=== PATIENT | female | born 1945 | race Caucasian/White ===

== ENCOUNTER 2020-11-10 16:23 | Outpatient (CLI) | payer MEDICARE, SELFPAY ==
--- NOTE | ~2020-11-10 | CT_ITS ---
EXAMINATION:CT lung screening DATE: 11/10/2020 17:06 INDICATION: Personal history of tobacco dependence. Current smoker with 36 pack year history. TECHNIQUE: Computed tomography (CT) of the chest was performed without intravenous contrast. Automate d exposure control and iterative reconstruction technique were employed. The dose-length product (DLP ) was 112.11 mGy-cm. COMPARISON: Chest CT 02/23/2019 FINDINGS: There is mild emphysema. There is stable mild scarring at the lung apices. There is mild de pendent atelectasis bilaterally. There is a stable 5 mm nodule in right upper lobe. No pleural effusi on. The heart size is normal. There are coronary artery calcifications. No pericardial effusion. Ther e is mild thoracic spondylosis. IMPRESSION: 1. Lung-RADS category 2: Benign appearance or behavior. Continue annual screening with noncontrast lo w-dose chest CT in 12 months. Reviewed, dictated and finalized at location A. 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 Lung-RADS category 2: Benign appearance or behavior. Continue annual screeni ng with noncontrast low-dose chest CT in 12 months.
--- NOTE | ~2020-11-10 | MM_ITS ---
EXAMINATION: MM screening cinda BI w viky HISTORY: Screening mammogram TECHNIQUE: Craniocaudal and mediolateral oblique 3-D tomosynthesis images were obtained and synthetic 2-D images were generated. CAD analysis was submitted and interpreted. COMPARISON: 05/01/2018 diagnostic left digital mammogram 04/15/2018, 12/05/2016 bilateral digital screening mammogram examinations BREAST PARENCHYMAL COMPOSITION: The breasts are almost entirely fatty. FINDINGS: There is no evidence of suspicious mass, calcification, or architectural distortion to sugg est malignancy in either breast. There has been no suspicious interval change. IMPRESSION: 1. No mammographic evidence of malignancy. 2. Recommend routine screening mammography in one year. BI-RADS Category 1: Negative Reviewed, dictated and finalized at location A. 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
== END 2020-11-10 16:24 | disposition home or self-care (01) ==
PROVIDERS: PCP Internal Medicine; Visit Provider Internal Medicine
DX: Z12.31 Encounter for screening mammogram for malignant neoplasm of breast (principal); Z12.2 Encounter for screening for malignant neoplasm of respiratory organs; Z87.891 Personal history of nicotine dependence
CPT/HCPCS: 71271; 77063; 77067

== ENCOUNTER 2022-05-01 18:16 | Emergency (ER) | payer MEDICARE, SELFPAY ==
--- NOTE | ~2022-05-01 | XR_ITS ---
EXAMINATION: XR finger 2nd LT min 2V DATE: 05/01/2022 21:19 INDICATION: Left hand second digit laceration. TECHNIQUE: 4 views of left hand second digit were obtained. COMPARISON: Left hand radiographs 05/14/2006 FINDINGS: There is mild hyperextension of second proximal interphalangeal joint. No fracture. There i s mild osteoarthritis of second proximal and distal interphalangeal joints. There is a laceration of the distal digit. No radiopaque foreign body. IMPRESSION: 1. Mild polyarticular osteoarthritis. Reviewed, dictated and finalized at location A.
[2022-05-01 18:24] VITALS: BP 148/78; PULSE 98; RESP 18; TEMP 36.7; O2SAT 100
--- NOTE | 2022-05-01 21:06 | ED.WOUNDLAC ---
HPI - Wound/Laceration General Chief Complaint: Wound/Laceration Stated Complaint: left index finger laceration Time Seen by Provider: 05/01/22 20:04 Source: patient Mode of arrival: ambulatory Limitations: no limitations History of Present Illness HPI narrative: Patient is a 76-year-old female who presents in the ED with report of a laceration to her left second digit. Patient reports she was chopping cabbage around 1 PM today when she sustained a laceration. She wrapped her finger with a pressure dressing, but reports that it still bled, which prompted her presentation to the ED. No blood thinners. No numbness, tingling. Tetanus status unknown. Related Data Home Medications Medication Instructions Recorded Confirmed cholecalciferol (vitamin D3) 125 125 mcg PO DAILY 09/05/20 05/03/21 mcg (5,000 unit) capsule multivit with 1 tablet PO DAILY 09/05/20 05/03/21 yczoqirp-lshp-BV-lutein 8 mg iron-400 mcg-300 mcg tablet (Centrum Silver Women) Allergies Allergy/AdvReac Type Severity Reaction Status Date / Time VONNIE Inhibitors Allergy Unknown Unknown Verified 05/01/22 20:19 erythromycin base Allergy Unknown Unknown Verified 05/01/22 20:19 Macrolide Antibiotics Allergy Unknown Unknown Verified 05/01/22 20:19 olmesartan Allergy Unknown Confusion Verified 05/01/22 20:19 prednisone Allergy Unknown Unknown Verified 05/01/22 20:19 secobarbital Allergy Unknown HIVES Verified 05/01/22 20:19 cefuroxime [From Ceftin] AdvReac Mild Diarrhea Verified 05/01/22 20:19 Review of Systems Review of Systems: CONSTITUTIONAL: Denies fever. SKIN: Reports laceration to left second digit. MUSCULOSKELETAL: Denies joint pain. NEUROLOGIC: Denies tingling, numbness, or weakness. All systems reviewed & are unremarkable except as noted in HPI and below PMFSH Past Medical History Medical History (Updated 05/01/22 @ 22:16 by Rosemarie Brannon PA-C) Anxiety with depression Benign essential hypertension BMI 33.0-33.9,adult BMI 34.0-34.9,adult Colon cancer screening COPD (chronic obstructive pulmonary disease) DJD (degenerative joint disease), multiple sites DM type 2 (diabetes mellitus, type 2) Encounter for routine adult health examination without abnormal findings Encounter for screening mammogram for malignant neoplasm of breast Hiatal hernia History of falling Hyperlipidemia Injury, head Nicotine abuse On fdc drug therapy Parkinsonism Personal history of nicotine dependence Vision changes Vitamin D deficiency Surgical History Surgical History (Updated 05/01/22 @ 21:08 by Rosemarie Brannon PA-C) History of colonoscopy Family History Family History Mother Family history of diabetes mellitus in first degree relative Diabetes mellitus Father Family history of emphysema Family history of cardiovascular disease Family history of lung disease Family history of heart disease in male family member before age 55 Other Family history of malignant neoplasm Hypertension Social History Social History Smoking status: Current every day smoker Alcohol intake: never Exam Narrative: GENERAL: Well appearing, well-nourished, non-toxic, in no acute distress. HEAD: Normocephalic, atraumatic. NECK: Supple. No adenopathy, no masses. RESPIRATORY: Airway patent, respirations nonlabored. CARDIOVASCULAR: Regular rate and rhythm without murmurs, rubs, or gallops. Radial pulses 2+ and equal bilaterally. MUSCULOSKELETAL: Moves all extremities. Strength/ROM intact. Sensation intact. Curvilinear superficial flap laceration to distal second digit of left hand on flexor surface of digit extending laterally. SKIN: Warm, dry, normal color. No rashes. NEURO: A&O X3. Speech clear. Cranial nerves II-XII grossly intact. Steady gait. No ataxic movements. PSYCHIATRIC: Appropriate mood and affect. Normal interaction. Course Vital S
[2022-05-01] MEDS: TETANUS,DIPHTHERIA,AC PERTUSSIS ADULT (0.5 ML) BOOSTRIX IM (21:38)
[2022-05-01 22:35] VITALS: BP 152/96; PULSE 93; RESP 18; TEMP 36.3; O2SAT 96
== END 2022-05-01 22:35 | disposition home or self-care (01) ==
PROVIDERS: Emergency Provider Emergency Medicine; PCP Internal Medicine
DX: S61.211A Laceration without foreign body of left index finger without damage to nail, initial encounter (principal); Z23 Encounter for immunization; J44.9 Chronic obstructive pulmonary disease, unspecified; E11.9 Type 2 diabetes mellitus without complications; E78.5 Hyperlipidemia, unspecified; G20 Parkinson's disease; M19.042 Primary osteoarthritis, left hand; F17.200 Nicotine dependence, unspecified, uncomplicated; E55.9 Vitamin D deficiency, unspecified; F41.9 Anxiety disorder, unspecified; Z79.84 Long term (current) use of oral hypoglycemic drugs; W26.0XXA Contact with knife, initial encounter; Y93.G1 Activity, food preparation and clean up
CPT/HCPCS: 12001; 73140; 90471; 90715; 99283

== ENCOUNTER 2022-05-24 16:19 | Outpatient (CLI) | payer MEDICARE, SELFPAY ==
--- NOTE | ~2022-05-24 | CT_ITS ---
EXAMINATION: CT lung screening DATE: 05/24/2022 16:34 INDICATION: Personal history of nicotine dependence, current smoker with 37 pack year history TECHNIQUE: Computed tomography (CT) of the chest was performed without intravenous contrast. The dose -length product (DLP) was 102.57 mGy-cm. 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 COMPARISON: 11/10/2020 FINDINGS: There is mild emphysema. There is a stable 5 mm nodule of the right upper lobe. No new pulm onary nodules are identified. There is scarring of the lung apices. No pleural effusion or pneumothor ax. No pathologically enlarged thoracic lymph nodes are identified. The heart size is normal. Calcifi ed coronary artery atherosclerosis is noted. Areas of subendocardial fat deposition in the heart may reflect prior myocardial infarction. There is mild thoracic spondylosis. IMPRESSION: 1. Lung-RADS category 2: Benign appearance or behavior. Continue annual screening with noncontrast lo w-dose chest CT in 12 months. Reviewed, dictated and finalized at location B. IMPRESSION: 1. Lung-RADS category 2: Benign appearance or behavior. Continue annual screeni ng with noncontrast low-dose chest CT in 12 months.
== END 2022-05-24 16:20 | disposition home or self-care (01) ==
PROVIDERS: PCP Internal Medicine; Visit Provider Internal Medicine
DX: Z12.2 Encounter for screening for malignant neoplasm of respiratory organs (principal); F17.210 Nicotine dependence, cigarettes, uncomplicated
CPT/HCPCS: 71271

== ENCOUNTER 2022-07-20 10:33 | Emergency (ER) | payer MEDICARE, SELFPAY ==
--- NOTE | ~2022-07-20 | CT_ITS ---
EXAMINATION: CT facial & cervical spine wo DATE: 07/20/2022 13:14 INDICATION: Nose injury. TECHNIQUE: Computed tomography (CT) of the maxillofacial region and cervical spine was performed with out intravenous contrast. Automated exposure control and iterative reconstruction technique were empl oyed. The dose-length product was 418.44 mGy-cm. COMPARISON: CT cervical spine 04/13/2019, maxillofacial CT 03/04/2017 FINDINGS: MAXILLOFACIAL CT: There is a frontal scalp hematoma. There are likely changes of ocular lens replacement surgeries. The re is rightward deviation of the nasal septum. There are fractures of the nasal bones. There is mild mucosal thickening in the paranasal sinuses. The mastoid air cells are normal. CERVICAL SPINE CT: There is mild emphysema. There is mild scarring at the lung apices. There is kyphosis of cervical spi ne. There is 6 degrees levocurvature of cervical spine. There is 2 mm retrolisthesis of C5 on C6. Constantin tebral body heights are normal. There is moderately decreased disc height at C4-C5 and C5-C6. The fol lowing disc levels are specifically discussed: C2-C3: There is no uncovertebral joint osteoarthritis. There is mild bilateral facet joint osteoarthr itis. There is no neural foraminal stenosis. There is no central canal stenosis. C3-C4: There is mild bilateral uncovertebral joint osteoarthritis. There is no facet joint osteoarthr itis. There is no neural foraminal stenosis. There is no central canal stenosis. C4-C5: There is severe right and mild left uncovertebral joint osteoarthritis. There is mild bilatera l facet joint osteoarthritis. There is mild right neural foraminal stenosis. There is mild central ca nal stenosis. C5-C6: There is severe bilateral uncovertebral joint osteoarthritis. There is mild bilateral facet andres int osteoarthritis. There is moderate bilateral neural foraminal stenosis. There is mild central tona l stenosis. C6-C7: There is mild right uncovertebral joint osteoarthritis. There is mild bilateral facet joint os teoarthritis. There is no neural foraminal stenosis. There is no central canal stenosis. C7-T1: There is no uncovertebral joint osteoarthritis. There is moderate bilateral facet joint osteoa rthritis. There is no neural foraminal stenosis. There is no central canal stenosis. IMPRESSION: 1. Age-indeterminate fracture deformities of the nasal bones. 2. Moderate cervical spondylosis. Reviewed, dictated and finalized at location A.
--- NOTE | ~2022-07-20 | XR_ITS ---
XR elbow LT 2V DATE: 07/20/2022 13:23 INDICATION: Fall last night. Left elbow pain, posterior abrasion TECHNIQUE: AP and lateral views COMPARISON: None FINDINGS: No fracture or dislocation or joint effusion. No periosteal reaction or bone destruction. IMPRESSION: Negative Reviewed, dictated and finalized at location A. IMPRESSION: Negative
--- NOTE | ~2022-07-20 | CT_ITS ---
EXAMINATION: CT brain wo con DATE: 07/20/2022 13:14 INDICATION: Head injury. Vertigo. TECHNIQUE: Computed tomography (CT) of the head was performed without intravenous contrast. The mA wa s adjusted according to patient size. Iterative reconstruction technique was employed. The dose-lengt h product was 605.33 mGy-cm. COMPARISON: Head CT 04/13/2019 FINDINGS: There are scattered areas of low attenuation in the cerebral white matter. There is no intr acranial hemorrhage, acute infarction, or abnormal intracranial mass lesion. The ventricles are jessica l in size. There are likely changes of ocular lens replacement surgeries. There is an anterior scalp hematoma. The paranasal sinuses are clear. The mastoid air cells are normal. IMPRESSION: 1. Mild nonspecific cerebral white matter disease, which likely represents chronic small vessel ische ingrid disease. Reviewed, dictated and finalized at location A. IMPRESSION: 1. 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
[2022-07-20 10:52] VITALS: BP 131/88; PULSE 91; RESP 16; TEMP 36.4; O2SAT 98
--- NOTE | 2022-07-20 12:46 | ECG_ITS ---
Measurements Intervals [place] Rate: 78 P: 65 [place]: 161 QRS: 36 QRSD: 96 T: 81 QT: 399 QTc: 456 Interpretive Statements SINUS RHYTHM DELAYED PRECORDIAL R/S TRANSITION LOW QRS VOLTAGE IN PRECORDIAL LEADS BORDERLINE ST-T WAVE ABNORMALITY- ANT/HIGH LAT LEADS BASELINE ARTIFACT- I, III, AVL BORDERLINE ECG NO PREVIOUS ECG AVAILABLE FOR COMPARISON Electronically Signed On 07-20-2022 14:16:25 CDT by Terry Maxwell D.O.
--- NOTE | 2022-07-20 13:04 | ED.FALL ---
HPI - Fall General Chief Complaint: Fall Stated Complaint: Fall, head injury Time Seen by Provider: 07/20/22 12:05 History of Present Illness HPI Narrative: This is a 76-year-old female past medical history of BPPV, Parkinson's, diabetes, who presents to the emergency department after multiple falls last night. Patient states yesterday evening she was walking on her porch, when she had a sudden onset of vertigo leading to fall, striking her head. She states this episode of vertigo was similar to previous episodes of BPPV. She states she fell asleep. The patient states she was weak and unable to lift her self from the ground, she attempted to stand and walk 2 additional times and fell 2 additional times both times striking her head. She believes she was on the ground for approximately 5 hours. She complains of some tenderness of the bilateral elbows and knees, the left elbow greatest of all. She also complains of 8 out of 10 dull headache greatest at the frontal region without radiation. Related Data Home Medications Medication Instructions Recorded Confirmed cholecalciferol (vitamin D3) 125 125 mcg PO DAILY 09/05/20 05/15/22 mcg (5,000 unit) capsule multivit with 1 tablet PO DAILY 09/05/20 05/15/22 vptqgdfw-hajo-XA-lutein 8 mg iron-400 mcg-300 mcg tablet (Centrum Silver Women) Allergies Allergy/AdvReac Type Severity Reaction Status Date / Time VONNIE Inhibitors Allergy Unknown Unknown Verified 05/14/22 13:38 erythromycin base Allergy Unknown Unknown Verified 05/14/22 13:38 Macrolide Antibiotics Allergy Unknown Unknown Verified 05/14/22 13:38 olmesartan Allergy Unknown Confusion Verified 05/14/22 13:38 prednisone Allergy Unknown Unknown Verified 05/14/22 13:38 secobarbital Allergy Unknown HIVES Verified 05/14/22 13:38 cefuroxime [From Ceftin] AdvReac Mild Diarrhea Verified 05/14/22 13:38 Review of Systems Review of Systems: CONSTITUTIONAL: Denies fever, chills, or sweats. EYES: Denies visual changes, redness, or discharge. ENT: Denies rhinorrhea, congestion, sore throat, or otalgia. CARDIOVASCULAR: Denies chest pain, palpitations, or edema. RESPIRATORY: Denies cough or dyspnea. GASTROINTESTINAL: Denies abdominal pain, nausea, vomiting, or diarrhea. GENITOURINARY: Denies dysuria or hematuria. SKIN: Denies rash or itching. MUSCULOSKELETAL: Bilateral elbow and knee pain, left elbow greatest of all; denies back pain, joint pain, or myalgia. NEUROLOGIC: Headache, intermittent vertigo denies numbness, dizziness, or weakness. PSYCHIATRIC: Denies anxiety or depression. [facility] Past Medical History Medical History Anxiety with depression Benign essential hypertension BMI 30.0-30.9,adult BMI 33.0-33.9,adult BMI 34.0-34.9,adult Colon cancer screening COPD (chronic obstructive pulmonary disease) DJD (degenerative joint disease), multiple sites DM type 2 (diabetes mellitus, type 2) Encounter for routine adult health examination without abnormal findings Encounter for screening mammogram for malignant neoplasm of breast Hiatal hernia History of falling Hyperlipidemia Injury, head Laceration of finger of left hand Nicotine abuse Non-intractable vomiting On correction drug therapy Pain of left calf Parkinsonism Personal history of nicotine dependence Sebaceous cyst Shortness of breath Slurred speech Swollen lip Vision changes Vitamin D deficiency Surgical History Surgical History History of colonoscopy Family History Family History Mother Family history of diabetes mellitus in first degree relative Diabetes mellitus Father Family history of emphysema Family history of cardiovascular disease Family history of lung disease Family history of heart disease in male family member before age 55 Other Family history of malignant neoplasm Hyperten
[2022-07-20 13:16] LABS: Basophils Percent Auto 0.3 % (0.2-1.2); Eosinophils Percent Auto 0.4 % (0-4.4); Hematocrit 39.9 % (37.0-47.0); Hemoglobin 13.1 g/dL (12.0-15.0); Immature Granulocyte Absolute 0.05 K/mm3 (0.00-0.031); Immature Granulocyte Percent A 0.5 % (0-0.5); Lymphocytes Absolute Auto 1.34 K/mm3 (0.9-3.2); Lymphocytes Percent Auto 12.5 % (18.3-44.2); Mean Corpuscular HGB Conc 32.8 g/dl (32-36); Mean Corpuscular Volume 97.6 fl (80-100); Mean Platelet Volume 9.4 fl (7.4-10.4); Monocytes Percent Auto 9.1 % (2.6-8.5); Neutrophils Absolute Auto 8.3 K/mm3 (1.3-6.7); Neutrophils Percent Auto 77.2 % (45.5-73.1); Platelet Count Result 299 k/mm3 (150-375); Red Blood Count 4.09 M/mm3 (4.2-5.4); White Blood Count 10.7 K/mm3 (4.5-10.0)
[2022-07-20 13:18] LABS: Alanine Aminotransferase 15 U/L (6-35); Alkaline Phosphatase 130 U/L (38-126); Anion Gap 15 mmol/L (8-16); Aspartate Amino Transferase 59 U/L (14-36); Bilirubin,Total 0.7 mg/dL (0.2-1.3); Blood Urea Nitrogen 27 mg/dL (7-17); Calcium 8.7 mg/dL (8.4-10.2); Carbon Dioxide 25 mmol/L (22-30); Chloride 96 mmol/L (98-107); Creatine Kinase 1202 U/L (30-135); Estimated CRCL calculation 54 ml/min; Estimated Glomerular Filt Rate > 60; Glucose 119 mg/dL (65-110); Potassium 3.7 mmol/L (3.4-5.0); Sodium 136 mmol/L (137-145)
[2022-07-20] MEDS: SODIUM CHLORIDE 0.9% IV 1,000 ML 999 ML IV CONT ×2 (14:23→16:00)
[2022-07-20 15:52] LABS: Creatine Kinase 1256 U/L (30-135)
[2022-07-20 17:41] VITALS: BP 135/79; PULSE 85; RESP 18; O2SAT 100
== END 2022-07-20 17:42 | disposition home or self-care (01) ==
PROVIDERS: Emergency Provider Preventive Medicine Aerospace Medicine; PCP Internal Medicine
DX: S00.83XA Contusion of other part of head, initial encounter (principal); S50.02XA Contusion of left elbow, initial encounter; S50.01XA Contusion of right elbow, initial encounter; R79.89 Other specified abnormal findings of blood chemistry; H81.10 Benign paroxysmal vertigo, unspecified ear; G20 Parkinson's disease; E11.9 Type 2 diabetes mellitus without complications; I10 Essential (primary) hypertension; J44.9 Chronic obstructive pulmonary disease, unspecified; E78.5 Hyperlipidemia, unspecified; E55.9 Vitamin D deficiency, unspecified; F41.8 Other specified anxiety disorders; F17.200 Nicotine dependence, unspecified, uncomplicated; Z79.84 Long term (current) use of oral hypoglycemic drugs; R94.31 Abnormal electrocardiogram [ECG] [EKG]; W19.XXXA Unspecified fall, initial encounter
CPT/HCPCS: 36415; 70450; 70486; 72125; 73070; 80053; 82550; 85025; 93005; 96361; 96365; 99284; J0131; J7030

== ENCOUNTER 2022-07-27 10:34 | Inpatient (IN) | payer MEDICARE, SELFPAY ==
[2022-07-27] VITALS (29 sets, daily range): BP systolic 106–152; BP diastolic 59–105; PULSE 91–113; RESP 19–42; TEMP 36.6–37.6; O2SAT 93–100; BMI 30.1
--- NOTE | ~2022-07-27 | XR_ITS ---
EXAMINATION: XR chest 2V DATE: 07/27/2022 11:57 INDICATION: Weakness, multiple falls TECHNIQUE: AP and lateral views of the chest are obtained. COMPARISON: 08/16/2015 FINDINGS: There are minimal airspace opacities of the lung bases. Small pleural effusions are present . There is no pneumothorax. The cardiomediastinal silhouette is normal. There is moderate thoracic sp ondylosis. IMPRESSION: 1. Minimal bibasilar airspace opacity, consistent with atelectasis versus pneumonia. 2. Small pleural effusions. Reviewed, dictated and finalized at location B. OLOGY TEACHER IMPRESSION: 1. Minimal bibasilar airspace opacity, consistent with atelectasis versus pneum onia. 2. Small pleural effusions.
--- NOTE | ~2022-07-27 | XR_ITS ---
EXAMINATION: XR knee RT min 4V DATE: 07/27/2022 11:58 INDICATION: Right knee pain TECHNIQUE: Four views of the right knee were obtained. COMPARISON: None. FINDINGS: Alignment is normal. No fracture or osteochondral lesion. There is mild tricompartmental os teoarthritis characterized by tiny marginal osteophytes. No joint effusion/synovitis. Soft tissues a re unremarkable. IMPRESSION: 1. No acute osseous abnormality. Reviewed, dictated and finalized at location B. K PULLER
--- NOTE | ~2022-07-27 | CT_ITS ---
EXAMINATION: CT brain wo con INDICATION: Multiple falls, altered mental status COMPARISON: 07/20/2022 TECHNIQUE: Standard unenhanced head CT. The dose-length product (DLP) was 605.33 mGy-cm. The mA was a djusted according to patient size. Iterative reconstruction technique was employed. FINDINGS: There is no acute intraparenchymal hemorrhage. No evidence of mass lesion. No evidence of a cute infarction. There is an old lacunar infarct of the left basal ganglia. There is mild periventric ular and subcortical hypodensity probably related to small vessel ischemic disease. There is mild pro minence of the sulci and ventricles related to cerebral atrophy. Intracranial calcified cerebral athe rosclerosis is noted. There are no extra-axial collections. There is no mass effect or midline shift. Changes in the globes are likely from ocular lens surgery. There is mild mucosal thickening of the p aranasal sinuses. IMPRESSION: 1. No acute intracranial abnormality. 2. Age related findings. Reviewed, dictated and finalized at location B. ACOUSTIC OPERATOR
--- NOTE | ~2022-07-27 | US_ITS ---
US venous doppler UE DATE: 07/29/2022 13:07 INDICATION: Tachypnea TECHNIQUE: Real-time and color flow imaging and Doppler analysis of the veins of the upper extremitie s COMPARISON: None FINDINGS: The jugular, subclavian, axillary, brachial, basilic, cephalic and radial and ulnar veins a re patent bilaterally, without evidence of intraluminal thrombus incomplete compression. IV catheter is noted in the left cephalic vein. IMPRESSION: No evidence of deep venous anastomosis of the upper extremities Reviewed, dictated and finalized at Location A. Reviewed, dictated and finalized at location A. BOTTOMER
--- NOTE | ~2022-07-27 | XR_ITS ---
EXAMINATION: XR knee LT min 4V DATE: 07/27/2022 11:58 INDICATION: Left knee pain TECHNIQUE: Four views of the left knee were obtained. COMPARISON: None. FINDINGS: Alignment is normal. No fracture or osteochondral lesion. There is mild tricompartmental os teoarthritis characterized by tiny marginal osteophytes. No joint effusion/synovitis. Soft tissues a re unremarkable. IMPRESSION: 1. No acute osseous abnormality. Reviewed, dictated and finalized at location B. E DELIVERY SUPERVISOR
--- NOTE | ~2022-07-27 | US_ITS ---
US renal BI DATE: 07/29/2022 13:08 INDICATION: Acute renal insufficiency TECHNIQUE: Real-time imaging of kidneys and urinary bladder COMPARISON: None FINDINGS: The right kidney measures approximately 10.2 cm length, left kidney 12 cm length. No apparent renal mass lesion is evident on this limited examination. No hydronephrosis is detected. IMPRESSION: Limited examination; consider CT examination for more optimal demonstration of the kidney s Reviewed, dictated and finalized at Location A. Reviewed, dictated and finalized at location A. GER OF ENTERPRISE IMPRESSION: Limited examination; consider CT examination for more optimal demon stration of the kidneys
--- NOTE | ~2022-07-27 | XR_ITS ---
XR hip LT 2V w AP pelvis DATE: 07/28/2022 18:50 INDICATION: Left anterior thigh pain TECHNIQUE: AP pelvis. AP and lateral views of left hip. COMPARISON: None FINDINGS: No pelvic fracture or bone destruction. The pubic symphysis and sacroiliac joints are intac t. No fracture or dislocation, avascular necrosis or bone destruction of the left hip. Hip joint spac es are symmetric and well preserved. Abdominal aortic and iliac arterial calcifications. IMPRESSION: No significant bony abnormality of the pelvis or left hip Reviewed, dictated and finalized at location A. AL OPERATOR
--- NOTE | ~2022-07-27 | XR_ITS ---
EXAMINATION: XR tibia fibula LT 2V INDICATION: Left leg pain TECHNIQUE: Two views of the left tibia and fibula are obtained. COMPARISON: None available FINDINGS: No fracture, dislocation, or subluxation. The bones, soft tissues, and joint spaces are nor mal. IMPRESSION: 1. No acute osseous abnormality. Reviewed, dictated and finalized at location B. I OPERATION FORMING MACHINE SETTER
--- NOTE | ~2022-07-27 | US_ITS ---
US venous doppler [facility] DATE: 07/29/2022 13:06 INDICATION: Tachypnea TECHNIQUE: Real-time and color flow imaging and Doppler analysis of the veins of the lower extremitie s COMPARISON: None FINDINGS: There is spontaneous and phasic flow and normal augmentation and color flow signal and norm al compression of the veins of both lower extremities. IMPRESSION: No evidence of deep venous thrombosis of the lower extremities Reviewed, dictated and finalized at Location A. Reviewed, dictated and finalized at location A. [employer]
--- NOTE | ~2022-07-27 | CT_ITS ---
EXAMINATION: CT facial & cervical spine wo DATE: 07/27/2022 12:05 INDICATION: Neck pain and facial bruising TECHNIQUE: Computed tomography (CT) of the maxillofacial region and cervical spine was performed with out intravenous contrast. The dose-length product (DLP) was 398.59 mGy-cm. Automated exposure control and iterative reconstruction technique were employed. COMPARISON: 07/20/2022 FINDINGS: MAXILLOFACIAL CT: Again noted are age indeterminate fractures of the nasal bones. No definite new facial fracture is id entified. There is mild mucosal thickening of the paranasal sinuses. There is rightward deviation of the nasal septum. CERVICAL SPINE CT: There are 2 mm of retrolisthesis of C5 on C6. The vertebral body heights are normal. There is moderat e loss of intervertebral disc space height at C4-5 and C5-6. The odontoid is intact. There is no frac ture. Small degenerative osteophytes project from the anterior endplates of multiple vertebral bodies . IMPRESSION: 1. Age indeterminate bilateral nasal bone fractures. 2. Moderate cervical spondylosis without acute findings or significant interval change. Reviewed, dictated and finalized at location B. PRESIDENT OF TALENT MANAGEMENT
--- NOTE | 2022-07-27 10:36 | ECG_ITS ---
Measurements Intervals [place] Rate: 100 P: 56 [place]: 111 QRS: 0 QRSD: 90 T: 53 QT: 348 QTc: 450 Interpretive Statements SINUS TACHYCARDIA WITH SHORT MI INTERVAL ATRIAL PREMATURE COMPLEX LOW QRS VOLTAGE IN PRECORDIAL LEADS BORDERLINE R WAVE PROGRESSION, ANTERIOR LEADS BASELINE ARTIFACT- I, II, III, AVR, AVL, AVF, V1-V6 BORDERLINE ECG COMPARED TO ECG 07/20/2022 14:09:06 SINUS TACHYCARDIA NOW PRESENT Electronically Signed On 07-27-2022 11:55:02 SULFATE DRIER MACHINE OPERATOR by Terry Maxwell D.O.
[2022-07-27 10:55] LABS: Basophils Absolute Auto 0.1 K/mm3 (0.0-0.1); Basophils Percent Auto 0.4 % (0.2-1.2); Eosinophils Percent Auto 0.2 % (0-4.4); Hematocrit 34.1 % (37.0-47.0); Hemoglobin 11.6 g/dL (12.0-15.0); Immature Granulocyte Absolute 0.13 K/mm3 (0.00-0.031); Immature Granulocyte Percent A 0.8 % (0-0.5); Lymphocytes Absolute Auto 1.23 K/mm3 (0.9-3.2); Lymphocytes Percent Auto 7.2 % (18.3-44.2); Mean Corpuscular Hemoglobin 31.5 pg (26-34); Mean Corpuscular Volume 92.7 fl (80-100); Mean Platelet Volume 9.3 fl (7.4-10.4); Monocytes Absolute Auto 0.9 K/mm3 (0.1-0.6); Neutrophils Absolute Auto 14.8 K/mm3 (1.3-6.7); Neutrophils Percent Auto 86.4 % (45.5-73.1); Platelet Count Result 343 k/mm3 (150-375); Red Blood Count 3.68 M/mm3 (4.2-5.4); Red Cell Distribution Width 13.3 % (11.5-14.5); White Blood Count 17.1 K/mm3 (4.5-10.0)
--- NOTE | 2022-07-27 11:08 | ED.WEAKNESS ---
HPI - Weakness General Chief complaint: Weakness <NAYANA Lares Last Filed: 07/27/22 16:36> Stated complaint: weakness and falls <NAYANA Lares Last Filed: 07/27/22 16:36> Time Seen by Provider: 07/27/22 10:59 <NAYANA Lares Last Filed: 07/27/22 16:36> Source: patient, family and old records reviewed <NAYANA Lares Last Filed: 07/27/22 16:36> Mode of arrival: EMS <NAYANA Lares Last Filed: 07/27/22 16:36> Limitations: no limitations <NAYANA Lares Last Filed: 07/27/22 16:36> History of Present Illness HPI Narrative: Patient is a 76-year-old female who presents the ED via with report of weakness and frequent falls. Patient family at bedside assisted in providing information. They report patient has had several falls within the last 1 week. She does have scattered bruising on exam, different stages of healing. She was evaluated in the ED on 07/20 after a fall in which she laid on the ground for 5 hours. She was found to be in very mild rhabdo, given 2 L of fluid, refused admission at that time. Patient continues to feel very weak and fatigued. Several areas of pain, bilateral knees, left sexton, head/face. Unknown LOC with fall today. <NAYANA Lares Last Filed: 07/27/22 16:36> Related Data Home medications: Home Medications Medication Instructions Recorded Confirmed cholecalciferol (vitamin D3) 125 125 mcg PO DAILY 09/05/20 07/27/22 mcg (5,000 unit) capsule multivit with 1 tablet PO DAILY 09/05/20 07/27/22 aikyrgdw-noof-LO-lutein 8 mg iron-400 mcg-300 mcg tablet (Centrum Silver Women) carbidopa 25 mg-levodopa 100 mg 1 tablet PO QID 07/27/22 07/27/22 tablet fluticasone propionate 50 2 spray intranasal DAILY 07/27/22 07/27/22 mcg/actuation nasal spray,suspension losartan 50 mg tablet 50 mg PO DAILY 07/27/22 07/27/22 meclizine 25 mg tablet 25 mg PO TID 07/27/22 07/27/22 metformin 500 mg tablet 500 mg PO BIDWM 07/27/22 07/27/22 paroxetine HCl 20 mg tablet 20 mg PO DAILY 07/27/22 07/27/22 pravastatin 20 mg tablet 20 mg PO DAILY 07/27/22 07/27/22 <Rosemarie Beck PA-C - Last Filed: 07/27/22 16:36> Allergies/Adverse reactions: Allergies Allergy/AdvReac Type Severity Reaction Status Date / Time VONNIE Inhibitors Allergy Unknown Unknown Verified 05/14/22 13:38 erythromycin base Allergy Unknown Unknown Verified 05/14/22 13:38 Macrolide Antibiotics Allergy Unknown Unknown Verified 05/14/22 13:38 olmesartan Allergy Unknown Confusion Verified 05/14/22 13:38 prednisone Allergy Unknown Unknown Verified 05/14/22 13:38 secobarbital Allergy Unknown HIVES Verified 05/14/22 13:38 cefuroxime [From Ceftin] AdvReac Mild Diarrhea Verified 05/14/22 13:38 <Rosemarie Beck PA-C - Last Filed: 07/27/22 16:36> Review of Systems Review of Systems: CONSTITUTIONAL: Reports fatigue. Denies fever, chills, or sweats. CARDIOVASCULAR: Denies chest pain. RESPIRATORY: Denies dyspnea. GASTROINTESTINAL: Denies abdominal pain, nausea, vomiting. SKIN: Reports scattered ecchymosis. MUSCULOSKELETAL: Reports pain to bilateral knees, L sexton, face/head. NEUROLOGIC: Reports generalized weakness, HI. Denies numbness. <NAYANA Lares Last Filed: 07/27/22 16:36> All systems reviewed & are unremarkable except as noted in HPI and below <NAYANA Lares Last Filed: 07/27/22 16:36> PMFSH Past Medical History Medical History: Medical History (Updated 07/27/22 @ 18:31 by Ivonne Manzo NP) Anxiety with depression Benign essential hypertension BMI 30.0-30.9,adult BMI 33.0-33.9,adult BMI 34.0-34.9,adult Colon cancer screening COPD (chronic obstructive pulmonary disease) Depression DJD (degenerative joint disease), multiple sites DM type 2 (diabetes mellitus, type 2) Encounter for routine adult health examination without abnormal findings Encounter f
[2022-07-27 12:31] LABS: Creatine Kinase 84 U/L (30-135)
[2022-07-27 12:43] LABS: Troponin I 0.316 ng/mL (0.000-0.034)
[2022-07-27 12:49] LABS: Influenza A QL RT-PCR Negative (Negative); Influenza B QL RT-PCR Negative (Negative); SARS-CoV-2 RNA PCR Negative
[2022-07-27 13:32] LABS: Alanine Aminotransferase 37 U/L (6-35); Albumin Level 2.8 g/dL (3.5-5.1); Alkaline Phosphatase 223 U/L (38-126); Anion Gap 13 mmol/L (8-16); Aspartate Amino Transferase 37 U/L (14-36); Bilirubin,Total 0.8 mg/dL (0.2-1.3); Blood Urea Nitrogen 30 mg/dL (7-17); Calcium 8.2 mg/dL (8.4-10.2); Carbon Dioxide 18 mmol/L (22-30); Chloride 103 mmol/L (98-107); Estimated Glomerular Filt Rate 40; Glucose 140 mg/dL (65-110); Potassium 3.8 mmol/L (3.4-5.0); Sodium 134 mmol/L (137-145)
[2022-07-27 13:57] LABS: Appearance Urine Turbid (Clear); Bilirubin Urine 2+ (Negative); Blood Urine 2+ (Negative); Color Urine Yellow (Yellow); Glucose Urine UA Negative (Negative); Ketones Urine 1+ mg/dL (Negative); Leukocyte Esterase Ur 2+ LEU/UL (Negative); Nitrate Urine Negative (Negative); Protein Urine 2+ mg/dL (Negative); Specific Grav Ur 1.015 (1.001-1.035)
[2022-07-27 14:12] LABS: Lactic Acid Reflex 1.3 mmol/L (0.7-2.0)
[2022-07-27 14:16] LABS: Bacteria Urine 1+ /hpf; RBC Urine 21-50 /hpf (0-2); Squamous Epithelial Cell Urine Moderate /hpf (Few); WBC Clumps Urine Present /HPF; WBC Urine >75 /hpf
[2022-07-27 14:37] LABS: Add Urine Microscopic? YES
[2022-07-27] MEDS: SODIUM CHLORIDE 0.9% IV 1,000 ML 999 ML IV CONT (14:44)
--- NOTE | 2022-07-27 15:08 | PC.NURSE ---
Contacted [facility] about drawing labs. Informed it would take a while. Patient and family updated.
--- NOTE | 2022-07-27 15:15 | PM.IMHP ---
H&P: HPI History of Present Illness Date/Time: 07/27/22 15:15 Chief Complaint: Weakness and fall Narrative: This is a 76-year-old female patient who has had multiple falls. The patient has a history of Parkinson's and lives home alone. The daughter is at the bedside helping with the information. The patient fell a week ago last . The patient stated that she had received an [employer] package and went outside to get her pack each and all she remembers is that she was at the bottom of the steps. Patient has multiple bruises all over her face and her arms. She has an abrasion to her right hand. According to the daughter the patient has fallen 3 times this past week. The patient was evaluated in the emergency room on 07/20 after a fall where she had lay on the ground for 5 hours. The patient had mild rhabdo at that time she was given 2 L of fluid and refused admission at that time. Now the patient is back with complaints of fatigue and weakness. Head CT was read as the following 1. Age indeterminate bilateral nasal bone fractures. 2. Moderate cervical spondylosis without acute findings or significant interval change. Knee x-ray on the left was read as no acute osseous abnormality. Left tibia fibula no acute osseous abnormality. Right knee no acute osseous abnormality. Head CT no acute intracranial abnormality. Age-related findings. Chest x-ray minimal bibasilar airspace opacities consistent with atelectasis versus pneumonia. Small pleural effusions. White count is noted to be 17.1. H&H is 11.6 and 34.1. Last week her H&H was normal. Sodium slightly low at 134. Creatinine 1.3 with a previous normal kidney function. Troponin 0.316. The patient is denying any chest pain at this time. Urine appears to be infectious. Influenza a B and COVID are all found to be negative. The patient was started on IV fluids and Rocephin. The patient is being admitted to observation status on the date of service of 07/27/2022 Review of Systems Review of Systems: See HPI All systems reviewed & are unremarkable except as noted in HPI and below Constitutional: Constitutional: Reports as per HPI and Reports no additional constitutional complaints Eyes: Eyes: Reports as per HPI and Reports no additional eye complaints ENT: Reports system reviewed and no additional complaints, except as documented and Reports Normal hearing present Cardiovascular: Cardiovascular: Reports no additional cardiovascular complaints Respiratory: Respiratory: Reports no additional respiratory complaints and Reports no additional respiratory complaints Gastrointestinal: Gastrointestinal: Reports as per HPI and Reports no additional gastrointestinal complaints Musculoskeletal: Musculoskeletal: Reports no additional musculoskeletal complaints Integumentary/Breasts: Skin/Breast: Reports system reviewed and no additional complaints, except as docu and Reports as per HPI Neurologic: Reports system reviewed and no additional complaints, except as documented, Reports as per HPI and Reports Normal hearing present Psychiatric: Psychiatric: Reports no additional psychiatric complaints and Reports as per HPI Endocrine: Endocrine: Reports no additional endocrine complaints Hematologic/Lymphatic: Hematologic/Lymphatic: Reports no additional hematologic/lymphatic complaints Allergic/Immunologic: Allergic/Immunologic: Reports no additional allergic/immunologic complaints PMF Past Medical History Medical History (Updated 07/27/22 @ 18:31 by Ivonne Manzo NP) Anxiety with depression Benign essential hypertension BMI 30.0-30.9,adult BMI 33.0-33.9,adult BMI 34.0-34.9,adult Colon cancer screening COPD (chronic obstructive pulmonary disease) Depression DJD (degenerative joint disease), multiple sites DM type 2 (diabetes mellitus, type 2) Encounter for routine adult health examination without abnormal findings Encounter for screening mammogram for malignant neoplasm of breast
--- NOTE | 2022-07-27 18:35 | ADMGEN ---
This patient, Emilee Bagley, was admitted to IMU Room 206-02. Patient/family oriented to hospital policies and general routines including ID bracelet, bed and alarms, visiting hours, pain management, procedures, bathroom and other care routines, personal items, smoking policy, room service/diet, and visiting hours. Information on how to activate the Rapid Response Team has been discussed. Patient/Family are encouraged to report perceived risks to care and to ask questions if they do not understand what they are told or what they should do.
[2022-07-27 19:05] LABS: Troponin I 0.246 ng/mL (0.000-0.034)
[2022-07-27 21:03] LABS: Hemoglobin A1C 5.5 % (<5.7)
[2022-07-28] VITALS (19 sets, daily range): BP systolic 100–144; BP diastolic 42–83; PULSE 77–119; RESP 18–22; TEMP 35.9–38.2; O2SAT 94–100
[2022-07-28 04:33] LABS: Basophils Percent Auto 0.2 % (0.2-1.2); Eosinophils Absolute Auto 0.1 K/mm3 (0-0.3); Eosinophils Percent Auto 0.6 % (0-4.4); Hematocrit 29.8 % (37.0-47.0); Hemoglobin 9.9 g/dL (12.0-15.0); Immature Granulocyte Percent A 0.8 % (0-0.5); Lymphocytes Percent Auto 10.8 % (18.3-44.2); Mean Corpuscular HGB Conc 33.2 g/dl (32-36); Mean Corpuscular Hemoglobin 31.1 pg (26-34); Mean Corpuscular Volume 93.7 fl (80-100); Mean Platelet Volume 8.9 fl (7.4-10.4); Monocytes Absolute Auto 0.8 K/mm3 (0.1-0.6); Monocytes Percent Auto 6.4 % (2.6-8.5); Neutrophils Absolute Auto 10.6 K/mm3 (1.3-6.7); Neutrophils Percent Auto 81.2 % (45.5-73.1); Platelet Count Result 276 k/mm3 (150-375); Red Blood Count 3.18 M/mm3 (4.2-5.4); Red Cell Distribution Width 13.4 % (11.5-14.5)
[2022-07-28 04:50] LABS: Alanine Aminotransferase 44 U/L (6-35); Albumin Level 2.7 g/dL (3.5-5.1); Alkaline Phosphatase 193 U/L (38-126); Anion Gap 10 mmol/L (8-16); Aspartate Amino Transferase 54 U/L (14-36); Bilirubin,Total 0.5 mg/dL (0.2-1.3); Blood Urea Nitrogen 25 mg/dL (7-17); Calcium 7.8 mg/dL (8.4-10.2); Carbon Dioxide 23 mmol/L (22-30); Chloride 104 mmol/L (98-107); Creatine Kinase 85 U/L (30-135); Estimated CRCL calculation 34 ml/min; Estimated Glomerular Filt Rate 40; Glucose 112 mg/dL (65-110); Lactic Acid Reflex 1.2 mmol/L (0.7-2.0); Magnesium 2.1 mg/dL (1.6-2.3); Potassium 3.4 mmol/L (3.4-5.0); Sodium 137 mmol/L (137-145)
[2022-07-28 08:09] LABS: Glucose Point of Care 99 mg/dl (65-105)
[2022-07-28] MEDS: FLUTICASONE/UMECLIDIN/VILANTER 100-62.5-25 MCG ELLIPTA 1 PUFF INHALATION (08:29)
[2022-07-28] MEDS: CHOLECALCIFEROL 1,000 UNITS TABLET 5000 UNITS PO (10:18)
[2022-07-28] MEDS: CARBIDOPA/LEVODOPA 25/100 MG TABLET 1 TABLET PO ×4 (10:19→21:12)
[2022-07-28] MEDS: PARoxetine 20 MG TABLET PO (10:19)
[2022-07-28] MEDS: THERAPEUTIC MULTIVITAMINS/MINERALS TAB (*BKC) 1 TABLET PO (10:19)
[2022-07-28] MEDS: NICOTINE (*PBKC) 21 MG PATCH 1 PATCH TRANSDERM (10:20)
[2022-07-28] MEDS: MECLIZINE HCL 25 MG TABLET PO ×3 (10:20→17:11)
[2022-07-28] MEDS: FLUTICASONE PROPIONATE 0.05% NA SPR 16 GM BTL (*BKC) 2 SPRAY NASAL (10:20)
--- NOTE | 2022-07-28 11:37 | WPDNEURCNPN ---
Assessment and Plan Assessment and plan (1) Parkinsonism: Code(s): G20 - Parkinson's disease Status: Acute (2) Urinary tract infection: Qualifiers: Hematuria presence: with hematuria Urinary tract infection type: acute cystitis Qualified Code(s): N30.01 - Acute cystitis with hematuria Code(s): N39.0 - Urinary tract infection, site not specified Status: Acute (3) Frequent falls: Code(s): R29.6 - Repeated falls Status: Acute Assessment and Plan: Ms. Bagley is a 76 year old female with a history of Parkinson's presenting after a 1 week history of repeated falls, found to have UTI. It's possible that the falls are due to AMS from UTI vs exacerbation of Parkinson's from UTI. It's hard to get a sense of what her PD symptoms were like before the past week. I did not notice any significant tremor or rigidity on exam today, although it's possibly that gait instability is present. I would hold off on any medication adjustments, until patient has been treated for underlying infection and is back to baseline. - Continue Sinemet 25/100mg QID Consult date: 07/28/22 Time Seen: 11:37 Reason for consult: Parkinson's Disease HPI: Emilee Bagley is a 76 year old female with a history of Parkinson's disease presenting after a fall. Patient lives alone and for the past week, she has fallen three times. She presented initially to the ED on 07/20 after a fall. She was given IV fluids at the time for rhapdomyelisis. She presented to the ED again on 07/27 after a subsequent fall. In the ED she was found to have a UTI an subsequently admitted on IV antibiotics. There is concern that recent falls may be due to Parkinson's. She takes Sinemet 25-100mg QID, prescribed by her Neurologist. Patient was not able to give further information regarding PD related symptoms prior to the fall such how the tremor and gait has responded to the Sinemet. Review of Systems Review of Systems: ROS unobtainable: Yes unobtainable due to mental status PMFSH Past Medical History Medical History Anxiety with depression Benign essential hypertension BMI 30.0-30.9,adult BMI 33.0-33.9,adult BMI 34.0-34.9,adult Colon cancer screening COPD (chronic obstructive pulmonary disease) Depression DJD (degenerative joint disease), multiple sites DM type 2 (diabetes mellitus, type 2) Encounter for routine adult health examination without abnormal findings Encounter for screening mammogram for malignant neoplasm of breast Hiatal hernia History of falling Hyperlipidemia Injury, head Laceration of finger of left hand Nicotine abuse Non-intractable vomiting On usp drug therapy Pain of left calf Parkinsonism Personal history of nicotine dependence Sebaceous cyst Shortness of breath Slurred speech Swollen lip Vision changes Vitamin D deficiency Surgical History Surgical History H/O rhinoplasty History of colonoscopy History of laparoscopic appendectomy History of removal of pigmented skin lesion Hx of cornea transplant Family History Family History Mother Family history of diabetes mellitus in first degree relative Diabetes mellitus Father Family history of emphysema Family history of cardiovascular disease Family history of lung disease Family history of heart disease in male family member before age 55 Other Family history of malignant neoplasm Hypertension Social History Social History Social History: The patient is and has 3 children. 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 She continues to smoke a pack a cigarettes a day. She denies any alcohol marijuana or illicit drugs. Code status full code Smoking packs pe
[2022-07-28 12:25] LABS: Glucose Point of Care 186 mg/dl (65-105)
[2022-07-28 16:31] LABS: Glucose Point of Care 116 mg/dl (65-105)
--- NOTE | 2022-07-28 17:57 | PM.IMPN ---
Progress Note: A&P Assessment and Plan (1) Elevated troponin: Code(s): R77.8 - Other specified abnormalities of plasma proteins Status: Acute Assessment and Plan: Troponin checked for unclear reasons and were elevated to 0.3. Repeat value trending down. The patient is not complaining of any chest pain. EKG showing sinus tachycardia rate 100 with low voltage and borderline R wave progression. CXR showing minimal bibasilar airspace opacities atelectasis versus pneumonia. Currently on Rocephin for UTI. Could be related to acute kidney injury. Will check echocardiogram to assess for wall motion abnormalities. (2) Acute kidney injury: Code(s): N17.9 - Acute kidney failure, unspecified Status: Acute Assessment and Plan: Patient's creatinine is elevated to 1.3 but her previous values were normal. On losartan at home. Could be dehydration. Total CK normal now but was elevated 1 week ago. Losartan and Metformin on hold currently. Follow for now. Avoid any nephrotoxic medication. NS x 1 liter (3) Urinary tract infection: Qualifiers: Hematuria presence: with hematuria Urinary tract infection type: acute cystitis Qualified Code(s): N30.01 - Acute cystitis with hematuria Code(s): N39.0 - Urinary tract infection, site not specified Status: Acute Assessment and Plan: UA noted. UCx pending. BCx growing gram variable bacilli and gram negative bacilli. Continue Rocephin but increase to 2gm. Follow up on results. (4) Frequent falls: Code(s): R29.6 - Repeated falls Status: Acute Assessment and Plan: The patient has had 3 falls in the last week. The patient lives home alone. Falls could be related to undiagnosed UTI that has progressed to baceteremia. Multiple imaging noted. Nasal bone fracture probably old given her history of falls (no nasal fracture noted 2017 after a fall). PT and OT evaluation. community health coordinator for possible SNF. Check left hip and pelvis given her pain (5) Depression: Code(s): F32.A - Depression, unspecified Status: Acute Assessment and Plan: -continue with paroxetine (6) Cigarette nicotine dependence: Code(s): F17.210 - Nicotine dependence, cigarettes, uncomplicated Status: Acute Assessment and Plan: Patient was educated about the benefits of smoking cessation. (7) Mixed hyperlipidemia: Code(s): E78.2 - Mixed hyperlipidemia Status: Acute Assessment and Plan: LFTs mildly elevated. Pravachol on hold. Resume if LFTs remained stable. (8) COPD (chronic obstructive pulmonary disease): Code(s): J44.9 - Chronic obstructive pulmonary disease, unspecified Status: Acute Assessment and Plan: Stable. No wheezing appreciated. Continue Trelegy. (9) Anxiety with depression: Code(s): F41.8 - Other specified anxiety disorders Status: Acute Assessment and Plan: Patient is on alprazolam which could be contributing to her falls. The medications written as scheduled but nursing states the patient only takes this as needed. The patient was reminded to ask for medication if she requires it but that is not going to be given regularly. She voiced understanding of this. Monitor closely for evidence of withdrawal if she truly does take this 3 times a day. (10) Benign essential hypertension: Code(s): I10 - Essential (primary) hypertension Status: Acute Assessment and Plan: Patient's blood pressure was reviewed on 07/28 Blood pressure remains well controlled. Will continue to monitor (11) Parkinsonism: Code(s): G20 - Parkinson's disease Status: Acute Assessment and Plan: Stable. Continue Sinemet. Neurology consulted and appreciate their input (12) DM type 2 (diabetes mellitus, type 2): Qualifiers: Diabetes mellitus complication status: without complication Diabete
[2022-07-28] MEDS: SODIUM CHLORIDE 0.9% IV 1,000 ML 70 ML IV CONT (18:57)
[2022-07-28] MEDS: ENOXAPARIN 40 MG/0.4 ML SYRINGE SUB-Q (19:02)
[2022-07-28 20:21] LABS: Glucose Point of Care 177 mg/dl (65-105)
[2022-07-29] VITALS (15 sets, daily range): BP systolic 111–135; BP diastolic 46–63; PULSE 76–119; RESP 18–44; TEMP 36.9–38.6; O2SAT 94–97
[2022-07-29 05:03] LABS: Basophils Absolute Auto 0.1 K/mm3 (0.0-0.1); Basophils Percent Auto 0.7 % (0.2-1.2); Eosinophils Absolute Auto 0.1 K/mm3 (0-0.3); Eosinophils Percent Auto 1.1 % (0-4.4); Hematocrit 35.6 % (37.0-47.0); Hemoglobin 11.2 g/dL (12.0-15.0); Immature Granulocyte Absolute 0.08 K/mm3 (0.00-0.031); Immature Granulocyte Percent A 0.9 % (0-0.5); Lymphocytes Absolute Auto 1.74 K/mm3 (0.9-3.2); Lymphocytes Percent Auto 19.9 % (18.3-44.2); Mean Corpuscular HGB Conc 31.5 g/dl (32-36); Mean Corpuscular Hemoglobin 31.4 pg (26-34); Mean Corpuscular Volume 99.7 fl (80-100); Mean Platelet Volume 9.7 fl (7.4-10.4); Monocytes Absolute Auto 0.3 K/mm3 (0.1-0.6); Monocytes Percent Auto 3.2 % (2.6-8.5); Neutrophils Absolute Auto 6.5 K/mm3 (1.3-6.7); Neutrophils Percent Auto 74.2 % (45.5-73.1); Platelet Count Result 272 k/mm3 (150-375); Red Blood Count 3.57 M/mm3 (4.2-5.4); Red Cell Distribution Width 13.7 % (11.5-14.5); White Blood Count 8.7 K/mm3 (4.5-10.0)
[2022-07-29 05:13] LABS: Alanine Aminotransferase 16 U/L (6-35); Albumin Level 3.1 g/dL (3.5-5.1); Alkaline Phosphatase 238 U/L (38-126); Anion Gap 14 mmol/L (8-16); Aspartate Amino Transferase 56 U/L (14-36); Blood Urea Nitrogen 22 mg/dL (7-17); Carbon Dioxide 16 mmol/L (22-30); Chloride 103 mmol/L (98-107); Estimated CRCL calculation 33 ml/min; Estimated Glomerular Filt Rate 36; Glucose 138 mg/dL (65-110); Magnesium 1.9 mg/dL (1.6-2.3); Phosphorus 4.1 mg/dL (2.5-4.5); Sodium 133 mmol/L (137-145)
[2022-07-29] MEDS: FLUTICASONE/UMECLIDIN/VILANTER 100-62.5-25 MCG ELLIPTA 1 PUFF INHALATION (07:46)
[2022-07-29 08:36] LABS: Glucose Point of Care 123 mg/dl (65-105)
[2022-07-29] MEDS: PARoxetine 20 MG TABLET PO (09:37)
[2022-07-29] MEDS: NICOTINE (*PBKC) 21 MG PATCH 1 PATCH TRANSDERM (09:37)
[2022-07-29] MEDS: ENOXAPARIN 40 MG/0.4 ML SYRINGE SUB-Q (09:38)
[2022-07-29] MEDS: THERAPEUTIC MULTIVITAMINS/MINERALS TAB (*BKC) 1 TABLET PO (09:38)
[2022-07-29] MEDS: FLUTICASONE PROPIONATE 0.05% NA SPR 16 GM BTL (*BKC) 2 SPRAY NASAL (09:38)
[2022-07-29] MEDS: MECLIZINE HCL 25 MG TABLET PO ×3 (09:38→18:13)
[2022-07-29] MEDS: CARBIDOPA/LEVODOPA 25/100 MG TABLET 1 TABLET PO ×3 (09:39→18:13)
[2022-07-29] MEDS: CHOLECALCIFEROL 1,000 UNITS TABLET 5000 UNITS PO (09:39)
[2022-07-29 09:43] LABS: Beta-Hydroxybutyrate/Acetoacetate 0.27 mmol/L (0.02-0.27)
[2022-07-29 09:54] LABS: Folic Acid > 20.0 ng/mL (2.76->20)
[2022-07-29 10:14] LABS: Lactic Acid Reflex 1.2 mmol/L (0.7-2.0)
--- NOTE | 2022-07-29 10:56 | PM.IMPN ---
Progress Note: A&P Assessment and Plan (1) Elevated troponin: Code(s): R77.8 - Other specified abnormalities of plasma proteins Status: Acute Assessment and Plan: Troponin checked for unclear reasons and were elevated to 0.3. Repeat value trending down. The patient is not complaining of any chest pain. EKG showing sinus tachycardia rate 100 with low voltage and borderline R wave progression. CXR showing minimal bibasilar airspace opacities atelectasis versus pneumonia. Currently on Rocephin for UTI. Could be related to acute kidney injury. Echocardiogram ordered (2) Acute kidney injury: Code(s): N17.9 - Acute kidney failure, unspecified Status: Acute Assessment and Plan: Patient's creatinine is elevated to 1.3 with previous values normal. On losartan at home. Could be dehydration. Total CK normal now but was elevated 1 week ago. Losartan and Metformin on hold currently. Follow for now. Avoid any nephrotoxic medication. NS x 1 liter but Cr unchanged. Now also with metabolic nongap acidosis. Lactic acid and BHO normal. Consider related to her tachypnea causing a respirtory alkalosis. Consider RTA. Check renal US. Check ABG. She is on Lovenox but could have had a DVT prior to admission. Check doppler and consider CTA. (3) Urinary tract infection: Qualifiers: Hematuria presence: with hematuria Urinary tract infection type: acute cystitis Qualified Code(s): N30.01 - Acute cystitis with hematuria Code(s): N39.0 - Urinary tract infection, site not specified Status: Acute Assessment and Plan: UA noted. UCx growing mixed alecia. BCx growing Proteus (2of2). Continue Rocephin 2gm daily. Follow up on results. (4) Frequent falls: Code(s): R29.6 - Repeated falls Status: Acute Assessment and Plan: The patient has had 3 falls in the last week. The patient lives home alone. Falls could be related to undiagnosed UTI that has progressed to bacteremia. Multiple imaging noted. Nasal bone fracture may be new given the facial trauma. PT and OT evaluation. perinatal coordinator for possible SNF. (5) Depression: Code(s): F32.A - Depression, unspecified Status: Acute Assessment and Plan: Mood stable. Continue with paroxetine (6) Cigarette nicotine dependence: Code(s): F17.210 - Nicotine dependence, cigarettes, uncomplicated Status: Acute Assessment and Plan: Patient was educated about the benefits of smoking cessation. (7) Mixed hyperlipidemia: Code(s): E78.2 - Mixed hyperlipidemia Status: Acute Assessment and Plan: LFTs mildly elevated. Pravachol on hold. (8) COPD (chronic obstructive pulmonary disease): Code(s): J44.9 - Chronic obstructive pulmonary disease, unspecified Status: Acute Assessment and Plan: Stable. No wheezing appreciated. Continue Trelegy. (9) Anxiety with depression: Code(s): F41.8 - Other specified anxiety disorders Status: Acute Assessment and Plan: Patient is on alprazolam which could be contributing to her falls. The medications written as scheduled but nursing states the patient only takes this as needed. The patient was reminded to ask for medication if she requires it but that is not going to be given regularly. She voiced understanding of this. She has not taken this since admission. Monitor closely for evidence of withdrawal if she truly does take this 3 times a day. Could be anxiety causing her to be tachypneic (10) Benign essential hypertension: Code(s): I10 - Essential (primary) hypertension Status: Acute Assessment and Plan: Patient's blood pressure was reviewed on 07/29 Blood pressure remains well controlled. Will continue to monitor (11) Parkinsonism: Code(s): G20 - Parkinson's disease Status: Acute Assessment and Plan: Stable. Continue Sinemet. Neuro
[2022-07-29 11:53] LABS: Base Excess ABG -2.1 mEq/l (+/-2.0); Fractional Inspired Oxygen 21 %; HCO3 ABG 21.4 mEq/l (22.0-26.0); Oxygen Content ABG 13.6 %vol (16.0-22.0); Oxygen Saturation ABG 94.6 % (95.0-100.0); Oxyhemoglobin 93.5 % THb (90.0-100.0); PO2 ABG 68.4 mmHg (80.0-100.0); PO2 FiO2 Ratio Arterial Blood 3.26 %; Total Hemoglobin 10.3 g/dL (12.0-18.0); pH ABG 7.443 (7.350-7.450)
[2022-07-29 11:54] LABS: Device ROOM AIR; Modified Allen's Test Pass; Site Drawn LEFT RADIAL
[2022-07-29 12:24] LABS: Glucose Point of Care 127 mg/dl (65-105)
[2022-07-29] MEDS: ACETAMINOPHEN 325 MG TABLET 650 MG PO (16:34)
[2022-07-29 16:54] LABS: Glucose Point of Care 138 mg/dl (65-105)
[2022-07-29 18:11] LABS: Potassium Urine Random 15.1 meq/L; Sodium Urine Random 15 meq/L
[2022-07-29] MEDS: cefTRIAXone 2 GM in SODIUM CHLORIDE 0.9% IV 100 ML 200 ML IVPB (18:12)
[2022-07-29 20:09] LABS: Glucose Point of Care 151 mg/dl (65-105)
[2022-07-30] VITALS (17 sets, daily range): BP systolic 130–151; BP diastolic 53–69; PULSE 84–97; RESP 18–22; TEMP 36.6–37.6; O2SAT 94–99
--- NOTE | 2022-07-30 | ECHO_ITS ---
Patient Info Name: Emilee Bagley Age: 76 years : 1945 Gender: Female Ht: 65 in Wt: 189 lbs BSA: 2.01 m2 HR: 94 bpm BP: 151 / 55 mmHg Heart Rhythm: Sinus Rhythm Technical Quality: Fair Exam Date: 07/30/2022 8:52 AM Exam Location: [facility] Patient Status: Inpatient Admit Date: 07/29/2022 Staff Ordering Physician: Irwin Donnelly MD Spanish Translator: Noa Jerome RDCS Attending Provider: Nicci Serra DO Exam Type: CA echo doppler color flow Study Info Indications - +Trop Complete two-dimensional, color flow and Doppler transthoracic echocardiogram is performed. Summary 1. Complete two-dimensional, color flow and Doppler transthoracic echocardiogram is performed. 2. Left ventricular chamber dimension is normal. 3. Left ventricular systolic function is hyperdynamic, estimated at >70%. 4. The left ventricular diastolic function is grade II diastolic dysfunction. 5. E/e' 11 is mildly elevated. 6. There is moderate aortic valve sclerosis. 7. There is mild aortic valve stenosis with a peak velocity of 253 cm/s, mean gradient of 12 mmHg, and aortic valve area of 1.6 cm2. 8. The mitral valve has mildly calcified annulus. 9. There is mild mitral valve regurgitation. 10. There is trace tricuspid valve regurgitation. 11. Moderate pulmonary hypertension, estimated pulmonary arterial systolic pressure is 55 mmHg. 12. Dilated inferior vena cava with <50% collapse upon inspiration consistent with significantly elevated right atrial pressure, 15 mmHg. Left Ventricle E/e' 11 is mildly elevated. Left ventricular chamber dimension is normal. Left ventricular systolic function is hyperdynamic, estimated at >70%. The left ventricular diastolic function is grade II diastolic dysfunction. Right Ventricle Right ventricular systolic function is normal and with normal TAPSE 1.8 cm. Right ventricular chamber dimension is normal. Left Atria Left atrial chamber dimension is normal. Right Atria Right atrial chamber dimension is normal. Aortic Valve The aortic valve is trileaflet. There is moderate aortic valve sclerosis. There is mild aortic valve stenosis with a peak velocity of 253 cm/s, mean gradient of 12 mmHg, and aortic valve area of 1.6 cm2. There is no aortic valve regurgitation. Pulmonic Valve There is no pulmonic regurgitation. Mitral Valve The mitral valve has mildly calcified annulus. There is no mitral valve stenosis. There is mild mitral valve regurgitation. Tricuspid Valve There is trace tricuspid valve regurgitation. Moderate pulmonary hypertension, estimated pulmonary arterial systolic pressure is 55 mmHg. Pericardium/Pleural There is no pericardial effusion. Inferior Vena Cava Dilated inferior vena cava with <50% collapse upon inspiration consistent with significantly elevated right atrial pressure, 15 mmHg. Aorta The aortic root size at the sinus of Valsalva is normal. Left Ventricular Outflow Tract Name Value Normal LVOT 2D LVOT Diameter 1.9 cm LVOT Doppler LVOT Peak Gradient 9 mmHg LVOT Mean Gradient 4 mmH
[2022-07-30] MEDS: ALPRAZolam (*CRX) 0.5 MG TABLET PO (00:48)
[2022-07-30 05:18] LABS: Alanine Aminotransferase 14 U/L (6-35); Albumin Level 2.5 g/dL (3.5-5.1); Alkaline Phosphatase 224 U/L (38-126); Anion Gap 7 mmol/L (8-16); Aspartate Amino Transferase 37 U/L (14-36); Bilirubin,Total 0.7 mg/dL (0.2-1.3); Blood Urea Nitrogen 23 mg/dL (7-17); Calcium 7.7 mg/dL (8.4-10.2); Carbon Dioxide 20 mmol/L (22-30); Chloride 105 mmol/L (98-107); Estimated CRCL calculation 33 ml/min; Estimated Glomerular Filt Rate 36; Glucose 116 mg/dL (65-110); Potassium 3.2 mmol/L (3.4-5.0); Sodium 132 mmol/L (137-145)
[2022-07-30] MEDS: FLUTICASONE/UMECLIDIN/VILANTER 100-62.5-25 MCG ELLIPTA 1 PUFF INHALATION (07:49)
[2022-07-30 07:56] LABS: Glucose Point of Care 122 mg/dl (65-105)
--- NOTE | 2022-07-30 09:00 | PCOTNOTE ---
Attempted to see patient this am, however patient having bedside testing at this time.
[2022-07-30] MEDS: POTASSIUM CHLORIDE 20 MEQ PACKET (FOR LIQUID) 40 MEQ PO (10:35)
[2022-07-30] MEDS: NICOTINE (*PBKC) 21 MG PATCH 1 PATCH TRANSDERM (10:36)
[2022-07-30] MEDS: THERAPEUTIC MULTIVITAMINS/MINERALS TAB (*BKC) 1 TABLET PO (10:36)
[2022-07-30] MEDS: PARoxetine 20 MG TABLET PO (10:36)
[2022-07-30] MEDS: MECLIZINE HCL 25 MG TABLET PO ×3 (10:36→18:25)
[2022-07-30] MEDS: FLUTICASONE PROPIONATE 0.05% NA SPR 16 GM BTL (*BKC) 2 SPRAY NASAL (10:37)
[2022-07-30] MEDS: CHOLECALCIFEROL 1,000 UNITS TABLET 5000 UNITS PO (10:37)
[2022-07-30] MEDS: ENOXAPARIN 40 MG/0.4 ML SYRINGE SUB-Q (10:37)
[2022-07-30] MEDS: CARBIDOPA/LEVODOPA 25/100 MG TABLET 1 TABLET PO ×4 (10:38→20:01)
[2022-07-30 11:42] LABS: Glucose Point of Care 180 mg/dl (65-105)
--- NOTE | 2022-07-30 15:28 | PM.IMPN ---
Progress Note: A&P Assessment and Plan (1) Sepsis: Code(s): A41.9 - Sepsis, unspecified organism Status: Acute Assessment and Plan: Sepsis present on admission given the CLARI, tachycardia, leukocytosis and fever. Source is bacteremia probably from urinary source. (2) Bacteremia: Code(s): R78.81 - Bacteremia Status: Acute Assessment and Plan: UA noted. UCx growing mixed alecia. BCx growing Proteus (2of2). Suspect bacteremia from urinary source. Proteus sensitive to Rocephin. WBC normal now. Stil having fevers. Continue Rocephin 2gm daily. (3) Elevated troponin: Code(s): R77.8 - Other specified abnormalities of plasma proteins Status: Acute Assessment and Plan: Troponin checked for unclear reasons and were elevated to 0.3. Repeat value trending down. The patient is not complaining of any chest pain. EKG showing sinus tachycardia rate 100 with low voltage and borderline R wave progression. CXR showing minimal bibasilar airspace opacities atelectasis versus pneumonia. Echo showing EF 70%, Grade II diastolic dysfunction and moderate pHTN. Could be from sepsis vs acute kidney injury. Not felt to have had an acute NH (4) Acute kidney injury: Code(s): N17.9 - Acute kidney failure, unspecified Status: Acute Assessment and Plan: Patient's creatinine is elevated to 1.3 with previous values normal. On losartan at home. Could be dehydration vs ATN. Total CK normal now but was elevated 1 week ago. Losartan and Metformin remain on hold currently. Avoid any nephrotoxic medication. NS x 1 liter but Cr unchanged. Now also with metabolic nongap acidosis. Lactic acid and BHO normal. Consider related to her tachypnea causing a respirtory alkalosis. Consider RTA. Renal US was limited bit no obvious abnormalities. ABG 7.44/32/68 on RA. LE venous dopplers negative. Follow for now. (5) Urinary tract infection: Qualifiers: Hematuria presence: with hematuria Urinary tract infection type: acute cystitis Qualified Code(s): N30.01 - Acute cystitis with hematuria Code(s): N39.0 - Urinary tract infection, site not specified Status: Acute Assessment and Plan: As above (6) Frequent falls: Code(s): R29.6 - Repeated falls Status: Acute Assessment and Plan: The patient has had 3 falls in the last week. The patient lives home alone. Falls could be related to undiagnosed UTI that has progressed to bacteremia. Multiple imaging noted. Nasal bone fracture may be new given the facial trauma. Contineu PT and OT. health care coordinator for possible SNF. Probably discahrge tomorrow. (7) Depression: Code(s): F32.A - Depression, unspecified Status: Acute Assessment and Plan: Mood stable. Continue with paroxetine (8) Cigarette nicotine dependence: Code(s): F17.210 - Nicotine dependence, cigarettes, uncomplicated Status: Acute Assessment and Plan: Patient was educated about the benefits of smoking cessation. (9) Mixed hyperlipidemia: Code(s): E78.2 - Mixed hyperlipidemia Status: Acute Assessment and Plan: LFTs mildly elevated. Pravachol on hold. (10) COPD (chronic obstructive pulmonary disease): Code(s): J44.9 - Chronic obstructive pulmonary disease, unspecified Status: Acute Assessment and Plan: Stable. No wheezing appreciated. Continue Trelegy. (11) Anxiety with depression: Code(s): F41.8 - Other specified anxiety disorders Status: Acute Assessment and Plan: Patient is on alprazolam which could be contributing to her falls. The medications written as scheduled but nursing states the patient only takes this as needed. The patient was reminded to ask for medication if she requires it but that is not going to be given regularly. She voiced understanding of this. She has not taken this since admission. Monitor closely fo
[2022-07-30 16:52] LABS: Glucose Point of Care 150 mg/dl (65-105)
[2022-07-30] MEDS: cefTRIAXone 2 GM in SODIUM CHLORIDE 0.9% IV 100 ML 200 ML IVPB (18:24)
[2022-07-30] MEDS: ONDANSETRON INJ 4 MG/2 ML VIAL IV PUSH (20:01)
[2022-07-30 20:05] LABS: Glucose Point of Care 165 mg/dl (65-105)
[2022-07-31] VITALS (12 sets, daily range): BP systolic 121–132; BP diastolic 52–56; PULSE 84–94; RESP 16–30; TEMP 36.7–37.1; O2SAT 95–98
[2022-07-31 05:28] LABS: Basophils Percent Auto 0.5 % (0.2-1.2); Eosinophils Absolute Auto 0.1 K/mm3 (0-0.3); Eosinophils Percent Auto 0.9 % (0-4.4); Hemoglobin 8.8 g/dL (12.0-15.0); Immature Granulocyte Absolute 0.08 K/mm3 (0.00-0.031); Lymphocytes Absolute Auto 1.09 K/mm3 (0.9-3.2); Lymphocytes Percent Auto 13.8 % (18.3-44.2); Mean Corpuscular HGB Conc 32.6 g/dl (32-36); Mean Corpuscular Hemoglobin 30.8 pg (26-34); Mean Corpuscular Volume 94.4 fl (80-100); Mean Platelet Volume 8.9 fl (7.4-10.4); Monocytes Absolute Auto 0.6 K/mm3 (0.1-0.6); Monocytes Percent Auto 7.3 % (2.6-8.5); Neutrophils Percent Auto 76.5 % (45.5-73.1); Platelet Count Result 379 k/mm3 (150-375); Red Blood Count 2.86 M/mm3 (4.2-5.4); Red Cell Distribution Width 13.5 % (11.5-14.5); White Blood Count 7.9 K/mm3 (4.5-10.0)
[2022-07-31 05:30] LABS: Alanine Aminotransferase 9 U/L (6-35); Albumin Level 2.5 g/dL (3.5-5.1); Alkaline Phosphatase 212 U/L (38-126); Anion Gap 10 mmol/L (8-16); Aspartate Amino Transferase 30 U/L (14-36); Bilirubin,Total 0.5 mg/dL (0.2-1.3); Blood Urea Nitrogen 17 mg/dL (7-17); Calcium 7.6 mg/dL (8.4-10.2); Carbon Dioxide 21 mmol/L (22-30); Chloride 102 mmol/L (98-107); Estimated CRCL calculation 41 ml/min; Estimated Glomerular Filt Rate 48; Glucose 113 mg/dL (65-110); Phosphorus 3.7 mg/dL (2.5-4.5); Potassium 3.5 mmol/L (3.4-5.0); Sodium 133 mmol/L (137-145)
--- NOTE | 2022-07-31 05:53 | PC.NURSE ---
Patient transferred to room 256-2. Report given to Raoul Baca RN. All patient belongings and medications sent with patient.
[2022-07-31 08:51] LABS: Glucose Point of Care 121 mg/dl (65-105)
[2022-07-31] MEDS: ENOXAPARIN 40 MG/0.4 ML SYRINGE SUB-Q (09:21)
[2022-07-31] MEDS: NICOTINE (*PBKC) 21 MG PATCH 1 PATCH TRANSDERM (09:21)
[2022-07-31] MEDS: MECLIZINE HCL 25 MG TABLET PO ×3 (09:22→17:20)
[2022-07-31] MEDS: CARBIDOPA/LEVODOPA 25/100 MG TABLET 1 TABLET PO ×4 (09:22→20:26)
[2022-07-31] MEDS: THERAPEUTIC MULTIVITAMINS/MINERALS TAB (*BKC) 1 TABLET PO (09:22)
[2022-07-31] MEDS: PARoxetine 20 MG TABLET PO (09:22)
[2022-07-31] MEDS: CHOLECALCIFEROL 1,000 UNITS TABLET 5000 UNITS PO (09:23)
[2022-07-31] MEDS: FLUTICASONE PROPIONATE 0.05% NA SPR 16 GM BTL (*BKC) 2 SPRAY NASAL (09:23)
[2022-07-31] MEDS: FLUTICASONE/UMECLIDIN/VILANTER 100-62.5-25 MCG ELLIPTA 1 PUFF INHALATION (09:37)
[2022-07-31 12:15] LABS: Hematocrit 27.2 % (37.0-47.0); Hemoglobin 8.8 g/dL (12.0-15.0)
[2022-07-31 12:22] LABS: Glucose Point of Care 121 mg/dl (65-105)
--- NOTE | 2022-07-31 15:53 | PM.IMPN ---
Progress Note: A&P Assessment and Plan (1) Sepsis: Code(s): A41.9 - Sepsis, unspecified organism Status: Acute Assessment and Plan: Sepsis present on admission given the CLARI, tachycardia, leukocytosis and fever. Source is bacteremia probably from urinary source. (2) Bacteremia: Code(s): R78.81 - Bacteremia Status: Acute Assessment and Plan: UA noted. UCx growing mixed alecia. BCx growing Proteus (2of2). Suspect bacteremia from urinary source. Proteus sensitive to Rocephin. WBC normal now. Fevers have resolved. Continue Rocephin 2gm daily. (3) Elevated troponin: Code(s): R77.8 - Other specified abnormalities of plasma proteins Status: Acute Assessment and Plan: Troponin checked for unclear reasons and peaked to 0.3. The patient is not complaining of any chest pain. EKG showing sinus tachycardia rate 100 with low voltage and borderline R wave progression. CXR showing minimal bibasilar airspace opacities atelectasis versus pneumonia. Echo showing EF 70%, Grade II diastolic dysfunction and moderate pHTN but no wall motion abnormalities. Could be from sepsis and/or acute kidney injury. Not felt to have had an acute [place]. Anemic so will hold ASA. (4) Acute kidney injury: Code(s): N17.9 - Acute kidney failure, unspecified Status: Acute Assessment and Plan: Patient's creatinine is elevated to 1.3 with previous values normal. Could be from medications and/or dehydration and/or ATN. Total CK normal now but was elevated 1 week ago. Losartan and Metformin on hold. Also had metabolic nongap acidosis. Lactic acid and BHO normal. Consider related to her tachypnea causing a respiratory alkalosis. Consider RTA. Renal US was limited but no obvious abnormalities. ABG 7.44/32/68 on RA. LE venous dopplers negative. Cr better. Avoid any nephrotoxic medication. (5) Frequent falls: Code(s): R29.6 - Repeated falls Status: Acute Assessment and Plan: The patient has had 3 falls in the last week. The patient lives home alone. Falls could be related to undiagnosed UTI that has progressed to bacteremia. Multiple imaging noted but only showing a nasal bone fracture which may be new given the facial trauma. Continue PT and OT. relations coordinator for possible SNF. Probably discharge tomorrow. (6) Depression: Code(s): F32.A - Depression, unspecified Status: Acute Assessment and Plan: Mood stable. Continue with paroxetine (7) Cigarette nicotine dependence: Code(s): F17.210 - Nicotine dependence, cigarettes, uncomplicated Status: Acute Assessment and Plan: Patient was educated about the benefits of smoking cessation. (8) Mixed hyperlipidemia: Code(s): E78.2 - Mixed hyperlipidemia Status: Acute Assessment and Plan: LFTs normal now. Resume Pravachol. (9) COPD (chronic obstructive pulmonary disease): Code(s): J44.9 - Chronic obstructive pulmonary disease, unspecified Status: Acute Assessment and Plan: Stable. No wheezing appreciated. Continue Trelegy. (10) Anxiety with depression: Code(s): F41.8 - Other specified anxiety disorders Status: Acute Assessment and Plan: Patient is on alprazolam which could be contributing to her falls. The medications written as scheduled but nursing states the patient only takes this as needed. The patient was reminded to ask for medication if she requires it but that is not going to be given regularly. She voiced understanding of this. Monitor closely. Could be anxiety causing her to be tachypneic (11) Benign essential hypertension: Code(s): I10 - Essential (primary) hypertension Status: Acute Assessment and Plan: Patient's blood pressure was reviewed on 07/31 Blood pressure remains well controlled. Will continue to monitor (12) Parkinsonism: Code(s): G20 - Parkinson's diseas
[2022-07-31 17:09] LABS: Glucose Point of Care 134 mg/dl (65-105)
[2022-07-31] MEDS: cefTRIAXone 2 GM in SODIUM CHLORIDE 0.9% IV 100 ML 200 ML IVPB (17:13)
[2022-07-31 18:19] LABS: Hematocrit 30.1 % (37.0-47.0); Hemoglobin 9.7 g/dL (12.0-15.0)
[2022-07-31 18:52] LABS: Iron 27 ug/dL (37-170)
[2022-07-31 19:02] LABS: Percent Iron Saturation 14 % (20-50)
[2022-07-31] MEDS: PANTOPRAZOLE SODIUM IV 40 MG VIAL IV PUSH (20:26)
[2022-07-31 20:33] LABS: Glucose Point of Care 138 mg/dl (65-105)
[2022-08-01] VITALS (7 sets, daily range): BP systolic 138–145; BP diastolic 60–64; PULSE 85–98; RESP 18–20; TEMP 36.5–36.9; O2SAT 95–100
[2022-08-01 05:10] LABS: Hematocrit 25.5 % (37.0-47.0); Hemoglobin 8.5 g/dL (12.0-15.0); Mean Corpuscular HGB Conc 33.3 g/dl (32-36); Mean Corpuscular Hemoglobin 30.9 pg (26-34); Mean Corpuscular Volume 92.7 fl (80-100); Mean Platelet Volume 8.5 fl (7.4-10.4); Platelet Count Result 433 k/mm3 (150-375); Red Blood Count 2.75 M/mm3 (4.2-5.4); Red Cell Distribution Width 13.5 % (11.5-14.5); White Blood Count 8.4 K/mm3 (4.5-10.0)
[2022-08-01 05:20] LABS: Anion Gap 7 mmol/L (8-16); Blood Urea Nitrogen 17 mg/dL (7-17); Calcium 7.8 mg/dL (8.4-10.2); Carbon Dioxide 20 mmol/L (22-30); Chloride 104 mmol/L (98-107); Estimated CRCL calculation 38 ml/min; Estimated Glomerular Filt Rate 44; Glucose 112 mg/dL (65-110); Potassium 3.8 mmol/L (3.4-5.0); Sodium 131 mmol/L (137-145)
[2022-08-01 08:35] LABS: Glucose Point of Care 115 mg/dl (65-105)
[2022-08-01] MEDS: CHOLECALCIFEROL 1,000 UNITS TABLET 5000 UNITS PO (08:35)
[2022-08-01] MEDS: PARoxetine 20 MG TABLET PO (08:36)
[2022-08-01] MEDS: THERAPEUTIC MULTIVITAMINS/MINERALS TAB (*BKC) 1 TABLET PO (08:36)
[2022-08-01] MEDS: CARBIDOPA/LEVODOPA 25/100 MG TABLET 1 TABLET PO ×2 (08:36→12:24)
[2022-08-01] MEDS: PANTOPRAZOLE SODIUM IV 40 MG VIAL IV PUSH (08:36)
[2022-08-01] MEDS: FLUTICASONE PROPIONATE 0.05% NA SPR 16 GM BTL (*BKC) 2 SPRAY NASAL (08:37)
[2022-08-01] MEDS: ENOXAPARIN 40 MG/0.4 ML SYRINGE SUB-Q (08:37)
[2022-08-01] MEDS: MECLIZINE HCL 25 MG TABLET PO ×2 (08:47→12:24)
[2022-08-01] MEDS: FLUTICASONE/UMECLIDIN/VILANTER 100-62.5-25 MCG ELLIPTA 1 PUFF INHALATION (09:28)
--- NOTE | 2022-08-01 11:54 | PCOTNOTE ---
Attempted to see Patient at this time. Patient sleeping upon arrival and insisted she needs some rest for a while, come back later. Will attempt again this afternoon.
[2022-08-01 12:32] LABS: Glucose Point of Care 125 mg/dl (65-105)
--- NOTE | 2022-08-01 12:41 | PM.DS ---
DS: Admitting Diagnosis Discharge Date 08/01/2022 Admitting Diagnosis eugenia DS: Discharge Diagnosis Discharge Diagnosis (1) Sepsis: Code(s): A41.9 - Sepsis, unspecified organism Status: Acute (2) Depression: Code(s): F32.A - Depression, unspecified Status: Acute (3) Frequent falls: Code(s): R29.6 - Repeated falls Status: Acute (4) Anemia: Code(s): D64.9 - Anemia, unspecified Status: Acute (5) Parkinsonism: Code(s): G20 - Parkinson's disease Status: Acute DS: Summary Hospital Course Hospital Course: patient is a 76-year-old female the hospital multiple falls. Patient has history of Parkinson's disease lives at home. Patient fell a week ago last had multiple bruises on the face and arm. Patient was noted to have age indeterminate bilateral nasal bone fracture patient was brought to the hospital for further workup and evaluation x-ray showed possible pneumonia total WBC count was 17,000 started on IV antibiotics patient's blood cultures grew Proteus mirabilis which was sensitive to Rocephin patient stayed on IV antibiotics patient also seen by neurologist for fall which was determined due to worsening Parkinson's patient is ready for discharge back from residential facility on oral antibiotics will start patient on Bactrim DS 1 tab for 7 days Status at Discharge Functional status at discharge: uses cane/walker Time Spent with Patient Time attestation: Total time spent providing and/or coordinating discharge services: Exam Narrative: GENERAL: Well appearing, well-nourished, non-toxic, in no acute distress. HEAD: Normocephalic, atraumatic. NECK: Supple. No adenopathy, no masses. RESPIRATORY: Airway patent, respirations nonlabored. Clear to auscultation bilaterally, no rales, rhonchi, wheezing. CARDIOVASCULAR: Regular rate and rhythm without murmurs, rubs, or gallops. Peripheral pulses 2+ and equal bilaterally. ABDOMINAL: Soft, nontender, nondistended, no hepatosplenomegaly. Normoactive BS. MUSCULOSKELETAL: no Epigastric and no hypochondrial tenderness SKIN: Warm, dry, normal color. No rashes. NEURO: A&O X3. Moves all extremities PSYCHIATRIC: Appropriate mood and affect. Normal interaction. DS: Data Data Completed and Pending Labs on day of discharge: Labs from last 24 hours 08/01/22 08/01/22 08/01/22 12:26 08:32 04:54 WBC RBC Hgb Hct MCV MCH MCHC RDW Plt Count MPV Sodium 131 L Potassium 3.8 Chloride 104 Carbon Dioxide 20 L Anion Gap 7 L BUN 17 Creatinine 1.20 H Estim Creat Clear Calc 38 Estimated GFR 44 L Glucose 112 H POC Capillary Glucose 125 H 115 H Calcium 7.8 L Iron TIBC % Saturation 08/01/22 07/31/22 07/31/22 04:54 20:25 18:11 WBC 8.4 RBC 2.75 L Hgb 8.5 L Hct 25.5 L MCV 92.7 MCH 30.9 MCHC 33.3 RDW 13.5 Plt Count 433 H MPV 8.5 Sodium Potassium Chloride Carbon Dioxide Anion Gap BUN Creatinine Estim Creat Clear Calc Estimated GFR Glucose POC Capillary Glucose 138 H Calcium Iron 27 L TIBC 195 L % Saturation 14 L 07/31/22 07/31/22 18:11 17:06 WBC RBC Hgb 9.7 L Hct 30.1 L MCV MCH MCHC RDW Plt Count MPV Sodium Potassium Chloride Carbon Dioxide Anion Gap BUN Creatinine Estim Creat Clear Calc Estimated GFR Glucose POC Capillary Glucose 134 H Calcium Iron TIBC % Saturation Discharge Plan Discharge Consulting providers: Carri Sanchez Discharging Clinician: Gilles Yin Patient Disposition: SNF Activity: no driving Diet: low sodium Wound Care Instructions: keep dressing dry Patient Instructions: How to Stop Smoking (DC), Pain Management (DC) Stand Alone Forms: General Discharge Information Discharge Medications: New sulfamethoxazole-trimethop
--- NOTE | 2022-08-01 14:59 | PC.NURSE ---
On 08/01/22, the student, [Ju Briones], provided care and completed [facility] documentation on this patient. I have reviewed the student's documentation and agree with the findings.
[2022-08-01 15:48] LABS: EDCOVIDSCREEN Negative (Negative)
[2022-08-03 16:05] LABS: Chloride Rand Ur 32 mmol/L (32-290); Chloride/Creatinine Rand Ur 24 (38-318); Creatinine Random Urine 134 mg/dL (20-275)
== END 2022-08-01 16:33 | DRG 871 ==
LOC: ANHED 14:42 → ANHIMU 17:36 → ANH2MED 07-31 05:55
PROVIDERS: Internal Medicine; Nurse Practitioner; Physician Assistant; Admitting Provider Student in an Organized Health Care Education/Training Program; Emergency Provider Emergency Medicine; PCP Internal Medicine; Visit Provider Internal Medicine
DX: A41.9 Sepsis, unspecified organism (principal); J18.9 Pneumonia, unspecified organism; N17.9 Acute kidney failure, unspecified; N30.01 Acute cystitis with hematuria; J44.0 Chronic obstructive pulmonary disease with (acute) lower respiratory infection; G20 Parkinson's disease; E11.9 Type 2 diabetes mellitus without complications; S02.2XXA Fracture of nasal bones, initial encounter for closed fracture; R29.6 Repeated falls; D64.9 Anemia, unspecified; R77.8 Other specified abnormalities of plasma proteins; F41.8 Other specified anxiety disorders; F17.210 Nicotine dependence, cigarettes, uncomplicated; E78.2 Mixed hyperlipidemia; I10 Essential (primary) hypertension; E55.9 Vitamin D deficiency, unspecified; Z20.822 Contact with and (suspected) exposure to COVID-19; Z79.84 Long term (current) use of oral hypoglycemic drugs; Z79.899 Other long term (current) drug therapy
CPT/HCPCS: 36415; 36600; 51701; 70450; 70486; 71046; 72125; 73502; 73564; 73590; 76775; 80048; 80053; 81001; 82010; 82436; 82550; 82570; 82607; 82746; 82805; 82948; 83036; 83540; 83550; 83605; 83735; 84100; 84133; 84300; 84443; 84484; 85014; 85018; 85025; 85027; 87040; 87077; 87086; 87088; 87186; 87426; 87636; 93005; 93306; 93970; 94640; 96361; 96365; 96366; 96372; 96375; 96376; 97110; 97116; 97161; 97165; 97530; 97535; 99285; A9270; C9113; C9803; G0378; J0131; J0696; J1650; J2405; J7030

== ENCOUNTER 2022-08-06 07:56 | Inpatient (IN) | payer MEDICARE, SELFPAY ==
--- NOTE | ~2022-08-06 | XR_ITS ---
XR chest 2V 08/06/2022 08:39 Indication: Cough with weakness Procedure: AP and lateral views of the chest Comparison: 07/27/2022 Findings: Cardiomegaly. There is bilateral interstitial infiltrates with peribronchial thickening. Sm all pleural effusions. Shallow inspiration. No pneumothorax. No acute osseous abnormality. There is a therosclerosis. Impression: 1: Bilateral interstitial infiltrates of the mid and lower lungs with peribronchial thickening, most likely mild edema. Pneumonia less favored. 2: Small pleural effusions. 3: Cardiomegaly. Reviewed, dictated and finalized at location B. EON CHIEF Impression: 1: Bilateral interstitial infiltrates of the mid and lower lungs with peribronc hial thickening, most likely mild edema. Pneumonia less favored. 2: Small pleural effusions. 3: Cardiomegaly.
--- NOTE | ~2022-08-06 | XR_ITS ---
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 TECHNIQUE: 2 fluoroscopic images including 2 cine clips of 19 and 24 images of the left abdomen and p jonelle were obtained during left retrograde pyelography with stent placement performed by the surgeon. I was not present in the operating room. Fluoroscopy exposure time was 35.7 seconds. DAP 0.37566 mGy m2. COMPARISON: CT abdomen and pelvis 08/07/2022. FINDINGS: Following cannulation of the left collecting system, contrast injection reveals minimal hydronephrosi s and likely outlines the previously detected UPJ stone. A left ureteral stent is deployed with the p roximal coil in an upper pole calyx and the lower coil over the bladder. IMPRESSION: Fluoroscopic documentation of left retrograde pyelography with stent placement. Please refer to the o perative note for complete procedural details . Reviewed, dictated and finalized at location K. DRINIER MACHINE OPERATOR IMPRESSION: Fluoroscopic documentation of left retrograde pyelography with stent placement. Please refer to the operative note for complete procedural details .
--- NOTE | ~2022-08-06 | CT_ITS ---
EXAMINATION: CT brain wo con DATE: 08/06/2022 10:43 INDICATION: Confusion TECHNIQUE: Computed tomography (CT) of the head was performed without intravenous contrast. Sagittal and coronal reconstructions were performed. The mA was adjusted according to patient size. Iterative reconstruction technique was employed. The dose-length product was 605.33 mGy-cm. COMPARISON: head CT dated 07/27/2022 FINDINGS: No acute intracranial hemorrhage, acute infarction or abnormal extra axial fluid collection.:: Infarc t at the inferior left basal ganglia. There is mild scattered white matter hypoattenuation consistent with chronic small vessel ischemic disease. Symmetric prominence of the sulci and ventricles consist ent with mild to moderate age-appropriate diffuse cerebral volume loss. No mass/mass effect. Changes of bilateral intraocular lens replacement. The orbits and mastoid air cells are normal. Mild mucosal thickening the paranasal sinuses. Intracranial calcified cerebral atherosclerosis is noted. IMPRESSION: 1. Unchanged small old lacunar infarct at the left basal ganglia. No acute intracranial process. 2. Age-related changes including mild to moderate diffuse volume loss and mild scattered white matter hypoattenuation consistent with chronic small vessel ischemic disease. Reviewed, dictated and finalized at location A. SPORTATION COORDINATOR IMPRESSION: 1. Unchanged small old lacunar infarct at the left basal ganglia. No acute intr acranial process. 2. Age-related changes including mild to moderate diffuse volume loss and mild scattered white matter hypoattenuation consistent with chronic small vessel isc hemic disease.
--- NOTE | ~2022-08-06 | XR_ITS ---
EXAMINATION: XR abdomen/kub 1V DATE: 08/07/2022 10:21 INDICATION: Chronic urinary tract infection. TECHNIQUE: A supine view of the abdomen on 2 radiographs was obtained. COMPARISON: CT abdomen and pelvis 08/07/2022 FINDINGS: There are no dilated loops of bowel. There are phleboliths in the pelvis. There is an 8 x 4 mm stone in proximal left ureter. IMPRESSION: 1. 8 x 4 mm stone in proximal left ureter. Reviewed, dictated and finalized at location A. GER CONVENTION
--- NOTE | ~2022-08-06 | CT_ITS ---
EXAMINATION: CT abdomen pelvis wo con DATE: 08/07/2022 10:13 INDICATION: Chronic urinary tract infection. TECHNIQUE: Computed tomography (CT) of the abdomen and pelvis was performed without intravenous contr ast. Automated exposure control and iterative reconstruction technique were employed. The dose-length product was 605.47 mGy-cm. COMPARISON: CT chest 05/24/2022 FINDINGS: The visualized portions of the lung bases demonstrate small pleural effusions. There is dep endent atelectasis bilaterally. The heart size is normal. There are coronary artery calcifications. N o pericardial effusion. The liver is normal. Calcifications in the spleen are consistent with old gra nulomatous disease. There are gallstones in the gallbladder, which is normal in size. The pancreas an d adrenal glands are normal. There is a 18 mm hemorrhagic cyst in right kidney. There are vascular ca lcifications at the hilum of right kidney. There are vascular calcifications at the hilum of left kid demar. There are 3 mm and 4 mm stones in left kidney. There is mild left hydronephrosis. There is a 5 m m stone in proximal left ureter. There are no dilated loops of bowel. The appendix is not visualized. There are no pathologically enlarged lymph nodes. There is no free intraperitoneal fluid. There is s evere lower lumbar spondylosis. IMPRESSION: 1. 5 mm stone in proximal left ureter with mild left hydronephrosis. 2. Nonobstructing left kidney stones. 3. Small pleural effusions. Reviewed, dictated and finalized at location A. E MIXING OPERATOR
[2022-08-06 07:57] VITALS: BP 136/66; PULSE 85; RESP 25; TEMP 36.4; O2SAT 97
--- NOTE | 2022-08-06 08:05 | ECG_ITS ---
Measurements Intervals [place] Rate: 84 P: 48 ME: 142 QRS: 24 QRSD: 74 T: 43 QT: 405 QTc: 479 Interpretive Statements SINUS RHYTHM LOW QRS VOLTAGE IN PRECORDIAL LEADS BORDERLINE R WAVE PROGRESSION, ANTERIOR LEADS BASELINE ARTIFACT- I, II, III, AVR, AVL, AVF, V1-V6 BORDERLINE ECG COMPARED TO ECG 07/27/2022 10:39:39 SINUS RHYTHM NOW PRESENT Electronically Signed On 08-06-2022 9:05:11 [employer] by Terry Maxwell D.O.
[2022-08-06 08:20] LABS: Basophils Percent Auto 0.7 % (0.2-1.2); Eosinophils Absolute Auto 0.1 K/mm3 (0-0.3); Hematocrit 28.9 % (37.0-47.0); Hemoglobin 9.2 g/dL (12.0-15.0); Immature Granulocyte Absolute 0.06 K/mm3 (0.00-0.031); Lymphocytes Absolute Auto 1.02 K/mm3 (0.9-3.2); Mean Corpuscular HGB Conc 31.8 g/dl (32-36); Mean Corpuscular Hemoglobin 30.8 pg (26-34); Mean Corpuscular Volume 96.7 fl (80-100); Mean Platelet Volume 7.9 fl (7.4-10.4); Monocytes Absolute Auto 0.6 K/mm3 (0.1-0.6); Monocytes Percent Auto 9.2 % (2.6-8.5); Neutrophils Absolute Auto 4.3 K/mm3 (1.3-6.7); Neutrophils Percent Auto 71.1 % (45.5-73.1); Platelet Count Result 563 k/mm3 (150-375); Red Blood Count 2.99 M/mm3 (4.2-5.4); Red Cell Distribution Width 13.8 % (11.5-14.5)
[2022-08-06 08:31] LABS: Alanine Aminotransferase 16 U/L (6-35); Albumin Level 2.8 g/dL (3.5-5.1); Alkaline Phosphatase 173 U/L (38-126); Anion Gap 7 mmol/L (8-16); Aspartate Amino Transferase 34 U/L (14-36); Bilirubin,Total 0.4 mg/dL (0.2-1.3); Blood Urea Nitrogen 14 mg/dL (7-17); Calcium 8.2 mg/dL (8.4-10.2); Carbon Dioxide 26 mmol/L (22-30); Chloride 103 mmol/L (98-107); Estimated Glomerular Filt Rate 36; Glucose 104 mg/dL (65-110); Potassium 4.8 mmol/L (3.4-5.0); Sodium 136 mmol/L (137-145)
--- NOTE | 2022-08-06 09:01 | ED.GENADULT ---
HPI - General Adult General Chief complaint: Weakness Stated complaint: ?sepsis Time Seen by Provider: 08/06/22 08:42 History of Present Illness HPI narrative: 76-year-old female with a history of Parkinson's disease and recent UTI presents from half-way for evaluation of decreased energy, wet cough. Daughter states child was seen in our hospital little over a week ago after having multiple falls at home. She was diagnosed with a urinary tract infection and spent a few days in the IMU in our hospital. She was discharged home but then needed to go to rehab facility as she had physically declined. Staff at the home were concerned about her and called EMS for transport to the emergency department. Related Data Home Medications Medication Instructions Recorded Confirmed cholecalciferol (vitamin D3) 125 125 mcg PO DAILY 09/05/20 10/10/22 mcg (5,000 unit) capsule multivit with 1 tablet PO DAILY 09/05/20 10/10/22 flzlmoki-vjdz-VU-lutein 8 mg iron-400 mcg-300 mcg tablet (Centrum Silver Women) carbidopa 25 mg-levodopa 100 mg 1 tablet PO QID 07/27/22 10/10/22 tablet fluticasone propionate 50 2 spray intranasal DAILY 07/27/22 10/10/22 mcg/actuation nasal spray,suspension losartan 50 mg tablet 50 mg PO DAILY 07/27/22 10/10/22 meclizine 25 mg tablet 25 mg PO TID 07/27/22 10/10/22 metformin 500 mg tablet 500 mg PO BID 07/27/22 10/10/22 paroxetine HCl 20 mg tablet 20 mg PO DAILY 07/27/22 10/10/22 pravastatin 20 mg tablet 20 mg PO DAILY 07/27/22 10/10/22 ferrous sulfate 325 mg (65 mg 325 mg PO DAILY 08/21/22 10/10/22 iron) tablet loperamide 2 mg capsule (Imodium 2 mg PO Q6H PRN Diarrhea 08/21/22 10/10/22 A-D) melatonin 5 mg tablet 5 mg PO HS PRN Insomnia 08/21/22 10/10/22 acetaminophen 325 mg tablet 650 mg PO Q4H PRN pain or fever 10/10/22 10/10/22 amino acids-protein hydrolysate 11 1 ea PO DAILY 10/10/22 10/10/22 gram-80 kcal/30 mL oral liquid (Pro-Stat Max) fluticasone fur. 100 mcg-umeclid 1 inh inhalation DAILY 10/10/22 10/10/22 62.5 mcg-vilant 25 mcg inhalat.powder (Trelegy Ellipta) ondansetron 4 mg disintegrating 4 mg PO Q6H PRN Nausea 10/10/22 10/10/22 tablet krikxlkxillgxzz-NI-dhdizwmzywy 30 10 ml PO BID PRN Cough 10/10/22 10/10/22 mg-15 mg-200 mg/5 mL oral solution Allergies Allergy/AdvReac Type Severity Reaction Status Date / Time VONNIE Inhibitors Allergy Unknown Unknown Verified 10/10/22 12:15 erythromycin base Allergy Unknown Unknown Verified 10/10/22 12:15 Macrolide Antibiotics Allergy Unknown Unknown Verified 10/10/22 12:15 prednisone Allergy Unknown Unknown Verified 10/10/22 12:15 secobarbital Allergy Unknown HIVES Verified 10/10/22 12:15 cefuroxime [From Ceftin] AdvReac Mild Diarrhea Verified 10/10/22 12:15 olmesartan AdvReac Unknown Confusion Verified 10/10/22 12:15 Review of Systems Review of Systems: CONSTITUTIONAL: Denies fever, chills, or sweats. EYES: Denies visual changes, redness, or discharge. ENT: Denies rhinorrhea, congestion, sore throat, or otalgia. CARDIOVASCULAR: Denies chest pain, palpitations, or edema. RESPIRATORY: Denies cough or dyspnea. GASTROINTESTINAL: Denies abdominal pain, nausea, vomiting, or diarrhea. GENITOURINARY: Denies dysuria or hematuria. SKIN: Denies rash or itching. MUSCULOSKELETAL: Denies back pain, joint pain, or myalgia. NEUROLOGIC: Denies headache, numbness, or weakness. PSYCHIATRIC: Denies anxiety or depression. [facility] Past Medical History Medical History Anxiety with depression Benign essential hypertension Cigarette nicotine dependence COPD (chronic obstructive pulmonary disease) Depression DJD (degenerative joint disease), multiple sites DM type 2 (diabetes mellitus, type 2) Hiatal hernia Hyperlipidemia Parkinsonism Urinary tract infection Vitamin D deficiency Surgical History Surgical History H/O rhinoplasty H
[2022-08-06 09:23] LABS: Appearance Urine Cloudy (Clear); Bacteria Urine 1+ /hpf; Bilirubin Urine Negative (Negative); Blood Urine 2+ (Negative); Color Urine Yellow (Yellow); Glucose Urine UA Negative (Negative); Ketones Urine Negative (Negative); Leukocyte Esterase Ur 3+ LEU/UL (Negative); Nitrate Urine Negative (Negative); Protein Urine 2+ mg/dL (Negative); RBC Urine 51-75 /hpf (0-2); Squamous Epithelial Cell Urine Many /hpf (Few); Urobilinogen Urine 0.2 mg/dL (<2.0); WBC Clumps Urine Present /HPF; WBC Urine >75 /hpf; pH Urine 5.5 (5.0-9.0)
[2022-08-06 09:24] LABS: Add Urine Microscopic? YES
[2022-08-06] MEDS: SODIUM CHLORIDE 0.9% IV 1,000 ML 999 ML IV CONT (09:45)
--- NOTE | 2022-08-06 09:50 | PC.NURSE ---
NS stopped per EDP VORB
[2022-08-06 10:04] LABS: INR 1.2; Prothrombin Time 14.8 Seconds (11.1-14.7)
[2022-08-06 10:05] LABS: Partial Thromboplastin Time 35.7 SECONDS (22.3-36.8)
[2022-08-06 10:11] LABS: CRP 25.1 mg/dL (<1.0)
[2022-08-06 10:18] LABS: Lactic Acid Reflex 1.1 mmol/L (0.7-2.0)
[2022-08-06] MEDS: FUROSEMIDE INJ 40 MG/4 ML VIAL IV PUSH (11:27)
--- NOTE | 2022-08-06 13:59 | PM.IMHP ---
H&P: HPI History of Present Illness Date/Time: 08/06/22 13:59 Chief Complaint: Weakness Narrative: This is a 76-year-old female patient who is currently in rehab facility [facility]. She is there because of multiple falls and repeat UTIs. The daughter is at the bedside and stated that the patient has been losing weight and has gotten weaker. (The patient was just discharged from here on 08/01/2022 due to multiple falls and weakness. The patient was seen by the neurologist at that time who determined that her Parkinson's is worsening and the patient was discharged on Bactrim.) The daughter cannot verify whether not the patient had received her Bactrim at the retirement. The patient has only been at the retirement for 4-5 days. Today her H&H is stable at 9.2 and 28.9. Sodium is 136. Her creatinine is 1.4 with a baseline anywhere from 1.1-1.4. Her C reactive protein is 25.1. Patient's urine appears to be infected however she has many urine squamous epithelial cells. The patient was given IV fluids cefepime and Lasix in the emergency room. Head CT was read as the following 1. Unchanged small old lacunar infarct at the left basal ganglia. No acute intracranial process. 2. Age-related changes including mild to moderate diffuse volume loss and mild scattered white matter hypoattenuation consistent with chronic small vessel ischemic disease. Chest x-ray was read as the following 1: Bilateral interstitial infiltrates of the mid and lower lungs with peribronchial thickening, most likely mild edema. Pneumonia less favored. 2:? Small pleural effusions. 3: Cardiomegaly. The patient is being admitted to observation status on the date of service of 08/06/2022. Review of Systems Review of Systems: See HPI All systems reviewed & are unremarkable except as noted in HPI and below Constitutional: Constitutional: Reports as per HPI and Reports no additional constitutional complaints Eyes: Eyes: Reports as per HPI and Reports no additional eye complaints ENT: Reports system reviewed and no additional complaints, except as documented and Reports Normal hearing present Cardiovascular: Cardiovascular: Reports no additional cardiovascular complaints Respiratory: Respiratory: Reports no additional respiratory complaints and Reports no additional respiratory complaints Gastrointestinal: Gastrointestinal: Reports as per HPI and Reports no additional gastrointestinal complaints Musculoskeletal: Musculoskeletal: Reports no additional musculoskeletal complaints Integumentary/Breasts: Skin/Breast: Reports system reviewed and no additional complaints, except as docu and Reports as per HPI Neurologic: Reports system reviewed and no additional complaints, except as documented, Reports as per HPI and Reports Normal hearing present Psychiatric: Psychiatric: Reports no additional psychiatric complaints and Reports as per HPI Endocrine: Endocrine: Reports no additional endocrine complaints Hematologic/Lymphatic: Hematologic/Lymphatic: Reports no additional hematologic/lymphatic complaints Allergic/Immunologic: Allergic/Immunologic: Reports no additional allergic/immunologic complaints [facility] Past Medical History Medical History (Updated 08/06/22 @ 20:12 by Ivonne Manzo NP) Anxiety with depression Benign essential hypertension BMI 30.0-30.9,adult BMI 33.0-33.9,adult BMI 34.0-34.9,adult Cigarette nicotine dependence Colon cancer screening COPD (chronic obstructive pulmonary disease) Depression DJD (degenerative joint disease), multiple sites DM type 2 (diabetes mellitus, type 2) Encounter for routine adult health examination without abnormal findings Encounter for screening mammogram for malignant neoplasm of breast Hiatal hernia History of falling Hyperlipidemia Injury, head Laceration of finger of left hand Nicotine abuse Non-intractable vomiting 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
[2022-08-06 16:03] VITALS: BP 140/63; PULSE 92; RESP 22; O2SAT 96
[2022-08-06 16:25] VITALS: BP 147/67; PULSE 92; RESP 32; TEMP 36.9; O2SAT 93
[2022-08-06 17:17] VITALS: BMI 31.8
--- NOTE | 2022-08-06 17:25 | ADMGEN ---
This patient, Emilee Bagley, was admitted to 3 Med Surg Room 302-01 at 1625. Patient/family oriented to hospital policies and general routines including ID bracelet, bed and alarms, visiting hours, pain management, procedures, bathroom and other care routines, personal items, smoking policy, room service/diet, and visiting hours. Information on how to activate the Rapid Response Team has been discussed. Patient/Family are encouraged to report perceived risks to care and to ask questions if they do not understand what they are told or what they should do.
[2022-08-06 18:11] VITALS: O2SAT 93
[2022-08-06] MEDS: MECLIZINE HCL 25 MG TABLET PO (20:52)
[2022-08-06] MEDS: CARBIDOPA/LEVODOPA 25/100 MG TABLET 1 TABLET PO (20:52)
[2022-08-06 20:54] LABS: Glucose Point of Care 157 mg/dl (65-105)
[2022-08-06 22:00] VITALS: BP 123/67; PULSE 90; RESP 18; TEMP 36.9; O2SAT 95
[2022-08-06 22:00] LABS: Base Excess ABG 5.2 mEq/l (+/-2.0); HCO3 ABG 28.6 mEq/l (22.0-26.0); Oxygen Saturation ABG 94.1 % (95.0-100.0); PCO2 ABG 37.8 mmHg (35.0-45.0); PO2 ABG 63.7 mmHg (80.0-100.0); Total Hemoglobin 12.3 g/dL (12.0-18.0)
[2022-08-06 22:01] LABS: Oxygen Content ABG 15.9 %vol (16.0-22.0)
[2022-08-06 22:02] LABS: Alveolar/Arterial O2 Gradient 62.4 mmHg; Oxyhemoglobin 91.6 % THb (90.0-100.0); PO2 FiO2 Ratio Arterial Blood 2.65 %; Site Drawn RIGHT RADIAL
[2022-08-06 22:03] LABS: Modified Allen's Test Pass
[2022-08-06 22:04] LABS: Device NASAL CANNULA
[2022-08-07 06:00] VITALS: BP 127/62; PULSE 85; RESP 18; TEMP 36.4; O2SAT 94
[2022-08-07 06:37] LABS: Basophils Percent Auto 0.7 % (0.2-1.2); Eosinophils Absolute Auto 0.1 K/mm3 (0-0.3); Eosinophils Percent Auto 1.9 % (0-4.4); Hematocrit 28.1 % (37.0-47.0); Hemoglobin 8.9 g/dL (12.0-15.0); Immature Granulocyte Absolute 0.05 K/mm3 (0.00-0.031); Immature Granulocyte Percent A 0.9 % (0-0.5); Lymphocytes Absolute Auto 0.89 K/mm3 (0.9-3.2); Lymphocytes Percent Auto 15.6 % (18.3-44.2); Mean Corpuscular HGB Conc 31.7 g/dl (32-36); Mean Corpuscular Hemoglobin 30.6 pg (26-34); Mean Corpuscular Volume 96.6 fl (80-100); Mean Platelet Volume 8.2 fl (7.4-10.4); Monocytes Absolute Auto 0.6 K/mm3 (0.1-0.6); Monocytes Percent Auto 11.1 % (2.6-8.5); Neutrophils Percent Auto 69.8 % (45.5-73.1); Platelet Count Result 582 k/mm3 (150-375); Red Blood Count 2.91 M/mm3 (4.2-5.4); Red Cell Distribution Width 13.7 % (11.5-14.5); White Blood Count 5.7 K/mm3 (4.5-10.0)
[2022-08-07 06:43] LABS: Lactic Acid Reflex 0.8 mmol/L (0.7-2.0)
[2022-08-07 06:47] LABS: Alanine Aminotransferase 10 U/L (6-35); Albumin Level 2.8 g/dL (3.5-5.1); Alkaline Phosphatase 168 U/L (38-126); Anion Gap 7 mmol/L (8-16); Aspartate Amino Transferase 40 U/L (14-36); Bilirubin,Total 0.5 mg/dL (0.2-1.3); Blood Urea Nitrogen 18 mg/dL (7-17); Calcium 8.5 mg/dL (8.4-10.2); Carbon Dioxide 26 mmol/L (22-30); Chloride 101 mmol/L (98-107); Estimated CRCL calculation 31 ml/min; Estimated Glomerular Filt Rate 34; Glucose 114 mg/dL (65-110); Potassium 4.5 mmol/L (3.4-5.0); Sodium 134 mmol/L (137-145)
[2022-08-07 07:51] LABS: Glucose Point of Care 105 mg/dl (65-105)
[2022-08-07] MEDS: FLUTICASONE PROPIONATE 0.05% NA SPR 16 GM BTL (*BKC) 2 SPRAY NASAL (09:13)
[2022-08-07] MEDS: PARoxetine 20 MG TABLET PO (09:14)
[2022-08-07] MEDS: CARBIDOPA/LEVODOPA 25/100 MG TABLET 1 TABLET PO ×4 (09:14→20:56)
[2022-08-07] MEDS: THERAPEUTIC MULTIVITAMINS/MINERALS TAB (*BKC) 1 TABLET PO (09:14)
[2022-08-07] MEDS: ALPRAZolam (*CRX) 0.5 MG TABLET PO ×3 (09:14→17:07)
[2022-08-07] MEDS: MECLIZINE HCL 25 MG TABLET PO ×3 (09:14→17:07)
[2022-08-07] MEDS: LOSARTAN POTASSIUM 50 MG TABLET PO (09:14)
[2022-08-07] MEDS: CHOLECALCIFEROL 1,000 UNITS TABLET 5000 UNITS PO (09:14)
--- NOTE | 2022-08-07 11:50 | PCOTNOTE ---
Attempted to see pt. for occupational therapy. Pt. cureently working with physical therapy
[2022-08-07 12:03] LABS: Glucose Point of Care 135 mg/dl (65-105)
--- NOTE | 2022-08-07 13:49 | PM.IMPN ---
Progress Note: A&P Assessment and Plan (1) Acute UTI (urinary tract infection): Code(s): N39.0 - Urinary tract infection, site not specified Status: Acute Assessment and Plan: UA with 3+ leukocytes, >75 WBC, and 1+ bacteria. She was recently discharged from this facility on 08/01/22 on Bactrim for Proteus UTI and bacteremia. Continue cefepime and adjust antibiotics pending culture results. Urology consulted for frequent UTIs and CT abd/pelvis shows obstructing left ureteral stone and likely contributing to frequent UTIs. (2) Ureteral stone: Code(s): N20.1 - Calculus of ureter Status: Acute Assessment and Plan: Frequent UTIs as above. CT abd/pelvis shows 8 x 4 mm left ureteral stone. Urology following. Plan for cystoscopy left ureteral with stent placement, left retrograde pyelogram in am. (3) Renal calculus, left: Code(s): N20.0 - Calculus of kidney Status: Acute Assessment and Plan: Not visible on KUB, Urology following and no surgical intervention needed at this time, will monitor annually. (4) Mixed hyperlipidemia: Code(s): E78.2 - Mixed hyperlipidemia Status: Chronic Assessment and Plan: Chronic, hold statin due to her weakness and resume following procedure. (5) COPD (chronic obstructive pulmonary disease): Qualifiers: COPD type: unspecified COPD Qualified Code(s): J44.9 - Chronic obstructive pulmonary disease, unspecified Code(s): J44.9 - Chronic obstructive pulmonary disease, unspecified Status: Chronic Assessment and Plan: Chronic, not in acute exacerbation. Continue with home inhalers. Wean O2 to keep sats>90%. (6) Anxiety with depression: Code(s): F41.8 - Other specified anxiety disorders Status: Chronic Assessment and Plan: Chronic, continue paxil and Xanax (7) Benign essential hypertension: Code(s): I10 - Essential (primary) hypertension Status: Chronic Assessment and Plan: Chronic, stable. BPs reviewed. Continue with losartan (8) DM type 2 (diabetes mellitus, type 2): Qualifiers: Diabetes mellitus complication status: without complication Diabetes mellitus fci insulin use: without fci use Qualified Code(s): E11.9 - Type 2 diabetes mellitus without complications Code(s): E11.9 - Type 2 diabetes mellitus without complications Status: Chronic Assessment and Plan: Chronic, hold metformin while inpatient. eGFR 34, and consider alternative agents if it remains <45. Continue Accu-Cheks with a.c. and HS with sliding scale insulin for meals and with hypoglycemic protocol. A1c on 07/27/2022 was 5.5 and stable. (9) Parkinsons: Code(s): G20 - Parkinson's disease Status: Chronic Assessment and Plan: Chronic, during her last admission neurology has seen her and has decided that her Parkinson's has worse. She continues to be very weak, which most likely is secondary to recurrent infections. Continue with levodopa-carbidopa at current doses and consider Neurology re-consult if weakness persists despite infection control.? Subjective Date/time seen: 08/07/22 13:49 She reports feeling tired. She denies flank pain, dysuria, abd pain, N/V, SOB, palpitations or chest pain. She is having a CT scan soon. Review of Systems Review of Systems: All systems reviewed & are unremarkable except as noted in HPI and below Exam Narrative: General: No distress. Ill-appearing older adult female sitting in bed.? Mental Status/Psych: Tired appearing, oriented to person, hospital, month and year. Forgetful of holiday. clear, slow speech. Neutral mood and flat affect. Cooperative. Skin: Skin fair, warm, dry and intact without rashes or lesions. Fair turgor.? HEENT: Normocephalic. Atraumatic. EOM intact. PERRL. Sclera is non-icteric. Oral mucosa dry. hearing grossly normal. Tongue midline.? Neck: Supple without lymphaden
[2022-08-07 14:00] VITALS: BP 123/56; PULSE 90; RESP 38; TEMP 36.3; O2SAT 100
--- NOTE | 2022-08-07 14:49 | WPDURCON ---
Assessment and Plan Assessment and plan (1) Acute UTI (urinary tract infection): Code(s): N39.0 - Urinary tract infection, site not specified Status: Acute Assessment and Plan: Continue Cefepime, tailor antibiotics to culture results. Obstructive stone is very likely a contributing factor to her recent chronic infection. (2) Ureteral stone: Code(s): N20.1 - Calculus of ureter Status: Acute Assessment and Plan: Will plan to go to the OR tomorrow with Dr. Lugo at 2pm. OBtain consent: Cystoscopy, left ureteral with stent placement, left retrograde pyelogram. Keep NPO after midnight. The patient agrees to proceed d/t ongoing infections and left flank pain. I called her daughter Taylor and explained her test results and options for treatment including a stent placement now to aide in treating her infection, once infection resolves, we will do either a stent exchange with stone removal via cystoscopy or a left ESWL, then remove stent in the office 1-2 weeks later once stone is passed. Her daughter agrees to proceed. (3) Renal calculus, left: Code(s): N20.0 - Calculus of kidney Status: Acute Assessment and Plan: Not visible on KUB, no surgical intervention needed at this time, will plan to monitor annually. Urology Consult Note HPI Date Seen: 08/07/22 Time Seen: 12:00 Requesting Physician: Jose L Major MD Primary Care Provider: Hoang Chris MD Consult Narrative Reason for consult: Chronic UTI, Left Ureteral Stone Narrative: Emilee Bagley is a 76 year old female who presented via EMS from rehab for increasing weakness and new cough symptoms yesterday. She was recently hospitalized here one week ago and treated for a UTI, with her blood culture growing Proteus. She was discharged with Bactrim. Her urine culture from that visit was negative. She is currently afebrile, WBC is 5.7, creatinine is 1.50. She had a normal RENETTA last hospitalization, however she and her daughter are concerned about chronic UTI's. The patient has new onset of dementia and is a poor historian, but is alert and oriented. She does c/o left flank pain, but denies dysuria, frequency and urgency. She states she has incontinence which is not new for her. A CT scan was ordered today to further assess her chronic infections and a 5mm proximal left ureteral stone was noted as well as left renal stones that are non obstructive. Review of Systems Cardiovascular: Cardiovascular: Denies chest pain Respiratory: Respiratory: Reports no additional respiratory complaints Gastrointestinal: Gastrointestinal: Denies abdominal pain, Denies nausea and Denies vomiting Genitourinary: Genitourinary: Denies hematuria, Denies nocturia, Denies dysuria, Denies pelvic pain, Reports flank pain, Reports urinary incontinence and Denies urinary urgency PMFSH Past Medical History Medical History Anxiety with depression Benign essential hypertension BMI 30.0-30.9,adult BMI 33.0-33.9,adult BMI 34.0-34.9,adult Cigarette nicotine dependence Colon cancer screening COPD (chronic obstructive pulmonary disease) Depression DJD (degenerative joint disease), multiple sites DM type 2 (diabetes mellitus, type 2) Encounter for routine adult health examination without abnormal findings Encounter for screening mammogram for malignant neoplasm of breast Hiatal hernia History of falling Hyperlipidemia Injury, head Laceration of finger of left hand Nicotine abuse Non-intractable vomiting 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
--- NOTE | 2022-08-07 15:46 | WPDANESEPPF ---
Anes - Initial Pre Proc Eval Procedure: Operation Date: 08/08/22 14:30 Proposed Procedures p Cystoscopy,Left Retrograde Pyelogram,Left Stent Placement - Federico Lugo MD Date/Time: 08/07/22 15:46 Surgeon: Jose L Major MD Pre Op Diagnosis: UTI/Failed Outpatient Therapy/Pulmonary Edema Patient Data Age: 76 Gender: F Height: 1.65 m Weight: 87 kg Last Vital Signs Temp 36.3 C L 08/07/22 14:00 Pulse 90 08/07/22 14:00 Resp 38 H 08/07/22 14:00 BP 123/56 L 08/07/22 14:00 Pulse Ox 100 08/07/22 14:00 O2 Del Method Nasal Cannula 08/07/22 11:40 O2 Flow Rate 3 08/07/22 11:40 Allergies Allergy/AdvReac Type Severity Reaction Status Date / Time VONINE Inhibitors Allergy Unknown Unknown Verified 05/14/22 13:38 erythromycin base Allergy Unknown Unknown Verified 05/14/22 13:38 Macrolide Antibiotics Allergy Unknown Unknown Verified 05/14/22 13:38 prednisone Allergy Unknown Unknown Verified 05/14/22 13:38 secobarbital Allergy Unknown HIVES Verified 05/14/22 13:38 cefuroxime [From Ceftin] AdvReac Mild Diarrhea Verified 05/14/22 13:38 olmesartan AdvReac Unknown Confusion Verified 08/06/22 09:51 Home Medications Medication Instructions Recorded Confirmed Type cholecalciferol (vitamin D3) 125 125 mcg PO DAILY 09/05/20 08/06/22 History mcg (5,000 unit) capsule multivit with 1 tablet PO DAILY 09/05/20 08/06/22 History xbfqvrvx-ecld-AU-lutein 8 mg iron-400 mcg-300 mcg tablet (Centrum Silver Women) fluticasone fur. 100 mcg-umeclid 1 inh inhalation DAILY #60 ea 05/14/22 08/06/22 Rx 62.5 mcg-vilant 25 mcg inhalat.powder (Trelegy Ellipta) alprazolam 0.5 mg tablet 0.5 mg PO TID #90 tabs 06/13/22 08/06/22 Rx carbidopa 25 mg-levodopa 100 mg 1 tablet PO QID 07/27/22 08/06/22 History tablet fluticasone propionate 50 2 spray intranasal DAILY 07/27/22 08/06/22 History mcg/actuation nasal spray,suspension losartan 50 mg tablet 50 mg PO DAILY 07/27/22 08/06/22 History meclizine 25 mg tablet 25 mg PO TID 07/27/22 08/06/22 History metformin 500 mg tablet 500 mg PO BIDWM 07/27/22 08/06/22 History paroxetine HCl 20 mg tablet 20 mg PO DAILY 07/27/22 08/06/22 History pravastatin 20 mg tablet 20 mg PO DAILY 07/27/22 08/06/22 History sulfamethoxazole 800 1 tablet PO Q12H #14 tabs 08/01/22 08/06/22 Rx mg-trimethoprim 160 mg tablet (Bactrim DS) Laboratory Tests 08/06/22 08/06/22 08/07/22 20:51 21:09 05:41 WBC 5.7 K/mm3 K/mm3 (4.5-10.0) RBC 2.91 M/mm3 L M/mm3 (4.2-5.4) Hgb 8.9 g/dL L g/dL (12.0-15.0) Hct 28.1 % L % (37.0-47.0) MCV 96.6 fl fl (80-100) MCH 30.6 pg pg (26-34) MCHC 31.7 g/dl L g/dl (32-36) RDW 13.7 % % (11.5-14.5) Plt Count 582 k/mm3 H k/mm3 (150-375) MPV 8.2 fl fl (7.4-10.4) Immature Gran % (Auto) 0.9 % H % (0-0.5) Neut % (Auto) 69.8 % % (45.5-73.1) Lymph % (Auto) 15.6 % L % (18.3-44.2) Wright % (Auto) 11.1 % H % (2.6-8.5) Eos % (Auto) 1.9 % % (0-4.4) Baso % (Auto) 0.7 % % (0.2-1.2) Lymph # (Auto) 0.89 K/mm3 L K/mm3 (0.9-3.2) Wright # (Auto) 0.6 K/mm3 K/mm3 (0.1-0.6) Eos # (Auto) 0.1 K/mm3 K/mm3 (0-0.3) Baso # (Auto) 0.0 K/mm3 K/mm3 (0.0-0.1) Abs Immat Gran (auto) 0.05 K/mm3 H K/mm3 (0.00-0.031) Absolute Neuts (auto) 4.0 K/mm3 K/mm3 (1.3-6.7) Absolute Nucleated RBC 0.0 K/mm3 K/mm3 (0.0-0.012) Nucleated RBC % 0.0 % % (0.0-0.2) Puncture Site Right radial ABG pH 7.490 H (7.350-7.450) ABG pCO2 37.8 mmHg mmHg (35.0-45.0) ABG pO2 63.7 mmHg L mmHg (80.0-100.0) ABG PO2/FiO2 Ratio 2.65 % % ABG HCO3 28.6 mEq/l H mEq/l (22.0-26.0) ABG O2 Saturation 94.1 % L % (95.0-100.0) ABG O2 Content 15.9 %vol L %vol
[2022-08-07 16:40] LABS: Glucose Point of Care 114 mg/dl (65-105)
[2022-08-07 20:00] VITALS: O2SAT 100
[2022-08-07 21:25] LABS: Glucose Point of Care 102 mg/dl (65-105)
[2022-08-08] VITALS (10 sets, daily range): BP systolic 114–130; BP diastolic 52–64; PULSE 82–92; RESP 16–28; TEMP 36.2–37.3; O2SAT 96–100
--- NOTE | 2022-08-08 02:12 | PC.NURSE ---
pt very drowsy when giving 2100 meds. Pt needed a lot of redirecting to take meds/participate in assessment and exhibited weakness and delayed response. Patient able to answer orientation questions; AOx3
--- NOTE | 2022-08-08 06:46 | WPDHPUPDATE1 ---
History and Physical Update Update Date/Time: 08/08/22 06:46 History and Physical has been reviewed, including an updated exam of the patient. There are NO changes in the patient's condition. Risks, benefits, and alternatives have been discussed and questions answered. Patient agrees to proceed with procedure. Chart/imaging reviewed. Agree with plans for cysto./left stent placement today with definitive stone management (likely left ESWL) [id number].
[2022-08-08 07:20] LABS: Alanine Aminotransferase 8 U/L (6-35); Albumin Level 2.9 g/dL (3.5-5.1); Alkaline Phosphatase 167 U/L (38-126); Anion Gap 9 mmol/L (8-16); Aspartate Amino Transferase 39 U/L (14-36); Bilirubin,Total 0.5 mg/dL (0.2-1.3); Blood Urea Nitrogen 23 mg/dL (7-17); Calcium 8.5 mg/dL (8.4-10.2); Carbon Dioxide 23 mmol/L (22-30); Chloride 102 mmol/L (98-107); Estimated CRCL calculation 33 ml/min; Estimated Glomerular Filt Rate 36; Glucose 112 mg/dL (65-110); Potassium 4.3 mmol/L (3.4-5.0); Sodium 134 mmol/L (137-145)
[2022-08-08 07:27] LABS: Basophils Percent Auto 0.7 % (0.2-1.2); Eosinophils Absolute Auto 0.1 K/mm3 (0-0.3); Eosinophils Percent Auto 2.3 % (0-4.4); Hemoglobin 9.3 g/dL (12.0-15.0); Immature Granulocyte Absolute 0.07 K/mm3 (0.00-0.031); Immature Granulocyte Percent A 1.2 % (0-0.5); Lymphocytes Absolute Auto 0.77 K/mm3 (0.9-3.2); Lymphocytes Percent Auto 13.7 % (18.3-44.2); Mean Corpuscular Hemoglobin 30.1 pg (26-34); Mean Corpuscular Volume 97.1 fl (80-100); Mean Platelet Volume 8.2 fl (7.4-10.4); Monocytes Absolute Auto 0.6 K/mm3 (0.1-0.6); Monocytes Percent Auto 10.6 % (2.6-8.5); Neutrophils Percent Auto 71.5 % (45.5-73.1); Platelet Count Result 543 k/mm3 (150-375); Red Blood Count 3.09 M/mm3 (4.2-5.4); Red Cell Distribution Width 13.7 % (11.5-14.5); White Blood Count 5.6 K/mm3 (4.5-10.0)
[2022-08-08] MEDS: FLUTICASONE/UMECLIDIN/VILANTER 100-62.5-25 MCG ELLIPTA 1 PUFF INHALATION (09:15)
[2022-08-08 09:16] LABS: Glucose Point of Care 104 mg/dl (65-105)
--- NOTE | 2022-08-08 13:05 | WPDHPUPDATE1 ---
History and Physical Update Update Date/Time: 08/08/22 13:05 History and Physical has been reviewed, including an updated exam of the patient. There are NO changes in the patient's condition. Risks, benefits, and alternatives have been discussed and questions answered. Patient agrees to proceed with procedure. chart and imaging reviewed and discussed with Marie Brock NP. agree with plans for cystoscopy with left ureteral stent placement. She will then need definitive stone management, likely left ESWL, in the future.
[2022-08-08 13:10] LABS: Glucose Point of Care 112 mg/dl (65-105)
[2022-08-08] MEDS: LACTATED RINGERS 1,000 ML 30 ML IV CONT (13:48)
--- NOTE | 2022-08-08 14:13 | PM.IMPN ---
Progress Note: A&P Assessment and Plan (1) Acute UTI (urinary tract infection): Code(s): N39.0 - Urinary tract infection, site not specified Status: Acute Assessment and Plan: UA with 3+ leukocytes >75 WBC, and 1+ bacteria. She was recently discharged from this facility on 08/01/22 on Bactrim for Proteus UTI and bacteremia. Continue cefepime Preliminary urine culture reveals no growth to date Urology consulted for frequent UTIs and CT abd/pelvis shows obstructing left ureteral stone and likely contributing to frequent UTIs. Continue on IV fluids (2) Ureteral stone: Code(s): N20.1 - Calculus of ureter Status: Acute Assessment and Plan: Frequent UTIs as above. CT abd/pelvis shows 8 x 4 mm left ureteral stone. Urology following. Plan for cystoscopy left ureteral with stent placement, left retrograde pyelogram today (3) Renal calculus, left: Code(s): N20.0 - Calculus of kidney Status: Acute Assessment and Plan: Not visible on KUB, Urology following and no surgical intervention needed at this time, will monitor annually. (4) Mixed hyperlipidemia: Code(s): E78.2 - Mixed hyperlipidemia Status: Chronic Assessment and Plan: Chronic, hold statin due to her weakness and resume following procedure. (5) COPD (chronic obstructive pulmonary disease): Qualifiers: COPD type: unspecified COPD Qualified Code(s): J44.9 - Chronic obstructive pulmonary disease, unspecified Code(s): J44.9 - Chronic obstructive pulmonary disease, unspecified Status: Chronic Assessment and Plan: Chronic, not in acute exacerbation. Continue with home inhalers. Wean O2 to keep sats>90%. (6) Anxiety with depression: Code(s): F41.8 - Other specified anxiety disorders Status: Chronic Assessment and Plan: Chronic, continue paxil and Xanax (7) Benign essential hypertension: Code(s): I10 - Essential (primary) hypertension Status: Chronic Assessment and Plan: Chronic, stable. BPs reviewed. Continue with losartan (8) DM type 2 (diabetes mellitus, type 2): Qualifiers: Diabetes mellitus complication status: without complication Diabetes mellitus snf insulin use: without local intermodal truck driver use Qualified Code(s): E11.9 - Type 2 diabetes mellitus without complications Code(s): E11.9 - Type 2 diabetes mellitus without complications Status: Chronic Assessment and Plan: Chronic, hold metformin while inpatient. eGFR 34, and consider alternative agents if it remains <45. Continue Accu-Cheks with a.c. and HS with sliding scale insulin for meals and with hypoglycemic protocol. A1c on 07/27/2022 was 5.5 and stable. (9) Parkinsons: Code(s): G20 - Parkinson's disease Status: Chronic Assessment and Plan: Chronic, during her last admission neurology has seen her and has decided that her Parkinson's has worse. She continues to be very weak, which most likely is secondary to recurrent infections. Continue with levodopa-carbidopa at current doses and consider Neurology re-consult if weakness persists despite infection control.? Time Spent With Patient Time with patient: Greater than 35 minutes Subjective Date/time seen: 08/08/22 14:13 Interval history: 76-year-old female with history of emphysema, Parkinson's, hypertension, and frequent UTIs. Patient diagnosed with UTI and left ureteral stone. Patient appeared very drowsy when interviewed And states that she did not sleep last night. Patient denies nausea, vomiting, constipation, diarrhea, chest pain, shortness a breath. Patient states that she has some right-sided flank pain with some associated urinary frequency and discomfort. Patient denies hematuria. Review of Systems Review of Systems: All systems reviewed & are unremarkable except as noted in HPI and below Exam Narrative: GENERAL: Comfortable, no
--- NOTE | 2022-08-08 14:18 | PCPTNOTE ---
The patient treatment was not able to be completed on 08/08/2022 due to patient out of room for procedure. Will plan to continue treatment per plan of care.
--- NOTE | 2022-08-08 14:38 | PM.IMPN ---
Subjective Date/time seen: 08/08/22 14:38 Objective Data Vital Signs Vital Signs: Vital Signs - 24 hr 08/07/22 20:00 08/08/22 09:16 08/08/22 08:00 Temperature Pulse Rate Respiratory Rate Blood Pressure Pulse Oximetry 100 97 97 Oxygen Delivery Nasal Cannula Nasal Cannula Nasal Cannula Oxygen Flow Rate 2 3 3 08/08/22 10:56 08/08/22 13:38 Temperature 97.2 F L Pulse Rate 88 Respiratory Rate 16 Blood Pressure 125/52 L Pulse Oximetry 99 Oxygen Delivery Nasal Cannula Nasal Cannula Oxygen Flow Rate 3 3 Intake/Output Intake/Output: Intake & Output 08/05/22 08/06/22 08/07/22 08/08/22 23:59 23:59 23:59 23:59 Intake Total 850 665 50 Balance 850 665 50 Meds/Results Medications: Active Medications Generic Name Dose Route Start Last Admin Trade Name Freq PRN Reason Stop Dose Admin Alprazolam 0.5 mg 08/06/22 20:30 08/08/22 14:30 Alprazolam (*Crx) 0.5 Mg Tablet PO Not Given TID [facility]OHAIL Carbidopa/Levodopa 1 tablet 08/06/22 21:00 08/08/22 14:30 Carbidopa/Levodopa 25/100 Mg Tablet PO Not Given QID [facility] Dextrose 12.5 gm 08/06/22 20:23 Dextrose 50% 25 Gm/50 Ml Syringe IV PUSH PRN PRN Hypoglycemia Protocol Fentanyl Citrate 25 mcg 08/07/22 15:46 Fentanyl Citrate Inj (*Crx) 100 Mcg/2 Ml Vial IV PUSH Q2M PRN Pain Fluticasone Propionate 2 spray 08/07/22 09:00 08/08/22 10:55 Fluticasone Propionate 0.05% Na Spr 16 Gm Btl (*Bkc) NASAL Not Given DAILY S[facility] Fluticasone/Umeclidinium/Vilanterol 1 puff 08/07/22 08:00 08/08/22 09:15 Fluticasone/Umeclidin/Vilanter 100-62.5-25 Mcg Ellipta INHALATION 1 puff DAILYRT SOHAIL Administration Glucagon 1 mg 08/06/22 20:23 Glucagon For Inj 1 Mg Vial IM PRN PRN Hypoglycemia Protocol Glucose 15 gm 08/06/22 20:23 Glucose Oral Gel 15 Gm Of Glucse In 37.5 Gm Tube PO PRN PRN Hypoglycemia Protocol Cefepime HCl 2 gm in 50 mls @ 100 mls/hr 08/06/22 21:00 08/08/22 09:09 Maxipime 2 Gm/D5w 50 Ml IVPB Infused Q12H [facility] Infusion Dextrose 1,000 mls @ 100 mls/hr 08/06/22 20:23 Dextrose 5% 1,000 Ml IVPB PRN PRN Hypoglycemia Protocol Lactated Ringer's 1,000 mls @ 30 mls/hr 08/07/22 15:50 08/08/22 13:48 Lr - Lactated Ringers Iv IV CONT 30 mls/hr .Q24H [facility] Administration Lactated Ringer's 1,000 mls @ 30 mls/hr 08/07/22 15:50 Lr - Lactated Ringers Iv IV CONT .Q24H [facility] Insulin Aspart 2 - 5 units 08/07/22 08:00 08/08/22 12:29 Insulin Aspart (*Bkc) 100 Units/Ml SUB-Q Not Given TIDWM [facility] Protocol Losartan Potassium 50 mg 08/07/22 09:00 08/08/22 10:55 Losartan Potassium 50 Mg Tablet PO Not Given DAILY [facility] Meclizine HCl 25 mg 08/06/22 20:30 08/08/22 14:30 Meclizine Hcl 25 Mg Tablet PO Not Given TID [facility] Multivitamins/Calcium 1 tablet 08/07/22 09:00 08/08/22 10:55 Therapeutic Multivitamins/Minerals Tab (*Bkc) PO Not Given DAILY [facility] Ondansetron HCl 4 mg 08/07/22 15:46 Ondansetron Inj 4 Mg/2 Ml Vial IV PUSH ONCE PRN Nausea Oxycodone HCl 5 mg 08/07/22 15:46 Oxycodone Hcl (*Crx) 5 Mg Tab Ir PO ONCE PRN Pain Paroxetine HCl 20 mg 08/07/22 09:00 08/08/22 10:55 Paroxetine 20 Mg Tablet PO Not Given DAILY [facility] Vitamin D 5,000 units 08/07/22 09:00 08/08/22 10:55 Cholecalciferol 1,000 Units Tablet PO Not Given DAILY [facility] Radiology Results: ITS Impressions Chest X-Ray 08/06/22 08:40 Impression: 1: Bilateral interstitial infiltrates of the mid and lower lungs with peribronchial thickening, most likely mild edema. Pneumonia less favored. 2: Small pleural effusions. 3: Cardiomegaly. Head CT 08/06/22 10:45 IMPRESSION: 1. Unchanged small old lacunar infarct at the left basal ganglia. No acute intracranial process. 2. Age-related changes including mild to moderate diffuse volume loss and mild scattered white ma
[2022-08-08] MEDS: LIDOCAINE HCL 2% GEL UROJET 10 ML PKG MUCOUS MEM (14:54)
--- NOTE | 2022-08-08 15:19 | W.PM.PROC2 ---
Procedure Note - Detailed Date of Procedure 08/08/22 Pre-op Diagnosis UTI/Failed Outpatient Therapy/Pulmonary Edema/Left rueteral stone Post-op Diagnosis Other ( Left proximal ureteral stone and recurrent urinary tract infection) Procedure Performed Cystoscopy, left retrograde pyelography and left ureteral stent placement Surgeon Federico Lugo MD Anesthesia MAC Description of Procedure patient is brought to the operative suite received prepped draped in routine sterile fashion while in dorsal lithotomy position. 2% xylocaine jelly was introduced intraurethrally and systemic sedation is administered per the anesthesia department. Cystoscopy is undertaken the 21 F rigid cystoscope. Bladder neck and urethra endoscopically normal. Her bladder looks grossly purulent and her mucosa is hyperemic, consistent with urinary tract infection. She has a single orthotopic ureteral orifices bilaterally. An angiographic catheter used to obtain a left retrograde pyelogram. I can see a double density in her left proximal ureter consistent with her known 8 x 5 mm left proximal ureteral stone. 0.035 in glidewire was advanced in the left renal pelvis and a 4.8 F double-J ureteral stent is positioned proximal coil in left kidney and distal coil in the bladder. Scopes wires removed. The patient tolerated procedure well was taken recovery room in good condition. Drains Yes Packing No Pathology None sent Complications No immediate complications
[2022-08-08 15:26] LABS: Glucose Point of Care 102 mg/dl (65-105)
[2022-08-08] MEDS: CARBIDOPA/LEVODOPA 25/100 MG TABLET 1 TABLET PO ×2 (17:31→20:42)
[2022-08-08] MEDS: MECLIZINE HCL 25 MG TABLET PO (17:32)
[2022-08-08 17:52] LABS: Glucose Point of Care 100 mg/dl (65-105)
[2022-08-08 21:44] LABS: Glucose Point of Care 136 mg/dl (65-105)
[2022-08-09 06:00] VITALS: BP 125/52; PULSE 83; RESP 14; TEMP 36.9; O2SAT 98
[2022-08-09 06:03] LABS: Basophils Absolute Auto 0.1 K/mm3 (0.0-0.1); Basophils Percent Auto 1.4 % (0.2-1.2); Eosinophils Absolute Auto 0.1 K/mm3 (0-0.3); Eosinophils Percent Auto 2.5 % (0-4.4); Hemoglobin 9.7 g/dL (12.0-15.0); Immature Granulocyte Absolute 0.08 K/mm3 (0.00-0.031); Immature Granulocyte Percent A 1.4 % (0-0.5); Lymphocytes Absolute Auto 1.21 K/mm3 (0.9-3.2); Lymphocytes Percent Auto 21.9 % (18.3-44.2); Mean Corpuscular HGB Conc 29.4 g/dl (32-36); Mean Corpuscular Hemoglobin 29.8 pg (26-34); Mean Corpuscular Volume 101.5 fl (80-100); Mean Platelet Volume 8.4 fl (7.4-10.4); Monocytes Absolute Auto 0.6 K/mm3 (0.1-0.6); Monocytes Percent Auto 11.1 % (2.6-8.5); Neutrophils Absolute Auto 3.4 K/mm3 (1.3-6.7); Neutrophils Percent Auto 61.7 % (45.5-73.1); Platelet Count Result 497 k/mm3 (150-375); Red Blood Count 3.25 M/mm3 (4.2-5.4); Red Cell Distribution Width 13.6 % (11.5-14.5); White Blood Count 5.5 K/mm3 (4.5-10.0)
[2022-08-09 07:36] LABS: Glucose Point of Care 107 mg/dl (65-105)
[2022-08-09 07:53] LABS: Alanine Aminotransferase 14 U/L (6-35); Alkaline Phosphatase 161 U/L (38-126); Anion Gap 11 mmol/L (8-16); Aspartate Amino Transferase 35 U/L (14-36); Bilirubin,Total 0.5 mg/dL (0.2-1.3); Blood Urea Nitrogen 23 mg/dL (7-17); Carbon Dioxide 24 mmol/L (22-30); Chloride 101 mmol/L (98-107); Estimated CRCL calculation 31 ml/min; Estimated Glomerular Filt Rate 34; Glucose 111 mg/dL (65-110); Potassium 4.5 mmol/L (3.4-5.0); Sodium 136 mmol/L (137-145)
[2022-08-09 08:03] LABS: Transferrin 161 mg/dL (206-381)
[2022-08-09] MEDS: CHOLECALCIFEROL 1,000 UNITS TABLET 5000 UNITS PO (08:23)
[2022-08-09] MEDS: MECLIZINE HCL 25 MG TABLET PO ×2 (08:23→13:52)
[2022-08-09] MEDS: THERAPEUTIC MULTIVITAMINS/MINERALS TAB (*BKC) 1 TABLET PO (08:23)
[2022-08-09] MEDS: FLUTICASONE PROPIONATE 0.05% NA SPR 16 GM BTL (*BKC) 2 SPRAY NASAL (08:23)
[2022-08-09] MEDS: CARBIDOPA/LEVODOPA 25/100 MG TABLET 1 TABLET PO ×2 (08:23→13:53)
[2022-08-09] MEDS: LOSARTAN POTASSIUM 50 MG TABLET PO (08:23)
[2022-08-09] MEDS: PARoxetine 20 MG TABLET PO (08:23)
[2022-08-09] MEDS: ALPRAZolam (*CRX) 0.5 MG TABLET PO ×2 (08:24→13:52)
[2022-08-09] MEDS: PANTOPRAZOLE 40 MG TABLET PO (08:24)
[2022-08-09 08:33] LABS: Iron 25 ug/dL (37-170)
[2022-08-09 08:42] LABS: Percent Iron Saturation 12 % (20-50)
[2022-08-09 09:03] LABS: Folic Acid 17.3 ng/mL (2.76->20)
--- NOTE | 2022-08-09 10:32 | PM.IMPN ---
Progress Note: A&P Assessment and Plan (1) Acute UTI (urinary tract infection): Code(s): N39.0 - Urinary tract infection, site not specified Status: Acute Assessment and Plan: UA with 3+ leukocytes >75 WBC, and 1+ bacteria. She was recently discharged from this facility on 08/01/22 on Bactrim for Proteus UTI and bacteremia. Continue cefepime Urine culture results state: The general alecia isolated. Superficial bacteria not indicated of a UTI. Preliminary blood cultures - no growth to date (2) Ureteral stone: Code(s): N20.1 - Calculus of ureter Status: Acute Assessment and Plan: Frequent UTIs as above. CT abd/pelvis shows 8 x 4 mm left ureteral stone. Urology following. postop day 1: cystoscopy left ureteral with stent placement, left retrograde pyelogram Patient doing very well after surgery and has no complaints. (3) Renal calculus, left: Code(s): N20.0 - Calculus of kidney Status: Acute Assessment and Plan: Not visible on KUB, Urology following and no surgical intervention needed at this time, will monitor annually. (4) Mixed hyperlipidemia: Code(s): E78.2 - Mixed hyperlipidemia Status: Chronic Assessment and Plan: resume statin (5) COPD (chronic obstructive pulmonary disease): Qualifiers: COPD type: unspecified COPD Qualified Code(s): J44.9 - Chronic obstructive pulmonary disease, unspecified Code(s): J44.9 - Chronic obstructive pulmonary disease, unspecified Status: Chronic Assessment and Plan: Chronic, not in acute exacerbation. Continue with home inhalers. Wean O2 to keep sats>90%. (6) Anxiety with depression: Code(s): F41.8 - Other specified anxiety disorders Status: Chronic Assessment and Plan: Chronic, continue paxil and Xanax (7) Benign essential hypertension: Code(s): I10 - Essential (primary) hypertension Status: Chronic Assessment and Plan: Chronic, stable. BPs reviewed. 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 eGFR 34, and consider alternative agents if it remains <45. Continue Accu-Cheks with a.c. and HS with sliding scale insulin for meals and with hypoglycemic protocol. A1c on 07/27/2022 was 5.5 and stable. (9) Parkinsons: Code(s): G20 - Parkinson's disease Status: Chronic Assessment and Plan: Chronic, during her last admission neurology has seen her and has decided that her Parkinson's has worse. She continues to be very weak, which most likely is secondary to recurrent infections. Continue with levodopa-carbidopa at current doses and consider Neurology re-consult if weakness persists despite infection control.? Time Spent With Patient Time with patient: Greater than 35 minutes Subjective Date/time seen: 08/09/22 10:32 Interval history: 76-year-old female with history of emphysema, Parkinson's, hypertension, and frequent UTIs. Patient diagnosed with UTI and left ureteral stone. patient awake and alert sitting up in the bed. Patient denies nausea, vomiting, constipation, diarrhea, chest pain, shortness a breath, flank pain, urinary frequency and discomfort. Review of Systems Review of Systems: All systems reviewed & are unremarkable except as noted in HPI and below Exam Narrative: GENERAL: Comfortable, no acute distress HENMT: moist mucous membranes EYES: EOM intact b/l NECK: no lymphadenopathy RESPIRATORY: clear to auscultation CARDIO: RRR GI: soft, nontender, bowel sounds present SKIN: no
--- NOTE | 2022-08-09 11:32 | WPDANESPN ---
Anes - Prog Note Post-Op Date/Time: 08/09/22 11:32 Cardiovascular status: normal Respiratory status: normal Airway patency: baseline Mental status: baseline Post-Op hydration status: normal Vital Signs: Last Vital Signs Temp 36.9 C 08/09/22 06:00 Pulse 83 08/09/22 06:00 Resp 14 08/09/22 06:00 BP 125/52 L 08/09/22 06:00 Pulse Ox 98 08/09/22 06:00 O2 Del Method Room Air 08/09/22 08:00 O2 Flow Rate 1 08/08/22 21:58 Pain Score (VAS): 10/26 I/O: Intake & Output 08/08/22 08/09/22 08/09/22 23:59 07:59 15:59 Intake Total 390 175 118 Balance 390 175 118 Laboratory Tests 08/09/22 05:23 08/09/22 07:35 08/08/22 08/08/22 08/08/22 12:54 15:24 17:32 WBC RBC Hgb Hct MCV MCH MCHC RDW Plt Count MPV Immature Gran % (Auto) Neut % (Auto) Lymph % (Auto) [place] % (Auto) Eos % (Auto) Baso % (Auto) Lymph # (Auto) [place] # (Auto) Eos # (Auto) Baso # (Auto) Abs Immat Gran (auto) Absolute Neuts (auto) Absolute Nucleated RBC Nucleated RBC % Sodium Potassium Chloride Carbon Dioxide Anion Gap BUN Creatinine Estim Creat Clear Calc Estimated GFR Glucose POC Capillary Glucose 112 H 102 100 Calcium Iron TIBC % Saturation Transferrin Ferritin Total Bilirubin AST ALT Alkaline Phosphatase Total Protein Albumin Vitamin B12 Folate 08/08/22 08/09/22 08/09/22 19:59 05:23 07:26 WBC 5.5 RBC 3.25 L Hgb 9.7 L Hct 33.0 L MCV 101.5 H MCH 29.8 MCHC 29.4 L RDW 13.6 Plt Count 497 H MPV 8.4 Immature Gran % (Auto) 1.4 H Neut % (Auto) 61.7 Lymph % (Auto) 21.9 [place] % (Auto) 11.1 H Eos % (Auto) 2.5 Baso % (Auto) 1.4 H Lymph # (Auto) 1.21 [place] # (Auto) 0.6 Eos # (Auto) 0.1 Baso # (Auto) 0.1 Abs Immat Gran (auto) 0.08 H Absolute Neuts (auto) 3.4 Absolute Nucleated RBC 0.0 Nucleated RBC % 0.0 Sodium Potassium Chloride Carbon Dioxide Anion Gap BUN Creatinine Estim Creat Clear Calc Estimated GFR Glucose POC Capillary Glucose 136 H 107 H Calcium Iron TIBC % Saturation Transferrin Ferritin Total Bilirubin AST ALT Alkaline Phosphatase Total Protein Albumin Vitamin B12 Folate 08/09/22 08/09/22 08/09/22 07:35 07:35 07:35 WBC RBC Hgb Hct MCV MCH MCHC RDW Plt Count MPV Immature Gran % (Auto) Neut % (Auto) Lymph % (Auto) [place] % (Auto) Eos % (Auto) Baso % (Auto) Lymph # (Auto) [place] # (Auto) Eos # (Auto) Baso # (Auto) Abs Immat Gran (auto) Absolute Neuts (auto) Absolute Nucleated RBC Nucleated RBC % Sodium 136 L Potassium 4.5 Chloride 101 Carbon Dioxide 24 Anion Gap 11 BUN 23 H Creatinine 1.50 H Estim Creat Clear Calc 31 Estimated GFR 34 L Glucose 111 H POC Capillary Glucose Calcium 9.0 Iron 25 L TIBC 213 L % Saturation 12 L Transferrin 161 L Ferritin 565.00 H Total Bilirubin 0.5 AST 35 ALT 14 Alkaline Phosphatase 161 H Total Protein 7.0 Albumin 3.0 L Vitamin B12 925.0 Folate 17.3 Post-procedural complaints: none Patient Feedback: Patient satisfied with anesthetic care.
[2022-08-09 11:52] LABS: Glucose Point of Care 185 mg/dl (65-105)
[2022-08-09 12:03] VITALS: O2SAT 94
[2022-08-09] MEDS: FLUTICASONE/UMECLIDIN/VILANTER 100-62.5-25 MCG ELLIPTA 1 PUFF INHALATION (12:03)
[2022-08-09 14:00] VITALS: BP 122/56; PULSE 82; RESP 14; TEMP 35.6; O2SAT 96
--- NOTE | 2022-08-09 14:10 | PM.DS ---
DS: Admitting Diagnosis Discharge Date 08/09/2022 Admitting Diagnosis urinary tract infection DS: Discharge Diagnosis Discharge Diagnosis (1) Acute UTI (urinary tract infection): Code(s): N39.0 - Urinary tract infection, site not specified Status: Acute (2) Ureteral stone: Code(s): N20.1 - Calculus of ureter Status: Acute (3) Renal calculus, left: Code(s): N20.0 - Calculus of kidney Status: Acute (4) Mixed hyperlipidemia: Code(s): E78.2 - Mixed hyperlipidemia Status: Chronic (5) COPD (chronic obstructive pulmonary disease): Qualifiers: COPD type: unspecified COPD Qualified Code(s): J44.9 - Chronic obstructive pulmonary disease, unspecified Code(s): J44.9 - Chronic obstructive pulmonary disease, unspecified Status: Chronic (6) Anxiety with depression: Code(s): F41.8 - Other specified anxiety disorders Status: Chronic (7) Benign essential hypertension: Code(s): I10 - Essential (primary) hypertension Status: Chronic (8) DM type 2 (diabetes mellitus, type 2): Qualifiers: Diabetes mellitus complication status: without complication 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 Patient had been seen on 08/01/2022 due to multiple falls and weakness, she was diagnosed with a UTI and was sent home with Bactrim. Patient was given IV cefepime and Lasix in the ER and Chest x-ray and head CT was performed. chest x-ray and CT did not reveal any acute process. patient had presented to the ER on 08/06/2022 due to multiple falls and and repeat UTI. Patient's urine revealed UA with 3+ leukocytes >75 WBC, and 1+ bacteria. Urine and blood was sent to culture the patient was continued on cefepime. Patient was seen by Urology due to frequency of infections. CT abdomen pelvis revealed a 5 mm proximal left ureteral stone in addition to a left nonobstructive renal stone. Patient underwent cystoscopy, left retrograde pyelogram, left stent placement on 08/08/2022. on 08/09/2020 going to urine culture results showed mixed genital alecia not indicative of urinary tract infection. blood cultures show no growth today, the patient will be contacted if culture reveals abnormal results. patient is feeling well postop and would like to be discharged. I have discussed with Urology and they are okay with patient going home today. Neurology does not find it necessary that the patient be sent home on antibiotics. They advised that patient follow-up with them in 1-2 weeks for stent removal. Status at Discharge Functional status at discharge: uses cane/walker Overall status at discharge: patient is progressing back to baseline Time Spent with Patient Time attestation: Total time spent providing and/or coordinating discharge services: Time spent: Greater than 30 minutes Exam Narrative: GENERAL: Comfortable, no acute distress HENMT: moist mucous membranes EYES: EOM intact b/l NECK: no lymphadenopathy RESPIRATORY: clear to auscultation CARDIO: RRR GI: soft, nontender, bowel sounds present SKIN: no rashes EXTREMITIES: no edema, redness or tenderness DS: Data Data Completed and Pending Labs on day of discharge: Labs from last 24 hours 08/09/22 08/09/22 08/09/22 11:47 07:35 07:35 WBC RBC Hgb Hct MCV MCH MCHC RDW Plt Count MPV Immature Gran % (Auto) Neut % (Auto) Lymph % (Auto) [place] % (Auto) Eos % (Auto) Baso % (Auto) Lymph # (Auto) [place] # (Auto) Eos # (Auto)
[2022-08-09 14:41] LABS: EDCOVIDSCREEN Negative (Negative)
--- NOTE | 2022-08-15 09:11 | PC.NURSE ---
Blood cx are negative.
== END 2022-08-09 15:55 | DRG 661 ==
LOC: ANHED 13:28 → ANH3MEDSUR 15:55
PROVIDERS: Internal Medicine Critical Care Medicine; Nurse Practitioner; Nurse Practitioner Family; Urology; Admitting Provider Chiropractor; Emergency Provider Emergency Medicine; PCP Internal Medicine; Visit Provider Internal Medicine
PROC: 0T778DZ Dilation of Left Ureter with Intraluminal Device, Via Natural or Artificial Opening Endoscopic (ICD-10-PCS; CPT 52352; principal; 2022-08-08 14:30)
DX: N20.2 Calculus of kidney with calculus of ureter (principal); G20 Parkinson's disease; E11.22 Type 2 diabetes mellitus with diabetic chronic kidney disease; I12.9 Hypertensive chronic kidney disease with stage 1 through stage 4 chronic kidney disease, or unspecified chronic kidney disease; N18.9 Chronic kidney disease, unspecified; J43.9 Emphysema, unspecified; E78.2 Mixed hyperlipidemia; F41.8 Other specified anxiety disorders; F17.210 Nicotine dependence, cigarettes, uncomplicated; R29.6 Repeated falls; Z20.822 Contact with and (suspected) exposure to COVID-19; Z79.84 Long term (current) use of oral hypoglycemic drugs; Z79.899 Other long term (current) drug therapy; Z87.440 Personal history of urinary (tract) infections
CPT/HCPCS: 36415; 36600; 70450; 71046; 74018; 74176; 74420; 80053; 81001; 82607; 82728; 82746; 82805; 82948; 83540; 83550; 83605; 83735; 84443; 84466; 85025; 85610; 85730; 86140; 87040; 87086; 87088; 87426; 93005; 94640; 96365; 96366; 96367; 96375; 97161; 97166; 99285; A9270; C1758; C1769; C2617; C9803; G0378; J0692; J1940; J2405; J2704; J3010; J3370; J7030; J7120

== ENCOUNTER 2022-08-21 08:56 | Observation (INO) | payer MEDICARE, SELFPAY ==
[2022-08-21] VITALS (23 sets, daily range): BP systolic 97–146; BP diastolic 51–99; PULSE 61–84; RESP 10–27; TEMP 36.2–36.8; O2SAT 83–100; BMI 30.7
--- NOTE | ~2022-08-21 | XR_ITS ---
EXAMINATION: XR stent kub - surgery DATE: 08/23/2022 13:56 INDICATION: Left internal ureteral stent placement TECHNIQUE: Fluoroscopic images from a left internal ureteral stent placement are submitted for review . 30 seconds of fluoroscopy time. FINDINGS: There is a left double-J internal ureteral stent projecting in expected position, with proximal [place] loop at the level of the renal pelvis and distal loop in the pelvis within the bladder lumen. IMPRESSION: 1. Left internal ureteral stent placement. Please refer to real-time procedural findings for detail s. Reviewed, dictated and finalized at location A. NESS UNIT CONTROLLER IMPRESSION: 1. Left internal ureteral stent placement. Please refer to real-time procedur al findings for details.
--- NOTE | ~2022-08-21 | XR_ITS ---
EXAMINATION: XR knee LT 3V DATE: 08/22/2022 04:20 INDICATION: Left knee pain TECHNIQUE: Three views of the left knee were obtained. COMPARISON: 07/27/2022 FINDINGS: Alignment is normal. No fracture or osteochondral lesion. There is mild tricompartmental os teoarthritis characterized by tiny marginal osteophytes. No joint effusion/synovitis. Soft tissues a re unremarkable. IMPRESSION: 1. No acute osseous abnormality. Reviewed, dictated and finalized at location A. RS AND CONTROLS TESTER
--- NOTE | ~2022-08-21 | CT_ITS ---
EXAMINATION: CT abdomen pelvis wo con DATE: 08/21/2022 13:07 INDICATION: Left renal stones. TECHNIQUE: Computed tomography (CT) of the abdomen and pelvis was performed without intravenous contr ast. The dose-length product was 552.29 mGy-cm. Automated exposure control and iterative reconstructi on technique were employed. COMPARISON: CT dated 08/07/2022 FINDINGS: There is dependent bibasilar airspace disease, most likely atelectasis. There is no signifi cant pleural or pericardial effusion. Heart size is normal. There is atherosclerosis of the aorta wit hout aneurysm. There are gallstones. The liver, spleen, pancreas, adrenal glands are unremarkable. Th ere is a hyperdense lesion posterior margin of the right kidney, likely hyperdense cyst. There are no nobstructing bilateral renal stones. There is a left internal ureteral stent in expected position. Th ere is a stone in the left mid ureter adjacent to the stent. There are calcified injection granulomas in the gluteal soft tissues. There is moderate retained fecal material in the rectum. There is mild left hydronephrosis. There is mild left perinephric stranding, improved since prior examination. No f ree air or free fluid. No lymphadenopathy. There is moderate atherosclerosis. IMPRESSION: 1. Bilateral renal and left mid ureteral stones. Left internal ureteral stent in expected position. I mproved left hydronephrosis and perinephric edema. 2: Cholelithiasis. 3: Bibasilar dependent airspace disease, most likely atelectasis. Reviewed, dictated and finalized at location A. RATOR REPAIRER IMPRESSION: 1. Bilateral renal and left mid ureteral stones. Left internal ureteral stent i n expected position. Improved left hydronephrosis and perinephric edema. 2: Cholelithiasis. 3: Bibasilar dependent airspace disease, most likely atelectasis.
--- NOTE | ~2022-08-21 | MR_ITS ---
EXAMINATION: MR brain/brain stem wo con DATE: 08/22/2022 17:48 INDICATION: Possible seizure TECHNIQUE: Magnetic resonance imaging (MRI) of the brain and brainstem was performed without intraven ous contrast. Sequences included sagittal and axial T1-weighted SE, axial diffusion-weighted FS SE, a xial T2*-weighted GRE, axial 3D SWAN, axial T2-weighted FLAIR, and axial T2-weighted FSE. Postcontras t axial and coronal T1-weighted SE was obtained. Apparent diffusion coefficient (ADC) maps were creat ed. COMPARISON: Renal MR dated 04/23/2018 FINDINGS: There are no areas of restricted diffusion to suggest acute infarction. Small old lacunar infarct at the left nasal ganglia which is new since the prior study. No intracranial hemorrhage or abnormal int racranial mass lesion. There are scattered areas of nonspecific increased T2-weighted signal intensit y in the cerebral white matter, predominantly involving the deep and periventricular white matter is within normal limits for age. There are no intraparenchymal signal abnormalities seen on the other pu lse sequences. Symmetric prominence of the sulci and ventricles consistent with mild to moderate age- appropriate diffuse cerebral volume loss. There are no abnormal extra-axial fluid collections. Flow v oids are seen in the cerebral arteries on the T2-weighted sequences consistent with their expected pa tency. Changes of bilateral intraocular lens replacement. Mild mucosal thickening the bilateral ethmo id sinuses. Mastoid air cells are normal. IMPRESSION: 1. No acute intracranial process. 2. Small old lacunar infarct at the left basal ganglia which is new since the prior study. 3. Mild to moderate scattered white matter hypoattenuation and mild scattered nonspecific white matte r T2 hyperintensity which is within normal limits for age and likely sequela of chronic small vessel ischemic disease. Reviewed, dictated and finalized at location A. SWARE SELECTOR IMPRESSION: 1. No acute intracranial process. 2. Small old lacunar infarct at the left basal ganglia which is new since the p rior study. 3. Mild to moderate scattered white matter hypoattenuation and mild scattered n onspecific white matter T2 hyperintensity which is within normal limits for age and likely sequela of chronic small vessel ischemic disease.
--- NOTE | ~2022-08-21 | XR_ITS ---
XR abdomen/kub 1V DATE: 08/22/2022 11:10 INDICATION: Left ureteral stone TECHNIQUE: Portable supine AP view COMPARISON: None FINDINGS: Left internal urinary stent with proximal pigtail overlying upper pole of left kidney, dist al pigtail overlying left side of urinary bladder. Subtle small upper pole calculus or calculi are n oted. No apparent ureteral calcification. No evidence of bowel obstruction. No visceromegaly is detected. IMPRESSION: Left internal urinary stent Left subtle nephrolithiasis Reviewed, dictated and finalized at Location A. Reviewed, dictated and finalized at location B. MILL MECHANIC
--- NOTE | ~2022-08-21 | CT_ITS ---
EXAMINATION: CT cervical spine wo con DATE: 08/21/2022 09:33 INDICATION: Neck pain after fall TECHNIQUE: Computed tomography (CT) of the cervical spine was performed without intravenous contrast. The dose-length product was 271 mGy-cm. Automated exposure control and iterative reconstruction tech nique were employed. COMPARISON: None FINDINGS: There is straightening of cervical lordosis. There is moderate degenerative disc disease at C4-5 and C5-6. Craniovertebral junction is normal. Odontoid process is within normal limits. No evid ence for perched facet. There is moderate multilevel uncinate and facet hypertrophy. No significant p araspinal soft tissue abnormality. There are bullous emphysematous changes noted in the lung apices. IMPRESSION: 1. No acute abnormality of the cervical spine. 2: Severe cervical spondylosis. Reviewed, dictated and finalized at location A. FOLIO LEAD
--- NOTE | ~2022-08-21 | XR_ITS ---
XR chest 2V 08/21/2022 09:20 Indication: Seizure. Hypoxia. Procedure: AP and lateral views of the chest Comparison: Comparison to multiple prior studies sequentially, with oldest reviewed study dated 05/14 Findings: Borderline heart size. Bibasilar infiltrates. Mild peribronchial thickening. No significant effusion. No pneumothorax. Impression: 1: Mild bibasilar interstitial infiltrates which may represent atelectasis, mild edema or pneumonia. Reviewed, dictated and finalized at location A. RAL OFFICE EQUIPMENT ENGINEER Impression: 1: Mild bibasilar interstitial infiltrates which may represent atelectasis, mil d edema or pneumonia.
--- NOTE | ~2022-08-21 | CT_ITS ---
EXAMINATION: CT brain wo con DATE: 08/21/2022 09:33 INDICATION: Seizure. Status post fall. TECHNIQUE: Computed tomography (CT) of the head was performed without intravenous contrast. The dose- length product was 605.33 mGy-cm. Automated exposure control and iterative reconstruction technique w ere employed. COMPARISON: 08/06/2022 FINDINGS: Generalized atrophy. There are scattered moderate periventricular and subcortical white mat ter changes, most likely related to small vessel ischemic disease (microangiopathy). There is a chron ic left lacunar infarction. No acute intracranial hemorrhage, infarction, mass or mass effect. Basila r cisterns are patent. No significant abnormality of the paranasal sinuses or mastoids. No depressed skull fractures. IMPRESSION: 1. No acute intracranial abnormality. 2: Chronic left lacunar infarction. 3: Chronic age-related findings. Reviewed, dictated and finalized at location A. EL TECHNICIAN
--- NOTE | 2022-08-21 09:07 | ECG_ITS ---
Measurements Intervals [place] Rate: 76 P: 41 NH: 147 QRS: -13 QRSD: 86 T: 48 QT: 411 QTc: 463 Interpretive Statements SINUS RHYTHM COMPARED TO ECG 08/06/2022 08:09:08 NO SIGNIFICANT CHANGES Electronically Signed On 08-21-2022 15:31:28 [employer] by Santosh Alvarez M.D.
--- NOTE | 2022-08-21 09:14 | ED.SEIZURE ---
HPI - Seizure General Chief Complaint: Seizure <NAYANA Lares Last Filed: 08/21/22 14:21> Stated Complaint: SEIZURE WITH NEW O2 REQUIREMENT <NAYANA Lares Last Filed: 08/21/22 14:21> Time Seen by Provider: 08/21/22 09:10 <NAYANA Lares Last Filed: 08/21/22 14:21> Source: patient and old records reviewed <NAYANA Lares Last Filed: 08/21/22 14:21> Mode of arrival: EMS <NAYANA Lares Last Filed: 08/21/22 14:21> Limitations: no limitations <NAYANA Lares Last Filed: 08/21/22 14:21> History of Present Illness HPI Narrative: Patient is a 76 y/o female who presents to the ED via EMS with report of a seizure. Patient has had several admissions recently for frequent falls, weakness, UTIs, kidney stones. She was discharged back to [facility] for rehabilitation. Per nursing report, patient had a witnessed seizure today during physical therapy, lasting approximately 1 minute. EMS was then called. Patient initially postictal per snf staff, EMS was called. Upon my evaluation to the ED, patient alert and oriented x3. She does not have any acute concerns. She denies any pain. She states last thing she remembers was doing her exercises during physical therapy, and then being told what happened afterwards. She denies history of seizures. <Rosemarie Beck PA-C - Last Filed: 08/21/22 14:21> Related Data Home Medications: Home Medications Medication Instructions Recorded Confirmed cholecalciferol (vitamin D3) 125 125 mcg PO DAILY 09/05/20 08/06/22 mcg (5,000 unit) capsule multivit with 1 tablet PO DAILY 09/05/20 08/06/22 ydexegdl-jfuw-VT-lutein 8 mg iron-400 mcg-300 mcg tablet (Centrum Silver Women) carbidopa 25 mg-levodopa 100 mg 1 tablet PO QID 07/27/22 08/06/22 tablet fluticasone propionate 50 2 spray intranasal DAILY 07/27/22 08/06/22 mcg/actuation nasal spray,suspension losartan 50 mg tablet 50 mg PO DAILY 07/27/22 08/06/22 meclizine 25 mg tablet 25 mg PO TID 07/27/22 08/06/22 metformin 500 mg tablet BID 07/27/22 08/06/22 paroxetine HCl 20 mg tablet 20 mg PO DAILY 07/27/22 08/06/22 pravastatin 20 mg tablet 20 mg PO DAILY 07/27/22 08/06/22 ferrous sulfate 325 mg (65 mg 325 mg PO DAILY 08/21/22 iron) tablet loperamide 2 mg capsule (Imodium 2 mg PO Q6H PRN Diarrhea 08/21/22 A-D) melatonin 5 mg tablet 5 mg PO HS PRN Insomnia 08/21/22 metronidazole 500 mg tablet 500 mg PO Q8H 08/21/22 <NAYANA Lares Last Filed: 08/21/22 14:21> Allergies/Adverse Reactions: Allergies Allergy/AdvReac Type Severity Reaction Status Date / Time VONNIE Inhibitors Allergy Unknown Unknown Verified 08/21/22 09:08 erythromycin base Allergy Unknown Unknown Verified 08/21/22 09:08 Macrolide Antibiotics Allergy Unknown Unknown Verified 08/21/22 09:08 prednisone Allergy Unknown Unknown Verified 08/21/22 09:08 secobarbital Allergy Unknown HIVES Verified 08/21/22 09:08 cefuroxime [From Ceftin] AdvReac Mild Diarrhea Verified 08/21/22 09:08 olmesartan AdvReac Unknown Confusion Verified 08/21/22 09:08 <NAYANA Lares Last Filed: 08/21/22 14:21> Review of Systems Review of Systems: CONSTITUTIONAL: Denies fever, chills, or sweats. EYES: Denies visual changes. ENT: Denies rhinorrhea, congestion, sore throat. CARDIOVASCULAR: Denies chest pain. RESPIRATORY: Denies cough or dyspnea. GASTROINTESTINAL: Denies abdominal pain, nausea, vomiting, or diarrhea. MUSCULOSKELETAL: Denies pain. NEUROLOGIC: Reports seizure. Denies dizziness, lightheadedness, headache, numbness, or weakness. <NAYANA Lares Last Filed: 08/21/22 14:21> CONSTITUTIONAL: Denies fever, chills, or sweats. EYES: Denies visual changes. ENT: Denies rhinorrhea, congestion, sore throat. CARDIOVASCULAR: Denies chest pain. RESPIRATORY: Denies cough or dyspnea. GASTROINTESTINA
[2022-08-21 09:53] LABS: Influenza A QL RT-PCR Negative (Negative); Influenza B QL RT-PCR Negative (Negative); SARS-CoV-2 RNA PCR Negative
[2022-08-21] MEDS: levETIRAcetam 1000MG/NACL100ML 1,000 MG/100 ML BAG 400 MG IVPB (10:00)
[2022-08-21 10:06] LABS: Appearance Urine Cloudy (Clear); Bilirubin Urine Negative (Negative); Blood Urine 1+ (Negative); Color Urine Yellow (Yellow); Glucose Urine UA Negative (Negative); Ketones Urine Negative (Negative); Leukocyte Esterase Ur 3+ LEU/UL (Negative); Nitrate Urine Negative (Negative); Protein Urine 2+ mg/dL (Negative); Specific Grav Ur 1.015 (1.001-1.035); Urobilinogen Urine 0.2 mg/dL (<2.0); pH Urine 5.5 (5.0-9.0)
[2022-08-21 10:12] LABS: Basophils Absolute Auto 0.1 K/mm3 (0.0-0.1); Basophils Percent Auto 1.6 % (0.2-1.2); Eosinophils Absolute Auto 0.2 K/mm3 (0-0.3); Eosinophils Percent Auto 3.6 % (0-4.4); Hematocrit 35.8 % (37.0-47.0); Hemoglobin 11.4 g/dL (12.0-15.0); Immature Granulocyte Absolute 0.05 K/mm3 (0.00-0.031); Immature Granulocyte Percent A 1.1 % (0-0.5); Lymphocytes Absolute Auto 1.45 K/mm3 (0.9-3.2); Mean Corpuscular HGB Conc 31.8 g/dl (32-36); Mean Corpuscular Hemoglobin 30.8 pg (26-34); Mean Corpuscular Volume 96.8 fl (80-100); Mean Platelet Volume 8.3 fl (7.4-10.4); Monocytes Absolute Auto 0.4 K/mm3 (0.1-0.6); Monocytes Percent Auto 9.8 % (2.6-8.5); Neutrophils Absolute Auto 2.2 K/mm3 (1.3-6.7); Neutrophils Percent Auto 50.9 % (45.5-73.1); Platelet Count Result 449 k/mm3 (150-375); Red Cell Distribution Width 13.8 % (11.5-14.5); White Blood Count 4.4 K/mm3 (4.5-10.0)
[2022-08-21 10:13] LABS: Bacteria Urine Trace /hpf; Mucus Urine Rare /lpf; RBC Urine >75 /hpf (0-2); Squamous Epithelial Cell Urine Many /hpf (Few); WBC Urine >75 /hpf
[2022-08-21 10:15] LABS: Add Urine Microscopic? YES
[2022-08-21 10:25] LABS: Lactic Acid Reflex 2.5 mmol/L (0.7-2.0)
[2022-08-21 10:27] LABS: Alanine Aminotransferase 16 U/L (6-35); Albumin Level 3.5 g/dL (3.5-5.1); Alkaline Phosphatase 113 U/L (38-126); Anion Gap 7 mmol/L (8-16); Aspartate Amino Transferase 36 U/L (14-36); Bilirubin,Total 0.3 mg/dL (0.2-1.3); Blood Urea Nitrogen 17 mg/dL (7-17); Carbon Dioxide 26 mmol/L (22-30); Chloride 101 mmol/L (98-107); Estimated CRCL calculation 41 ml/min; Estimated Glomerular Filt Rate 48; Glucose 123 mg/dL (65-110); Magnesium 1.6 mg/dL (1.6-2.3); Potassium 4.1 mmol/L (3.4-5.0); Sodium 134 mmol/L (137-145)
[2022-08-21 10:28] LABS: INR 1.2
[2022-08-21 10:29] LABS: Partial Thromboplastin Time 35.4 SECONDS (22.3-36.8)
[2022-08-21 10:38] LABS: NT Pro B Type Natriuretic Pept 293 pg/mL (5-100); Troponin I < 0.012 ng/mL (0.000-0.034)
[2022-08-21 13:10] LABS: Reflex Lactic Acid Yes or No Add Lactic
[2022-08-21 13:40] LABS: Lactic Acid 1.1 mmol/L (0.7-2.0)
--- NOTE | 2022-08-21 14:18 | PC.NURSE ---
Food tray ordered for fabio
--- NOTE | 2022-08-21 16:00 | PM.IMHP ---
H&P: HPI History of Present Illness Date/Time: 08/21/22 16:00 Chief Complaint: Seizure. Narrative: This is a 76-year-old female smoker with history of Parkinson, hypertension, COPD, and diabetes who presented to the emergency department via EMS from [facility] for evaluation of a seizure. She is known to the hospitalist service and was admitted to us on July 27 with acute kidney injury, urinary tract infection, and elevated troponin after presenting to the ED for several falls. Blood cultures at that time grew out Proteus mirabilis for which she was treated with appropriate antibiotics. She was discharged to rehab on the and was readmitted on the , once again with a UTI after presenting with weakness and falls. She underwent cystoscopy with left ureteral stent placement done on the per Dr. Lugo and she was discharged back to rehab the following day. Initially she felt better however couple of days after completing antibiotic she once again started to feel weak. The patient and her daughter go on to say that she has just not been herself over the last 5 weeks or so, since when she started to have the falls. Prior to the last month and a half, she was active, still drives, and is out and about in the community. At the time my evaluation, she is alert and oriented x3 and she has no specific complaints aside from the fact that she is frustrated due to this change in her health and inability to do the things that she typically is able to accomplish. Her progression has been limited due to the recurrent urinary tract infections, generalized weakness, and ongoing left leg pain since her initial falls. In any event, this morning she was working with physical therapy and she had a witnessed seizure lasting approximately 1 minute for which she was postictal thereafter. There is no description as to what type of seizure activity was noted but the patient her daughter tell me that they were told that she ?stared off into space? and was unresponsive. She has no history of seizure and is being admitted in this setting for close monitoring and Neurology consultation. Review of Systems Review of Systems: Twelve systems were reviewed. No vertigo. No focal weakness or paresthesias. No facial droop, difficulty speaking, or swallowing. She denies chest pain, pleuritic pain, palpitations, orthopnea, and lower extremity edema. No cough or shortness of breath. Appetite has been poor. No nausea, vomiting, or diarrhea. She has not been sleeping well. She has pain in her left leg, mainly along the medial aspect of the left knee and up into the medial thigh, worse with movement and weight-bearing. Except as documented, all other systems were reviewed and are negative. [facility] Past Medical History Medical History (Updated 08/21/22 @ 23:06 by Amber Mcneil PA-C) Anxiety with depression Benign essential hypertension Cigarette nicotine dependence COPD (chronic obstructive pulmonary disease) Depression DJD (degenerative joint disease), multiple sites DM type 2 (diabetes mellitus, type 2) Hiatal hernia Hyperlipidemia Parkinsonism Urinary tract infection Vitamin D deficiency Surgical History Surgical History H/O rhinoplasty History of colonoscopy History of laparoscopic appendectomy History of removal of pigmented skin lesion Hx of cornea transplant Family History Family History Mother Family history of diabetes mellitus in first degree relative Diabetes mellitus Father Family history of emphysema Family history of cardiovascular disease Family history of lung disease Family history of heart disease in male family member before age 55 Other Family history of malignant neoplasm Hypertension Social History Social History (Updated 08/21/22 @ 23:03 by Amber Mcneil PA-C) Social History: Surrogate medical d
--- NOTE | 2022-08-21 18:38 | PC.NURSE ---
Pt arrived to floor 1715. Assisted to bed with assist of 3. Oriented to unit and instructed on the use of call light and safety precautions. Pt alert and oriented, answering questions appropriately.
[2022-08-21 22:24] LABS: Glucose Point of Care 110 mg/dl (65-105)
[2022-08-21] MEDS: SODIUM CHLORIDE 0.9% IV 1,000 ML 100 ML IV CONT (23:54)
[2022-08-21] MEDS: CARBIDOPA/LEVODOPA 25/100 MG TABLET 1 TABLET PO (23:56)
[2022-08-21] MEDS: MECLIZINE HCL 25 MG TABLET PO (23:56)
[2022-08-21] MEDS: ALPRAZolam (*CRX) 0.5 MG TABLET PO (23:56)
[2022-08-22] VITALS (13 sets, daily range): BP systolic 122–142; BP diastolic 65–80; PULSE 63–74; RESP 16–17; TEMP 36.1–36.9; O2SAT 93–100
[2022-08-22 07:03] LABS: Hemoglobin A1C 5.6 % (<5.7)
[2022-08-22 07:04] LABS: Anion Gap 4 mmol/L (8-16); Blood Urea Nitrogen 16 mg/dL (7-17); Calcium 8.6 mg/dL (8.4-10.2); Carbon Dioxide 27 mmol/L (22-30); Chloride 106 mmol/L (98-107); Estimated CRCL calculation 49 ml/min; Estimated Glomerular Filt Rate > 60; Glucose 92 mg/dL (65-110); Magnesium 1.6 mg/dL (1.6-2.3); Potassium 4.1 mmol/L (3.4-5.0); Sodium 137 mmol/L (137-145)
[2022-08-22] MEDS: MECLIZINE HCL 25 MG TABLET PO ×3 (08:28→18:11)
[2022-08-22] MEDS: ALPRAZolam (*CRX) 0.5 MG TABLET PO ×3 (08:28→18:11)
[2022-08-22] MEDS: FLUTICASONE PROPIONATE 0.05% NA SPR 16 GM BTL (*BKC) 2 SPRAY NASAL (08:28)
[2022-08-22] MEDS: THERAPEUTIC MULTIVITAMINS/MINERALS TAB (*BKC) 1 TABLET PO (08:28)
[2022-08-22] MEDS: PARoxetine 20 MG TABLET PO (08:28)
[2022-08-22] MEDS: CHOLECALCIFEROL 1,000 UNITS TABLET 5000 UNITS PO (08:28)
[2022-08-22] MEDS: CARBIDOPA/LEVODOPA 25/100 MG TABLET 1 TABLET PO ×4 (08:28→20:31)
[2022-08-22] MEDS: LOSARTAN POTASSIUM 50 MG TABLET PO (08:28)
[2022-08-22 08:58] LABS: Glucose Point of Care 93 mg/dl (65-105)
--- NOTE | 2022-08-22 09:29 | WPDNEURCNPN ---
Assessment and Plan Assessment and plan (1) Seizure: Code(s): R56.9 - Unspecified convulsions Status: Acute (2) Acute UTI (urinary tract infection): Code(s): N39.0 - Urinary tract infection, site not specified Status: Acute (3) Parkinson disease: Code(s): G20 - Parkinson's disease Status: Acute Plan Emilee Bagley is a 76 year old female with a history of HLD, DM type 2, Parkinson's disease and COPD who presented with first time seizure. Unclear if the episode described was a seizure. If it was a seizure, it could have been provoked by underlying UTI. - MRI brain and routine EEG Consult date: 08/22/22 Time Seen: 09:29 Reason for consult: Seizure HPI: Emilee Bagley is a 76 year old female with a history of HLD, DM type 2, Parkinson's disease and COPD who presented with first time seizure. Patient has had frequent admission for recurrent UTIs in the setting of ureteral stone, and was recently admitted several weeks ago for a UTI. She had a ureteral stent placed at that time. Patient was discharged to [facility]. On 08/21, while working with physical therapy, she had episode that was concerning for seizure. Patient has no recollection of the episode. Per chart review, daughter reported that patient was staring off for about a minute. Afterwards she appeared tired/confused. There was no bowel or bladder incontinence. EMS was called and brought her to [facility] ED where she was AOx3. She received 1g Keppra load. Her UA was concerning for UTI. Patient denies any prior history of seizures. There is no family history of seizures. She takes Sinemet 25-100mg QID for her Parkinson's disease. Review of Systems Constitutional: Constitutional: Reports no additional constitutional complaints Eyes: Eyes: Reports no additional eye complaints ENT: Reports system reviewed and no additional complaints, except as documented Cardiovascular: Cardiovascular: Reports no additional cardiovascular complaints Respiratory: Respiratory: Reports no additional respiratory complaints Gastrointestinal: Gastrointestinal: Reports no additional gastrointestinal complaints Genitourinary: Genitourinary: Reports no additional female genitourinary complaints Musculoskeletal: Musculoskeletal: Reports arthralgias Neurologic: Reports as per HPI Psychiatric: Psychiatric: Reports confusion PMFSH Past Medical History Medical History Anxiety with depression Benign essential hypertension Cigarette nicotine dependence COPD (chronic obstructive pulmonary disease) Depression DJD (degenerative joint disease), multiple sites DM type 2 (diabetes mellitus, type 2) Hiatal hernia Hyperlipidemia Parkinsonism Urinary tract infection Vitamin D deficiency Surgical History Surgical History H/O rhinoplasty History of colonoscopy History of laparoscopic appendectomy History of removal of pigmented skin lesion Hx of cornea transplant Family History Family History Mother Family history of diabetes mellitus in first degree relative Diabetes mellitus Father Family history of emphysema Family history of cardiovascular disease Family history of lung disease Family history of heart disease in male family member before age 55 Other Family history of malignant neoplasm Hypertension Social History Social History Social History: Surrogate medical decision maker: Taylor Cardona, daughter. Code status: Full code. Smoking packs per day: 4 Smoking cigarettes per day: 80.0 Years smoked: 57 Smoking pack-years: 228.00 Smoking status: Current every day smoker Tobacco type: cigarettes Alcohol intake: never Substance use: never Lack of Transportation: No Lack of Food: Never True
--- NOTE | 2022-08-22 11:15 | PM.CNOR ---
Assessment and Plan Assessment and plan (1) Left knee pain: Code(s): M25.562 - Pain in left knee Status: Acute Plan 76-year-old female with left knee pain for about a month. X-rays reviewed and show no sign of effusion or fracture. No signs of instability or effusion on today's exam. Does have exquisite tenderness at the medial tibial plateau. Likely has a bony contusion or stress reaction. She can be weight-bearing as tolerated using a walker. Plan to see her for 6 week follow-up in our office with new x-ray. History of Present Illness HPI Consult date: 08/22/22 Consult reason: joint pain (left knee) Chief complaint: New Onset Seizure/Abnormal UA Narrative: 76-year-old female with left knee pain for about a month after a fall in early July. She denies any right knee pain. She states that the left knee hurts when she tries to bend or bear weight on the left knee. She has been using a walker as a gait aid. She has been attempting to participate with therapy at her living area but has been quite difficult to do so. Review of Systems Review of Systems: All systems reviewed & are unremarkable except as noted in HPI and below Musculoskeletal: Musculoskeletal: Reports no additional musculoskeletal complaints and Reports as per HPI PMFSH Past Medical History Medical History Anxiety with depression Benign essential hypertension Cigarette nicotine dependence COPD (chronic obstructive pulmonary disease) Depression DJD (degenerative joint disease), multiple sites DM type 2 (diabetes mellitus, type 2) Hiatal hernia Hyperlipidemia Parkinsonism Urinary tract infection Vitamin D deficiency Surgical History Surgical History H/O rhinoplasty History of colonoscopy History of laparoscopic appendectomy History of removal of pigmented skin lesion Hx of cornea transplant Family History Family History Mother Family history of diabetes mellitus in first degree relative Diabetes mellitus Father Family history of emphysema Family history of cardiovascular disease Family history of lung disease Family history of heart disease in male family member before age 55 Other Family history of malignant neoplasm Hypertension Social History Social History Social History: Surrogate medical decision maker: Taylor Cardona, daughter. Code status: Full code. Smoking packs per day: 4 Smoking cigarettes per day: 80.0 Years smoked: 57 Smoking pack-years: 228.00 Smoking status: Current every day smoker Tobacco type: cigarettes Alcohol intake: never Substance use: never Lack of Transportation: No Lack of Food: Never True Current Housing: I Have Housing Concerned About Future Housing: No Difficulty Paying Gas/Electric Bills: No Difficulty Paying for Meds: No Currently Unemployed: No Education: High School Diploma/GED Difficulty w/ Childcare or Family Care: No Additional living arrangements comments: Lives in her own home in [place] though currently undergoing rehab. with 3 children. 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 Spiritual care concerns: No Meds Home Medications and Allergies Home Medications Medication Instructions Recorded Confirmed Type cholecalciferol (vitamin D3) 125 125 mcg PO DAILY 09/05/20 08/21/22 History mcg (5,000 unit) capsule multivit with 1 tablet PO DAILY 09/05/20 08/21/22 History zeuaqlug-xmez-FY-lutein 8 mg iron-400 mcg-300 mcg tablet (Centrum Silver Women) fluticasone fur. 100 mcg-umeclid 1 inh inhalation DAILY #60 ea 05/14/22 08/21/22 Rx 62.5 mcg-vilant 25 mcg inhalat.powder (Trelegy Ellipta) alprazola
--- NOTE | 2022-08-22 11:54 | PCRCNOTE ---
Window of time for administration has passed. See next scheduled administration.
[2022-08-22 12:13] LABS: Glucose Point of Care 246 mg/dl (65-105)
[2022-08-22] MEDS: INSULIN ASPART (*BKC) 100 UNITS/ML SUB-Q (12:23)
--- NOTE | 2022-08-22 12:41 | WPDNEUROLOGY ---
Neurology EEG Report General Information Date of Study: 08/22/22 TEST Routine EEG DIAGNOSIS Concern for seizure-like activity CONDITION OF RECORDING Awake and drowsy EEG NUMBER [id number] CLINICAL HISTORY Patient had an episode yesterday morning of losing consciousness and having seizure-like activity. EEG DESCRIPTION During the awake state with eyes closed the background consists of 8 Hz posterior dominant rhythm which attenuates appropriately with eye opening. The recording is continuous. There is a well developed anterior-posterior gradient. No significant asymmetries of background activities are noted. With drowsiness there is was waxing and waning of the dominant rhythm with eventual replacement by a mixture of beta, alpha, and theta activity. Patient did not enter stage II sleep. There are no epileptiform discharges or seizures during this recording. Hyperventilation and photic stimulation were not performed. IMPRESSION This is a normal routine EEG recorded in awake and drowsy states. There are no electrographic seizures identified, nor are there any epileptiform discharges. Please note that a normal EEG cannot exclude a seizure disorder. Clinical correlation is recommended.
[2022-08-22] MEDS: FERROUS SULFATE 324 MG TABLET PO (13:23)
--- NOTE | 2022-08-22 13:43 | PC.NURSE ---
On 08/22/22, the student, [Sarina Marino], provided care and completed [facility] documentation on this patient. I have reviewed the student's documentation and agree with the findings.
--- NOTE | 2022-08-22 15:30 | PM.IMPN ---
Progress Note: A&P Assessment and Plan (1) Seizure: Code(s): R56.9 - Unspecified convulsions Status: Acute Assessment and Plan: This is the patient's 1st seizure. Etiology not entirely clear, possibly related to lack of sleep or acute infection. She was loaded with levetiracetam in the ED. Appreciate Neurology consultation. EEG completed today was normal. Appreciate neurology recommendations regarding whether to continue anti-seizure medications. Seizure precautions in place. (2) Abnormal urinalysis: Code(s): R82.90 - Unspecified abnormal findings in urine Status: Acute Assessment and Plan: Urinalysis is abnormal. Urine culture and blood culture pending. Continue IV Ceftriaxone. Appreciate urology consult. (3) Ureteral stent present: Code(s): Z96.0 - Presence of urogenital implants Status: Acute Assessment and Plan: Left ureteral stent and ureteral stones present on imaging. Appreciate urology consult. Plan for cysto with stent exchange and possible laser tomorrow. (4) Ureteral stone: Code(s): N20.1 - Calculus of ureter Status: Acute Assessment and Plan: Plan is as detailed above. (5) Left leg pain: Code(s): M79.605 - Pain in left leg Status: Acute Assessment and Plan: An ongoing problem since her fall last month. This seems to be limiting her progress in therapy quite a bit. Appreciate orthopedic surgery consultation. Weight bearing as tolerated. Appreciate PT/OT. Analgesics available as needed. (6) Chronic anemia: Code(s): D64.9 - Anemia, unspecified Status: Acute Assessment and Plan: Stable if not improved on review of previous labs. (7) Renal insufficiency: Code(s): N28.9 - Disorder of kidney and ureter, unspecified Status: Acute Assessment and Plan: Creatinine is stable. 0.9 today. She was rehydrated with fluids which have been stopped as she is tolerating PO intake. (8) Benign essential hypertension: Code(s): I10 - Essential (primary) hypertension Status: Chronic Assessment and Plan: Blood pressures stable. Continue home antihypertensives (9) DM type 2 (diabetes mellitus, type 2): Qualifiers: Diabetes mellitus assisted insulin use: without assisted use Diabetes mellitus complication status: without complication Qualified Code(s): E11.9 - Type 2 diabetes mellitus without complications Code(s): E11.9 - Type 2 diabetes mellitus without complications Status: Chronic Assessment and Plan: A1c is 5.6. Continue sliding scale insulin, Accu-Cheks, and hypoglycemic protocol. (10) COPD (chronic obstructive pulmonary disease): Qualifiers: COPD type: unspecified COPD Qualified Code(s): J44.9 - Chronic obstructive pulmonary disease, unspecified Code(s): J44.9 - Chronic obstructive pulmonary disease, unspecified Status: Chronic Assessment and Plan: No acute exacerbation. (11) Nicotine abuse: Code(s): Z72.0 - Tobacco use Status: Acute Assessment and Plan: Smoking cessation was encouraged and was discussed. She declined need for a nicotine patch. Subjective Date/time seen: 08/22/22 15:30 Interval history: Date of service: 08/22/2022 Emilee Bagley is a 76 year old female with a history of hypertension, COPD, depression, anxiety, hyperlipidemia, type 2 diabetes mellitus who is seen in follow up for witnessed seizure. She complains of left leg pain today which has been ongoing. She denies dysuria, hematuria, flank or back pain, suprapubic pain. She denies shortnes of breath, cough, chest pain. No headache. Denies confusion. No additional concerns. Review of Systems Review of Systems: All systems reviewed & are unremarkable except as noted in HPI and below Exam Narrative: General: well-nourished, well-appearing 69-year-old female, sitting
--- NOTE | 2022-08-22 15:49 | WPDURCON ---
Assessment and Plan Assessment and plan (1) Ureteral stent present: Code(s): Z96.0 - Presence of urogenital implants Status: Acute Assessment and Plan: Keep NPO after midnight. Obtain Consent Cystoscopy, left ureteroscopy with stone extraction, left stent exchange, possible holmium laser, left retrograde pyelogram. Patient will go to the OR with Dr. Lugo tomorrow. (2) Ureteral stone: Code(s): N20.1 - Calculus of ureter Status: Acute Urology Consult Note HPI Date Seen: 08/22/22 Time Seen: 10:00 Requesting Physician: Nathalia Ho PA-C Primary Care Provider: Hoang Chris MD Consult Narrative Reason for consult: Retained left stent and ureteral stone. Narrative: Emilee Bagley is a 76 year old female who was admitted d/t having a seizure and was brought to the ER by EMS yesterday for evaluation. She was found to have a retained stent and left ureteral stone on CT yesterday which was placed on 08/08/[address] Lugo with the intent to f/u for an outpatient ESWL as the stone was then visible on a KUB. Her repeat KUB today doesn't show the stone in the left mid ureter. Her WBC is 4.4 and creatinine is 0.90. Urine culture and blood cultures are pending, however, she is asymptomatic of a UTI at this time and denies flank pain, dysuria, hematuria, frequency or urgency to urinate. Review of Systems Cardiovascular: Cardiovascular: Denies chest pain Respiratory: Respiratory: Reports no additional respiratory complaints Gastrointestinal: Gastrointestinal: Denies abdominal pain, Denies nausea and Denies vomiting Genitourinary: Genitourinary: Denies hematuria, Denies nocturia, Denies dysuria, Denies pelvic pain, Denies flank pain, Denies urinary incontinence, Denies urinary hesitancy and Denies urinary urgency [facility] Past Medical History Medical History Anxiety with depression Benign essential hypertension Cigarette nicotine dependence COPD (chronic obstructive pulmonary disease) Depression DJD (degenerative joint disease), multiple sites DM type 2 (diabetes mellitus, type 2) Hiatal hernia Hyperlipidemia Parkinsonism Urinary tract infection Vitamin D deficiency Surgical History Surgical History H/O rhinoplasty History of colonoscopy History of laparoscopic appendectomy History of removal of pigmented skin lesion Hx of cornea transplant Family History Family History Mother Family history of diabetes mellitus in first degree relative Diabetes mellitus Father Family history of emphysema Family history of cardiovascular disease Family history of lung disease Family history of heart disease in male family member before age 55 Other Family history of malignant neoplasm Hypertension Social History Social History Social History: Surrogate medical decision maker: Taylor Cardona, daughter. Code status: Full code. Smoking packs per day: 4 Smoking cigarettes per day: 80.0 Years smoked: 57 Smoking pack-years: 228.00 Smoking status: Current every day smoker Tobacco type: cigarettes Alcohol intake: never Substance use: never Lack of Transportation: No Lack of Food: Never True Current Housing: I Have Housing Concerned About Future Housing: No Difficulty Paying Gas/Electric Bills: No Difficulty Paying for Meds: No Currently Unemployed: No Education: High School Diploma/GED Difficulty w/ Childcare or Family Care: No Additional living arrangements comments: Lives in her own home in [place] though currently undergoing rehab. with 3 children. 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 Spiritual care concerns: No Meds Home
[2022-08-22 18:15] LABS: Glucose Point of Care 90 mg/dl (65-105)
[2022-08-22] MEDS: MELATONIN 5 MG TABLET PO (20:35)
[2022-08-22 20:49] LABS: Glucose Point of Care 133 mg/dl (65-105)
[2022-08-23] VITALS (14 sets, daily range): BP systolic 130–150; BP diastolic 57–68; PULSE 60–106; RESP 14–20; TEMP 35.6–36.9; O2SAT 94–100
[2022-08-23 06:13] LABS: Hematocrit 34.5 % (37.0-47.0); Hemoglobin 10.7 g/dL (12.0-15.0); Mean Corpuscular Hemoglobin 29.7 pg (26-34); Mean Corpuscular Volume 95.8 fl (80-100); Mean Platelet Volume 8.6 fl (7.4-10.4); Platelet Count Result 480 k/mm3 (150-375); White Blood Count 4.6 K/mm3 (4.5-10.0)
[2022-08-23 06:21] LABS: Anion Gap 3 mmol/L (8-16); Blood Urea Nitrogen 13 mg/dL (7-17); Calcium 8.9 mg/dL (8.4-10.2); Carbon Dioxide 31 mmol/L (22-30); Chloride 102 mmol/L (98-107); Estimated CRCL calculation 42 ml/min; Estimated Glomerular Filt Rate 54; Glucose 102 mg/dL (65-110); Sodium 136 mmol/L (137-145)
--- NOTE | 2022-08-23 06:49 | WPDHPUPDATE1 ---
History and Physical Update Update Date/Time: 08/23/22 06:49 History and Physical has been reviewed, including an updated exam of the patient. There are NO changes in the patient's condition. Risks, benefits, and alternatives have been discussed and questions answered. Patient agrees to proceed with procedure. Imaging reviewed and discussed with Marie Brock NP. Agree with plans for cystoscopy, left ureteroscopy with laser lithotripsy with stone extraction, possible RPG and stent replacement.
[2022-08-23] MEDS: CARBIDOPA/LEVODOPA 25/100 MG TABLET 1 TABLET PO ×3 (08:28→20:25)
[2022-08-23] MEDS: ALPRAZolam (*CRX) 0.5 MG TABLET PO ×2 (08:29→17:26)
[2022-08-23] MEDS: LOSARTAN POTASSIUM 50 MG TABLET PO (08:30)
[2022-08-23] MEDS: MECLIZINE HCL 25 MG TABLET PO ×2 (08:30→17:24)
[2022-08-23] MEDS: CHOLECALCIFEROL 1,000 UNITS TABLET 5000 UNITS PO (08:30)
[2022-08-23] MEDS: PARoxetine 20 MG TABLET PO (08:30)
[2022-08-23] MEDS: THERAPEUTIC MULTIVITAMINS/MINERALS TAB (*BKC) 1 TABLET PO (08:30)
[2022-08-23] MEDS: FLUTICASONE PROPIONATE 0.05% NA SPR 16 GM BTL (*BKC) 2 SPRAY NASAL (08:31)
[2022-08-23 08:59] LABS: Glucose Point of Care 149 mg/dl (65-105)
--- NOTE | 2022-08-23 10:14 | WPDNEUROPN ---
Progress Note: A&P Assessment and Plan (1) Seizure: Code(s): R56.9 - Unspecified convulsions Status: Acute (2) Acute UTI (urinary tract infection): Code(s): N39.0 - Urinary tract infection, site not specified Status: Acute (3) Parkinson disease: Code(s): G20 - Parkinson's disease Status: Acute Plan Emilee Bagley is a 76 year old female with a history of HLD, DM type 2, Parkinson's disease and COPD who presented with first time seizure. Unclear if the episode described was a seizure. If it was a seizure, it could have been provoked by underlying UTI. MRI brain and routine EEG unrevealing. Given first time episode that was likely provoked, will hold off on starting anti-seizure medication for now. - No further work-up needed - Ok to discharge from Neurology standpoint when medically cleared by primary team Subjective Date/time seen: 08/23/22 10:14 Interval history: [place] [id number] [place] [address] Neurology Consult Note Signed Patient: Emilee Bagley MR#: [id number] : 1945 Emilee Bagley is a 76 year old female with a history of HLD, DM type 2, Parkinson's disease and COPD who presented with first time seizure. Patient has had frequent admission for recurrent UTIs in the setting of ureteral stone, and was recently admitted several weeks ago for a UTI. She had a ureteral stent placed at that time. Patient was discharged to [facility]. On 08/21, while working with physical therapy, she had episode that was concerning for seizure. Patient has no recollection of the episode. Per chart review, daughter reported that patient was staring off for about a minute. Afterwards she appeared tired/confused. There was no bowel or bladder incontinence. EMS was called and brought her to [facility] ED where she was AOx3. She received 1g Keppra load. Her UA was concerning for UTI. Patient denies any prior history of seizures. There is no family history of seizures. She takes Sinemet 25-100mg QID for her Parkinson's disease. No additional seizure like activity since admission. 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 Daughter at bedside this morning. Review of Systems Constitutional: Constitutional: Reports no additional constitutional complaints Eyes: Eyes: Reports no additional eye complaints ENT: Reports system reviewed and no additional complaints, except as documented Cardiovascular: Cardiovascular: Reports no additional cardiovascular complaints Respiratory: Respiratory: Reports no additional respiratory complaints Gastrointestinal: Gastrointestinal: Reports no additional gastrointestinal complaints Genitourinary: Genitourinary: Reports no additional female genitourinary complaints Musculoskeletal: Musculoskeletal: Reports arthralgias Neurologic: Reports as per HPI Psychiatric: Psychiatric: Reports no additional psychiatric complaints Exam Const: General: comfortable and no acute distress HENMT: Mouth: Yes moist mucous membranes Eyes: Pupils: Equal, round and reactive pupils present EOM: EOMs intact bilaterally Resp: Effort & Inspection: normal respiratory effort Auscultation: clear to auscultation bilaterally Cardio: Rate: regular rate Rhythm: regular rhythm GI: GI Palp: Yes Soft to palpation Auscultation: normal bowel sounds Skin: General skin exam: normal color Neuro: Other: AOx4, Pupils equal and reactive bilaterally, EOMI, face symmetric, facial sensation intact, tongue protrudes midline, palate midline. Strength 5/5 in bilateral upper extremities, 3/5 in proximal lower extremities and 5/5 in distal lower extremities. Sensation intact throughout. Mild bradykinesia. No significant rest tremor. FNF normal bilaterally. Language comprehension and fluency intact. Gait deferred. Extrem: General: normal to inspection Psych: Mental Status: mental status grossly no
[2022-08-23 12:25] LABS: Glucose Point of Care 112 mg/dl (65-105)
--- NOTE | 2022-08-23 12:54 | WPDANESEPPF ---
Anes - Initial Pre Proc Eval Procedure: Operation Date: 08/23/22 14:00 Proposed Procedures p Cystoscopy,Left Ureteroscopy,Left Retrograde Pyelogram,Left Stone Extraction Possible Holmium Laser,Left Stent Exchange - Federico Lugo MD Date/Time: 08/23/22 12:54 Surgeon: Nathalia Ho PA-C Pre Op Diagnosis: New Onset Seizure/Abnormal UA Patient Data Age: 76 Gender: F Height: 1.65 m Weight: 75 kg Last Vital Signs Temp 36.8 C 08/23/22 04:24 Pulse 106 H 08/23/22 08:00 Resp 18 08/23/22 04:24 BP 145/65 H 08/23/22 04:24 Pulse Ox 95 08/23/22 04:24 O2 Del Method Room Air 08/22/22 18:35 O2 Flow Rate 1 08/22/22 10:15 Allergies Allergy/AdvReac Type Severity Reaction Status Date / Time VONNIE Inhibitors Allergy Unknown Unknown Verified 08/21/22 17:24 erythromycin base Allergy Unknown Unknown Verified 08/21/22 17:24 Macrolide Antibiotics Allergy Unknown Unknown Verified 08/21/22 17:24 prednisone Allergy Unknown Unknown Verified 08/21/22 17:24 secobarbital Allergy Unknown HIVES Verified 08/21/22 17:24 cefuroxime [From Ceftin] AdvReac Mild Diarrhea Verified 08/21/22 17:24 olmesartan AdvReac Unknown Confusion Verified 08/21/22 17:24 Home Medications Medication Instructions Recorded Confirmed Type cholecalciferol (vitamin D3) 125 125 mcg PO DAILY 09/05/20 08/21/22 History mcg (5,000 unit) capsule multivit with 1 tablet PO DAILY 09/05/20 08/21/22 History wthgavuv-dlim-SS-lutein 8 mg iron-400 mcg-300 mcg tablet (Centrum Silver Women) fluticasone fur. 100 mcg-umeclid 1 inh inhalation DAILY #60 ea 05/14/22 08/21/22 Rx 62.5 mcg-vilant 25 mcg inhalat.powder (Trelegy Ellipta) alprazolam 0.5 mg tablet 0.5 mg PO TID #90 tabs 06/13/22 08/21/22 Rx carbidopa 25 mg-levodopa 100 mg 1 tablet PO QID 07/27/22 08/21/22 History tablet fluticasone propionate 50 2 spray intranasal DAILY 07/27/22 08/21/22 History mcg/actuation nasal spray,suspension losartan 50 mg tablet 50 mg PO DAILY 07/27/22 08/21/22 History meclizine 25 mg tablet 25 mg PO TID 07/27/22 08/21/22 History metformin 500 mg tablet 500 mg PO BID 07/27/22 08/21/22 History paroxetine HCl 20 mg tablet 20 mg PO DAILY 07/27/22 08/21/22 History pravastatin 20 mg tablet 20 mg PO DAILY 07/27/22 08/21/22 History ferrous sulfate 325 mg (65 mg 325 mg PO DAILY 08/21/22 08/21/22 History iron) tablet loperamide 2 mg capsule (Imodium 2 mg PO Q6H PRN Diarrhea 08/21/22 08/21/22 History A-D) melatonin 5 mg tablet 5 mg PO HS PRN Insomnia 08/21/22 08/21/22 History metronidazole 500 mg tablet 500 mg PO Q8H 08/21/22 08/21/22 History Laboratory Tests 08/22/22 08/22/22 08/23/22 18:07 20:33 05:18 WBC 4.6 K/mm3 K/mm3 (4.5-10.0) RBC 3.60 M/mm3 L M/mm3 (4.2-5.4) Hgb 10.7 g/dL L g/dL (12.0-15.0) Hct 34.5 % L % (37.0-47.0) MCV 95.8 fl fl (80-100) MCH 29.7 pg pg (26-34) MCHC 31.0 g/dl L g/dl (32-36) RDW 14.0 % % (11.5-14.5) Plt Count 480 k/mm3 H k/mm3 (150-375) MPV 8.6 fl fl (7.4-10.4) Sodium Potassium Chloride Carbon Dioxide Anion Gap BUN Creatinine Estim Creat Clear Calc Estimated GFR Glucose POC Capillary Glucose 90 mg/dl mg/dl 133 mg/dl H mg/dl (65-105) (65-105) Calcium 08/23/22 08/23/22 08/23/22 05:18 08:48 12:14 WBC RBC Hgb Hct MCV MCH MCHC RDW Plt Count MPV Sodium 136 mmol/L L mmol/L (137-145) Potassium 4.0 mmol/L mmol/L (3.4-5.0) Chloride 102 mmol/L mmol/L (98-107) Carbon Dioxide 31 mmol/L H mmol/L (22-30) Anion Gap 3 mmol/L L mmol/L (8-16) BUN 13 mg/dL mg/dL (7-
--- NOTE | 2022-08-23 13:41 | PC.NURSE ---
On 08/23/22, the student, [Latrice Marie], provided care and completed [facility] documentation on this patient. I have reviewed the student's documentation and agree with the findings.
--- NOTE | 2022-08-23 13:42 | PCPTNOTE ---
Attempted PT evaluation, pt off the floor for testing. Will Follow.
[2022-08-23] MEDS: LACTATED RINGERS 1,000 ML 30 ML IV CONT (13:56)
--- NOTE | 2022-08-23 14:00 | W.PM.PROC2 ---
Procedure Note - Detailed Date of Procedure 08/23/22 Pre-op Diagnosis New Onset Seizure/Abnormal UA/Persistent left mid-ureteral stone Post-op Diagnosis Same Procedure Performed Cystoscopy, left ureteral stent removal, left ureteroscopy with stone extraction and left ureteral stent replacemen Surgeon Federico Lugo MD Anesthesia General Description of Procedure Patient is brought to the operative suite where she has prepped and draped in routine sterile fashion while in dorsal lithotomy position after the uneventful induction of a general anesthetic. Cystoscopy is undertaken with a 19 F rigid cystoscope. The tip of the indwelling stent is grasped and brought to the external urethral meatus. A 0.035 in glidewire is advanced into the left renal pelvis through the stent. Ureteroscopy was undertaken 1st with a semi-rigid ureteral scope and then a 7.5 F flexible ureteral scope. The mid ureteral stone is identified. It has somewhat a the the long skinny configuration. It is grasped with a 1.9 F disposable escape basket and I was able to remove it intact without need for laser lithotripsy. I did replace a 4.8 F double-J ureteral stent but left a string attached and intend to remove the stent 24-48 hours. Urine Output 0 Packing No Pathology None sent Complications No immediate complications Condition Stable
--- NOTE | 2022-08-23 14:18 | PM.IMPN ---
Progress Note: A&P Assessment and Plan (1) Seizure: Code(s): R56.9 - Unspecified convulsions Status: Acute Assessment and Plan: This is the patient's 1st seizure. Etiology not entirely clear, possibly related to lack of sleep or acute infection. She initially received Keppra. She has been seen in consultation by Neurology. EEG completed on 08/22 was normal. Per Neurology, no need for anti seizure medication at this time given for seizure that was provoked. she can follow-up neurology as an outpatient. Seizure precautions implemented (2) Abnormal urinalysis: Code(s): R82.90 - Unspecified abnormal findings in urine Status: Acute Assessment and Plan: Urinalysis is abnormal. Patient was started on IV ceftriaxone pending urine culture. Urine culture with growth of <10k single Gram-negative organism. No further testing to be performed. Continue with IV ceftriaxone at this time pending further Urology recommendations given recent instrumentation (3) Ureteral stent present: Code(s): Z96.0 - Presence of urogenital implants Status: Acute Assessment and Plan: Left ureteral stent and ureteral stones present on imaging. patient underwent cystoscopy with left ureteral stent removal, left ureteroscopy with stone extraction and left ureteral stent replacement today. (4) Ureteral stone: Code(s): N20.1 - Calculus of ureter Status: Acute Assessment and Plan: Plan as above. (5) Left leg pain: Code(s): M79.605 - Pain in left leg Status: Acute Assessment and Plan: An ongoing problem since her fall last month. This seems to be limiting her progress in therapy quite a bit. Appreciate orthopedic surgery consultation. Weight bearing as tolerated. Appreciate PT/OT. Analgesics available as needed. (6) Chronic anemia: Code(s): D64.9 - Anemia, unspecified Status: Acute Assessment and Plan: H&H remaining stable. No active bleeding. (7) Renal insufficiency: Code(s): N28.9 - Disorder of kidney and ureter, unspecified Status: Acute Assessment and Plan: Renal function is stable. Continue to monitor BMP (8) Benign essential hypertension: Code(s): I10 - Essential (primary) hypertension Status: Chronic Assessment and Plan: Blood pressures stable. 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 Continue sliding scale insulin, Accu-Cheks, and hypoglycemic protocol. (10) COPD (chronic obstructive pulmonary disease): Qualifiers: COPD type: unspecified COPD Qualified Code(s): J44.9 - Chronic obstructive pulmonary disease, unspecified Code(s): J44.9 - Chronic obstructive pulmonary disease, unspecified Status: Chronic Assessment and Plan: No acute exacerbation. Albuterol prn (11) Nicotine abuse: Code(s): Z72.0 - Tobacco use Status: Acute Assessment and Plan: Smoking cessation has been encouraged. She declined need for a nicotine patch. Subjective Date/time seen: 08/23/22 14:18 Interval history: Date of service: 08/23/2022 Emilee Bagley is a 76 year old female with a history of hypertension, COPD, depression, anxiety, hyperlipidemia, type 2 diabetes mellitus who is seen in follow up for witnessed seizure.She is better today. She did have some flank pain this morning that has resolved. She complains of epigastric pain. Denies nausea or vomiting. No chest pain, arm pain, jaw pain. No shortness of breath or cough. Denies abdominal
[2022-08-23] MEDS: FERROUS SULFATE 324 MG TABLET PO (17:24)
[2022-08-23] MEDS: INSULIN ASPART (*BKC) 100 UNITS/ML SUB-Q (17:26)
[2022-08-23 17:28] LABS: Glucose Point of Care 233 mg/dl (65-105)
[2022-08-23] MEDS: FAMOTIDINE 20 MG/2 ML VIAL IV PUSH (22:00)
[2022-08-23 22:58] LABS: Glucose Point of Care 224 mg/dl (65-105)
[2022-08-24] VITALS (10 sets, daily range): BP systolic 108–123; BP diastolic 54–60; PULSE 55–72; RESP 16–20; TEMP 36.1–36.8; O2SAT 90–100
[2022-08-24 06:07] LABS: Hematocrit 32.6 % (37.0-47.0); Hemoglobin 10.1 g/dL (12.0-15.0); Mean Corpuscular Hemoglobin 29.9 pg (26-34); Mean Corpuscular Volume 96.4 fl (80-100); Platelet Count Result 447 k/mm3 (150-375); Red Blood Count 3.38 M/mm3 (4.2-5.4); Red Cell Distribution Width 14.1 % (11.5-14.5); White Blood Count 6.2 K/mm3 (4.5-10.0)
[2022-08-24 06:18] LABS: Anion Gap 6 mmol/L (8-16); Blood Urea Nitrogen 19 mg/dL (7-17); Calcium 8.8 mg/dL (8.4-10.2); Carbon Dioxide 26 mmol/L (22-30); Chloride 103 mmol/L (98-107); Estimated CRCL calculation 36 ml/min; Estimated Glomerular Filt Rate 44; Glucose 137 mg/dL (65-110); Potassium 4.5 mmol/L (3.4-5.0); Sodium 135 mmol/L (137-145)
[2022-08-24] MEDS: CARBIDOPA/LEVODOPA 25/100 MG TABLET 1 TABLET PO ×4 (08:01→20:56)
[2022-08-24] MEDS: CHOLECALCIFEROL 1,000 UNITS TABLET 5000 UNITS PO (08:01)
[2022-08-24] MEDS: PARoxetine 20 MG TABLET PO (08:01)
[2022-08-24] MEDS: THERAPEUTIC MULTIVITAMINS/MINERALS TAB (*BKC) 1 TABLET PO (08:01)
[2022-08-24] MEDS: LOSARTAN POTASSIUM 50 MG TABLET PO (08:01)
[2022-08-24] MEDS: FAMOTIDINE 20 MG/2 ML VIAL IV PUSH (08:02)
[2022-08-24] MEDS: FLUTICASONE PROPIONATE 0.05% NA SPR 16 GM BTL (*BKC) 2 SPRAY NASAL (08:02)
[2022-08-24] MEDS: ALPRAZolam (*CRX) 0.5 MG TABLET PO ×3 (08:02→17:03)
[2022-08-24] MEDS: MECLIZINE HCL 25 MG TABLET PO ×3 (08:02→17:04)
[2022-08-24] MEDS: FLUTICASONE/UMECLIDIN/VILANTER 100-62.5-25 MCG ELLIPTA 1 PUFF INHALATION (08:29)
[2022-08-24 09:00] LABS: Glucose Point of Care 136 mg/dl (65-105)
--- NOTE | 2022-08-24 10:37 | WPDANESPN ---
Anes - Prog Note Post-Op Date/Time: 08/24/22 09:40 Cardiovascular status: normal Respiratory status: normal Airway patency: baseline Mental status: baseline Post-Op hydration status: normal Vital Signs: Last Vital Signs Temp 97 F L 08/24/22 05:12 Pulse 66 08/24/22 05:12 Resp 20 08/24/22 05:12 BP 118/58 L 08/24/22 05:12 Pulse Ox 90 08/24/22 05:12 O2 Del Method Room Air 08/23/22 15:34 O2 Flow Rate 8 08/23/22 14:05 Pain Score (VAS): 0 I/O: Intake & Output 08/23/22 08/24/22 08/24/22 23:59 07:59 15:59 Intake Total 360 240 80 Balance 360 240 80 Laboratory Tests 08/24/22 05:21 08/24/22 05:21 08/23/22 08/23/22 08/23/22 12:14 17:22 20:29 WBC RBC Hgb Hct MCV MCH MCHC RDW Plt Count MPV Sodium Potassium Chloride Carbon Dioxide Anion Gap BUN Creatinine Estim Creat Clear Calc Estimated GFR Glucose POC Capillary Glucose 112 H 233 H 224 H Calcium 08/24/22 08/24/22 08/24/22 05:21 05:21 08:57 WBC 6.2 RBC 3.38 L Hgb 10.1 L Hct 32.6 L MCV 96.4 MCH 29.9 MCHC 31.0 L RDW 14.1 Plt Count 447 H MPV 9.0 Sodium 135 L Potassium 4.5 Chloride 103 Carbon Dioxide 26 Anion Gap 6 L BUN 19 H Creatinine 1.20 H Estim Creat Clear Calc 36 Estimated GFR 44 L Glucose 137 H POC Capillary Glucose 136 H Calcium 8.8 Microbiology 08/21/22 23:48 Blood Blood Culture - Preliminary 08/21/22 23:48 Blood Blood Culture - Preliminary Post-procedural complaints: none Patient Feedback: Patient satisfied with anesthetic care.
[2022-08-24 11:59] LABS: Glucose Point of Care 146 mg/dl (65-105)
--- NOTE | 2022-08-24 12:20 | PC.NURSE ---
On 08/24/22, the student, [Ida Trujillo], provided care and completed [facility] documentation on this patient. I have reviewed the student's documentation and agree with the findings.
[2022-08-24] MEDS: FERROUS SULFATE 324 MG TABLET PO (15:03)
--- NOTE | 2022-08-24 16:10 | PM.IMPN ---
Progress Note: A&P Assessment and Plan (1) Seizure: Code(s): R56.9 - Unspecified convulsions Status: Acute Assessment and Plan: This is the patient's 1st seizure. Etiology not entirely clear, possibly related to lack of sleep or acute infection. She initially received Keppra. She has been seen in consultation by Neurology. EEG completed on 08/22 was normal. Per Neurology, no need for anti seizure medication at this time given first seizure that was provoked. She can follow-up with neurology as an outpatient. Seizure precautions implemented (2) Abnormal urinalysis: Code(s): R82.90 - Unspecified abnormal findings in urine Status: Acute Assessment and Plan: Urinalysis is abnormal. Patient was started on IV ceftriaxone pending urine culture. Urine culture with growth of <10k single Gram-negative organism. No further testing to be performed. Will discontinue IV Ceftriaxone per urology recommendations. (3) Ureteral stent present: Code(s): Z96.0 - Presence of urogenital implants Status: Acute Assessment and Plan: Left ureteral stent and ureteral stones present on imaging. Patient underwent cystoscopy with left ureteral stent removal, left ureteroscopy with stone extraction and left ureteral stent replacement on 08/23/22. Will follow up with Urology as an outpatient in 1 week. (4) Ureteral stone: Code(s): N20.1 - Calculus of ureter Status: Acute Assessment and Plan: Plan as above. (5) Left leg pain: Code(s): M79.605 - Pain in left leg Status: Acute Assessment and Plan: An ongoing problem since her fall last month. This seems to be limiting her progress in therapy quite a bit. Appreciate orthopedic surgery consultation. Weight bearing as tolerated. Appreciate PT/OT. Analgesics available as needed. (6) Chronic anemia: Code(s): D64.9 - Anemia, unspecified Status: Acute Assessment and Plan: H&H remaining stable. No active bleeding. (7) Renal insufficiency: Code(s): N28.9 - Disorder of kidney and ureter, unspecified Status: Acute Assessment and Plan: Renal function is stable. Continue to monitor BMP (8) Benign essential hypertension: Code(s): I10 - Essential (primary) hypertension Status: Chronic Assessment and Plan: Blood pressures stable. Continue home antihypertensives (9) DM type 2 (diabetes mellitus, type 2): Qualifiers: Diabetes mellitus complication status: without complication Diabetes mellitus detention insulin use: without ferry terminal agent use Qualified Code(s): E11.9 - Type 2 diabetes mellitus without complications Code(s): E11.9 - Type 2 diabetes mellitus without complications Status: Chronic Assessment and Plan: A1c is 5.6. Continue sliding scale insulin, Accu-Cheks, and hypoglycemic protocol. (10) COPD (chronic obstructive pulmonary disease): Qualifiers: COPD type: unspecified COPD Qualified Code(s): J44.9 - Chronic obstructive pulmonary disease, unspecified Code(s): J44.9 - Chronic obstructive pulmonary disease, unspecified Status: Chronic Assessment and Plan: No acute exacerbation. Albuterol prn (11) Nicotine abuse: Code(s): Z72.0 - Tobacco use Status: Acute Assessment and Plan: Smoking cessation has been encouraged. She declined need for a nicotine patch. Plan Planning for SNF following discharge. Care coordination following. Subjective Date/time seen: 08/24/22 16:10 Interval history: Date of service: 08/24/2022 Emilee Bagley is a 76 year old female with a history of hypertension, COPD, depression, anxiety, hyperlipidemia, type 2 diabetes mellitus who is seen in follow up after a witnessed seizure. She is feeling well today. No flank pain or back pain. No issues with the stent. No urinary symptoms. No shortness of breath, c
[2022-08-24 17:22] LABS: Glucose Point of Care 127 mg/dl (65-105)
[2022-08-24 23:23] LABS: Glucose Point of Care 133 mg/dl (65-105)
[2022-08-25] VITALS (9 sets, daily range): BP systolic 124–143; BP diastolic 50–90; PULSE 53–75; RESP 12–18; TEMP 36.4–36.9; O2SAT 93–100
--- NOTE | 2022-08-25 01:59 | PC.NURSE ---
Received pt at 1900. Per day shift nurse pt IV site out and was instructed to leave out per who? Notified Hospitalist recreation activities coordinator of such. She deferred to on sat day shift. Received order to change pepcid from Iv to po. Assisted pt to the bathroom with walker. Pt needed constant instructions and ques to move feet. turn, grab rail etc. Pt not steady. Pt w difficulty to sit down on the toilet without falling. Bed alarm- fall precautions.
[2022-08-25 06:23] LABS: Hemoglobin 9.9 g/dL (12.0-15.0); Mean Corpuscular HGB Conc 30.9 g/dl (32-36); Mean Corpuscular Hemoglobin 30.1 pg (26-34); Mean Corpuscular Volume 97.3 fl (80-100); Mean Platelet Volume 9.1 fl (7.4-10.4); Platelet Count Result 418 k/mm3 (150-375); Red Blood Count 3.29 M/mm3 (4.2-5.4); Red Cell Distribution Width 14.6 % (11.5-14.5); White Blood Count 7.4 K/mm3 (4.5-10.0)
[2022-08-25 06:39] LABS: Anion Gap 4 mmol/L (8-16); Blood Urea Nitrogen 22 mg/dL (7-17); Calcium 8.5 mg/dL (8.4-10.2); Carbon Dioxide 26 mmol/L (22-30); Chloride 107 mmol/L (98-107); Estimated CRCL calculation 36 ml/min; Estimated Glomerular Filt Rate 44; Glucose 95 mg/dL (65-110); Potassium 3.9 mmol/L (3.4-5.0); Sodium 137 mmol/L (137-145)
[2022-08-25 08:29] LABS: Glucose Point of Care 82 mg/dl (65-105)
[2022-08-25] MEDS: FAMOTIDINE 20 MG TABLET PO ×2 (09:23→20:28)
[2022-08-25] MEDS: CHOLECALCIFEROL 1,000 UNITS TABLET 5000 UNITS PO (09:24)
[2022-08-25] MEDS: LOSARTAN POTASSIUM 50 MG TABLET PO (09:24)
[2022-08-25] MEDS: CARBIDOPA/LEVODOPA 25/100 MG TABLET 1 TABLET PO ×4 (09:24→20:28)
[2022-08-25] MEDS: PARoxetine 20 MG TABLET PO (09:24)
[2022-08-25] MEDS: MECLIZINE HCL 25 MG TABLET PO ×3 (09:24→16:50)
[2022-08-25] MEDS: THERAPEUTIC MULTIVITAMINS/MINERALS TAB (*BKC) 1 TABLET PO (09:24)
[2022-08-25] MEDS: FLUTICASONE PROPIONATE 0.05% NA SPR 16 GM BTL (*BKC) 2 SPRAY NASAL (09:25)
[2022-08-25] MEDS: ALPRAZolam (*CRX) 0.5 MG TABLET PO ×3 (09:26→16:50)
[2022-08-25] MEDS: FLUTICASONE/UMECLIDIN/VILANTER 100-62.5-25 MCG ELLIPTA 1 PUFF INHALATION (12:18)
[2022-08-25 12:29] LABS: Glucose Point of Care 92 mg/dl (65-105)
[2022-08-25] MEDS: FERROUS SULFATE 324 MG TABLET PO (13:56)
--- NOTE | 2022-08-25 14:09 | PM.IMPN ---
Progress Note: A&P Assessment and Plan (1) Seizure: Code(s): R56.9 - Unspecified convulsions Status: Acute Assessment and Plan: This is the patient's 1st seizure. Etiology not entirely clear, possibly related to lack of sleep or acute infection. She initially received Keppra. She has been seen in consultation by Neurology. EEG completed on 08/22 was normal. Per Neurology, no need for anti seizure medication at this time given first seizure that was provoked. She can follow-up with neurology as an outpatient. Seizure precautions implemented (2) Abnormal urinalysis: Code(s): R82.90 - Unspecified abnormal findings in urine Status: Acute Assessment and Plan: Urinalysis is abnormal. Patient was started on IV ceftriaxone pending urine culture. Urine culture with growth of <10k single Gram-negative organism. No further testing to be performed. Will discontinue IV Ceftriaxone per urology recommendations. (3) Ureteral stent present: Code(s): Z96.0 - Presence of urogenital implants Status: Acute Assessment and Plan: Left ureteral stent and ureteral stones present on imaging. Patient underwent cystoscopy with left ureteral stent removal, left ureteroscopy with stone extraction and left ureteral stent replacement on 08/23/22. Will follow up with Urology as an outpatient in 1 week. (4) Ureteral stone: Code(s): N20.1 - Calculus of ureter Status: Acute Assessment and Plan: Plan as above. (5) Left leg pain: Code(s): M79.605 - Pain in left leg Status: Acute Assessment and Plan: An ongoing problem since her fall last month. This seems to be limiting her progress in therapy quite a bit. Appreciate orthopedic surgery consultation. Weight bearing as tolerated. Appreciate PT/OT. Analgesics available as needed. (6) Chronic anemia: Code(s): D64.9 - Anemia, unspecified Status: Acute Assessment and Plan: H&H remaining stable. No active bleeding. (7) Renal insufficiency: Code(s): N28.9 - Disorder of kidney and ureter, unspecified Status: Acute Assessment and Plan: Renal function is stable. Continue to monitor BMP (8) Benign essential hypertension: Code(s): I10 - Essential (primary) hypertension Status: Chronic Assessment and Plan: Blood pressures stable. Continue home antihypertensives (9) DM type 2 (diabetes mellitus, type 2): Qualifiers: Diabetes mellitus senior living insulin use: without senior living use Diabetes mellitus complication status: without complication Qualified Code(s): E11.9 - Type 2 diabetes mellitus without complications Code(s): E11.9 - Type 2 diabetes mellitus without complications Status: Chronic Assessment and Plan: A1c is 5.6. Continue sliding scale insulin, Accu-Cheks, and hypoglycemic protocol. (10) COPD (chronic obstructive pulmonary disease): Qualifiers: COPD type: unspecified COPD Qualified Code(s): J44.9 - Chronic obstructive pulmonary disease, unspecified Code(s): J44.9 - Chronic obstructive pulmonary disease, unspecified Status: Chronic Assessment and Plan: No acute exacerbation. Albuterol prn (11) Nicotine abuse: Code(s): Z72.0 - Tobacco use Status: Acute Assessment and Plan: Smoking cessation has been encouraged. She declined need for a nicotine patch. Plan Planning for SNF following discharge. Care coordination following. Supportive care for bruising of right upper extremity. Subjective Date/time seen: 08/25/22 14:09 Interval history: Date of service: 08/25/2022 Emilee Bagley is a 76 year old female with a history of hypertension, COPD, depression, anxiety, hyperlipidemia, type 2 diabetes mellitus who is seen in follow up after a witnessed seizure. she is doing well today. She is concerned about a bruise on her right ante
[2022-08-25 17:10] LABS: Glucose Point of Care 114 mg/dl (65-105)
[2022-08-25] MEDS: MELATONIN 5 MG TABLET PO (20:28)
[2022-08-25 21:16] LABS: Glucose Point of Care 103 mg/dl (65-105)
[2022-08-26 05:03] VITALS: BP 145/64; PULSE 60; RESP 16; TEMP 36.9; O2SAT 93
[2022-08-26 08:10] VITALS: RESP 16; O2SAT 94
[2022-08-26 08:15] LABS: Glucose Point of Care 87 mg/dl (65-105)
[2022-08-26] MEDS: FLUTICASONE/UMECLIDIN/VILANTER 100-62.5-25 MCG ELLIPTA 1 PUFF INHALATION (08:39)
[2022-08-26 08:57] VITALS: PULSE 55; RESP 20
[2022-08-26 08:59] VITALS: PULSE 55; RESP 20
[2022-08-26] MEDS: MECLIZINE HCL 25 MG TABLET PO ×3 (10:01→16:59)
[2022-08-26] MEDS: THERAPEUTIC MULTIVITAMINS/MINERALS TAB (*BKC) 1 TABLET PO (10:01)
[2022-08-26] MEDS: FLUTICASONE PROPIONATE 0.05% NA SPR 16 GM BTL (*BKC) 2 SPRAY NASAL (10:01)
[2022-08-26] MEDS: ALPRAZolam (*CRX) 0.5 MG TABLET PO ×3 (10:01→16:59)
[2022-08-26] MEDS: CHOLECALCIFEROL 1,000 UNITS TABLET 5000 UNITS PO (10:02)
[2022-08-26] MEDS: PARoxetine 20 MG TABLET PO (10:02)
[2022-08-26] MEDS: LOSARTAN POTASSIUM 50 MG TABLET PO (10:02)
[2022-08-26] MEDS: FAMOTIDINE 20 MG TABLET PO ×2 (10:02→20:14)
[2022-08-26] MEDS: CARBIDOPA/LEVODOPA 25/100 MG TABLET 1 TABLET PO ×4 (10:02→20:14)
[2022-08-26 12:56] LABS: Glucose Point of Care 149 mg/dl (65-105)
[2022-08-26] MEDS: FERROUS SULFATE 324 MG TABLET PO (13:11)
[2022-08-26 14:55] VITALS: BP 152/60; PULSE 65; RESP 18; TEMP 37; O2SAT 100
--- NOTE | 2022-08-26 15:50 | PM.IMPN ---
Progress Note: A&P Assessment and Plan (1) Seizure: Code(s): R56.9 - Unspecified convulsions Status: Acute Assessment and Plan: This is the patient's 1st seizure. Etiology not entirely clear, possibly related to lack of sleep or acute infection. She initially received Keppra. She has been seen in consultation by Neurology. EEG completed on 08/22 was normal. Per Neurology, no need for anti seizure medication at this time given first seizure that was provoked. She can follow-up with neurology as an outpatient. Seizure precautions implemented (2) Abnormal urinalysis: Code(s): R82.90 - Unspecified abnormal findings in urine Status: Acute Assessment and Plan: Urinalysis is abnormal. Patient was started on IV ceftriaxone pending urine culture. Urine culture with growth of <10k single Gram-negative organism. No further testing to be performed. Will discontinue IV Ceftriaxone per urology recommendations. (3) Ureteral stent present: Code(s): Z96.0 - Presence of urogenital implants Status: Acute Assessment and Plan: Left ureteral stent and ureteral stones present on imaging. Patient underwent cystoscopy with left ureteral stent removal, left ureteroscopy with stone extraction and left ureteral stent replacement on 08/23/22. Will follow up with Urology as an outpatient in 1 week. (4) Ureteral stone: Code(s): N20.1 - Calculus of ureter Status: Acute Assessment and Plan: Plan as above. (5) Left leg pain: Code(s): M79.605 - Pain in left leg Status: Acute Assessment and Plan: An ongoing problem since her fall last month. This seems to be limiting her progress in therapy quite a bit. Appreciate orthopedic surgery consultation. Weight bearing as tolerated. Appreciate PT/OT. Analgesics available as needed. (6) Chronic anemia: Code(s): D64.9 - Anemia, unspecified Status: Acute Assessment and Plan: H&H remaining stable. No active bleeding. (7) Renal insufficiency: Code(s): N28.9 - Disorder of kidney and ureter, unspecified Status: Acute Assessment and Plan: Renal function is stable. Continue to monitor BMP (8) Benign essential hypertension: Code(s): I10 - Essential (primary) hypertension Status: Chronic Assessment and Plan: Blood pressures stable. Continue home antihypertensives (9) DM type 2 (diabetes mellitus, type 2): Qualifiers: Diabetes mellitus skilled nursing insulin use: without skilled nursing use Diabetes mellitus complication status: without complication Qualified Code(s): E11.9 - Type 2 diabetes mellitus without complications Code(s): E11.9 - Type 2 diabetes mellitus without complications Status: Chronic Assessment and Plan: A1c is 5.6. Continue sliding scale insulin, Accu-Cheks, and hypoglycemic protocol. (10) COPD (chronic obstructive pulmonary disease): Qualifiers: COPD type: unspecified COPD Qualified Code(s): J44.9 - Chronic obstructive pulmonary disease, unspecified Code(s): J44.9 - Chronic obstructive pulmonary disease, unspecified Status: Chronic Assessment and Plan: No acute exacerbation. Albuterol prn (11) Nicotine abuse: Code(s): Z72.0 - Tobacco use Status: Acute Assessment and Plan: Smoking cessation has been encouraged. She declined need for a nicotine patch. Plan Planning for SNF following discharge. Care coordination following. Patient was denied, appeal underway. Attempted phone call for peer to peer evaluation today, no sales representative door to door was available. Will attempt again tomorrow. Supportive care for bruising of right upper extremity. Subjective Date/time seen: 08/26/22 15:50 Interval history: Date of service: 08/26/2022 Emilee Barker Drolyleobardo is a 76 year old female with a history of hypertension, COPD, depression, anxiety, hyperlipidemia
[2022-08-26 17:00] LABS: Glucose Point of Care 117 mg/dl (65-105)
[2022-08-26] MEDS: MELATONIN 5 MG TABLET PO (20:14)
[2022-08-26 21:08] LABS: Glucose Point of Care 121 mg/dl (65-105)
[2022-08-26 22:00] VITALS: BP 144/53; PULSE 62; RESP 21; TEMP 36.4; O2SAT 100
[2022-08-27 03:51] LABS: Glucose Point of Care 114 mg/dl (65-105)
[2022-08-27 06:00] VITALS: BP 126/88; PULSE 63; RESP 18; TEMP 36.1; O2SAT 96
[2022-08-27 07:40] VITALS: O2SAT 98
[2022-08-27 08:52] LABS: Glucose Point of Care 101 mg/dl (65-105)
[2022-08-27] MEDS: CHOLECALCIFEROL 1,000 UNITS TABLET 5000 UNITS PO (09:09)
[2022-08-27] MEDS: MECLIZINE HCL 25 MG TABLET PO ×2 (09:09→12:36)
[2022-08-27] MEDS: LOSARTAN POTASSIUM 50 MG TABLET PO (09:10)
[2022-08-27] MEDS: FLUTICASONE PROPIONATE 0.05% NA SPR 16 GM BTL (*BKC) 2 SPRAY NASAL (09:10)
[2022-08-27] MEDS: ALPRAZolam (*CRX) 0.5 MG TABLET PO ×2 (09:10→12:35)
[2022-08-27] MEDS: CARBIDOPA/LEVODOPA 25/100 MG TABLET 1 TABLET PO ×2 (09:11→12:36)
[2022-08-27] MEDS: THERAPEUTIC MULTIVITAMINS/MINERALS TAB (*BKC) 1 TABLET PO (09:11)
[2022-08-27] MEDS: FAMOTIDINE 20 MG TABLET PO (09:11)
[2022-08-27] MEDS: PARoxetine 20 MG TABLET PO (09:11)
[2022-08-27] MEDS: FLUTICASONE/UMECLIDIN/VILANTER 100-62.5-25 MCG ELLIPTA 1 PUFF INHALATION (10:08)
[2022-08-27 12:20] LABS: Glucose Point of Care 117 mg/dl (65-105)
--- NOTE | 2022-08-27 12:41 | PM.DS ---
DS: Admitting Diagnosis Discharge Date 08/27/2022 Admitting Diagnosis Seizure DS: Discharge Diagnosis Discharge Diagnosis (1) Seizure: Code(s): R56.9 - Unspecified convulsions Status: Acute Assessment and Plan: This is the patient's 1st seizure. Etiology not entirely clear, possibly related to lack of sleep. She initially received Keppra. She was seen in consultation by Neurology. EEG completed on 08/22 was normal. Per Neurology, no need for anti seizure medication at this time given first seizure that was provoked. She can follow-up with neurology as an outpatient. Seizure precautions implemented (2) Abnormal urinalysis: Code(s): R82.90 - Unspecified abnormal findings in urine Status: Acute Assessment and Plan: Urinalysis is abnormal. Patient was started on IV ceftriaxone pending urine culture. Urine culture with growth of <10k single Gram-negative organism. No further testing to be performed. IV Ceftriaxone discontinued per urology recommendations. Abnormal UA likely due to stent (3) Ureteral stent present: Code(s): Z96.0 - Presence of urogenital implants Status: Acute Assessment and Plan: Left ureteral stent and ureteral stones present on imaging. Patient underwent cystoscopy with left ureteral stent removal, left ureteroscopy with stone extraction and left ureteral stent replacement on 08/23/22. Stent removed on 09/03. Continue regular outpatient urology follow up. (4) Ureteral stone: Code(s): N20.1 - Calculus of ureter Status: Acute Assessment and Plan: Plan as above. (5) Left leg pain: Code(s): M79.605 - Pain in left leg Status: Acute Assessment and Plan: An ongoing problem since her fall last month that was limiting her progress in therapy. She was seen in consultation by Orthopedic surgery. Patient had exquisite tenderness with no evidence of effusion or fracture on imaging. [place] to be most likely due to bone contusion or stress reaction. Patient will be weight-bearing as tolerated with walker and follow-up with orthopedic surgery in 6 weeks for repeat imaging (6) Chronic anemia: Code(s): D64.9 - Anemia, unspecified Status: Chronic Assessment and Plan: H&H remained stable. No active bleeding. (7) Renal insufficiency: Code(s): N28.9 - Disorder of kidney and ureter, unspecified Status: Chronic Assessment and Plan: Renal function remained stable. (8) Benign essential hypertension: Code(s): I10 - Essential (primary) hypertension Status: Chronic Assessment and Plan: Blood pressures stable. Continue home antihypertensives (9) DM type 2 (diabetes mellitus, type 2): Qualifiers: Diabetes mellitus extermination supervisor insulin use: without shelter use Diabetes mellitus complication status: without complication Qualified Code(s): E11.9 - Type 2 diabetes mellitus without complications Code(s): E11.9 - Type 2 diabetes mellitus without complications Status: Chronic Assessment and Plan: A1c is 5.6. Continue home metformin (10) COPD (chronic obstructive pulmonary disease): Qualifiers: COPD type: unspecified COPD Qualified Code(s): J44.9 - Chronic obstructive pulmonary disease, unspecified Code(s): J44.9 - Chronic obstructive pulmonary disease, unspecified Status: Chronic Assessment and Plan: No acute exacerbation. Albuterol prn (11) Nicotine abuse: Code(s): Z72.0 - Tobacco use Status: Acute Assessment and Plan: Patient was educated on smoking cessation. She declined nicotine patch DS: Summary Hospital Course Hospital Course: Date of admission: 08/21/2022 Date of discharge: 08/27/2022 Emilee Bagley is a 76 year old female with a history of hypertension, COPD, depression, anxiety, hyperlipidemia, and type 2 diabetes mellitus who presented to
[2022-08-27] MEDS: FERROUS SULFATE 324 MG TABLET PO (13:28)
[2022-08-27 13:55] LABS: EDCOVIDSCREEN Negative (Negative)
[2022-08-27 14:00] VITALS: BP 130/60; PULSE 61; RESP 18; TEMP 36.2; O2SAT 98
== END 2022-08-27 15:20 ==
LOC: ANHED 14:21 → ANH2MED 17:15
PROVIDERS: Physician Assistant; Urology; Admitting Provider Chiropractor; Emergency Provider Emergency Medicine; PCP Internal Medicine; Visit Provider Physician Assistant
PROC: (CPT 52352; principal; 2022-08-23 14:00)
DX: N13.2 Hydronephrosis with renal and ureteral calculous obstruction (principal); R56.9 Unspecified convulsions; R82.90 Unspecified abnormal findings in urine; Z96.0 Presence of urogenital implants; Z20.822 Contact with and (suspected) exposure to COVID-19; N39.0 Urinary tract infection, site not specified; R29.6 Repeated falls; F41.8 Other specified anxiety disorders; I10 Essential (primary) hypertension; J44.9 Chronic obstructive pulmonary disease, unspecified; R74.02 Elevation of levels of lactic acid dehydrogenase [LDH]; E11.9 Type 2 diabetes mellitus without complications; E78.5 Hyperlipidemia, unspecified; M47.812 Spondylosis without myelopathy or radiculopathy, cervical region; D64.9 Anemia, unspecified; M79.605 Pain in left leg; G20 Parkinson's disease; R90.82 White matter disease, unspecified; R91.8 Other nonspecific abnormal finding of lung field; E55.9 Vitamin D deficiency, unspecified; Z87.440 Personal history of urinary (tract) infections; F17.210 Nicotine dependence, cigarettes, uncomplicated; E66.9 Obesity, unspecified; Z68.26 Body mass index [BMI] 26.0-26.9, adult; Z86.73 Personal history of transient ischemic attack (TIA), and cerebral infarction without residual deficits; Z79.51 Long term (current) use of inhaled steroids; Z79.84 Long term (current) use of oral hypoglycemic drugs; Z79.899 Other long term (current) drug therapy; Z83.3 Family history of diabetes mellitus; Z82.49 Family history of ischemic heart disease and other diseases of the circulatory system; Z82.5 Family history of asthma and other chronic lower respiratory diseases
CPT/HCPCS: 52352; 36415; 51701; 70450; 70551; 71046; 72125; 73562; 74018; 74176; 80048; 80053; 81001; 82365; 82948; 83036; 83605; 83735; 83880; 84484; 85025; 85027; 85610; 85730; 87040; 87086; 87088; 87426; 87636; 88300; 93005; 94640; 95816; 96361; 96365; 96366; 96367; 96375; 96376; 97110; 97116; 97161; 97166; 97530; 97535; 99285; A9270; C1769; C2617; C9803; G0378; J0696; J1100; J1815; J1953; J2250; J2405; J2704; J3010; J7030; J7120

== ENCOUNTER 2022-08-29 19:43 | Emergency (ER) | payer MEDICARE, SELFPAY ==
--- NOTE | ~2022-08-29 | CT_ITS ---
EXAMINATION: CTA abdomen pelvis DATE: 08/29/2022 22:11 INDICATION: Abdominal pain TECHNIQUE: Computed tomography (CT) of the abdomen and pelvis was performed with 100 mL Omnipaque 350 intravenous contrast timed for optimal arterial enhancement. Automated exposure control and iterativ e reconstruction technique were employed. The dose-length product was 637.03 mGy-cm. COMPARISON: None. FINDINGS: Lower thorax: Dependent atelectasis. Mild senescent change. Mild coronary artery calcification. Mural thrombus in the distal thoracic aorta. Liver: Normal. Biliary/Gallbladder: Cholelithiasis. No bile duct dilation. Pancreas: No mass or duct dilation. Spleen: Normal. Adrenals:No mass. Kidneys: Perinephric stranding. Bilateral hypodensities that are too small to characterize. Hemorrhag ic right upper pole cyst. Mild left ureteral enhancement. No suspicious mass, stone, or hydronephrosi s. GI tract: The rectum is dilated by formed stool to 7.7 cm, with wall thickening and significant surro unding inflammatory change. No small bowel dilation. The appendix is not visualized. Mesentery/Peritoneum: No ascites, mass, or free air. Retroperitoneum: No mass. Calcified atherosclerotic plaque of the abdominal aorta, iliac arteries, an d origins of the proximal vessel origins. Intraluminal thrombus present in the abdominal aorta below the level of the renal veins. No severe stenosis. No aneurysm. No dissection. Pelvis: A urinary catheter is present. The bladder is partially decompressed. There is bladder wall e dee dee and inflammatory change. Soft Tissues: Soft tissues and body wall unremarkable. Bones: No acute osseous finding. IMPRESSION: 1. Fecal impaction with stercoral colitis of the rectum. 2. Possible cystitis with ascending infection on the left, perhaps related to the indwelling catheter , correlate with urinalysis. Reviewed, dictated and finalized at location 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 Fecal impaction with stercoral colitis of the rectum. 2. Possible cystitis with ascending infection on the left, perhaps related to t he indwelling catheter, correlate with urinalysis.
--- NOTE | 2022-08-29 19:52 | ECG_ITS ---
Measurements Intervals [place] Rate: 76 P: 67 [place]: 184 QRS: -10 QRSD: 87 T: 58 QT: 395 QTc: 446 Interpretive Statements SINUS RHYTHM LOW QRS VOLTAGE IN PRECORDIAL LEADS [QRS DEFLECTION < 1.0 mV IN CHEST LEADS] COMPARED TO ECG 08/21/2022 09:39:04 NO SIGNIFICANT CHANGES Electronically Signed On 08-30-2022 11:42:41 AQUACULTURE PROGRAM DIRECTOR by Yeny Dai M.D.
[2022-08-29 19:54] VITALS: BP 170/97; PULSE 82; RESP 18; TEMP 37.2; O2SAT 95
--- NOTE | 2022-08-29 19:54 | ED.ABDPAIN ---
HPI - Abdominal Pain General Chief Complaint: Abdominal Pain Stated Complaint: ABD PAIN S/P URINARY STENT PLACEMENT History of Present Illness HPI narrative: This is 76-year-old female past medical history of Parkinson's, hypertension, recent kidney stone status post stent placement at this facility, presenting to the emergency department complaining of abdominal pain for the past 2 days, worsening today. EMS and the patient reports pain began in the right lower quadrant and spread to include the left upper and left lower quadrants. Patient describes the pain as stabbing, 10 out of 10, not radiating elsewhere not associated with any fevers or chills. She denies vomiting or diarrhea. She has no other complaints today. Related Data Home Medications Medication Instructions Recorded Confirmed cholecalciferol (vitamin D3) 125 125 mcg PO DAILY 09/05/20 08/21/22 mcg (5,000 unit) capsule multivit with 1 tablet PO DAILY 09/05/20 08/21/22 vziaizav-eeey-RT-lutein 8 mg iron-400 mcg-300 mcg tablet (Centrum Silver Women) carbidopa 25 mg-levodopa 100 mg 1 tablet PO QID 07/27/22 08/21/22 tablet fluticasone propionate 50 2 spray intranasal DAILY 07/27/22 08/21/22 mcg/actuation nasal spray,suspension losartan 50 mg tablet 50 mg PO DAILY 07/27/22 08/21/22 meclizine 25 mg tablet 25 mg PO TID 07/27/22 08/21/22 metformin 500 mg tablet 500 mg PO BID 07/27/22 08/21/22 paroxetine HCl 20 mg tablet 20 mg PO DAILY 07/27/22 08/21/22 pravastatin 20 mg tablet 20 mg PO DAILY 07/27/22 08/21/22 ferrous sulfate 325 mg (65 mg 325 mg PO DAILY 08/21/22 08/21/22 iron) tablet loperamide 2 mg capsule (Imodium 2 mg PO Q6H PRN Diarrhea 08/21/22 08/21/22 A-D) melatonin 5 mg tablet 5 mg PO HS PRN Insomnia 08/21/22 08/21/22 Allergies Allergy/AdvReac Type Severity Reaction Status Date / Time VONNIE Inhibitors Allergy Unknown Unknown Verified 08/21/22 17:24 erythromycin base Allergy Unknown Unknown Verified 08/21/22 17:24 Macrolide Antibiotics Allergy Unknown Unknown Verified 08/21/22 17:24 prednisone Allergy Unknown Unknown Verified 08/21/22 17:24 secobarbital Allergy Unknown HIVES Verified 08/21/22 17:24 cefuroxime [From Ceftin] AdvReac Mild Diarrhea Verified 08/21/22 17:24 olmesartan AdvReac Unknown Confusion Verified 08/21/22 17:24 Review of Systems Review of Systems: CONSTITUTIONAL: Denies fever, chills, or sweats. CARDIOVASCULAR: Denies chest pain, palpitations, or edema. RESPIRATORY: Denies cough or dyspnea. GASTROINTESTINAL: Abdominal pain denies nausea, vomiting, or diarrhea. GENITOURINARY: Denies dysuria or hematuria. SKIN: Denies rash or itching. MUSCULOSKELETAL: Denies back pain, joint pain, or myalgia. NEUROLOGIC: Denies headache, numbness, dizziness, or weakness. PSYCHIATRIC: Denies anxiety or depression. [facility] Past Medical History Medical History Anxiety with depression Benign essential hypertension Cigarette nicotine dependence COPD (chronic obstructive pulmonary disease) Depression DJD (degenerative joint disease), multiple sites DM type 2 (diabetes mellitus, type 2) Hiatal hernia Hyperlipidemia Parkinsonism Urinary tract infection Vitamin D deficiency Surgical History Surgical History H/O rhinoplasty History of colonoscopy History of laparoscopic appendectomy History of removal of pigmented skin lesion Hx of cornea transplant Family History Family History Mother Family history of diabetes mellitus in first degree relative Diabetes mellitus Father Family history of emphysema Family history of cardiovascular disease Family history of lung disease Family history of heart disease in male family member before age 55 Other Family history of malignant neoplasm Hypertension Social History Social History (Reviewed 08/29/22 @ 19:56 by Gus Jerry
[2022-08-29] MEDS: ONDANSETRON INJ 4 MG/2 ML VIAL IV PUSH (21:03)
[2022-08-29] MEDS: SODIUM CHLORIDE 0.9% IV 1,000 ML 999 ML IV CONT (21:03)
[2022-08-29 21:18] LABS: Basophils Absolute Auto 0.1 K/mm3 (0.0-0.1); Basophils Percent Auto 0.7 % (0.2-1.2); Eosinophils Absolute Auto 0.2 K/mm3 (0-0.3); Eosinophils Percent Auto 2.3 % (0-4.4); Hematocrit 34.2 % (37.0-47.0); Hemoglobin 10.7 g/dL (12.0-15.0); Immature Granulocyte Absolute 0.04 K/mm3 (0.00-0.031); Immature Granulocyte Percent A 0.6 % (0-0.5); Lymphocytes Absolute Auto 2.15 K/mm3 (0.9-3.2); Lymphocytes Percent Auto 30.9 % (18.3-44.2); Mean Corpuscular HGB Conc 31.3 g/dl (32-36); Mean Corpuscular Hemoglobin 30.7 pg (26-34); Mean Corpuscular Volume 98.3 fl (80-100); Mean Platelet Volume 9.1 fl (7.4-10.4); Monocytes Absolute Auto 0.7 K/mm3 (0.1-0.6); Monocytes Percent Auto 9.5 % (2.6-8.5); Neutrophils Absolute Auto 3.9 K/mm3 (1.3-6.7); Platelet Count Result 394 k/mm3 (150-375); Red Blood Count 3.48 M/mm3 (4.2-5.4); Red Cell Distribution Width 15.4 % (11.5-14.5)
[2022-08-29 21:22] LABS: Add Urine Microscopic? YES; Appearance Urine Clear (Clear); Bilirubin Urine Negative (Negative); Blood Urine Negative (Negative); Color Urine Light Yellow (Yellow); Glucose Urine UA Negative (Negative); Ketones Urine Negative (Negative); Leukocyte Esterase Ur 2+ LEU/UL (Negative); Nitrate Urine Negative (Negative); Protein Urine Trace mg/dL (Negative); Urobilinogen Urine 0.2 mg/dL (<2.0); pH Urine 6.5 (5.0-9.0)
[2022-08-29 21:30] LABS: Budding Yeast Urine Present /hpf; Mucus Urine Rare /lpf; Squamous Epithelial Cell Urine Rare /hpf (Few); WBC Urine 21-30 /hpf
[2022-08-29 21:32] LABS: Alanine Aminotransferase 9 U/L (6-35); Albumin Level 3.5 g/dL (3.5-5.1); Alkaline Phosphatase 118 U/L (38-126); Anion Gap 5 mmol/L (8-16); Aspartate Amino Transferase 34 U/L (14-36); Bilirubin,Total 0.6 mg/dL (0.2-1.3); Blood Urea Nitrogen 13 mg/dL (7-17); Calcium 8.9 mg/dL (8.4-10.2); Carbon Dioxide 28 mmol/L (22-30); Chloride 105 mmol/L (98-107); Estimated Glomerular Filt Rate > 60; Glucose 109 mg/dL (65-110); INR 1.1; Lactic Acid Reflex 1.3 mmol/L (0.7-2.0); Prothrombin Time 13.3 Seconds (11.1-14.7); Sodium 138 mmol/L (137-145)
[2022-08-30] MEDS: FLUCONAZOLE 100 MG TABLET PO (00:03)
[2022-08-30 00:31] VITALS: PULSE 88; RESP 18; O2SAT 99
== END 2022-08-30 00:35 ==
PROVIDERS: Emergency Provider Preventive Medicine Aerospace Medicine
DX: B37.41 Candidal cystitis and urethritis (principal); K56.41 Fecal impaction; G20 Parkinson's disease; I10 Essential (primary) hypertension; J44.9 Chronic obstructive pulmonary disease, unspecified; E11.9 Type 2 diabetes mellitus without complications; E78.5 Hyperlipidemia, unspecified; E55.9 Vitamin D deficiency, unspecified; F41.8 Other specified anxiety disorders; F17.210 Nicotine dependence, cigarettes, uncomplicated; Z94.7 Corneal transplant status; Z96.0 Presence of urogenital implants; Z87.440 Personal history of urinary (tract) infections; Z79.84 Long term (current) use of oral hypoglycemic drugs; K52.89 Other specified noninfective gastroenteritis and colitis
CPT/HCPCS: 36415; 74174; 80053; 81001; 83605; 85025; 85610; 87086; 93005; 96361; 96374; 99284; A9270; J2405; J7030; Q9967

== ENCOUNTER 2022-09-04 13:18 | Observation (INO) | payer MEDICARE, SELFPAY ==
[2022-09-04] VITALS (8 sets, daily range): BP systolic 147–170; BP diastolic 54–77; PULSE 72–90; RESP 16–18; TEMP 36.2–36.8; O2SAT 94–99; BMI 25.4
--- NOTE | ~2022-09-04 | CT_ITS ---
EXAMINATION: CT brain wo con DATE: 09/04/2022 18:27 INDICATION: Mental state. Falls. Weakness. TECHNIQUE: Computed tomography (CT) of the head was performed without intravenous contrast. The mA wa s adjusted according to patient size. Iterative reconstruction technique was employed. Exam dose: 52 9.67 mGy-cm total exam DLP. COMPARISON: 08/22/2022 MRI brain/brainstem 08/21/2022 CT brain FINDINGS: No intracranial mass lesion or hemorrhage, midline shift or mass effect. There is central a nd cortical cerebral prominent atrophy. There is left basal ganglia asymmetric diminished attenuation consistent with subacute or chronic infarct. No subdural or epidural hematoma. No fracture or bone destruction of the cranial vault. There is some opacification right ethmoid air cells and included paranasal sinuses and mastoid air ce lls are otherwise unremarkable. IMPRESSION: No acute intracranial finding or skull fracture; no significant change since 08/21/2022 Reviewed, dictated and finalized at [facility]. Reviewed, dictated and finalized at location A. UST AND MUFFLER FITTER IMPRESSION: No acute intracranial finding or skull fracture; no significant ch mabel since 08/21/2022
--- NOTE | ~2022-09-04 | XR_ITS ---
Portable chest x-ray Comparison: 08/21/2022 Clinical History: Altered mental status, weakness Findings: Lungs are clear, without focal consolidation or pleural effusion. Cardiomediastinal silho uette is stable. Bones and soft tissues are unremarkable. Impression: Clear lungs. Reviewed, dictated and finalized at location . INE ADJUSTER LEADER Impression: Clear lungs.
--- NOTE | ~2022-09-04 | CT_ITS ---
EXAMINATION: CT abdomen pelvis w con DATE: 09/04/2022 18:33 INDICATION: Generalized abdominal pain. Recent ureteral stents. TECHNIQUE: Computed tomography (CT) of the abdomen and pelvis was performed with 100 CC Omnipaque 350 intravenous contrast. Automated exposure control and iterative reconstruction technique were employe d. Exam dose: 1118.29 mGy-cm total exam DLP. COMPARISON: 08/29/2022 CT abdomen pelvis FINDINGS: There is dependent and basilar atelectasis at the middle lobe and to a greater extent both lower lobes. Cardiomegaly. Coronary artery calcifications. No pericardial or pleural effusion. There are multiple faceted stones in the dependent aspect of the gallbladder, measuring up to approxi mately 7.5 mm dimension. No gallbladder wall thickening or pericholecystic fluid or fat stranding. No bile duct dilatation. 4.7 mm hypoenhancing lesion at the anterior aspect of the lateral segment left hepatic lobe, too smal l to definitively characterize, most likely a small hepatic cyst. No other hepatic space-occupying ma ss lesion is evident. Normal splenic size. No pancreatic mass lesion, calcification or ductal dilatat ion. No adrenal mass lesion. Scattered bilateral renal probable cysts. Posterior upper pole right renal 1.6 cm partially exophytic high attenuation lesion may be a high att enuation cyst. There is patchy contrast enhancement of the left kidney suggesting pyelonephritis. No hydronephrosis of either kidney. There is a small amount of air in the urinary bladder. No intraluminal mass lesion of the urinary patricia dder is detected. The uterus and adnexal areas are unremarkable. Calcification of the abdominal aorta and iliac arteries. No intraperitoneal or retroperitoneal or pel merly mass lesion or adenopathy or ascites is noted. There is a prominent amount of fecal material in the rectosigmoid area No bowel obstruction, bowel wall thickening, pneumatosis or intraperitoneal free air. Small fat-containing umbilical hernia. Moderate degenerative disc disease and mild retrolisthesis at L3-4. Severe degenerative disc disease at L5-S1. IMPRESSION: Suspected left pyelonephritis Cholelithiasis Cardiomegaly Bibasilar atelectasis 4.7 mm probable left hepatic cyst Bilateral renal cysts Prominent amount of fecal material in the rectosigmoid area Reviewed, dictated and finalized at [facility]. Reviewed, dictated and finalized at location [facility]. TRONIC TECHNOLOGIST
--- NOTE | 2022-09-04 17:11 | ED.WEAKNESS ---
HPI - Weakness General Chief complaint: Weakness Stated complaint: weakness Time Seen by Provider: 09/04/22 16:52 History of Present Illness HPI Narrative: Patient is a 76-year-old female with a history of hypertension, hyperlipidemia, Parkinson's, diabetes, COPD presenting with generalized weakness. Most of the history is obtained from the patient's daughter who is at bedside. Patient reportedly had a fall approximately 2 months ago and since then has been in and out of the hospital. Patient's daughter states that over the last several days she has been increasingly weak and refusing to eat or drink anything. States that this is happened multiple times in the last couple of months and it has been related to UTIs. States that she recently had a ureteral stent placed. Patient is also reportedly had multiple falls over the last couple of days. Currently, the patient complains of lower abdominal pain. Denies headache, chills, chest pain, shortness of breath, vomiting, diarrhea, leg swelling. Related Data Home Medications Medication Instructions Recorded Confirmed cholecalciferol (vitamin D3) 125 125 mcg PO DAILY 09/05/20 08/21/22 mcg (5,000 unit) capsule multivit with 1 tablet PO DAILY 09/05/20 08/21/22 kxjaeaqg-nhmh-KZ-lutein 8 mg iron-400 mcg-300 mcg tablet (Centrum Silver Women) carbidopa 25 mg-levodopa 100 mg 1 tablet PO QID 07/27/22 08/21/22 tablet fluticasone propionate 50 2 spray intranasal DAILY 07/27/22 08/21/22 mcg/actuation nasal spray,suspension losartan 50 mg tablet 50 mg PO DAILY 07/27/22 08/21/22 meclizine 25 mg tablet 25 mg PO TID 07/27/22 08/21/22 metformin 500 mg tablet 500 mg PO BID 07/27/22 08/21/22 paroxetine HCl 20 mg tablet 20 mg PO DAILY 07/27/22 08/21/22 pravastatin 20 mg tablet 20 mg PO DAILY 07/27/22 08/21/22 ferrous sulfate 325 mg (65 mg 325 mg PO DAILY 08/21/22 08/21/22 iron) tablet loperamide 2 mg capsule (Imodium 2 mg PO Q6H PRN Diarrhea 08/21/22 08/21/22 A-D) melatonin 5 mg tablet 5 mg PO HS PRN Insomnia 08/21/22 08/21/22 Allergies Allergy/AdvReac Type Severity Reaction Status Date / Time VONNIE Inhibitors Allergy Unknown Unknown Verified 08/21/22 17:24 erythromycin base Allergy Unknown Unknown Verified 08/21/22 17:24 Macrolide Antibiotics Allergy Unknown Unknown Verified 08/21/22 17:24 prednisone Allergy Unknown Unknown Verified 08/21/22 17:24 secobarbital Allergy Unknown HIVES Verified 08/21/22 17:24 cefuroxime [From Ceftin] AdvReac Mild Diarrhea Verified 08/21/22 17:24 olmesartan AdvReac Unknown Confusion Verified 08/21/22 17:24 Review of Systems Review of Systems: All systems reviewed & are unremarkable except as noted in HPI and below PMFSH Past Medical History Medical History Anxiety with depression Benign essential hypertension Cigarette nicotine dependence COPD (chronic obstructive pulmonary disease) Depression DJD (degenerative joint disease), multiple sites DM type 2 (diabetes mellitus, type 2) Hiatal hernia Hyperlipidemia Parkinsonism Urinary tract infection Vitamin D deficiency Surgical History Surgical History H/O rhinoplasty History of colonoscopy History of laparoscopic appendectomy History of removal of pigmented skin lesion Hx of cornea transplant Family History Family History Mother Family history of diabetes mellitus in first degree relative Diabetes mellitus Father Family history of emphysema Family history of cardiovascular disease Family history of lung disease Family history of heart disease in male family member before age 55 Other Family history of malignant neoplasm Hypertension Social History Social History Social History: Surrogate medical decision maker: Taylor Domingoson, daughter. Code
[2022-09-04 17:47] LABS: Basophils Absolute Auto 0.1 K/mm3 (0.0-0.1); Basophils Percent Auto 1.5 % (0.2-1.2); Eosinophils Absolute Auto 0.1 K/mm3 (0-0.3); Eosinophils Percent Auto 1.3 % (0-4.4); Hematocrit 40.2 % (37.0-47.0); Hemoglobin 12.4 g/dL (12.0-15.0); Immature Granulocyte Absolute 0.04 K/mm3 (0.00-0.031); Immature Granulocyte Percent A 0.9 % (0-0.5); Lymphocytes Percent Auto 30.1 % (18.3-44.2); Mean Corpuscular HGB Conc 30.8 g/dl (32-36); Mean Corpuscular Hemoglobin 30.6 pg (26-34); Mean Corpuscular Volume 99.3 fl (80-100); Mean Platelet Volume 8.9 fl (7.4-10.4); Monocytes Absolute Auto 0.7 K/mm3 (0.1-0.6); Monocytes Percent Auto 14.2 % (2.6-8.5); Neutrophils Absolute Auto 2.4 K/mm3 (1.3-6.7); Platelet Count Result 346 k/mm3 (150-375); Red Blood Count 4.05 M/mm3 (4.2-5.4); Red Cell Distribution Width 15.9 % (11.5-14.5); White Blood Count 4.7 K/mm3 (4.5-10.0)
[2022-09-04 17:57] LABS: Alanine Aminotransferase 13 U/L (6-35); Alkaline Phosphatase 144 U/L (38-126); Anion Gap 9 mmol/L (8-16); Aspartate Amino Transferase 40 U/L (14-36); Bilirubin,Total 0.4 mg/dL (0.2-1.3); Blood Urea Nitrogen 17 mg/dL (7-17); Calcium 9.1 mg/dL (8.4-10.2); Carbon Dioxide 27 mmol/L (22-30); Chloride 102 mmol/L (98-107); Estimated CRCL calculation 49 ml/min; Estimated Glomerular Filt Rate 54; Glucose 115 mg/dL (65-110); Potassium 3.7 mmol/L (3.4-5.0); Sodium 138 mmol/L (137-145)
[2022-09-04 17:58] LABS: Lactic Acid Reflex 1.1 mmol/L (0.7-2.0)
[2022-09-04 18:34] LABS: Influenza A QL RT-PCR Negative (Negative); Influenza B QL RT-PCR Negative (Negative); SARS-CoV-2 RNA PCR Positive
[2022-09-04] MEDS: SODIUM CHLORIDE 0.9% IV 1,000 ML 999 ML IV CONT ×2 (18:41→20:51)
[2022-09-04 20:28] LABS: Add Urine Microscopic? YES; Appearance Urine Clear (Clear); Bilirubin Urine Negative (Negative); Blood Urine Negative (Negative); Color Urine Light Yellow (Yellow); Glucose Urine UA Negative (Negative); Ketones Urine Trace mg/dL (Negative); Leukocyte Esterase Ur Trace LEU/UL (Negative); Nitrate Urine Positive (Negative); Protein Urine 1+ mg/dL (Negative); Specific Grav Ur 1.015 (1.001-1.035); Urobilinogen Urine 0.2 mg/dL (<2.0)
[2022-09-04 20:40] LABS: Bacteria Urine Trace /hpf; Mucus Urine Rare /lpf; WBC Urine >75 /hpf
--- NOTE | 2022-09-04 21:51 | PM.IMHP ---
H&P: HPI History of Present Illness Date/Time: 09/04/22 21:51 Chief Complaint: Confusion. Narrative: This is a 76-year-old lady with a past medical history including but not limited to hypertension, hyperlipidemia, Parkinson's, diabetes, COPD presenting with generalized weakness.? The patient is confused on admission and the history and physical is gathered from the ED chart. Most of the history was provided by the patient's daughter who was present at bedside.? Patient reportedly had a fall approximately 2 months ago and since then has been in and out of the hospital.? Patient's daughter states that over the last several days she has been increasingly weak and refusing to eat or drink anything.? States that this is happened multiple times in the last couple of months and it has been related to UTIs.? States that she recently had a ureteral stent placed.? Patient is also reportedly had multiple falls over the last couple of days.? Currently, the patient complains of lower abdominal pain.? Denies headache, chills, chest pain, shortness of breath, vomiting, diarrhea, leg swelling. On chart review, several urine cultures have been sent over the last 2 moans and have remained unrevealing today. On arrival to the emergency department the patient at the following vital signs: A temperature of 97.2?, pulse rate 87, respiration 18, pulse ox 96, blood pressure 151/72 and a saturation of 96% on room air. On physical exam the patient displayed slow mentation and is slightly slow to respond. She has all awake alert and oriented x3. Her CBC shows a WBC of 4.7, hemoglobin 12.4, hematocrit 40.2, platelet count 346. Serum sodium is 138, potassium 3.7, chloride 102, bicarb 27, BUN 17, creatinine 1.0. Coagulation panel shows a PT of 13.1 INR is 1.1. Chest x-ray shows lungs are clear, without focal consolidation or pleural effusion. Cardiomediastinal silhouette is stable. Bones and soft tissues are unremarkable. Head CT shows no acute intracranial finding of skull fracture, no significant changes since 08/21/2022. Abdomen pelvis CT shows a suspected left pyelonephritis, cholelithiasis, cardiomegaly, bibasilar atelectasis, 4.7 mm probable left hepatic cysts, bilateral renal cysts, prominent amount of fecal material in the rectosigmoid area. Urine cultures were sent. They are pending at the time of this dictation. Patient was started on acetaminophen 1 g IV every 6 hours p.r.n., ceftriaxone 1 g IV every 24 hour and IV fluid with normal saline. Hospital medicine service was consulted for evaluation and further management. Review of Systems Review of Systems: ROS unobtainable: Yes unobtainable due to medical condition and unobtainable due to mental status PMFSH Past Medical History Medical History Anxiety with depression Benign essential hypertension Cigarette nicotine dependence COPD (chronic obstructive pulmonary disease) Depression DJD (degenerative joint disease), multiple sites DM type 2 (diabetes mellitus, type 2) Hiatal hernia Hyperlipidemia Parkinsonism Urinary tract infection Vitamin D deficiency Surgical History Surgical History H/O rhinoplasty History of colonoscopy History of laparoscopic appendectomy History of removal of pigmented skin lesion Hx of cornea transplant Family History Family History Mother Family history of diabetes mellitus in first degree relative Diabetes mellitus Father Family history of emphysema Family history of cardiovascular disease Family history of lung disease Family history of heart disease in male family member before age 55 Other Family history of malignant neoplasm Hypertension Social History Social History Social History: Surrogate medical decision maker: shelli Velasquez
--- NOTE | 2022-09-04 23:55 | ADMGEN ---
This patient, Emilee Bagley, was admitted to 2 Medical Room 242-01. Patient/family oriented to hospital policies and general routines including ID bracelet, bed and alarms, visiting hours, pain management, procedures, bathroom and other care routines, personal items, smoking policy, room service/diet, and visiting hours. Information on how to activate the Rapid Response Team has been discussed. Patient/Family are encouraged to report perceived risks to care and to ask questions if they do not understand what they are told or what they should do.
[2022-09-05 00:43] VITALS: PULSE 72; RESP 18; O2SAT 99
[2022-09-05 05:24] VITALS: BP 150/61; PULSE 69; RESP 17; TEMP 36.7; O2SAT 98
[2022-09-05 09:04] LABS: Glucose Point of Care 81 mg/dl (65-105)
[2022-09-05] MEDS: DOCUSATE SODIUM 100 MG CAPSULE PO (09:36)
[2022-09-05] MEDS: PRAVASTATIN SODIUM 20 MG TABLET PO (09:37)
[2022-09-05] MEDS: PARoxetine 20 MG TABLET PO (09:37)
[2022-09-05] MEDS: CHOLECALCIFEROL 1,000 UNITS TABLET 5000 UNITS PO (09:37)
[2022-09-05] MEDS: CARBIDOPA/LEVODOPA 25/100 MG TABLET 1 TABLET PO ×4 (09:37→21:07)
[2022-09-05] MEDS: FLUTICASONE PROPIONATE 0.05% NA SPR 16 GM BTL (*BKC) 2 SPRAY NASAL (09:38)
[2022-09-05] MEDS: FERROUS SULFATE 324 MG TABLET PO (09:38)
[2022-09-05] MEDS: LOSARTAN POTASSIUM 50 MG TABLET PO (09:38)
[2022-09-05] MEDS: THERAPEUTIC MULTIVITAMINS/MINERALS TAB (*BKC) 1 TABLET PO (12:27)
[2022-09-05 12:36] LABS: Glucose Point of Care 122 mg/dl (65-105)
[2022-09-05 15:00] VITALS: BP 132/60; PULSE 74; RESP 16; TEMP 36.4; O2SAT 96
--- NOTE | 2022-09-05 16:44 | PM.IMPN ---
Progress Note: A&P Assessment and Plan (1) Altered mental state: Code(s): R41.82 - Altered mental status, unspecified Status: Acute Assessment and Plan: presented with confusion, likely secondary to acute infection as described below. Patient is A&O x4 during my exam, however is a poor historian. I suspect she has some underlying dementia. head CT scan on presentation showed no acute findings. Monitor mental status closely (2) Pyelonephritis: Code(s): N12 - Tubulo-interstitial nephritis, not specified as acute or chronic Status: Acute Assessment and Plan: urinalysis abnormal on presentation CT of the abdomen/pelvis reveals findings consistent with left pyelonephritis. Patient is s/p left ureteral stent placement on 08/23/2022 with subsequent stent removal on 09/03/2022. Discussed case with urology, recommend continuing antibiotics and tailor to culture. Continue IV ceftriaxone while awaiting urine culture results. (3) Seizure: Code(s): R56.9 - Unspecified convulsions Status: Acute Assessment and Plan: Patient recently hospitalized for seizure On 08/21. Seen in consultation by Neurology and underwent EEG which was normal. Decision made not to treat with anti seizure medication given single provoked episode. No need for further evaluation at this time. (4) Anemia: Code(s): D64.9 - Anemia, unspecified Status: Chronic Assessment and Plan: H&H remaining stable. Continue to monitor (5) Depression: Qualifiers: Depression Type: unspecified Qualified Code(s): F32.A - Depression, unspecified Code(s): F32.A - Depression, unspecified Status: Chronic Assessment and Plan: mood is stable at this time. Continue paroxetine (6) Frequent falls: Code(s): R29.6 - Repeated falls Status: Acute Assessment and Plan: Fall precautions implemented. Will proceed with PT / OT evaluation (7) Parkinsons: Code(s): G20 - Parkinson's disease Status: Chronic Assessment and Plan: No acute issues. Continue home carbidopa -levodopa 25-100 mg p.o. qid (8) COPD (chronic obstructive pulmonary disease): Qualifiers: COPD type: unspecified COPD Qualified Code(s): J44.9 - Chronic obstructive pulmonary disease, unspecified Code(s): J44.9 - Chronic obstructive pulmonary disease, unspecified Status: Chronic Assessment and Plan: not in acute exacerbation. Continue home inhalers (9) DM type 2 (diabetes mellitus, type 2): Qualifiers: Diabetes mellitus usp insulin use: without termite exterminator helper use Diabetes mellitus complication status: without complication Qualified Code(s): E11.9 - Type 2 diabetes mellitus without complications Code(s): E11.9 - Type 2 diabetes mellitus without complications Status: Chronic Assessment and Plan: A1c is 5.6. Continue with Accu-Cheks, low-dose sliding scale insulin, and hypoglycemic protocol. Subjective Date/time seen: 09/05/22 16:44 Interval history: Date of service: 09/05/2022 Emilee Bagley is a 76 year old female with a history of hypertension, COPD, depression, anxiety, hyperlipidemia, and type 2 diabetes mellitus known to me from recent admission -08/27/22 for seizure-like activity and ureteral stone s/p stent placement and subsequent removal who is seen in follow-up for pyelonephritis And COVID-19. Patient is doing well though is a poor historian. She denies any urinary symptoms. Denies shortness of breath or chest pain. No cough. No abdominal pain. No flank pain or back pain. Not able to indicate any additional symptoms. Review of Systems Review of Systems: All systems reviewed & are unremarkable except as noted in HPI and below Exam Narrative: General: Well-nourished, well-appearing 76-year-old female, sitting up in bed, comfortable, NARD
[2022-09-05] MEDS: FLUTICASONE/UMECLIDIN/VILANTER 100-62.5-25 MCG ELLIPTA 1 PUFF INHALATION (17:27)
[2022-09-05 17:49] LABS: Glucose Point of Care 93 mg/dl (65-105)
[2022-09-05 21:32] VITALS: BP 154/73; PULSE 75; RESP 20; TEMP 36.7; O2SAT 100
[2022-09-05 21:45] LABS: Glucose Point of Care 99 mg/dl (65-105)
[2022-09-06 04:57] VITALS: BP 149/62; PULSE 84; RESP 18; TEMP 37.1; O2SAT 94
[2022-09-06 05:26] LABS: Hematocrit 33.4 % (37.0-47.0); Hemoglobin 10.7 g/dL (12.0-15.0); Mean Corpuscular Hemoglobin 30.6 pg (26-34); Mean Corpuscular Volume 95.4 fl (80-100); Platelet Count Result 323 k/mm3 (150-375); Red Cell Distribution Width 15.5 % (11.5-14.5); White Blood Count 4.1 K/mm3 (4.5-10.0)
[2022-09-06 05:38] LABS: Anion Gap 6 mmol/L (8-16); Blood Urea Nitrogen 12 mg/dL (7-17); Calcium 8.3 mg/dL (8.4-10.2); Carbon Dioxide 27 mmol/L (22-30); Chloride 104 mmol/L (98-107); Estimated CRCL calculation 50 ml/min; Estimated Glomerular Filt Rate > 60; Glucose 88 mg/dL (65-110); Potassium 3.3 mmol/L (3.4-5.0); Sodium 137 mmol/L (137-145)
[2022-09-06] MEDS: FLUTICASONE/UMECLIDIN/VILANTER 100-62.5-25 MCG ELLIPTA 1 PUFF INHALATION (08:34)
--- NOTE | 2022-09-06 08:44 | WPDURCON ---
Assessment and Plan Assessment and plan (1) Ureteral stone: Code(s): N20.1 - Calculus of ureter Status: Acute (2) Pyelonephritis: Code(s): N12 - Tubulo-interstitial nephritis, not specified as acute or chronic Status: Acute Assessment and Plan: Pyelonephritis following recent endoscopic extraction of a large left ureteral calculus Patient responding to ceftriaxone pending culture results. Once cultures available I would recommend an additional 10 days of appropriate oral antibiotics. Patient should follow-up in our office approximately 2-3 weeks following discharge Urology Consult Note HPI Date Seen: 09/06/22 Requesting Physician: Nathalia Ho PA-C Primary Care Provider: Hoang Chris MD Consult Narrative Narrative: Emilee Bagley is a 76 year old female well known to me as a result of recent endoscopic extraction of a large left ureteral stone. Postoperatively I left an indwelling stent attached to a string. Because of patient's relative immobility I had plan for the stent to remove be removed by the nursing staff, as it was prior to her recent discharge. Unfortunately, she was readmitted with generalized weakness and clinical findings consistent with left pyelonephritis. She is a poor historian but, at this point, seems to really responding to ceftriaxone. Her urine culture is growing Gram-negative bacilli without definitive identification and sensitivities yet. Review of Systems Review of Systems: ROS unobtainable: Yes unobtainable due to mental status PMFSH Past Medical History Medical History Anxiety with depression Benign essential hypertension Cigarette nicotine dependence COPD (chronic obstructive pulmonary disease) Depression DJD (degenerative joint disease), multiple sites DM type 2 (diabetes mellitus, type 2) Hiatal hernia Hyperlipidemia Parkinsonism Urinary tract infection Vitamin D deficiency Surgical History Surgical History H/O rhinoplasty History of colonoscopy History of laparoscopic appendectomy History of removal of pigmented skin lesion Hx of cornea transplant Family History Family History Mother Family history of diabetes mellitus in first degree relative Diabetes mellitus Father Family history of emphysema Family history of cardiovascular disease Family history of lung disease Family history of heart disease in male family member before age 55 Other Family history of malignant neoplasm Hypertension Social History Social History Social History: Surrogate medical decision maker: Taylor Cardona, daughter. Code status: Full code. Smoking packs per day: 4 Smoking cigarettes per day: 80.0 Years smoked: 57 Smoking pack-years: 228.00 Smoking status: Current every day smoker Tobacco type: cigarettes Alcohol intake: never Substance use: never Lack of Transportation: No Lack of Food: Never True Current Housing: I Have Housing Concerned About Future Housing: No Difficulty Paying Gas/Electric Bills: No Difficulty Paying for Meds: No Currently Unemployed: No Education: High School Diploma/GED Difficulty w/ Childcare or Family Care: No Additional living arrangements comments: Lives in her own home in [place] though currently undergoing rehab. with 3 children. 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 Spiritual care concerns: No Meds Home Medications and Allergies Home Medications Medication Instructions Recorded Confirmed Type cholecalciferol (vitamin D3) 125 125 mcg PO DAILY 09/05/20 09/04/22 History mcg (5,000 unit) capsule multivit with 1 tablet PO DAILY 09/05/2009/04
[2022-09-06 08:52] VITALS: PULSE 72; RESP 14
[2022-09-06 09:05] LABS: Glucose Point of Care 112 mg/dl (65-105)
[2022-09-06] MEDS: FERROUS SULFATE 324 MG TABLET PO (10:08)
[2022-09-06] MEDS: PARoxetine 20 MG TABLET PO (10:08)
[2022-09-06] MEDS: LOSARTAN POTASSIUM 50 MG TABLET PO (10:08)
[2022-09-06] MEDS: PRAVASTATIN SODIUM 20 MG TABLET PO (10:08)
[2022-09-06] MEDS: CHOLECALCIFEROL 1,000 UNITS TABLET 5000 UNITS PO (10:08)
[2022-09-06] MEDS: THERAPEUTIC MULTIVITAMINS/MINERALS TAB (*BKC) 1 TABLET PO (10:08)
[2022-09-06] MEDS: CARBIDOPA/LEVODOPA 25/100 MG TABLET 1 TABLET PO ×4 (10:08→20:57)
[2022-09-06] MEDS: POTASSIUM CHLORIDE 20 MEQ TABLET PO (10:09)
[2022-09-06] MEDS: DOCUSATE SODIUM 100 MG CAPSULE PO (10:09)
[2022-09-06] MEDS: FLUTICASONE PROPIONATE 0.05% NA SPR 16 GM BTL (*BKC) 2 SPRAY NASAL (10:09)
[2022-09-06 12:33] LABS: Glucose Point of Care 118 mg/dl (65-105)
[2022-09-06] MEDS: SULFAMETHOXAZOLE/TRIMETHOPRIM 800/160 MG DS TABLET 1 TAB PO ×2 (13:35→20:57)
[2022-09-06] MEDS: ALPRAZolam (*CRX) 0.5 MG TABLET PO (13:37)
[2022-09-06 15:02] VITALS: BP 149/67; PULSE 78; RESP 14; TEMP 36.6; O2SAT 94
--- NOTE | 2022-09-06 15:57 | PM.IMPN ---
Progress Note: A&P Assessment and Plan (1) Altered mental state: Code(s): R41.82 - Altered mental status, unspecified Status: Acute Assessment and Plan: presented with confusion, likely secondary to acute infection as described below. Patient is A&O x4 during my exam, however is a poor historian. I suspect she has some underlying dementia and is likely at her baseline. head CT scan on presentation showed no acute findings. Monitor mental status closely (2) Pyelonephritis: Code(s): N12 - Tubulo-interstitial nephritis, not specified as acute or chronic Status: Acute Assessment and Plan: urinalysis abnormal on presentation. CT of the abdomen/pelvis reveals findings consistent with left pyelonephritis. Patient is s/p left ureteral stent placement on 08/23/2022 with subsequent stent removal on 09/03/2022. Discussed case with urology, recommend continuing antibiotics and tailor to culture. Urine culture with growth of >100,000 CFU Klebsiella oxytocia with intermediate susceptibility to ceftriaxone. Discussed case with ID pharmD and will transition to p.o. Bactrim to complete a total of 7 days. (3) Seizure: Code(s): R56.9 - Unspecified convulsions Status: Acute Assessment and Plan: Patient recently hospitalized for seizure On 08/21. Seen in consultation by Neurology and underwent EEG which was normal. Decision made not to treat with anti seizure medication given single provoked episode. No need for further evaluation at this time. (4) Anemia: Code(s): D64.9 - Anemia, unspecified Status: Chronic Assessment and Plan: H&H remaining stable. Continue to monitor (5) Depression: Qualifiers: Depression Type: unspecified Qualified Code(s): F32.A - Depression, unspecified Code(s): F32.A - Depression, unspecified Status: Chronic Assessment and Plan: mood is stable at this time. Continue paroxetine (6) Frequent falls: Code(s): R29.6 - Repeated falls Status: Acute Assessment and Plan: Fall precautions implemented. Will proceed with PT / OT evaluation. Plan for discharge back to [facility], hopefully tomorrow if continued improvement (7) Parkinsons: Code(s): G20 - Parkinson's disease Status: Chronic Assessment and Plan: No acute issues. Continue home carbidopa -levodopa 25-100 mg p.o. qid (8) COPD (chronic obstructive pulmonary disease): Qualifiers: COPD type: unspecified COPD Qualified Code(s): J44.9 - Chronic obstructive pulmonary disease, unspecified Code(s): J44.9 - Chronic obstructive pulmonary disease, unspecified Status: Chronic Assessment and Plan: not in acute exacerbation. Continue home inhalers (9) DM type 2 (diabetes mellitus, type 2): Qualifiers: Diabetes mellitus alf insulin use: without parts counterman use Diabetes mellitus complication status: without complication Qualified Code(s): E11.9 - Type 2 diabetes mellitus without complications Code(s): E11.9 - Type 2 diabetes mellitus without complications Status: Chronic Assessment and Plan: A1c is 5.6. Continue with Accu-Cheks, low-dose sliding scale insulin, and hypoglycemic protocol. Subjective Date/time seen: 09/06/22 15:57 Interval history: Date of service: 09/06/2022 Emilee Bagley is a 76 year old female with a history of hypertension, COPD, depression, anxiety, hyperlipidemia, and type 2 diabetes mellitus known to me from recent admission 08/21-08/27/22 for seizure-like activity and ureteral stone s/p stent placement and subsequent removal who is seen in follow-up for pyelonephritis And COVID-19. Patient is doing well though is a poor historian. She offers no complaints. No issues overnight. Tolerating her diet. Denies urinary symptoms. Denies shortness of breath, cough, chest pain. Rev
[2022-09-06 17:29] LABS: Glucose Point of Care 113 mg/dl (65-105)
[2022-09-06 21:01] LABS: Glucose Point of Care 125 mg/dl (65-105)
[2022-09-06 22:23] VITALS: BP 166/69; PULSE 70; RESP 20; TEMP 36.4; O2SAT 93
[2022-09-07 06:00] VITALS: BP 160/69; PULSE 66; RESP 22; TEMP 36.5; O2SAT 97
[2022-09-07 06:12] LABS: Hematocrit 34.7 % (37.0-47.0); Hemoglobin 11.3 g/dL (12.0-15.0); Mean Corpuscular HGB Conc 32.6 g/dl (32-36); Mean Corpuscular Hemoglobin 31.4 pg (26-34); Mean Corpuscular Volume 96.4 fl (80-100); Mean Platelet Volume 9.1 fl (7.4-10.4); Platelet Count Result 311 k/mm3 (150-375); Red Cell Distribution Width 15.2 % (11.5-14.5); White Blood Count 3.4 K/mm3 (4.5-10.0)
[2022-09-07 06:30] LABS: Anion Gap 5 mmol/L (8-16); Blood Urea Nitrogen 9 mg/dL (7-17); Calcium 8.3 mg/dL (8.4-10.2); Carbon Dioxide 26 mmol/L (22-30); Chloride 103 mmol/L (98-107); Estimated CRCL calculation 45 ml/min; Estimated Glomerular Filt Rate > 60; Glucose 88 mg/dL (65-110); Potassium 3.2 mmol/L (3.4-5.0); Sodium 134 mmol/L (137-145)
[2022-09-07 08:23] LABS: Glucose Point of Care 91 mg/dl (65-105)
[2022-09-07] MEDS: SULFAMETHOXAZOLE/TRIMETHOPRIM 800/160 MG DS TABLET 1 TAB PO (08:40)
[2022-09-07] MEDS: CARBIDOPA/LEVODOPA 25/100 MG TABLET 1 TABLET PO ×2 (08:40→13:16)
[2022-09-07] MEDS: LOSARTAN POTASSIUM 50 MG TABLET PO (08:40)
[2022-09-07] MEDS: PRAVASTATIN SODIUM 20 MG TABLET PO (08:40)
[2022-09-07] MEDS: THERAPEUTIC MULTIVITAMINS/MINERALS TAB (*BKC) 1 TABLET PO (08:40)
[2022-09-07] MEDS: DOCUSATE SODIUM 100 MG CAPSULE PO (08:40)
[2022-09-07] MEDS: CHOLECALCIFEROL 1,000 UNITS TABLET 5000 UNITS PO (08:40)
[2022-09-07] MEDS: PARoxetine 20 MG TABLET PO (08:40)
[2022-09-07] MEDS: FLUTICASONE PROPIONATE 0.05% NA SPR 16 GM BTL (*BKC) 2 SPRAY NASAL (08:41)
[2022-09-07] MEDS: FERROUS SULFATE 324 MG TABLET PO (08:41)
[2022-09-07] MEDS: FLUTICASONE/UMECLIDIN/VILANTER 100-62.5-25 MCG ELLIPTA 1 PUFF INHALATION (08:56)
[2022-09-07 08:57] VITALS: PULSE 66; RESP 18
[2022-09-07 11:50] LABS: Glucose Point of Care 170 mg/dl (65-105)
--- NOTE | 2022-09-07 13:22 | PM.DS ---
DS: Admitting Diagnosis Discharge Date 09/07/2022 Admitting Diagnosis Pyelonephritis DS: Discharge Diagnosis Discharge Diagnosis (1) Altered mental state: Code(s): R41.82 - Altered mental status, unspecified Status: Acute Assessment and Plan: Presented with confusion, likely secondary to acute infection as described below. Patient A&O x4 during my encounters, however is a poor historian. I suspect she has some underlying dementia and is likely at her baseline. head CT scan on presentation showed no acute findings. (2) Pyelonephritis: Code(s): N12 - Tubulo-interstitial nephritis, not specified as acute or chronic Status: Acute Assessment and Plan: Urinalysis abnormal on presentation. CT of the abdomen/pelvis reveals findings consistent with left pyelonephritis. Patient is s/p left ureteral stent placement on 08/23/2022 with subsequent stent removal on 09/03/2022. Patient seen in consultation by Urology. Urine culture with growth of >100,000 CFU Klebsiella oxytocia with intermediate susceptibility to ceftriaxone. Ceftriaxone discontinued on 09/06 inpatient transition to p.o. Bactrim which she will continue to complete a 10 day course per Urology recommendations (3) COVID-19: Code(s): U07.1 - COVID-19 Status: Acute Assessment and Plan: COVID PCR positive on 09/04/2022. CXR showed no acute findings. Patient had no supplemental oxygen requirement, therefore not a candidate for any COVID-19 specific therapy including dexamethasone or remdesivir. Supportive care provided. Isolation precautions implemented (4) Seizure: Code(s): R56.9 - Unspecified convulsions Status: Acute Assessment and Plan: Patient recently hospitalized for seizure On 08/21. Seen in consultation by Neurology and underwent EEG which was normal. Decision made not to treat with anti seizure medication given single provoked episode. No need for further evaluation at this time. (5) Anemia: Code(s): D64.9 - Anemia, unspecified Status: Chronic Assessment and Plan: H&H remained stable. Continue to monitor (6) Depression: Qualifiers: Depression Type: unspecified Qualified Code(s): F32.A - Depression, unspecified Code(s): F32.A - Depression, unspecified Status: Chronic Assessment and Plan: Mood remained stable. Continue paroxetine (7) Frequent falls: Code(s): R29.6 - Repeated falls Status: Acute Assessment and Plan: Fall precautions implemented. Participated in PT/OT evaluation during admission. Patient being discharged back to [facility] for continued therapy (8) Parkinsons: Code(s): G20 - Parkinson's disease Status: Chronic Assessment and Plan: No acute issues. Continue home carbidopa -levodopa 25-100 mg p.o. qid (9) COPD (chronic obstructive pulmonary disease): Qualifiers: COPD type: unspecified COPD Qualified Code(s): J44.9 - Chronic obstructive pulmonary disease, unspecified Code(s): J44.9 - Chronic obstructive pulmonary disease, unspecified Status: Chronic Assessment and Plan: Not in acute exacerbation. Continue home inhalers (10) DM type 2 (diabetes mellitus, type 2): Qualifiers: Diabetes mellitus complication status: without complication Diabetes mellitus long term care administrator insulin use: without fci use Qualified Code(s): E11.9 - Type 2 diabetes mellitus without complications Code(s): E11.9 - Type 2 diabetes mellitus without complications Status: Chronic Assessment and Plan: A1c 5.6. Continue metformin DS: Summary Hospital Course Hospital Course: Date of admission: 09/04/2022 date of discharge: 09/07/2022 Emilee Bagley is a 76 year old female with a history of hypertension, COPD, depression, anxiety, hyperlipidemia, and type 2 diabetes mellitus known to me fro
[2022-09-07] MEDS: POTASSIUM CHLORIDE 20 MEQ TABLET 40 MEQ PO (13:31)
[2022-09-07 14:00] VITALS: BP 166/73; PULSE 86; RESP 18; TEMP 36.6; O2SAT 97
--- NOTE | 2022-09-07 14:13 | PC.NURSE ---
report called to at [facility]
== END 2022-09-07 16:24 ==
LOC: ANHED 21:52 → ANH2MED 23:31
PROVIDERS: Admitting Provider Internal Medicine; Emergency Provider Emergency Medicine; PCP Internal Medicine; Visit Provider Physician Assistant
DX: N12 Tubulo-interstitial nephritis, not specified as acute or chronic (principal); U07.1 COVID-19; R41.82 Altered mental status, unspecified; R56.9 Unspecified convulsions; N20.0 Calculus of kidney; D64.9 Anemia, unspecified; F32.A Depression, unspecified; Z68.25 Body mass index [BMI] 25.0-25.9, adult; R29.6 Repeated falls; R53.1 Weakness; I11.9 Hypertensive heart disease without heart failure; E78.5 Hyperlipidemia, unspecified; K80.20 Calculus of gallbladder without cholecystitis without obstruction; G20 Parkinson's disease; E11.9 Type 2 diabetes mellitus without complications; J98.11 Atelectasis; N28.1 Cyst of kidney, acquired; J44.9 Chronic obstructive pulmonary disease, unspecified; F41.8 Other specified anxiety disorders; Z87.440 Personal history of urinary (tract) infections; Z98.890 Other specified postprocedural states; E87.6 Hypokalemia; K76.89 Other specified diseases of liver; D69.6 Thrombocytopenia, unspecified; E55.9 Vitamin D deficiency, unspecified; M15.9 Polyosteoarthritis, unspecified; R10.9 Unspecified abdominal pain; R10.30 Lower abdominal pain, unspecified; Z79.84 Long term (current) use of oral hypoglycemic drugs; Z79.51 Long term (current) use of inhaled steroids; Z79.899 Other long term (current) drug therapy; F17.210 Nicotine dependence, cigarettes, uncomplicated; Z83.3 Family history of diabetes mellitus; Z82.49 Family history of ischemic heart disease and other diseases of the circulatory system
CPT/HCPCS: 36415; 51701; 70450; 71045; 74177; 80048; 80053; 81001; 82948; 83605; 85025; 85027; 87077; 87086; 87186; 87636; 94640; 96361; 96365; 96376; 97110; 97161; 97165; 97530; 97535; 99285; A9270; G0378; J0696; J7030; Q9967

== ENCOUNTER 2022-10-05 09:24 | Outpatient (CLI) | payer MEDICARE, SELFPAY ==
--- NOTE | ~2022-10-05 | US_ITS ---
US renal BI DATE: 10/05/2022 09:56 INDICATION: Left ureteral stone TECHNIQUE: Real-time imaging of kidneys and urinary bladder COMPARISON: 08/2022 CT abdomen pelvis FINDINGS: Right kidney measures between 9.6 cm, left kidney approximately 9.7 cm length. Up to 1.5 cm upper pole right renal cyst. Smaller renal cysts of the kidneys are demonstrated to bett er advantage on the 09/04/2022 CT abdomen pelvis examination. No hydronephrosis of either kidney. The urinary bladder is not very distended, unremarkable. IMPRESSION: No hydronephrosis of either kidney 1.5 cm upper pole right renal cyst Reviewed, dictated and finalized at [facility]. Reviewed, dictated and finalized at location B. SPORT CORPS OFFICER
== END 2022-10-05 09:25 | disposition home or self-care (01) ==
PROVIDERS: PCP Internal Medicine; Visit Provider Urology
DX: N20.1 Calculus of ureter (principal); N28.1 Cyst of kidney, acquired
CPT/HCPCS: 76775

== ENCOUNTER 2022-10-10 08:47 | Inpatient (IN) | payer MEDICARE, SELFPAY ==
[2022-10-10] VITALS (18 sets, daily range): BP systolic 135–158; BP diastolic 64–86; PULSE 79–93; RESP 17–24; TEMP 36.3–36.6; O2SAT 80–96; BMI 27.8
--- NOTE | ~2022-10-10 | XR_ITS ---
XR abdomen/kub 1V 10/13/2022 14:03 Indication: Nausea and vomiting Procedure: KUB Comparison: 08/22/2022 Findings: Bowel gas pattern is nonobstructive. There is atherosclerosis. There are probable bilateral renal stones. Moderate lumbar spondylosis. No acute osseous abnormality. Impression: 1: Nonobstructive bowel gas pattern. 2: Probable bilateral nephrolithiasis. Reviewed, dictated and finalized at location A. T SUPERINTENDENT CAUSTIC CRESYLATE Impression: 1: Nonobstructive bowel gas pattern. 2: Probable bilateral nephrolithiasis.
--- NOTE | ~2022-10-10 | CT_ITS ---
CT head without contrast Indication: Altered mental status COMPARISON: 09/04/2022 Technique: Serial scans were obtained through the brain without the administration of contrast. Dose reduction technique was used on this scan by utilizing automated exposure control and iterative recon struction technique. The dose-length product (DLP) was 605.33 mGy-cm. Findings: There is no evidence of intracranial hemorrhage, mass lesion, or acute infarct. The ventri cles and subarachnoid spaces are dilated, consistent with mild atrophy. Low attenuation regions are seen within the periventricular white matter bilaterally, likely representing changes from chronic mi crovascular ischemic disease. There is no evidence of edema, mass effect or midline shift. The visu alized paranasal sinuses and mastoid air cells are clear. Impression: No intracranial hemorrhage, mass, or acute infarct. Atrophy and chronic white matter changes, as above. Reviewed, dictated and finalized at [facility]. EY TRAINER Impression: No intracranial hemorrhage, mass, or acute infarct. Atrophy and chronic white matter changes, as above.
--- NOTE | ~2022-10-10 | MR_ITS ---
EXAMINATION: MR brain/brain stem wo/w con DATE: 10/11/2022 14:02 INDICATION: Confusion. TECHNIQUE: Magnetic resonance imaging (MRI) of the brain and brainstem was performed without and with 14 mL MultiHance intravenous contrast. COMPARISON: Brain MRI 08/22/2022, head CT 10/10/2022 FINDINGS: There are scattered areas of nonspecific increased T2-weighted signal intensity in the cere bral white matter and clarence. There is no intracranial hemorrhage, acute infarction, or abnormal intrac ranial mass lesion. The ventricles are normal in size. There are likely changes of ocular lens replac ement surgeries. There is mild mucosal thickening in the ethmoid sinuses. The mastoid air cells are n ormal. IMPRESSION: 1. Stable moderate nonspecific cerebral white matter disease and pontine disease, which likely repres ents chronic small vessel ischemic disease. Reviewed, dictated and finalized at location A. ETING AUTOMATION MANAGER IMPRESSION: 1. Stable moderate nonspecific cerebral white matter disease and pontine diseas e, which likely represents chronic small vessel ischemic disease.
--- NOTE | ~2022-10-10 | CT_ITS ---
EXAMINATION: CT abdomen pelvis wo con DATE: 10/14/2022 09:10 INDICATION: Urolithiasis. TECHNIQUE: Computed tomography (CT) of the abdomen and pelvis was performed without intravenous contr ast. The dose-length product was 505.74 mGy-cm. Automated exposure control and iterative reconstructi on technique were employed. COMPARISON: CT dated 09/04/2020. FINDINGS: Small pleural effusions. Dependent atelectasis. Cardiomegaly. There is interlobular septal thickening which may reflect mild edema. Small pericardial effusion. Small amount of perihepatic flui d. There are gallstones. There are nonobstructing bilateral renal stones. No ureteral stones or hydro nephrosis. Enlargement of hyperdense right renal mass at the upper pole measuring 2 cm compared with 1.6 cm on prior examination. Nonobstructive bowel gas pattern. There has been interval decompression of fecal impaction of the rectum. There is perirectal fatty infiltration and fluid in the presacral s pace, nonspecific. There are calcified injection granulomas in the gluteal regions. Moderate lumbar s pondylosis. There is atherosclerosis of the aorta without aneurysm. No lymphadenopathy. There are shad cified granulomas of the spleen. The pancreas, IMPRESSION: 1. Mild interlobular septal thickening which may reflect mild edema. Small pleural effusions. 2: Cardiomegaly with small pericardial effusion. 3: Cholelithiasis. 4.: Nonobstructing bilateral nephrolithiasis. No hydronephrosis. 5: Enlargement of hyperdense 2 cm right renal mass, likely complicated cysts, although further evalua tion with ultrasound is recommended. Reviewed, dictated and finalized at location A. F DOG LICENSE INSPECTOR IMPRESSION: 1. Mild interlobular septal thickening which may reflect mild edema. Small pleu ral effusions. 2: Cardiomegaly with small pericardial effusion. 3: Cholelithiasis. 4.: Nonobstructing bilateral nephrolithiasis. No hydronephrosis. 5: Enlargement of hyperdense 2 cm right renal mass, likely complicated cysts, a lthough further evaluation with ultrasound is recommended.
--- NOTE | 2022-10-10 08:49 | ECG_ITS ---
Measurements Intervals [place] Rate: 93 P: 46 SD: 177 QRS: -9 QRSD: 86 T: 42 QT: 367 QTc: 458 Interpretive Statements SINUS RHYTHM VENTRICULAR PREMATURE COMPLEX DELAYED PRECORDIAL R/S TRANSITION NONSPECIFIC ST & T-WAVE ABNORMALITY- ANTEROLAT/HIGH LAT LEADS BASELINE ARTIFACT- I, II, III, AVR, AVL, AVF, V1-V6 BORDERLINE ECG COMPARED TO ECG 08/29/2022 20:13:13 NO SIGNIFICANT CHANGES Electronically Signed On 10-10-2022 9:29:21 ACCOUNTS PAYABLE MANAGER by Terry Maxwell D.O.
[2022-10-10 09:24] LABS: Appearance Urine Cloudy (Clear); Bilirubin Urine 1+ (Negative); Blood Urine 2+ (Negative); Color Urine Yellow (Yellow); Eosinophils Absolute Auto 0.1 K/mm3 (0-0.3); Glucose Urine UA Negative (Negative); Hematocrit 40.4 % (37.0-47.0); Hemoglobin 13.3 g/dL (12.0-15.0); Immature Granulocyte Absolute 0.03 K/mm3 (0.00-0.031); Immature Granulocyte Percent A 0.7 % (0-0.5); Ketones Urine Trace mg/dL (Negative); Leukocyte Esterase Ur 2+ LEU/UL (Negative); Lymphocytes Absolute Auto 0.36 K/mm3 (0.9-3.2); Lymphocytes Percent Auto 8.8 % (18.3-44.2); Mean Corpuscular HGB Conc 32.9 g/dl (32-36); Mean Corpuscular Hemoglobin 31.7 pg (26-34); Mean Corpuscular Volume 96.2 fl (80-100); Monocytes Absolute Auto 0.3 K/mm3 (0.1-0.6); Monocytes Percent Auto 7.6 % (2.6-8.5); Neutrophils Absolute Auto 3.3 K/mm3 (1.3-6.7); Neutrophils Percent Auto 79.9 % (45.5-73.1); Nitrate Urine Positive (Negative); Platelet Count Result 283 k/mm3 (150-375); Protein Urine 2+ mg/dL (Negative); Red Cell Distribution Width 14.8 % (11.5-14.5); Urobilinogen Urine 0.2 mg/dL (<2.0); White Blood Count 4.1 K/mm3 (4.5-10.0)
--- NOTE | 2022-10-10 09:29 | ED.AMS ---
HPI - Altered Mental Status General Chief Complaint: Altered Mental Status Stated Complaint: alt level of cons. Time Seen by Provider: 10/10/22 08:50 History of Present Illness HPI narrative: 76-year-old female presenting to the emergency department from local [facility]term for evaluation of worsening mental status. Patient is currently being treated with Macrobid for a urinary tract infection. custodial states that when they checked on the patient this morning she was confused and was unable to get her breakfast. custodial denies any incident of falls or injuries. Patient does have a history of Parkinson's disease, dementia, depression and seizures Related Data Home Medications Medication Instructions Recorded Confirmed cholecalciferol (vitamin D3) 125 125 mcg PO DAILY 09/05/20 10/10/22 mcg (5,000 unit) capsule multivit with 1 tablet PO DAILY 09/05/20 10/10/22 azegcqhv-kent-DU-lutein 8 mg iron-400 mcg-300 mcg tablet (Centrum Silver Women) carbidopa 25 mg-levodopa 100 mg 1 tablet PO QID 07/27/22 10/10/22 tablet fluticasone propionate 50 2 spray intranasal DAILY 07/27/22 10/10/22 mcg/actuation nasal spray,suspension losartan 50 mg tablet 50 mg PO DAILY 07/27/22 10/10/22 meclizine 25 mg tablet 25 mg PO TID 07/27/22 10/10/22 metformin 500 mg tablet 500 mg PO BID 07/27/22 10/10/22 paroxetine HCl 20 mg tablet 20 mg PO DAILY 07/27/22 10/10/22 pravastatin 20 mg tablet 20 mg PO DAILY 07/27/22 10/10/22 ferrous sulfate 325 mg (65 mg 325 mg PO DAILY 08/21/22 10/10/22 iron) tablet loperamide 2 mg capsule (Imodium 2 mg PO Q6H PRN Diarrhea 08/21/22 10/10/22 A-D) melatonin 5 mg tablet 5 mg PO HS PRN Insomnia 08/21/22 10/10/22 acetaminophen 325 mg tablet 650 mg PO Q4H PRN pain or fever 10/10/22 10/10/22 amino acids-protein hydrolysate 11 1 ea PO DAILY 10/10/22 10/10/22 gram-80 kcal/30 mL oral liquid (Pro-Stat Max) fluticasone fur. 100 mcg-umeclid 1 inh inhalation 10/10/22 62.5 mcg-vilant 25 mcg inhalat.powder (Trelegy Ellipta) ondansetron 4 mg disintegrating 4 mg PO Q6H PRN Nausea 10/10/22 10/10/22 tablet yahcgeecsrkbgps-SH-hwfamlebvyh 30 10 ml PO BID PRN Cough 10/10/22 10/10/22 mg-15 mg-200 mg/5 mL oral solution Allergies Allergy/AdvReac Type Severity Reaction Status Date / Time VONNIE Inhibitors Allergy Unknown Unknown Verified 10/10/22 12:15 erythromycin base Allergy Unknown Unknown Verified 10/10/22 12:15 Macrolide Antibiotics Allergy Unknown Unknown Verified 10/10/22 12:15 prednisone Allergy Unknown Unknown Verified 10/10/22 12:15 secobarbital Allergy Unknown HIVES Verified 10/10/22 12:15 cefuroxime [From Ceftin] AdvReac Mild Diarrhea Verified 10/10/22 12:15 olmesartan AdvReac Unknown Confusion Verified 10/10/22 12:15 Review of Systems Review of Systems: ROS unobtainable: Yes unobtainable due to mental status PMFSH Past Medical History Medical History Anxiety with depression Benign essential hypertension Cigarette nicotine dependence COPD (chronic obstructive pulmonary disease) Depression DJD (degenerative joint disease), multiple sites DM type 2 (diabetes mellitus, type 2) Hiatal hernia Hyperlipidemia Parkinsonism Urinary tract infection Vitamin D deficiency Surgical History Surgical History H/O rhinoplasty History of colonoscopy History of laparoscopic appendectomy History of removal of pigmented skin lesion Hx of cornea transplant Family History Family History Mother Family history of diabetes mellitus in first degree relative Diabetes mellitus Father Family history of emphysema Family history of cardiovascular disease Family history of lung disease Family history of heart disease in male family member before age 55 Other Family history of malignant neoplasm Hypertension Social Hist
[2022-10-10 09:30] LABS: Bacteria Urine Trace /hpf; Mucus Urine Few /lpf; RBC Urine >75 /hpf (0-2); Squamous Epithelial Cell Urine Many /hpf (Few); WBC Urine >75 /hpf
[2022-10-10 09:32] LABS: Lactic Acid Reflex 1.6 mmol/L (0.7-2.0)
[2022-10-10 09:34] LABS: Add Urine Microscopic? YES; Alanine Aminotransferase 27 U/L (6-35); Albumin Level 3.9 g/dL (3.5-5.1); Alkaline Phosphatase 121 U/L (38-126); Anion Gap 6 mmol/L (8-16); Aspartate Amino Transferase 42 U/L (14-36); Bilirubin,Total 0.9 mg/dL (0.2-1.3); Blood Urea Nitrogen 9 mg/dL (7-17); Carbon Dioxide 28 mmol/L (22-30); Chloride 101 mmol/L (98-107); Estimated CRCL calculation 68 ml/min; Estimated Glomerular Filt Rate > 60; Glucose 110 mg/dL (65-110); Potassium 3.7 mmol/L (3.4-5.0); Sodium 135 mmol/L (137-145)
[2022-10-10 10:00] LABS: Influenza A QL RT-PCR Negative (Negative); Influenza B QL RT-PCR Negative (Negative); RSV RNA, RT-PCR Negative (Negative); SARS-CoV-2 RNA PCR Negative
[2022-10-10 10:25] LABS: INR 1.1; Prothrombin Time 13.3 Seconds (11.1-14.7)
[2022-10-10 10:26] LABS: Partial Thromboplastin Time 30.3 SECONDS (22.3-36.8)
--- NOTE | 2022-10-10 14:03 | PM.IMHP ---
H&P: HPI History of Present Illness Date/Time: 10/10/22 14:03 Chief Complaint: acute mental status change Narrative: HPI narrative: 76-year-old female presenting to the emergency department from local alf for evaluation of worsening mental status.? Patient is currently being treated with Macrobid for a urinary tract infection.? alf states that when they checked on the patient this morning she was confused and was unable to get her breakfast.? alf denies any incident of falls or injuries.? patient unable to provide any review of symptoms or history her daughter is present in the room states the patient mental status has worsened, this happened when patient has a bladder infection her urine is suspicious for UTI we have started the patient on Rocephin will follow-up on urine and blood culture, patient's CT scan head negative for acute injury, patient is also having difficulty swallowing will have a bedside swallow study and further recommendation to follow, will have a PT OT evaluate the patient, patient admitted as observation status Review of Systems Review of Systems: ROS unobtainable: Yes unobtainable due to mental status PMFSH Past Medical History Medical History Anxiety with depression Benign essential hypertension Cigarette nicotine dependence COPD (chronic obstructive pulmonary disease) Depression DJD (degenerative joint disease), multiple sites DM type 2 (diabetes mellitus, type 2) Hiatal hernia Hyperlipidemia Parkinsonism Urinary tract infection Vitamin D deficiency Surgical History Surgical History H/O rhinoplasty History of colonoscopy History of laparoscopic appendectomy History of removal of pigmented skin lesion Hx of cornea transplant Family History Family History Mother Family history of diabetes mellitus in first degree relative Diabetes mellitus Father Family history of emphysema Family history of cardiovascular disease Family history of lung disease Family history of heart disease in male family member before age 55 Other Family history of malignant neoplasm Hypertension Social History Social History Social History: Surrogate medical decision maker: Taylor Cardona, daughter. Code status: Full code. Smoking packs per day: 2 Smoking cigarettes per day: 40.0 Years smoked: 57 Smoking pack-years: 114.00 Smoking status: Former smoker Tobacco type: cigarettes Smoking end date: 07/20/22 Alcohol intake: never Substance use: never Substance use type: does not use Lack of Transportation: YES Lack of Food: Never True Current Housing: I Have Housing Concerned About Future Housing: No Difficulty Paying Gas/Electric Bills: No Difficulty Paying for Meds: No Currently Unemployed: No Education: High School Diploma/GED Difficulty w/ Childcare or Family Care: No Additional living arrangements comments: Lives in her own home in [place] though currently undergoing rehab. with 3 children. 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 Spiritual care concerns: No (latter day) Meds Home Medications and Allergies Home Medications Medication Instructions Recorded Confirmed Type cholecalciferol (vitamin D3) 125 125 mcg PO DAILY 09/05/20 10/10/22 History mcg (5,000 unit) capsule multivit with 1 tablet PO DAILY 09/05/20 10/10/22 History gmsrgprb-jrpp-VH-lutein 8 mg iron-400 mcg-300 mcg tablet (Centrum Silver Women) fluticasone fur. 100 mcg-umeclid 1 inh inhalation DAILY #60 ea 05/14/22 10/10/22 Rx 62.5 mcg-vilant 25 mcg inhalat.powder (Trelegy Ellipta) alprazolam 0.5 mg tablet 0.5 mg PO TID #90
--- NOTE | 2022-10-10 15:34 | PCSTNOTE ---
Please refer to the Bedside Swallow Evaluation in the EMR. Please note, silent aspiration cannot be ruled out at bedside.
[2022-10-10] MEDS: MECLIZINE HCL 25 MG TABLET PO (17:58)
[2022-10-10] MEDS: CARBIDOPA/LEVODOPA 25/100 MG TABLET 1 TABLET PO ×2 (17:58→19:55)
[2022-10-11 06:00] VITALS: BP 135/67; PULSE 75; RESP 24; TEMP 36.4; O2SAT 92
[2022-10-11] MEDS: FLUTICASONE/UMECLIDIN/VILANTER 100-62.5-25 MCG ELLIPTA 1 PUFF INHALATION (09:00)
[2022-10-11] MEDS: MECLIZINE HCL 25 MG TABLET PO ×3 (09:14→17:19)
[2022-10-11] MEDS: THERAPEUTIC MULTIVITAMINS/MINERALS TAB (*BKC) 1 TABLET PO (09:14)
[2022-10-11] MEDS: FERROUS SULFATE 324 MG TABLET PO (09:14)
[2022-10-11] MEDS: CHOLECALCIFEROL 1,000 UNITS TABLET 5000 UNITS PO (09:14)
[2022-10-11] MEDS: PRAVASTATIN SODIUM 20 MG TABLET PO (09:14)
[2022-10-11] MEDS: DOCUSATE SODIUM 100 MG CAPSULE PO (09:14)
[2022-10-11] MEDS: CARBIDOPA/LEVODOPA 25/100 MG TABLET 1 TABLET PO ×4 (09:14→20:44)
[2022-10-11] MEDS: LOSARTAN POTASSIUM 50 MG TABLET PO (09:14)
[2022-10-11] MEDS: ENOXAPARIN 40 MG/0.4 ML SYRINGE SUB-Q (09:15)
[2022-10-11] MEDS: PARoxetine 20 MG TABLET PO (09:15)
[2022-10-11] MEDS: FLUTICASONE PROPIONATE 0.05% NA SPR 16 GM BTL (*BKC) 2 SPRAY NASAL (09:15)
--- NOTE | 2022-10-11 09:32 | PCSTNOTE ---
Modified Barium Swallow study order discontinued as patient was too confused this morning to safely participate. Physician may re-order when he feels it is appropriate.
[2022-10-11 11:35] VITALS: O2SAT 92
[2022-10-11] MEDS: SODIUM CHLORIDE 0.9% IV 1,000 ML 100 ML IV CONT ×2 (11:36→21:39)
[2022-10-11] MEDS: cefTRIAXone 2 GM in SODIUM CHLORIDE 0.9% IV 100 ML 200 ML IVPB (12:26)
[2022-10-11 13:03] VITALS: BMI 27.8
[2022-10-11 14:00] VITALS: BP 148/68; PULSE 71; RESP 20; TEMP 36.5; O2SAT 95
--- NOTE | 2022-10-11 14:24 | PM.IMPN ---
Progress Note: A&P Assessment and Plan (1) Altered mental state: Code(s): R41.82 - Altered mental status, unspecified Status: Acute Assessment and Plan: HPI narrative: 76-year-old female presenting to the emergency department from local [facility] for evaluation of worsening mental status.? Patient is currently being treated with Macrobid for a urinary tract infection.? senior care states that when they checked on the patient this morning she was confused and was unable to get her breakfast.? senior care denies any incident of falls or injuries.? 10/11/2022 interval history: again today patient is unable to provide any review of symptoms or history, on 10/10 patient daughter was present and able provide some history, today patient mental status has worsened to further evaluate today MRI brain was done, which did not show any acute injury, in the past this has happened when patient has a bladder infection her urine is suspicious for UTI, we have started the patient on Rocephin will follow-up on urine and blood culture, patient's CT scan head was negative for acute injury, patient is also having difficulty swallowing will have a bedside swallow study, patient is able to swallow pills, will start clear liquids, will monitor, will have a PT OT evaluate the patient, (2) Acute UTI (urinary tract infection): Code(s): N39.0 - Urinary tract infection, site not specified Status: Acute Assessment and Plan: patient urine is suspicious for UTI we have started the patient on Rocephin (3) Anemia: Code(s): D64.9 - Anemia, unspecified Status: Chronic Assessment and Plan: patient with history of anemia today her hemoglobin is close to normal will continue to monitor (4) Frequent falls: Code(s): R29.6 - Repeated falls Status: Acute Assessment and Plan: will have a PT OT evaluate the patient and further recommendation to follow Subjective Date/time seen: 10/11/22 14:24 HPI narrative: 76-year-old female presenting to the emergency department from local [facility] for evaluation of worsening mental status.? Patient is currently being treated with Macrobid for a urinary tract infection.? senior care states that when they checked on the patient this morning she was confused and was unable to get her breakfast.? senior care denies any incident of falls or injuries.? 10/11/2022 interval history: again today patient is unable to provide any review of symptoms or history, on 10/10 patient daughter was present and able provide some history, today patient mental status has worsened to further evaluate today MRI brain was done, which did not show any acute injury, in the past this has happened when patient has a bladder infection her urine is suspicious for UTI, we have started the patient on Rocephin will follow-up on urine and blood culture, patient's CT scan head was negative for acute injury, patient is also having difficulty swallowing will have a bedside swallow study, patient is able to swallow pills, will start clear liquids, will monitor, will have a PT OT evaluate the patient, Review of Systems Review of Systems: ROS unobtainable: Yes unobtainable due to mental status Exam Narrative: Patient is comfortable, NAD HEENT: eyes are clear and none icteric LUNGS:Normal respiratory effort ABD: not disteneded Lower extremities: no edema SKIN: nonjaundiced Neuro: grossly intact confused. Objective Data Vital Signs Vital Signs: Vital Signs - 24 hr 10/10/22 20:00 10/10/22 22:00 10/11/22 06:00 Temperature 97.3 F L 97.5 F L Pulse Rate 79 75 Respiratory Rate 20 24 H Blood Pressure 140/69 135/67 Pulse Oximetry 93 92 Oxygen Delivery Room Air 10/11/22 08:00 10/11/22 11:35 Temperature Pulse Rate Respiratory Rate Blood Pressure Pulse Oximetry 92 Oxygen Delivery Room Air Room Air Intake/Output Intake/Output: Intake & Output 10/08/22
[2022-10-11] MEDS: ONDANSETRON HCL ODT 4 MG TABLET PO (20:45)
[2022-10-11] MEDS: MELATONIN 5 MG TABLET PO (20:45)
[2022-10-11 22:00] VITALS: BP 145/74; PULSE 71; RESP 16; TEMP 36.6; O2SAT 93
[2022-10-12 05:26] VITALS: BP 127/76; PULSE 69; RESP 14; TEMP 36.3; O2SAT 99
[2022-10-12] MEDS: FLUTICASONE/UMECLIDIN/VILANTER 100-62.5-25 MCG ELLIPTA 1 PUFF INHALATION (08:17)
[2022-10-12] MEDS: FERROUS SULFATE 324 MG TABLET PO (08:39)
[2022-10-12] MEDS: ENOXAPARIN 40 MG/0.4 ML SYRINGE SUB-Q (08:39)
[2022-10-12] MEDS: DOCUSATE SODIUM 100 MG CAPSULE PO (08:39)
[2022-10-12] MEDS: PARoxetine 20 MG TABLET PO (08:39)
[2022-10-12] MEDS: LOSARTAN POTASSIUM 50 MG TABLET PO (08:39)
[2022-10-12] MEDS: MECLIZINE HCL 25 MG TABLET PO ×3 (08:39→16:37)
[2022-10-12] MEDS: cefTRIAXone 2 GM in SODIUM CHLORIDE 0.9% IV 100 ML 200 ML IVPB (08:39)
[2022-10-12] MEDS: FLUTICASONE PROPIONATE 0.05% NA SPR 16 GM BTL (*BKC) 2 SPRAY NASAL (08:39)
[2022-10-12] MEDS: THERAPEUTIC MULTIVITAMINS/MINERALS TAB (*BKC) 1 TABLET PO (08:39)
[2022-10-12] MEDS: CHOLECALCIFEROL 1,000 UNITS TABLET 5000 UNITS PO (08:39)
[2022-10-12] MEDS: CARBIDOPA/LEVODOPA 25/100 MG TABLET 1 TABLET PO ×4 (08:40→20:50)
[2022-10-12] MEDS: PRAVASTATIN SODIUM 20 MG TABLET PO (08:40)
--- NOTE | 2022-10-12 11:39 | PM.IMPN ---
Progress Note: A&P Assessment and Plan (1) Altered mental state: Code(s): R41.82 - Altered mental status, unspecified Status: Acute Assessment and Plan: Secondary to UTI (2) Acute UTI (urinary tract infection): Code(s): N39.0 - Urinary tract infection, site not specified Status: Acute Assessment and Plan: patient urine is suspicious for UTI we have started the patient on Rocephin (3) Anemia: Code(s): D64.9 - Anemia, unspecified Status: Chronic Assessment and Plan: patient with history of anemia today her hemoglobin is close to normal will continue to monitor (4) Frequent falls: Code(s): R29.6 - Repeated falls Status: Acute Assessment and Plan: will have a PT OT evaluate the patient and further recommendation to follow Subjective Date/time seen: 10/12/22 11:39 Improved Exam Narrative: Patient is comfortable, NAD HEENT: eyes are clear and none icteric LUNGS:Normal respiratory effort ABD: not disteneded Lower extremities: no edema SKIN: nonjaundiced Neuro: grossly intact confused. Objective Data Vital Signs Vital Signs: Vital Signs - 24 hr 10/11/22 14:00 10/11/22 22:00 10/11/22 20:00 Temperature 97.7 F 97.9 F Pulse Rate 71 71 Respiratory Rate 20 16 Blood Pressure 148/68 H 145/74 H Pulse Oximetry 95 93 Oxygen Delivery Room Air 10/12/22 05:26 Temperature 97.3 F L Pulse Rate 69 Respiratory Rate 14 Blood Pressure 127/76 Pulse Oximetry 99 Oxygen Delivery Intake/Output Intake/Output: Intake & Output 10/09/22 10/10/22 10/11/22 10/12/22 23:59 23:59 23:59 23:59 Intake Total 50 1200 150 Balance 50 1200 150 Meds/Results Medications: Active Medications Generic Name Dose Route Start Last Admin Trade Name Freq PRN Reason Stop Dose Admin Acetaminophen 650 mg 10/10/22 14:55 Acetaminophen 325 Mg Tablet PO Q4H PRN pain or fever Carbidopa/Levodopa 1 tablet 10/10/22 17:00 10/12/22 08:40 Carbidopa/Levodopa 25/100 Mg Tablet PO 1 tablet QID SOHAIL Administration Docusate Sodium 100 mg 10/11/22 09:00 10/12/22 08:39 Docusate Sodium 100 Mg Capsule PO 100 mg DAILY SOHAIL Administration Enoxaparin Sodium 40 mg 10/11/22 09:00 10/12/22 08:39 Enoxaparin 40 Mg/0.4 Ml Syringe SUB-Q 40 mg DAILY SOHAIL Administration Ferrous Sulfate 324 mg 10/11/22 08:00 10/12/22 08:39 Ferrous Sulfate 324 Mg Tablet PO 324 mg DAILY@0800 SOHAIL Administration Fluticasone Propionate 2 spray 10/11/22 09:00 10/12/22 08:39 Fluticasone Propionate 0.05% Na Spr 16 Gm Btl (*Bkc) NASAL 2 spray DAILY SOHAIL Administration Fluticasone/Umeclidinium/Vilanterol 1 puff 10/11/22 08:00 10/12/22 08:17 Fluticasone/Umeclidin/Vilanter 100-62.5-25 Mcg Ellipta INHALATION 1 puff DAILYRT SOHAIL Administration Sodium Chloride 1,000 mls @ 100 mls/hr 10/11/22 10:20 10/11/22 21:39 Normal Saline Iv IV CONT 100 mls/hr .Q10H SOHAIL Administration Ceftriaxone Sodium 2 gm/ 100 mls @ 200 mls/hr 10/11/22 10:20 10/12/22 08:39 Sodium Chloride IVPB 200 mls/hr QAM SOHAIL Administration Loperamide HCl 2 mg 10/10/22 14:55 Loperamide Hcl 2 Mg Capsule PO Q6H PRN Diarrhea Losartan Potassium 50 mg 10/11/22 09:00 10/12/22 08:39 Losartan Potassium 50 Mg Tablet PO 50 mg DAILY SOHAIL Administration Meclizine HCl 25 mg 10/10/22 17:00 10/12/22 08:39 Meclizine Hcl 25 Mg Tablet PO 25 mg TID SOHAIL Administration Melatonin 5 mg 10/10/22 14:55 10/11/22 20:45 Melatonin 5 Mg Tablet PO 5 mg HS PRN Administration Insomnia Multivitamins/Calcium 1 tablet 10/11/22 09:00 10/12/22 08:39 Therapeutic Multivitamins/Minerals Tab (*Bkc) PO 1 tablet DAILY SOHAIL Administration Ondansetron HCl 4 mg 10/10/22 14:55 10/11/22 20:45 Ondansetron Hcl Odt 4 Mg Tablet PO 4 mg Q6H PRN Administration Nausea Paroxetine HCl 20 mg 10/11/22 09:00 10/12/
[2022-10-12 14:00] VITALS: BP 131/62; PULSE 64; RESP 20; TEMP 35.9; O2SAT 94
--- NOTE | 2022-10-12 15:16 | PCNFU ---
Nutrition Follow-Up Complete: Inadequate energy intake related to NPO status as evidenced by diet order Goal:Meet estimated needs - progressing toward goal Pt current nutrition is Clear liquid. 50%, having some nausea per RN. Nutrition recommendation: Advance diet per MD Last recorded weight is 73.6 kg. Bowel Motility: No BMs charted Labs Reviewed:Na 135, Cre 0.6 Meds Noted: Colace, lovenox, zofran Skin: WNL Additional Notes: Diet advancing per MD Monitor for MBS results, diet orders. Follow up in 3 days.
[2022-10-12] MEDS: AMOXICILLIN 500 MG CAPSULE PO ×2 (16:37→20:50)
[2022-10-12 20:00] VITALS: PULSE 64; RESP 16; O2SAT 96
[2022-10-12 21:28] VITALS: BP 136/62; PULSE 60; RESP 14; TEMP 36.3; O2SAT 97
[2022-10-13] MEDS: AMOXICILLIN 500 MG CAPSULE PO ×3 (02:52→12:26)
[2022-10-13 05:33] VITALS: BP 131/65; PULSE 69; RESP 14; TEMP 36.9; O2SAT 96
[2022-10-13] MEDS: SODIUM CHLORIDE 0.9% IV 1,000 ML 100 ML IV CONT ×2 (06:08→15:44)
[2022-10-13] MEDS: THERAPEUTIC MULTIVITAMINS/MINERALS TAB (*BKC) 1 TABLET PO (08:51)
[2022-10-13] MEDS: ENOXAPARIN 40 MG/0.4 ML SYRINGE SUB-Q (08:52)
[2022-10-13] MEDS: PRAVASTATIN SODIUM 20 MG TABLET PO (08:52)
[2022-10-13] MEDS: CHOLECALCIFEROL 1,000 UNITS TABLET 5000 UNITS PO (08:52)
[2022-10-13] MEDS: PARoxetine 20 MG TABLET PO (08:52)
[2022-10-13] MEDS: MECLIZINE HCL 25 MG TABLET PO ×3 (08:52→17:06)
[2022-10-13] MEDS: FERROUS SULFATE 324 MG TABLET PO (08:52)
[2022-10-13] MEDS: CARBIDOPA/LEVODOPA 25/100 MG TABLET 1 TABLET PO ×4 (08:52→20:37)
[2022-10-13] MEDS: LOSARTAN POTASSIUM 50 MG TABLET PO (08:52)
[2022-10-13] MEDS: DOCUSATE SODIUM 100 MG CAPSULE PO (08:53)
[2022-10-13] MEDS: FLUTICASONE PROPIONATE 0.05% NA SPR 16 GM BTL (*BKC) 2 SPRAY NASAL (08:53)
[2022-10-13 08:58] VITALS: PULSE 60; RESP 18; O2SAT 99
[2022-10-13] MEDS: FLUTICASONE/UMECLIDIN/VILANTER 100-62.5-25 MCG ELLIPTA 1 PUFF INHALATION (08:58)
[2022-10-13 09:00] VITALS: PULSE 61; RESP 18
[2022-10-13] MEDS: ONDANSETRON HCL ODT 4 MG TABLET PO (10:07)
--- NOTE | 2022-10-13 13:50 | PM.IMPN ---
Progress Note: A&P Assessment and Plan (1) Altered mental state: Code(s): R41.82 - Altered mental status, unspecified Status: Acute Assessment and Plan: Secondary to UTI Improving (2) Acute UTI (urinary tract infection): Code(s): N39.0 - Urinary tract infection, site not specified Status: Acute Assessment and Plan: Enterococcus in urine. Start on amoxicillin (3) Anemia: Code(s): D64.9 - Anemia, unspecified Status: Chronic Assessment and Plan: patient with history of anemia today her hemoglobin is close to normal will continue to monitor (4) Frequent falls: Code(s): R29.6 - Repeated falls Status: Acute Assessment and Plan: will have a PT OT evaluate the patient and further recommendation to follow (5) Nausea & vomiting: Code(s): R11.2 - Nausea with vomiting, unspecified Status: Acute Assessment and Plan: Will check [facility]UB P.r.n. medications Subjective Date/time seen: 10/13/22 13:50 Emesis x3 today No new complaints Exam Narrative: Patient is comfortable, NAD HEENT: eyes are clear and none icteric LUNGS:Normal respiratory effort ABD: not disteneded Lower extremities: no edema SKIN: nonjaundiced Neuro: grossly intact confused. Objective Data Vital Signs Vital Signs: Vital Signs - 24 hr 10/12/22 14:00 10/12/22 21:28 10/12/22 20:00 Temperature 96.7 F L 97.3 F L Pulse Rate 64 60 64 Respiratory Rate 20 14 16 Blood Pressure 131/62 136/62 Pulse Oximetry 94 97 96 Oxygen Delivery Room Air 10/13/22 05:33 10/13/22 08:50 10/13/22 08:58 Temperature 98.5 F Pulse Rate 69 Respiratory Rate 14 Blood Pressure 131/65 Pulse Oximetry 96 99 Oxygen Delivery Room Air Room Air 10/13/22 08:58 10/13/22 09:00 Temperature Pulse Rate 60 61 Respiratory Rate 18 18 Blood Pressure Pulse Oximetry Oxygen Delivery Intake/Output Intake/Output: Intake & Output 10/10/22 10/11/22 10/12/22 10/13/22 23:59 23:59 23:59 23:59 Intake Total 50 1200 1850 980 Balance 50 1200 1850 980 Meds/Results Medications: Active Medications Generic Name Dose Route Start Last Admin Trade Name Freq PRN Reason Stop Dose Admin Acetaminophen 650 mg 10/10/22 14:55 Acetaminophen 325 Mg Tablet PO Q4H PRN pain or fever Amoxicillin 500 mg 10/12/22 22:00 10/13/22 12:26 Amoxicillin 500 Mg Capsule PO 500 mg Q6HR SOHAIL Administration Carbidopa/Levodopa 1 tablet 10/10/22 17:00 10/13/22 12:26 Carbidopa/Levodopa 25/100 Mg Tablet PO 1 tablet QID SOHAIL Administration Docusate Sodium 100 mg 10/11/22 09:00 10/13/22 08:53 Docusate Sodium 100 Mg Capsule PO 100 mg DAILY SOHAIL Administration Enoxaparin Sodium 40 mg 10/11/22 09:00 10/13/22 08:52 Enoxaparin 40 Mg/0.4 Ml Syringe SUB-Q 40 mg DAILY SOHAIL Administration Ferrous Sulfate 324 mg 10/11/22 08:00 10/13/22 08:52 Ferrous Sulfate 324 Mg Tablet PO 324 mg DAILY@0800 SOHAIL Administration Fluticasone Propionate 2 spray 10/11/22 09:00 10/13/22 08:53 Fluticasone Propionate 0.05% Na Spr 16 Gm Btl (*Bkc) NASAL 2 spray DAILY SOHAIL Administration Fluticasone/Umeclidinium/Vilanterol 1 puff 10/11/22 08:00 10/13/22 08:58 Fluticasone/Umeclidin/Vilanter 100-62.5-25 Mcg Ellipta INHALATION 1 puff DAILYRT SOHAIL Administration Sodium Chloride 1,000 mls @ 100 mls/hr 10/11/22 10:20 10/13/22 09:15 Normal Saline Iv IV CONT Not Given .Q10H SOHAIL Loperamide HCl 2 mg 10/10/22 14:55 Loperamide Hcl 2 Mg Capsule PO Q6H PRN Diarrhea Losartan Potassium 50 mg 10/11/22 09:00 10/13/22 08:52 Losartan Potassium 50 Mg Tablet PO 50 mg DAILY SOHAIL Administration Meclizine HCl 25 mg 10/10/22 17:00 10/13/22 12:26 Meclizine Hcl 25 Mg Tablet PO 25 mg TID SOHAIL Administration Melatonin 5 mg 10/10/22 14:55 10/11/22 20:45 Melatonin 5 Mg Tablet PO 5 mg HS PRN Administration
[2022-10-13 14:00] VITALS: BP 140/54; PULSE 64; RESP 16; TEMP 36.3; O2SAT 95
[2022-10-13] MEDS: AMPICILLIN 1 GM/NS 50 ML 1 GM/50 ML BAG IVPB (17:08)
[2022-10-13] MEDS: ONDANSETRON INJ 4 MG/2 ML VIAL IV PUSH (18:23)
[2022-10-13 20:00] VITALS: PULSE 58; RESP 14; O2SAT 94
[2022-10-13 21:42] VITALS: BP 145/62; PULSE 58; RESP 14; TEMP 36.6; O2SAT 94
[2022-10-14] MEDS: AMPICILLIN 1 GM/NS 50 ML 1 GM/50 ML BAG IVPB ×4 (00:40→17:16)
[2022-10-14] MEDS: SODIUM CHLORIDE 0.9% IV 1,000 ML 100 ML IV CONT ×3 (00:40→20:15)
[2022-10-14 05:50] VITALS: BP 137/62; PULSE 67; RESP 14; TEMP 36.1; O2SAT 94
[2022-10-14] MEDS: FLUTICASONE/UMECLIDIN/VILANTER 100-62.5-25 MCG ELLIPTA 1 PUFF INHALATION (08:02)
[2022-10-14 08:03] VITALS: O2SAT 95
[2022-10-14] MEDS: ONDANSETRON INJ 4 MG/2 ML VIAL IV PUSH ×2 (08:32→15:59)
[2022-10-14] MEDS: CARBIDOPA/LEVODOPA 25/100 MG TABLET 1 TABLET PO ×4 (08:32→20:15)
[2022-10-14] MEDS: ENOXAPARIN 40 MG/0.4 ML SYRINGE SUB-Q (08:33)
[2022-10-14] MEDS: FLUTICASONE PROPIONATE 0.05% NA SPR 16 GM BTL (*BKC) 2 SPRAY NASAL (08:33)
[2022-10-14] MEDS: PRAVASTATIN SODIUM 20 MG TABLET PO (08:34)
[2022-10-14] MEDS: LOSARTAN POTASSIUM 50 MG TABLET PO (08:34)
[2022-10-14] MEDS: MECLIZINE HCL 25 MG TABLET PO ×3 (08:34→17:11)
[2022-10-14] MEDS: PARoxetine 20 MG TABLET PO (08:34)
--- NOTE | 2022-10-14 10:49 | PM.IMPN ---
Progress Note: A&P Assessment and Plan (1) Altered mental state: Code(s): R41.82 - Altered mental status, unspecified Status: Acute Assessment and Plan: Secondary to UTI Improving (2) Acute UTI (urinary tract infection): Code(s): N39.0 - Urinary tract infection, site not specified Status: Acute Assessment and Plan: Enterococcus in urine. Start on amoxicillin (3) Anemia: Code(s): D64.9 - Anemia, unspecified Status: Chronic Assessment and Plan: patient with history of anemia today her hemoglobin is close to normal will continue to monitor (4) Frequent falls: Code(s): R29.6 - Repeated falls Status: Acute Assessment and Plan: will have a PT OT evaluate the patient and further recommendation to follow (5) Nausea & vomiting: Code(s): R11.2 - Nausea with vomiting, unspecified Status: Acute Assessment and Plan: ct noted no emesis today, nausea present Subjective Date/time seen: 10/14/22 10:49 no new complaints more alert today Exam Narrative: Patient is comfortable, NAD HEENT: eyes are clear and none icteric LUNGS:Normal respiratory effort ABD: not disteneded Lower extremities: no edema SKIN: nonjaundiced Neuro: grossly intact confused. Objective Data Vital Signs Vital Signs: Vital Signs - 24 hr 10/13/22 14:00 10/13/22 21:42 10/13/22 20:00 Temperature 97.4 F L 97.8 F Pulse Rate 64 58 L 58 L Respiratory Rate 16 14 14 Blood Pressure 140/54 L 145/62 H Pulse Oximetry 95 94 94 Oxygen Delivery Room Air 10/14/22 05:50 10/14/22 08:03 10/14/22 08:30 Temperature 96.9 F L Pulse Rate 67 Respiratory Rate 14 Blood Pressure 137/62 Pulse Oximetry 94 95 Oxygen Delivery Room Air Room Air Intake/Output Intake/Output: Intake & Output 10/11/22 10/12/22 10/13/22 10/14/22 23:59 23:59 23:59 23:59 Intake Total 1200 1850 2510 1550 Balance 1200 1850 2510 1550 Meds/Results Medications: Active Medications Generic Name Dose Route Start Last Admin Trade Name Freq PRN Reason Stop Dose Admin Acetaminophen 650 mg 10/10/22 14:55 Acetaminophen 325 Mg Tablet PO Q4H PRN pain or fever Carbidopa/Levodopa 1 tablet 10/10/22 17:00 10/14/22 08:32 Carbidopa/Levodopa 25/100 Mg Tablet PO 1 tablet QID SOHAIL Administration Docusate Sodium 100 mg 10/11/22 09:00 10/14/22 08:43 Docusate Sodium 100 Mg Capsule PO Not Given DAILY SOHAIL Enoxaparin Sodium 40 mg 10/11/22 09:00 10/14/22 08:33 Enoxaparin 40 Mg/0.4 Ml Syringe SUB-Q 40 mg DAILY SOHAIL Administration Ferrous Sulfate 324 mg 10/11/22 08:00 10/14/22 08:32 Ferrous Sulfate 324 Mg Tablet PO Not Given DAILY@0800 SOHALI Fluticasone Propionate 2 spray 10/11/22 09:00 10/14/22 08:33 Fluticasone Propionate 0.05% Na Spr 16 Gm Btl (*Bkc) NASAL 2 spray DAILY SOHAIL Administration Fluticasone/Umeclidinium/Vilanterol 1 puff 10/11/22 08:00 10/14/22 08:02 Fluticasone/Umeclidin/Vilanter 100-62.5-25 Mcg Ellipta INHALATION 1 puff DAILYRT SOHAIL Administration Sodium Chloride 1,000 mls @ 100 mls/hr 10/11/22 10:20 10/14/22 00:40 Normal Saline Iv IV CONT 100 mls/hr .Q10H SOHAIL Administration Ampicillin Sodium 1 gm in 50 mls @ 100 mls/hr 10/13/22 18:00 10/14/22 05:32 Ampicillin 1 Gm/Ns 50 Ml IVPB 100 mls/hr Q6H SOHAIL Administration Loperamide HCl 2 mg 10/10/22 14:55 Loperamide Hcl 2 Mg Capsule PO Q6H PRN Diarrhea Losartan Potassium 50 mg 10/11/22 09:00 10/14/22 08:34 Losartan Potassium 50 Mg Tablet PO 50 mg DAILY SOHAIL Administration Meclizine HCl 25 mg 10/10/22 17:00 10/14/22 08:34 Meclizine Hcl 25 Mg Tablet PO 25 mg TID SOHAIL Administration Melatonin 5 mg 10/10/22 14:55 10/11/22 20:45 Melatonin 5 Mg Tablet PO 5 mg HS PRN Administration Insomnia Multivitamins/Calcium 1 tablet 10/11/22 09:00 10/14/22 08:34 Therapeutic Multivitam
[2022-10-14 14:00] VITALS: BP 156/70; PULSE 65; RESP 20; TEMP 36.3; O2SAT 96
[2022-10-14 20:00] VITALS: PULSE 76; RESP 18; O2SAT 96
[2022-10-14 22:00] VITALS: BP 128/61; PULSE 71; RESP 14; TEMP 36.9; O2SAT 94
[2022-10-15] MEDS: AMPICILLIN 1 GM/NS 50 ML 1 GM/50 ML BAG IVPB ×2 (00:36→05:25)
[2022-10-15 06:00] VITALS: BP 133/65; PULSE 76; RESP 14; TEMP 36.6; O2SAT 95
[2022-10-15] MEDS: CARBIDOPA/LEVODOPA 25/100 MG TABLET 1 TABLET PO ×4 (08:26→20:23)
[2022-10-15] MEDS: CHOLECALCIFEROL 1,000 UNITS TABLET 5000 UNITS PO (08:27)
[2022-10-15] MEDS: MECLIZINE HCL 25 MG TABLET PO ×3 (08:27→16:59)
[2022-10-15] MEDS: PARoxetine 20 MG TABLET PO (08:28)
[2022-10-15] MEDS: LOSARTAN POTASSIUM 50 MG TABLET PO (08:28)
[2022-10-15] MEDS: PRAVASTATIN SODIUM 20 MG TABLET PO (08:28)
[2022-10-15] MEDS: DOCUSATE SODIUM 100 MG CAPSULE PO (08:28)
[2022-10-15] MEDS: ENOXAPARIN 40 MG/0.4 ML SYRINGE SUB-Q (08:29)
[2022-10-15] MEDS: FLUTICASONE PROPIONATE 0.05% NA SPR 16 GM BTL (*BKC) 2 SPRAY NASAL (08:29)
[2022-10-15] MEDS: ONDANSETRON INJ 4 MG/2 ML VIAL IV PUSH ×2 (08:30→14:40)
[2022-10-15 09:08] LABS: Basophils Absolute Auto 0.1 K/mm3 (0.0-0.1); Basophils Percent Auto 1.1 % (0.2-1.2); Eosinophils Absolute Auto 0.1 K/mm3 (0-0.3); Eosinophils Percent Auto 1.1 % (0-4.4); Hematocrit 32.5 % (37.0-47.0); Hemoglobin 11.2 g/dL (12.0-15.0); Immature Granulocyte Absolute 0.08 K/mm3 (0.00-0.031); Immature Granulocyte Percent A 1.7 % (0-0.5); Lymphocytes Absolute Auto 1.45 K/mm3 (0.9-3.2); Lymphocytes Percent Auto 31.2 % (18.3-44.2); Mean Corpuscular HGB Conc 34.5 g/dl (32-36); Mean Corpuscular Hemoglobin 31.5 pg (26-34); Mean Corpuscular Volume 91.3 fl (80-100); Mean Platelet Volume 9.1 fl (7.4-10.4); Monocytes Absolute Auto 0.4 K/mm3 (0.1-0.6); Neutrophils Absolute Auto 2.7 K/mm3 (1.3-6.7); Neutrophils Percent Auto 56.9 % (45.5-73.1); Platelet Count Result 302 k/mm3 (150-375); Red Blood Count 3.56 M/mm3 (4.2-5.4); Red Cell Distribution Width 14.3 % (11.5-14.5); White Blood Count 4.7 K/mm3 (4.5-10.0)
[2022-10-15] MEDS: FLUTICASONE/UMECLIDIN/VILANTER 100-62.5-25 MCG ELLIPTA 1 PUFF INHALATION (09:40)
--- NOTE | 2022-10-15 11:31 | PM.IMPN ---
Progress Note: A&P Assessment and Plan (1) Altered mental state: Code(s): R41.82 - Altered mental status, unspecified Status: Acute Assessment and Plan: Secondary to UTI Improving (2) Acute UTI (urinary tract infection): Code(s): N39.0 - Urinary tract infection, site not specified Status: Acute Assessment and Plan: Enterococcus in urine. Will switch abx as she is having nv and couple be related to ampicillin (3) Anemia: Code(s): D64.9 - Anemia, unspecified Status: Chronic Assessment and Plan: patient with history of anemia today her hemoglobin is close to normal will continue to monitor (4) Frequent falls: Code(s): R29.6 - Repeated falls Status: Acute Assessment and Plan: will have a PT OT evaluate the patient and further recommendation to follow (5) Nausea & vomiting: Code(s): R11.2 - Nausea with vomiting, unspecified Status: Acute Assessment and Plan: ct noted consult gi as she is having ongoing emesis will see if changing abx helps w n/v Subjective Date/time seen: 10/15/22 11:31 Exam Narrative: Patient is comfortable, NAD HEENT: eyes are clear and none icteric LUNGS:Normal respiratory effort ABD: not disteneded Lower extremities: no edema SKIN: nonjaundiced Neuro: grossly intact confused. Objective Data Vital Signs Vital Signs: Vital Signs - 24 hr 10/14/22 14:00 10/14/22 22:00 10/14/22 20:00 Temperature 97.3 F L 98.5 F Pulse Rate 65 71 76 Respiratory Rate 20 14 18 Blood Pressure 156/70 H 128/61 Pulse Oximetry 96 94 96 Oxygen Delivery Room Air 10/15/22 06:00 10/15/22 08:30 Temperature 98 F Pulse Rate 76 Respiratory Rate 14 Blood Pressure 133/65 Pulse Oximetry 95 Oxygen Delivery Room Air Intake/Output Intake/Output: Intake & Output 10/12/22 10/13/22 10/14/22 10/15/22 23:59 23:59 23:59 23:59 Intake Total 1850 2510 4120 350 Balance 1850 2510 4120 350 Meds/Results Medications: Active Medications Generic Name Dose Route Start Last Admin Trade Name Freq PRN Reason Stop Dose Admin Acetaminophen 650 mg 10/10/22 14:55 Acetaminophen 325 Mg Tablet PO Q4H PRN pain or fever Carbidopa/Levodopa 1 tablet 10/10/22 17:00 10/15/22 08:26 Carbidopa/Levodopa 25/100 Mg Tablet PO 1 tablet QID SOHAIL Administration Docusate Sodium 100 mg 10/11/22 09:00 10/15/22 08:28 Docusate Sodium 100 Mg Capsule PO 100 mg DAILY SOHAIL Administration Enoxaparin Sodium 40 mg 10/11/22 09:00 10/15/22 08:29 Enoxaparin 40 Mg/0.4 Ml Syringe SUB-Q 40 mg DAILY SOHAIL Administration Ferrous Sulfate 324 mg 10/11/22 08:00 10/14/22 08:32 Ferrous Sulfate 324 Mg Tablet PO Not Given DAILY@0800 SOHAIL Fluticasone Propionate 2 spray 10/11/22 09:00 10/15/22 08:29 Fluticasone Propionate 0.05% Na Spr 16 Gm Btl (*Bkc) NASAL 2 spray DAILY SOHAIL Administration Fluticasone/Umeclidinium/Vilanterol 1 puff 10/11/22 08:00 10/15/22 09:40 Fluticasone/Umeclidin/Vilanter 100-62.5-25 Mcg Ellipta INHALATION 1 puff DAILYRT SOHAIL Administration Sodium Chloride 1,000 mls @ 100 mls/hr 10/11/22 10:20 10/14/22 20:15 Normal Saline Iv IV CONT 100 mls/hr .Q10H SOHAIL Administration Ampicillin Sodium 1 gm in 50 mls @ 100 mls/hr 10/13/22 18:00 10/15/22 05:25 Ampicillin 1 Gm/Ns 50 Ml IVPB 100 mls/hr Q6H SOHAIL Administration Loperamide HCl 2 mg 10/10/22 14:55 Loperamide Hcl 2 Mg Capsule PO Q6H PRN Diarrhea Losartan Potassium 50 mg 10/11/22 09:00 10/15/22 08:28 Losartan Potassium 50 Mg Tablet PO 50 mg DAILY SOHAIL Administration Meclizine HCl 25 mg 10/10/22 17:00 10/15/22 08:27 Meclizine Hcl 25 Mg Tablet PO 25 mg TID SOHAIL Administration Melatonin 5 mg 10/10/22 14:55 10/11/22 20:45 Melatonin 5 Mg Tablet PO 5 mg HS PRN Administration Insomnia Multivitamins/Calcium 1 tablet 10/11/22 09:00 10/14
--- NOTE | 2022-10-15 12:43 | PCNFU ---
Nutrition Follow-Up Complete: Inadequate energy intake related to Clear liquids status as evidenced by diet order Goal:Meet estimated needs. Pt is not progressing towards goal. Continue with same goal Pt current nutrition is Clear liquids. Nutrition recommendation: Continue with diet advancement as tolerated Last recorded weight is 73.6 kg. Bowel Motility: +BM 10/13 Labs Reviewed: Hgb:11.2, HCT:32.5, NA:135 Meds Noted: colace, lovenox, zofran Skin: WNL Additional Notes: Pt continues on clear liquids, not tolerated per nursing, chronic nausea and vomiting. GI consulted. Monitor for MBS results as pt was to have one but no current orders, diet orders. Follow up in 3 days.
[2022-10-15 14:00] VITALS: BP 164/77; PULSE 65; RESP 18; TEMP 36.3; O2SAT 95
[2022-10-15] MEDS: SODIUM CHLORIDE 0.9% IV 1,000 ML 100 ML IV CONT (14:26)
[2022-10-15] MEDS: NITROFURANTOIN MONOHYD MACROCR 100 MG CAP PO (16:59)
[2022-10-15 20:00] VITALS: PULSE 76; RESP 20; O2SAT 94
[2022-10-15 21:20] VITALS: BP 173/59; PULSE 76; RESP 20; TEMP 36.1; O2SAT 94
[2022-10-16] MEDS: SODIUM CHLORIDE 0.9% IV 1,000 ML 100 ML IV CONT (04:39)
[2022-10-16 06:00] VITALS: BP 145/88; PULSE 63; RESP 18; TEMP 36.8; O2SAT 96
[2022-10-16] MEDS: NITROFURANTOIN MONOHYD MACROCR 100 MG CAP PO ×2 (06:27→17:04)
[2022-10-16] MEDS: FLUTICASONE PROPIONATE 0.05% NA SPR 16 GM BTL (*BKC) 2 SPRAY NASAL (08:24)
[2022-10-16] MEDS: CARBIDOPA/LEVODOPA 25/100 MG TABLET 1 TABLET PO ×4 (08:25→21:21)
[2022-10-16] MEDS: CHOLECALCIFEROL 1,000 UNITS TABLET 5000 UNITS PO (08:25)
[2022-10-16] MEDS: PRAVASTATIN SODIUM 20 MG TABLET PO (08:25)
[2022-10-16] MEDS: ENOXAPARIN 40 MG/0.4 ML SYRINGE SUB-Q (08:25)
[2022-10-16] MEDS: DOCUSATE SODIUM 100 MG CAPSULE PO (08:25)
[2022-10-16] MEDS: LOSARTAN POTASSIUM 50 MG TABLET PO (08:25)
[2022-10-16] MEDS: PANTOPRAZOLE SODIUM IV 40 MG VIAL IV PUSH (08:25)
[2022-10-16] MEDS: MECLIZINE HCL 25 MG TABLET PO ×3 (08:25→17:04)
[2022-10-16] MEDS: PARoxetine 20 MG TABLET PO (08:25)
[2022-10-16] MEDS: FLUTICASONE/UMECLIDIN/VILANTER 100-62.5-25 MCG ELLIPTA 1 PUFF INHALATION (08:42)
[2022-10-16 08:51] VITALS: PULSE 61; RESP 18
[2022-10-16 09:14] LABS: Anion Gap 4 mmol/L (8-16); Blood Urea Nitrogen 2 mg/dL (7-17); Calcium 7.7 mg/dL (8.4-10.2); Carbon Dioxide 27 mmol/L (22-30); Chloride 103 mmol/L (98-107); Estimated CRCL calculation 77 ml/min; Estimated Glomerular Filt Rate > 60; Glucose 117 mg/dL (65-110); Potassium 2.4 mmol/L (3.4-5.0); Sodium 134 mmol/L (137-145)
--- NOTE | 2022-10-16 11:11 | PM.IMPN ---
Progress Note: A&P Assessment and Plan (1) Altered mental state: Code(s): R41.82 - Altered mental status, unspecified Status: Acute Assessment and Plan: Secondary to UTI Improving slowly. (2) Acute UTI (urinary tract infection): Code(s): N39.0 - Urinary tract infection, site not specified Status: Acute Assessment and Plan: Enterococcus in urine. Will switch abx as she is having nv and couple be related to ampicillin (3) Anemia: Code(s): D64.9 - Anemia, unspecified Status: Chronic Assessment and Plan: patient with history of anemia today her hemoglobin is close to normal will continue to monitor (4) Frequent falls: Code(s): R29.6 - Repeated falls Status: Acute Assessment and Plan: will have a PT OT evaluate the patient and further recommendation to follow (5) Nausea & vomiting: Code(s): R11.2 - Nausea with vomiting, unspecified Status: Acute Assessment and Plan: ct noted consult gi as she is having ongoing emesis will see if changing abx helps w n/v No emesis today. Will replace potassium. Monitor electrolytes Subjective Date/time seen: 10/16/22 11:11 More alert today. Confused at times. Exam Narrative: Patient is comfortable, NAD HEENT: eyes are clear and none icteric LUNGS:Normal respiratory effort ABD: not disteneded Lower extremities: no edema SKIN: nonjaundiced Neuro: grossly intact confused. Objective Data Vital Signs Vital Signs: Vital Signs - 24 hr 10/15/22 11:42 10/15/22 14:00 10/15/22 21:20 Temperature 97.3 F L 96.9 F L Pulse Rate 65 76 Respiratory Rate 18 20 Blood Pressure 164/77 H 173/59 H Pulse Oximetry 95 94 Oxygen Delivery Room Air 10/15/22 20:00 10/16/22 06:00 10/16/22 08:51 Temperature 98.3 F Pulse Rate 76 63 61 Respiratory Rate 20 18 18 Blood Pressure 145/88 H Pulse Oximetry 94 96 Oxygen Delivery Room Air 10/16/22 08:25 Temperature Pulse Rate Respiratory Rate Blood Pressure Pulse Oximetry Oxygen Delivery Room Air Intake/Output Intake/Output: Intake & Output 10/13/22 10/14/22 10/15/22 10/16/22 23:59 23:59 23:59 23:59 Intake Total 2510 4120 1910 1570 Output Total 3 750 Balance 2510 4120 1907 820 Meds/Results Medications: Active Medications Generic Name Dose Route Start Last Admin Trade Name Bolivarq PRN Reason Stop Dose Admin Acetaminophen 650 mg 10/10/22 14:55 Acetaminophen 325 Mg Tablet PO Q4H PRN pain or fever Carbidopa/Levodopa 1 tablet 10/10/22 17:00 10/16/22 08:25 Carbidopa/Levodopa 25/100 Mg Tablet PO 1 tablet QID SOHAIL Administration Docusate Sodium 100 mg 10/11/22 09:00 10/16/22 08:25 Docusate Sodium 100 Mg Capsule PO 100 mg DAILY SOHAIL Administration Enoxaparin Sodium 40 mg 10/11/22 09:00 10/16/22 08:25 Enoxaparin 40 Mg/0.4 Ml Syringe SUB-Q 40 mg DAILY SOHAIL Administration Ferrous Sulfate 324 mg 10/11/22 08:00 10/16/22 08:27 Ferrous Sulfate 324 Mg Tablet PO Not Given DAILY@0800 SOHAIL Fluticasone Propionate 2 spray 10/11/22 09:00 10/16/22 08:24 Fluticasone Propionate 0.05% Na Spr 16 Gm Btl (*Bkc) NASAL 2 spray DAILY SOHAIL Administration Fluticasone/Umeclidinium/Vilanterol 1 puff 10/11/22 08:00 10/16/22 08:42 Fluticasone/Umeclidin/Vilanter 100-62.5-25 Mcg Ellipta INHALATION 1 puff DAILYRT SOHAIL Administration Sodium Chloride 1,000 mls @ 100 mls/hr 10/11/22 10:20 10/16/22 04:39 Normal Saline Iv IV CONT 100 mls/hr .Q10H SOHAIL Administration Potassium Chloride 40 meq/ 520 mls @ 130 mls/hr 10/16/22 11:05 Sodium Chloride IVPB 10/16/22 15:04 ONCE ONE Potassium Chloride 40 meq/ 520 mls @ 130 mls/hr 10/16/22 18:08 Sodium Chloride IVPB 10/16/22 22:07 ONCE ONE Loperamide HCl 2 mg 10/10/22 14:55 Loperamide Hcl 2 Mg Capsule PO Q6H PRN Diarrhea Losartan Potassium 50 mg 10/11/22 09:00 10/16/22 08:2
[2022-10-16] MEDS: POTASSIUM CHLORIDE INJ 40 MEQ in SODIUM CHLORIDE 0.9% IV 500 ML 130 MEQ IVPB ×2 (12:02→17:52)
[2022-10-16 14:00] VITALS: BP 156/66; PULSE 72; RESP 18; TEMP 36.4; O2SAT 91
--- NOTE | 2022-10-16 16:32 | WPDGICN ---
Assessment and Plan Assessment and plan (1) Nausea & vomiting: Code(s): R11.2 - Nausea with vomiting, unspecified Status: Acute Assessment and Plan: improved, she is eating more CT scan reviewed antiemetics prn probably from acute infection, meds, etc (2) Pyelonephritis: Code(s): N12 - Tubulo-interstitial nephritis, not specified as acute or chronic Status: Acute Assessment and Plan: on abx (3) Chronic anemia: Code(s): D64.9 - Anemia, unspecified Status: Chronic Assessment and Plan: monitor (4) Altered mental state: Code(s): R41.82 - Altered mental status, unspecified Status: Acute Assessment and Plan: on admission, confused (5) Parkinson disease: Code(s): G20 - Parkinson's disease Status: Acute GI Consult Note Consult date/time: 10/16/22 16:32 Reason for consult: nausea and vomiting HPI: Emilee Bagley is a 76 year old female who was [facility] local [facility] for evaluation of worsening mental status, she came in here 6 days ago and diagnosed with UTI, currently on antibiotics. I was called because experiencing nausea and vomiting but report that today she has been doing better. History obtained from records as she is poor historian. CT scan showed Cardiomegaly with small pericardial effusion. Cholelithiasis. Nonobstructing bilateral nephrolithiasis. No hydronephrosis. Review of Systems Review of Systems: ROS unobtainable: Yes unobtainable due to mental status PMFSH Past Medical History Medical History Anxiety with depression Benign essential hypertension Cigarette nicotine dependence COPD (chronic obstructive pulmonary disease) Depression DJD (degenerative joint disease), multiple sites DM type 2 (diabetes mellitus, type 2) Hiatal hernia Hyperlipidemia Parkinsonism Urinary tract infection Vitamin D deficiency Surgical History Surgical History H/O rhinoplasty History of colonoscopy History of laparoscopic appendectomy History of removal of pigmented skin lesion Hx of cornea transplant Family History Family History Mother Family history of diabetes mellitus in first degree relative Diabetes mellitus Father Family history of emphysema Family history of cardiovascular disease Family history of lung disease Family history of heart disease in male family member before age 55 Other Benign essential hypertension COPD (chronic obstructive pulmonary disease) Depression Family history of malignant neoplasm Hyperlipidemia Hypertension Vitamin D deficiency Social History Social History Social History: Surrogate medical decision maker: Taylor Cardona, daughter. Code status: Full code. Smoking packs per day: 2 Smoking cigarettes per day: 40.0 Years smoked: 57 Smoking pack-years: 114.00 Smoking status: Former smoker Tobacco type: cigarettes Smoking end date: 07/20/22 Alcohol intake: never Substance use: never Substance use type: does not use Lack of Transportation: YES Lack of Food: Never True Current Housing: I Have Housing Concerned About Future Housing: No Difficulty Paying Gas/Electric Bills: No Difficulty Paying for Meds: No Currently Unemployed: No Education: High School Diploma/GED Difficulty w/ Childcare or Family Care: No Additional living arrangements comments: Lives in her own home in [place] though currently undergoing rehab. with 3 children. 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 Spiritual care concerns: No Meds Home Medications and Allergies Home Medications Medication Instructions Recorded Confirm
[2022-10-16 20:00] VITALS: PULSE 68; RESP 18; O2SAT 94
[2022-10-16 22:00] VITALS: BP 164/57; PULSE 68; RESP 18; TEMP 36.8; O2SAT 94
[2022-10-16 23:58] LABS: Anion Gap 4 mmol/L (8-16); Blood Urea Nitrogen 3 mg/dL (7-17); Calcium 7.7 mg/dL (8.4-10.2); Carbon Dioxide 24 mmol/L (22-30); Chloride 106 mmol/L (98-107); Estimated CRCL calculation 77 ml/min; Estimated Glomerular Filt Rate > 60; Glucose 122 mg/dL (65-110); Sodium 134 mmol/L (137-145)
[2022-10-17 00:29] LABS: Magnesium 1.2 mg/dL (1.6-2.3)
[2022-10-17] MEDS: SODIUM CHLORIDE 0.9% IV 1,000 ML 100 ML IV CONT ×2 (00:46→16:18)
[2022-10-17] MEDS: MELATONIN 5 MG TABLET PO (00:46)
[2022-10-17] MEDS: MAGNESIUM SULF 2 GM/WATER 50ML 2 GM/50 ML BAG IVPB (01:58)
[2022-10-17 06:00] VITALS: BP 139/66; PULSE 65; RESP 18; TEMP 36.9; O2SAT 98
[2022-10-17 06:39] LABS: Anion Gap 4 mmol/L (8-16); Blood Urea Nitrogen 4 mg/dL (7-17); Calcium 7.5 mg/dL (8.4-10.2); Carbon Dioxide 24 mmol/L (22-30); Chloride 101 mmol/L (98-107); Estimated CRCL calculation 77 ml/min; Estimated Glomerular Filt Rate > 60; Glucose 107 mg/dL (65-110); Magnesium 1.9 mg/dL (1.6-2.3); Potassium 2.8 mmol/L (3.4-5.0); Sodium 129 mmol/L (137-145)
[2022-10-17] MEDS: NITROFURANTOIN MONOHYD MACROCR 100 MG CAP PO ×2 (06:51→17:58)
[2022-10-17] MEDS: MAGNESIUM SULF 1 GM/D5W 100 ML 1 GM/100 ML BAG IVPB (07:05)
[2022-10-17 08:24] VITALS: PULSE 64; RESP 18; O2SAT 93
[2022-10-17] MEDS: POTASSIUM CHLORIDE INJ 40 MEQ in SODIUM CHLORIDE 0.9% IV 500 ML 130 MEQ IVPB (10:00)
[2022-10-17] MEDS: PARoxetine 20 MG TABLET PO (11:01)
[2022-10-17] MEDS: POTASSIUM CHLORIDE 20 MEQ TABLET 40 MEQ PO (11:01)
[2022-10-17] MEDS: PANTOPRAZOLE SODIUM IV 40 MG VIAL IV PUSH (11:01)
[2022-10-17] MEDS: PRAVASTATIN SODIUM 20 MG TABLET PO (11:02)
[2022-10-17] MEDS: MECLIZINE HCL 25 MG TABLET PO ×3 (11:02→17:58)
[2022-10-17] MEDS: THERAPEUTIC MULTIVITAMINS/MINERALS TAB (*BKC) 1 TABLET PO (11:02)
[2022-10-17] MEDS: ENOXAPARIN 40 MG/0.4 ML SYRINGE SUB-Q (11:02)
[2022-10-17] MEDS: CHOLECALCIFEROL 1,000 UNITS TABLET 5000 UNITS PO (11:02)
[2022-10-17] MEDS: FERROUS SULFATE 324 MG TABLET PO (11:02)
[2022-10-17] MEDS: DOCUSATE SODIUM 100 MG CAPSULE PO (11:02)
[2022-10-17] MEDS: FLUTICASONE PROPIONATE 0.05% NA SPR 16 GM BTL (*BKC) 2 SPRAY NASAL (11:03)
[2022-10-17] MEDS: CARBIDOPA/LEVODOPA 25/100 MG TABLET 1 TABLET PO ×4 (11:03→20:18)
[2022-10-17] MEDS: LOSARTAN POTASSIUM 50 MG TABLET PO (11:03)
--- NOTE | 2022-10-17 13:34 | WPDGIPROGNO ---
Progress Note: A&P Assessment and Plan (1) Nausea & vomiting: Code(s): R11.2 - Nausea with vomiting, unspecified Status: Acute Assessment and Plan: she is more comfortable now and says that able to eat will follow from afar, call if questions (2) Pyelonephritis: Code(s): N12 - Tubulo-interstitial nephritis, not specified as acute or chronic Status: Acute (3) Altered mental state: Code(s): R41.82 - Altered mental status, unspecified Status: Acute (4) Parkinson disease: Code(s): G20 - Parkinson's disease Status: Acute Subjective Date/time seen: 10/17/22 13:34 Interval history: she denies nausea and is comfortable Review of Systems Review of Systems: All systems reviewed & are unremarkable except as noted in HPI and below Exam Const: General: comfortable and no acute distress HENMT: Face/Nose/Sinus: Normal nares present Eyes: General: appearance normal, both eyes and all related structures Neck: Neck: no JVD Resp: Auscultation: clear to auscultation bilaterally Cardio: Rate: regular rate Rhythm: regular rhythm GI: Inspection: non-distended GI Palp: Yes Soft to palpation, No Tenderness to palpation present (GI) and No Guarding due to palpation present (GI) Skin: General skin exam: normal color Neuro: Speech: normal speech Extrem: General: normal to inspection Psych: Attitude: not belligerent Objective Data Vital Signs Vital Signs: Vital Signs - 24 hr 10/16/22 14:00 10/16/22 22:00 10/16/22 20:00 Temperature 97.6 F 98.2 F Pulse Rate 72 68 68 Respiratory Rate 18 18 18 Blood Pressure 156/66 H 164/57 H Pulse Oximetry 91 94 94 Oxygen Delivery Room Air Fraction of Inspired Oxygen 10/17/22 06:00 10/17/22 08:24 10/17/22 08:24 Temperature 98.5 F Pulse Rate 65 64 64 Respiratory Rate 18 18 18 Blood Pressure 139/66 Pulse Oximetry 98 93 Oxygen Delivery Room Air Fraction of Inspired Oxygen 21 Intake/Output Intake/Output: Intake & Output 10/14/22 10/15/22 10/16/22 10/17/22 23:59 23:59 23:59 23:59 Intake Total 4120 1960 4010 568 Output Total 3 1350 700 Balance 4120 1957 7280 -025 Meds/Results Medications: Active Medications Generic Name Dose Route Start Last Admin Trade Name Freq PRN Reason Stop Dose Admin Acetaminophen 650 mg 10/10/22 14:55 Acetaminophen 325 Mg Tablet PO Q4H PRN pain or fever Carbidopa/Levodopa 1 tablet 10/10/22 17:00 10/17/22 11:03 Carbidopa/Levodopa 25/100 Mg Tablet PO 1 tablet QID SOHAIL Administration Docusate Sodium 100 mg 10/11/22 09:00 10/17/22 11:02 Docusate Sodium 100 Mg Capsule PO 100 mg DAILY SOHAIL Administration Enoxaparin Sodium 40 mg 10/11/22 09:00 10/17/22 11:02 Enoxaparin 40 Mg/0.4 Ml Syringe SUB-Q 40 mg DAILY SOHAIL Administration Ferrous Sulfate 324 mg 10/11/22 08:00 10/17/22 11:02 Ferrous Sulfate 324 Mg Tablet PO 324 mg DAILY@0800 SOHAIL Administration Fluticasone Propionate 2 spray 10/11/22 09:00 10/17/22 11:03 Fluticasone Propionate 0.05% Na Spr 16 Gm Btl (*Bkc) NASAL 2 spray DAILY SOHAIL Administration Fluticasone/Umeclidinium/Vilanterol 1 puff 10/11/22 08:00 10/16/22 08:42 Fluticasone/Umeclidin/Vilanter 100-62.5-25 Mcg Ellipta INHALATION 1 puff DAILYRT SOHAIL Administration Sodium Chloride 1,000 mls @ 100 mls/hr 10/11/22 10:20 10/17/22 00:46 Normal Saline Iv IV CONT 100 mls/hr .Q10H SOHAIL Administration Loperamide HCl 2 mg 10/10/22 14:55 Loperamide Hcl 2 Mg Capsule PO Q6H PRN Diarrhea Losartan Potassium 50 mg 10/11/22 09:00 10/17/22 11:03 Losartan Potassium 50 Mg Tablet PO 50 mg DAILY SOHAIL Administration Meclizine HCl 25 mg 10/10/22 17:00 10/17/22 11:02 Meclizine Hcl 25 Mg Tablet PO 25 mg TID SOHAIL Administration Melatonin 5 mg 10/10/22 14:55 10/17/22 00:46 Melatonin 5 Mg Tablet PO 5 mg HS PRN Administration Insomnia Mul
[2022-10-17 14:00] VITALS: BP 124/85; PULSE 74; RESP 18; TEMP 36.6; O2SAT 98
--- NOTE | 2022-10-17 15:26 | PM.IMPN ---
Progress Note: A&P Assessment and Plan (1) Altered mental state: Code(s): R41.82 - Altered mental status, unspecified Status: Acute Assessment and Plan: Secondary to UTI Improving slowly. (2) Acute UTI (urinary tract infection): Code(s): N39.0 - Urinary tract infection, site not specified Status: Acute Assessment and Plan: Enterococcus in urine. Will switch abx as she is having nv and couple be related to ampicillin (3) Anemia: Code(s): D64.9 - Anemia, unspecified Status: Chronic Assessment and Plan: patient with history of anemia today her hemoglobin is close to normal will continue to monitor (4) Frequent falls: Code(s): R29.6 - Repeated falls Status: Acute Assessment and Plan: will have a PT OT evaluate the patient and further recommendation to follow (5) Nausea & vomiting: Code(s): R11.2 - Nausea with vomiting, unspecified Status: Acute Assessment and Plan: ct noted consult gi as she is having ongoing emesis will see if changing abx helps w n/v No emesis today. Will replace potassium. Monitor electrolytes Plan Altered mental state ? ? Secondary to UTI Improving slowly. Kalyani was noted to be unresponsive on admission now alert and oriented to self monitor Acute UTI (urinary tract infection): ?Enterococcus in urine.?on Nitrofurantoin Anemia: ?Code(s): D64.9 - Anemia, unspecified ?Status:?Chronic ?Assessment and Plan: ?patient with history of anemia today her hemoglobin is close to normal will continue to monitor Frequent falls: ?Code(s): R29.6 - Repeated falls ?Status:?Acute ?Assessment and Plan: ?will have a PT OT evaluate the patient and further recommendation to follow (5) Nausea & vomiting: ?Code(s): R11.2 - Nausea with vomiting, unspecified ?Status:?Acute ?Assessment and Plan: ct noted stable now Will replace potassium.? Monitor electrolytes Disposition: discharge tomorrow DVT prophylaxis on Sq Lovenox Subjective Date/time seen: 10/17/22 15:26 Interval history: She is comfortable unsure of baseline Review of Systems Review of Systems: ROS unobtainable: Yes unobtainable due to mental status Exam Narrative: Patient is comfortable, NAD HEENT: eyes are clear and none icteric LUNGS:Normal respiratory effort ABD: not disteneded Lower extremities: no edema SKIN: nonjaundiced Neuro: grossly intact confused. Objective Data Vital Signs Vital Signs: Vital Signs - 24 hr 10/16/22 22:00 10/16/22 20:00 10/17/22 06:00 Temperature 98.2 F 98.5 F Pulse Rate 68 68 65 Respiratory Rate 18 18 18 Blood Pressure 164/57 H 139/66 Pulse Oximetry 94 94 98 Oxygen Delivery Room Air Fraction of Inspired Oxygen 10/17/22 08:24 10/17/22 08:24 10/17/22 14:00 Temperature 97.9 F Pulse Rate 64 64 74 Respiratory Rate 18 18 18 Blood Pressure 124/85 Pulse Oximetry 93 98 Oxygen Delivery Room Air Fraction of Inspired Oxygen 21 Intake/Output Intake/Output: Intake & Output 10/14/22 10/15/22 10/16/22 10/17/22 23:59 23:59 23:59 23:59 Intake Total 4120 1960 4010 568 Output Total 3 1350 700 Balance 4120 1957 2660 -132 Meds/Results Medications: Active Medications Generic Name Dose Route Start Last Admin Trade Name Freq PRN Reason Stop Dose Admin Acetaminophen 650 mg 10/10/22 14:55 Acetaminophen 325 Mg Tablet PO Q4H PRN pain or fever Carbidopa/Levodopa 1 tablet 10/10/22 17:00 10/17/22 15:11 Carbidopa/Levodopa 25/100 Mg Tablet PO 1 tablet QID SOHAIL Administration Docusate Sodium 100 mg 10/11/22 09:00 10/17/22 11:02 Docusate Sodium 100 Mg Capsule PO 100 mg DAILY SOHAIL Administration Enoxaparin Sodium 40 mg 10/11/22 09:00 10/17/22 11:02 Enoxaparin 40 Mg/0.4 Ml Syringe SUB-Q 40 mg DAILY SOHAIL Administration Ferrous Sulfate 324 mg 10/11/22 08:00 10/17/22
--- NOTE | 2022-10-17 18:15 | PCOTNOTE ---
Patient refused treatment this session due to she verbalized she just returned to bed and was very nauseated and recently had thrown up. Patient refused to participate in any activity at this time.
[2022-10-17 21:26] VITALS: O2SAT 93
[2022-10-17 22:00] VITALS: BP 174/80; PULSE 76; RESP 18; TEMP 36.3; O2SAT 93
[2022-10-18 06:00] VITALS: BP 156/76; PULSE 57; RESP 16; TEMP 36.2; O2SAT 93
[2022-10-18 06:11] LABS: Basophils Percent Auto 0.9 % (0.2-1.2); Eosinophils Absolute Auto 0.1 K/mm3 (0-0.3); Eosinophils Percent Auto 3.4 % (0-4.4); Hematocrit 33.2 % (37.0-47.0); Hemoglobin 10.9 g/dL (12.0-15.0); Immature Granulocyte Absolute 0.03 K/mm3 (0.00-0.031); Immature Granulocyte Percent A 0.9 % (0-0.5); Immature Platelet Fraction Pct 3.4 % (0.9-11.2); Lymphocytes Absolute Auto 0.76 K/mm3 (0.9-3.2); Lymphocytes Percent Auto 23.6 % (18.3-44.2); Mean Corpuscular HGB Conc 32.8 g/dl (32-36); Mean Corpuscular Hemoglobin 32.1 pg (26-34); Mean Corpuscular Volume 97.6 fl (80-100); Mean Platelet Volume 11.2 fl (7.4-10.4); Monocytes Absolute Auto 0.4 K/mm3 (0.1-0.6); Monocytes Percent Auto 11.5 % (2.6-8.5); Neutrophils Absolute Auto 1.9 K/mm3 (1.3-6.7); Neutrophils Percent Auto 59.7 % (45.5-73.1); Platelet Count Result 104 k/mm3 (150-375); Red Cell Distribution Width 14.8 % (11.5-14.5); White Blood Count 3.2 K/mm3 (4.5-10.0)
[2022-10-18] MEDS: NITROFURANTOIN MONOHYD MACROCR 100 MG CAP PO ×2 (06:28→17:36)
[2022-10-18 06:36] LABS: Alanine Aminotransferase 9 U/L (6-35); Albumin Level 2.6 g/dL (3.5-5.1); Alkaline Phosphatase 99 U/L (38-126); Anion Gap 4 mmol/L (8-16); Aspartate Amino Transferase 17 U/L (14-36); Bilirubin,Total 0.7 mg/dL (0.2-1.3); Blood Urea Nitrogen 6 mg/dL (7-17); Calcium 7.7 mg/dL (8.4-10.2); Carbon Dioxide 23 mmol/L (22-30); Chloride 105 mmol/L (98-107); Estimated CRCL calculation 77 ml/min; Estimated Glomerular Filt Rate > 60; Glucose 91 mg/dL (65-110); Potassium 3.4 mmol/L (3.4-5.0); Sodium 132 mmol/L (137-145)
[2022-10-18] MEDS: PRAVASTATIN SODIUM 20 MG TABLET PO (08:52)
[2022-10-18] MEDS: DOCUSATE SODIUM 100 MG CAPSULE PO (08:52)
[2022-10-18] MEDS: FLUTICASONE PROPIONATE 0.05% NA SPR 16 GM BTL (*BKC) 2 SPRAY NASAL (08:52)
[2022-10-18] MEDS: PARoxetine 20 MG TABLET PO (08:52)
[2022-10-18] MEDS: MECLIZINE HCL 25 MG TABLET PO ×3 (08:52→17:36)
[2022-10-18] MEDS: THERAPEUTIC MULTIVITAMINS/MINERALS TAB (*BKC) 1 TABLET PO (08:52)
[2022-10-18] MEDS: ENOXAPARIN 40 MG/0.4 ML SYRINGE SUB-Q (08:52)
[2022-10-18] MEDS: CHOLECALCIFEROL 1,000 UNITS TABLET 5000 UNITS PO (08:52)
[2022-10-18] MEDS: FERROUS SULFATE 324 MG TABLET PO (08:53)
[2022-10-18] MEDS: CARBIDOPA/LEVODOPA 25/100 MG TABLET 1 TABLET PO ×4 (08:53→20:54)
[2022-10-18] MEDS: LOSARTAN POTASSIUM 50 MG TABLET PO (08:53)
[2022-10-18] MEDS: FLUTICASONE/UMECLIDIN/VILANTER 100-62.5-25 MCG ELLIPTA 1 PUFF INHALATION (09:25)
[2022-10-18 09:28] VITALS: PULSE 66; O2SAT 92
[2022-10-18] MEDS: PANTOPRAZOLE 40 MG TABLET PO (10:30)
--- NOTE | 2022-10-18 11:52 | PM.IMHP ---
H&P: HPI History of Present Illness Date/Time: 10/18/22 11:52 [facility] Past Medical History Medical History Anxiety with depression Benign essential hypertension Cigarette nicotine dependence COPD (chronic obstructive pulmonary disease) Depression DJD (degenerative joint disease), multiple sites DM type 2 (diabetes mellitus, type 2) Hiatal hernia Hyperlipidemia Parkinsonism Urinary tract infection Vitamin D deficiency Surgical History Surgical History H/O rhinoplasty History of colonoscopy History of laparoscopic appendectomy History of removal of pigmented skin lesion Hx of cornea transplant Family History Family History Mother Family history of diabetes mellitus in first degree relative Diabetes mellitus Father Family history of emphysema Family history of cardiovascular disease Family history of lung disease Family history of heart disease in male family member before age 55 Other Benign essential hypertension COPD (chronic obstructive pulmonary disease) Depression Family history of malignant neoplasm Hyperlipidemia Hypertension Vitamin D deficiency Social History Social History Social History: Surrogate medical decision maker: Taylor Cardona, daughter. Code status: Full code. Smoking packs per day: 2 Smoking cigarettes per day: 40.0 Years smoked: 57 Smoking pack-years: 114.00 Smoking status: Former smoker Tobacco type: cigarettes Smoking end date: 07/20/22 Alcohol intake: never Substance use: never Substance use type: does not use Lack of Transportation: YES Lack of Food: Never True Current Housing: I Have Housing Concerned About Future Housing: No Difficulty Paying Gas/Electric Bills: No Difficulty Paying for Meds: No Currently Unemployed: No Education: High School Diploma/GED Difficulty w/ Childcare or Family Care: No Additional living arrangements comments: Lives in her own home in [place] though currently undergoing rehab. with 3 children. 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 Spiritual care concerns: No Meds Home Medications and Allergies Home Medications Medication Instructions Recorded Confirmed Type cholecalciferol (vitamin D3) 125 125 mcg PO DAILY 09/05/20 10/10/22 History mcg (5,000 unit) capsule multivit with 1 tablet PO DAILY 09/05/20 10/10/22 History dfxnmsea-spjm-UW-lutein 8 mg iron-400 mcg-300 mcg tablet (Centrum Silver Women) fluticasone fur. 100 mcg-umeclid 1 inh inhalation DAILY #60 ea 05/14/22 10/10/22 Rx 62.5 mcg-vilant 25 mcg inhalat.powder (Trelegy Ellipta) alprazolam 0.5 mg tablet 0.5 mg PO TID #90 tabs 06/13/22 10/10/22 Rx carbidopa 25 mg-levodopa 100 mg 1 tablet PO QID 07/27/22 10/10/22 History tablet fluticasone propionate 50 2 spray intranasal DAILY 07/27/22 10/10/22 History mcg/actuation nasal spray,suspension losartan 50 mg tablet 50 mg PO DAILY 07/27/22 10/10/22 History meclizine 25 mg tablet 25 mg PO TID 07/27/22 10/10/22 History metformin 500 mg tablet 500 mg PO BID 07/27/22 10/10/22 History paroxetine HCl 20 mg tablet 20 mg PO DAILY 07/27/22 10/10/22 History pravastatin 20 mg tablet 20 mg PO DAILY 07/27/22 10/10/22 History ferrous sulfate 325 mg (65 mg 325 mg PO DAILY 08/21/22 10/10/22 History iron) tablet loperamide 2 mg capsule (Imodium 2 mg PO Q6H PRN Diarrhea 08/21/22 10/10/22 History A-D) melatonin 5 mg tablet 5 mg PO HS PRN Insomnia 08/21/22 10/10/22 History docusate sodium 100 mg capsule 100 mg PO DAILY #30 caps 08/29/22 10/10/22 Rx acetaminophen 325 mg tablet 650 mg PO Q4H PRN pain or fever 10/10/22 10/10/22 History amino acids-prote
--- NOTE | 2022-10-18 11:53 | PCNFU ---
Nutrition Follow-Up Complete: Inadequate energy intake related to NPO status as evidenced by diet order Goal:Meet estimated needs. Pt diet advanced to Regular Pt current nutrition is Regular, Ensure compact BID in place. Nutrition recommendation: Assistance and encouragment with all meals. Last recorded weight is 73.6 kg. Bowel Motility: +BM 10/14 Labs Reviewed: Hgb:10.9, HCT:33.2, Alb:2.6, Na:132, BUN:6, Cr:0.5 Meds Noted: colace, lovenox, zofran Skin: WNL Additional Notes: Pt diet advanced to regular. intake poor. Pt in room with breakfast try barely touched, did not respond to my questions but did drink the Ensure compact when prompted to. Recommend assistance and enouragement and cueing for all meals. Monito intake, wt, labs. Follow up in 3 days.
--- NOTE | 2022-10-18 11:53 | PM.DS ---
DS: Admitting Diagnosis Discharge Date 10/18/22 Admitting Diagnosis UTI with AMS DS: Summary Hospital Course Reason for hospitalization: AMS Hospital Course: Patient was brought to the ER on account of unresponsiveness, CT head was unremarkable, urine cutlure grew E fecalis and patient was started on Nitrofurantoin based on culture sensitivity. Today she is alert and oriented to person and place but not time. oral intaje well established and patient was placed on 5 days of Nitrofurantoin to complete 8 days course. Also Xanax was decreased to o.25 bid PRN and patient will f/u with PCP for complete weaning F/u with PCP in 3-5 days Time Spent with Patient Time attestation: Total time spent providing and/or coordinating discharge services: DS: Data Data Completed and Pending Labs on day of discharge: Labs from last 24 hours 10/18/22 10/18/22 05:38 05:38 WBC 3.2 L RBC 3.40 L Hgb 10.9 L Hct 33.2 L MCV 97.6 D MCH 32.1 MCHC 32.8 RDW 14.8 H Plt Count 104 L D MPV 11.2 H Immature Gran % (Auto) 0.9 H Neut % (Auto) 59.7 Lymph % (Auto) 23.6 [place] % (Auto) 11.5 H Eos % (Auto) 3.4 Baso % (Auto) 0.9 Lymph # (Auto) 0.76 L [place] # (Auto) 0.4 Eos # (Auto) 0.1 Baso # (Auto) 0.0 Abs Immat Gran (auto) 0.03 Absolute Neuts (auto) 1.9 Absolute Nucleated RBC 0.0 Nucleated RBC % 0.0 % Immature Plt Fraction 3.4 Sodium 132 L Potassium 3.4 Chloride 105 Carbon Dioxide 23 Anion Gap 4 L BUN 6 L Creatinine 0.50 L Estim Creat Clear Calc 77 Estimated GFR > 60 Glucose 91 Calcium 7.7 L Total Bilirubin 0.7 AST 17 ALT 9 Alkaline Phosphatase 99 Total Protein 6.0 L Albumin 2.6 L Discharge Plan Discharge Attending physician on discharge: Nickolas Phillip Consulting providers: Nicholas Jo Discharging Clinician: Nickolas Phillip Anticipated Discharge Date/Time: 10/18/22 11:44 Patient Disposition: NH Chcf/Asst Living Activity: as tolerated Diet: as tolerated Patient Instructions: Antibiotic Form, How to Stop Smoking (DC), Cigarette Smoking and Your Health (GEN), Urinary Tract Infection in Older Adults (DC) Stand Alone Forms: General Discharge Information, Custodial Discharge Follow-up/Referrals: Hoang Chris MD [Primary Care Provider] - (f/u with PCP in 3-5 days ) Discharge Medications: New nitrofurantoin macrocrystal 100 mg capsule 100 mg PO Q12H Qty: 10 0RF Rx Instructions: must administer with a meal/food Continued Centrum Silver Women 8 mg iron-400 mcg-300 mcg tablet 1 tablet PO DAILY cholecalciferol (vitamin D3) 125 mcg (5,000 unit) capsule 125 mcg PO DAILY Trelegy Ellipta 100-62.5-25 mcg blister with device 1 inh inhalation DAILY Qty: 60 3RF loperamide [Imodium A-D] 2 mg Capsule 2 mg PO Q6H PRN (Reason: Diarrhea) ferrous sulfate 325 mg (65 mg iron) Tablet 325 mg PO DAILY melatonin 5 mg Tablet 5 mg PO HS PRN (Reason: Insomnia) acetaminophen 325 mg Tablet 650 mg PO Q4H PRN (Reason: pain or fever) ondansetron [Zofran ODT] 4 mg Tablet,Disintegrating 4 mg PO Q6H PRN (Reason: Nausea) Adult Robitussin Cough-Cold D 30-15-200 mg/5 mL Solution 10 ml PO BID PRN (Reason: Cough) Pro-Stat Max 11 gram-80 kcal/30 mL Liquid 1 ea PO DAILY Trelegy Ellipta 100-62.5-25 mcg blister with device 1 inh INHALATION DAILY losartan 50 mg tablet 50 mg PO DAILY metformin 500 mg tablet 500 mg PO BID Rx Instructions: 500 mg orally meclizine 25 mg tablet 25 mg PO TID paroxetine HCl 20 mg tablet 20 mg PO DAILY pravastatin 20 mg tablet 20 mg PO DAILY carbidopa-levodopa 25-100 mg tablet 1 tablet PO QID fluticasone propionate 50 mcg/actuation spray,suspension 2 spray intranasal DAILY docusate sodium 100 mg capsule 100 mg PO DAILY Qty: 30 0RF Held alprazolam 0.5 mg tablet
[2022-10-18 12:18] LABS: EDCOVIDSCREEN Negative (Negative)
--- NOTE | 2022-10-18 13:35 | PCOTNOTE ---
Attempted to see Patient at this time. Patient had the plans to be discharged this date. Patient just recently began having current diarrhea and vomiting and had nurses assistance at this time. Patient unable to be seen at this time due to status.
[2022-10-18 14:00] VITALS: BP 142/81; PULSE 77; RESP 14; TEMP 36.6; O2SAT 93
[2022-10-18 22:00] VITALS: BP 167/80; PULSE 74; RESP 18; TEMP 36.2; O2SAT 91
--- NOTE | 2022-10-19 00:29 | PC.NURSE ---
Patient discharged via [facility] @ 4056 10/18/22. Sent to [facility]. Report previously called to Hattie.
== END 2022-10-18 22:05 | DRG 690 ==
LOC: ANHED 10:27 → ANH3MEDSUR 11:25
PROVIDERS: Chiropractor; Internal Medicine; Admitting Provider Student in an Organized Health Care Education/Training Program; Emergency Provider Emergency Medicine; PCP Internal Medicine; Visit Provider Internal Medicine
DX: N39.0 Urinary tract infection, site not specified (principal); B95.2 Enterococcus as the cause of diseases classified elsewhere; N12 Tubulo-interstitial nephritis, not specified as acute or chronic; R41.82 Altered mental status, unspecified; R11.2 Nausea with vomiting, unspecified; D64.9 Anemia, unspecified; E11.9 Type 2 diabetes mellitus without complications; E78.5 Hyperlipidemia, unspecified; E55.9 Vitamin D deficiency, unspecified; F03.90 Unspecified dementia, unspecified severity, without behavioral disturbance, psychotic disturbance, mood disturbance, and anxiety; F41.8 Other specified anxiety disorders; G20 Parkinson's disease; I10 Essential (primary) hypertension; J44.9 Chronic obstructive pulmonary disease, unspecified; R29.6 Repeated falls; R13.10 Dysphagia, unspecified; Z20.822 Contact with and (suspected) exposure to COVID-19; Z90.49 Acquired absence of other specified parts of digestive tract; Z87.891 Personal history of nicotine dependence
CPT/HCPCS: 36415; 51701; 70450; 70553; 74018; 74176; 80048; 80053; 81001; 83605; 83735; 85025; 85055; 85610; 85730; 87040; 87086; 87147; 87181; 87186; 87426; 87637; 92610; 93005; 94640; 96365; 96372; 97110; 97161; 97166; 97530; 99285; A9270; A9577; C9113; C9803; G0378; J0290; J0696; J1650; J2405; J3475; J3480; J7030; J7040

== ENCOUNTER 2025-01-01 18:44 | Emergency (ER) | payer MEDICARE, SELFPAY ==
--- NOTE | ~2025-01-01 | CT_ITS ---
CT brain wo con Ordering provider: Elizabeth Mott History: 79 years Female with . dizzy . Comparison: October 10, 2022 Technique: CT of the head without contrast. Radiation reduction technique utilized.The dose-length pr oduct was 1210.67 mGy-cm. FINDINGS: BRAIN PARENCHYMA AND CSF SPACES: Mild leukoaraiosis and diffuse cortical atrophy. Mild atheromatous d isease. No midline shift, mass effect or hemorrhage. The brain parenchyma and CSF spaces are otherwi se normal. VISUALIZED PARANASAL SINUSES: Bilateral ethmoid sinus disease. Otherwise, Well aerated. MASTOIDS: Well aerated. BONES: The bones appear intact. SOFT TISSUES: Visualized nasopharynx is normal. Superficial soft tissues are normal. IMPRESSION: No acute intracranial findings. Reviewed, dictated and finalized at location A.
--- OUTSIDE RECORDS SUMMARY | 2025-01-01 18:46 | XMS_ITS | Clinical Summary ---
Author Organization [facility] Address [address] [place] [address] Care Team Providers Care Senior Fund Accountant Name Role Phone Unknown, Provider Primary Care Provider Unavaila ble Source Comments [facility],non-owned Affiliates and Associated Physician Practices is amultiple site organization consisting of ambulatory clinics and hospital sitesin [place], [place], [place] and [place]. This disclosure is being madepursuant to the Care Everywhere program and may not contain all information available regarding this patient. Last updated 18.[facility] [employer]Say Allergies Active Allergy Reactions Criticality Noted Date Comments Cj Inhibitors Urticaria Medium 01/22/2024 Cefuroxime Urticaria Medium 01/22/2024 Olmesartan Urticaria Medium 01/22/2024 Prednisone Urticaria Medium 01/22/2024 Secobarbital Urticaria Medium 01/22/2024 Medications * Be aware that medications may not be up to date on this document. Alwaysverify current medications with the patient. pravastatin (Pravachol) 20 MG tablet 4 Active PARoxetine (Paxil) 20 MG tablet 3 Active metFORMIN (Glucophage) 500 MG tablet 4 Active losartan (Cozaar) 50 MG tablet Take 1 tablet every day by oral route. Active hydrocortisone (Cortisone -5) 0.5 % cream APPLY A THIN LAYER TO THE AFFECTED AREA(S) BY TOPICAL ROUTE 2 TIMES PER DAY Active Lovenox 40 MG/0.4ML injection Inject 0.4 mL every day by subcutaneous route. Active fluticasone propionate (Flonase) 50 MCG/ACT nasal spray Frakes 1 spray every day by intranasal route. 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 Gender Identity Not on file Sexual Orientation Not on file Plan of Treatment Health Maintenance Due Date Last Done Comments BONE DENSITY TESTING 1945 MEDICARE AWV 12 MONTHS 1945 DTAP/TDAP/TD VACCINES (1 - Tdap) 1963 PNEUMOCOCCAL VACCINE 50+ (1 of 1 - PCV) 1994 ZOSTER VACCINE (1 of 2) 1994 Respiratory Syncytial Virus (RSV) Vaccine Pt: or over 60 yrs (1 - 1-dose 75+ series) 2019 COVID-19 VACCINE ( - 2023-2 5 season) 2024 DEPRESSION SCREENING 09/16/2024 INFLUENZA VACCINE (Season Ended) 2025 HEPATITIS B VACCINE Aged Out No longe r eligible based on patient's age to complete this topic HIB VACCINE Aged Out No longer eligi ble based on patient's age to complete this topic HPV VACCINE Aged Out No longer eligi ble based on patient's age to complete this topic MENINGOCOCCAL (Group B) VACC INE SHARED DECISION-MAKING Aged Out No longer eligibl e based on patient's age to complete this topic MENINGOCOCCAL GROUPS A/C/Y/W VACCINE Aged Out No longer eligible b ased on patient's age to complete this topic Insurance MEDICARE [facility] Care Teams Senior Fund Accountant Relationship Specialty Start Date End Date Unknown, Provider PCP - General 01/22/24
--- OUTSIDE RECORDS SUMMARY | 2025-01-01 18:46 | XMS_ITS | CONTINUITY OF CARE DOCUMENT ---
Author Name cristian foster Address Unknown Organization [facility] Address [address] [place] [address] Phone [phone] Care Team Providers Care Assistant Professor Of Radiology Name Role Phone Shimon Viramontes MD Unavailable YESSENIA DUNCAN MD Unavailable [phone] YESSENIA DUNCAN MD Unavailable PROBLEMS Condition Status Date Provider Notes C O P D active Twyla Robledo NP Diabetes, Type 1 active Twyla Robledo NP Hyperlipidemia active Twyla Robledo NP Hypertension active Twyla Robledo NP Chest pain-type to be determined active She apolonia 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 Abnormal EKG active Twyla Robledo NP Dementia active Twyla Robledo NP ENCOUNTERS Date Type Provider Location Encounter Diag nosis - In-person encounter Office Visit Twyla Robledo NP [facility] C O P DDiabetes, Type 1HyperlipidemiaHypertensi onChest pain-type to be determinedAbnormal EKGDementia VITAL SIGNS Date Observation Value Provider Body Mass Index (Ratio) 22.46 kg/m2 Dewey Robledo 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 blood pressure, diastolic 70 mm[Hg] Elke Abernathy blood pressure, systolic 132 mm[Hg] Chhaya Colunga oxygen saturation, oximetry 96 % Leelee Abernathy pulse rate 81 /min Leelee Abernathy weight E&M 135 [lb_av] [facility] height E&M 65 [in_i] Leelee Abernathy HISTORY OF MEDICATION USE Medication Status Instructions Dates Provider Indications Com ments carbidopa-levodopa 25-100 mg tablet active Leeleemarleny Abernathy hydroxyzine pamoate 50 mg capsule active Leeleemarleny Abernathy trazodone 50 mg tablet active Leelee Ruju montelukast 10 mg tablet active Leelee Michela fluticasone propionate 50 mcg/actuation spray,suspension active Leelee Abernathy oxybutynin chloride 5 mg tablet extended release 24hr active Leelee Michela metformin 500 mg tablet active Leelee Ruju losartan 50 mg tablet active Leelee Michela guaifenesin 600 mg tablet extended release 12hr active Leelee Ruple pravastatin 20 mg tablet active Leelee Michela cholecalciferol (vitamin D3) 125 mcg (5,000 unit) capsule active Leelee Abernathy loperamide 2 mg tablet active Leelee Abernathy SOCIAL HISTORY Date Observation Value Provider smoking, year quit 2022 Twyla arana NP cigarette use yes Twyla Robledo NP smoking status Former smoker Twyla moscoso NP FAMILY HISTORY Family Member Condition Father Aortic Aneurysm INSURANCE PROVIDERS Payer name Policy type / Coverage type [place] red libertarian ID [facility] [id number] [place] Medicare [id number] TREATMENT PLAN Date Name Performer Cardiology:Per [place] PC P H er updated medication list for this problem includes: Metformin 500 Mg Tablet (Metformin) Losartan 50 Mg Tablet (Losartan) Twyla Robledo NP Cardiology:No acute findings. Aw ait echo Twyla Robledo NP Cardiology:Continue current meds H er updated medication list for this problem includes: Losartan 50 Mg Tablet (Losartan) Twyla Robledo NP Cardiology:Will check echo Mary Robledo NP Date Name Complete Echo EKG
[2025-01-01 18:47] VITALS: BP 115/89; PULSE 75; RESP 16; TEMP 36.4; O2SAT 98
--- OUTSIDE RECORDS SUMMARY | 2025-01-01 18:47 | XMS_ITS | Data Portability ---
Author Organization [place] - [employer], Main Office Address [address] [place] [address] Care Team Providers Care Custom Tailor Apprentice Name Role Phone YESSENIA DUNCAN Primary Care Provider Assessment Encounter Date Assessment Date Assessment LastModified by Organization Details LastModified Time 07/25/2023 07/25/2023 HPI: Patient returns. She is here for follow-up of her left hip. She is now 15 days out. She has been at her rehab facility. She has or lift. She is on Lovenox daily, 40 mg. Physical exam: Patient has no increased swelling in either lower extremity. Incisions well healed. She is alert. She is little bit more talkative today than she was in the hospital. So I think she is back at her baseline early dementia. She is pleasant. impression: Patient is 2 weeks out from left hip pinning. No continue the Lovenox in the for left at this point. We will see her back in a month with new x-rays of the hip. Not available 07/25/2023 12:36:29 08/22/2023 08/22/2023 HPI: Patient returns. She is now 6 weeks of screw fixation of left femoral neck fracture. She is at the rehab facility. They have been doing or lift. She states she is having no pain in left hip at all. She is actually very alert today. She was very confused when we treated her in the hospital and was almost nonverbal. At this point she is very verbal and is able to have a good conversation. She is complaining of no pain in the hip. She wants to get up walking at this point. She states that she has not had any Lovenox shots for 3 weeks even though I wrote orders last time she was here for this to be continued. Physical exam: Patient is in a wheelchair. She has no increased swelling in either lower extremity. She is able to flex the hip to 120 while seated and is complaining of no pain whatsoever. She has no pain with internal-tissue technologist al rotation of the hip. Impression: Patient's left femoral neck fracture appears to be healed on the x-rays. We will lower to be weight-bearing as tolerated at this point. See her back in 3 weeks for 1 final x-ray at that time. Not available 08/22/2023 11:37:39 09/12/2023 09/12/2023 HPI: Patient returns now she is 9 weeks out from a left hip pinning due to femoral neck fracture. She has been ambulating for the last 3 weeks with her walker. She is having no pain whatsoever in the hip when she is ambulating or any other activities. Physical exam: Patient is in the wheelchair today. She has no pain with range of motion of the hip. No increased swelling in either lower extremity. Impression: Patient's left femoral neck fracture looks to be well united on the x-rays. She is walking full weight for last 3 weeks and there has been no change in the x-rays so I think that she has good solid union. There has been no settling or backing out of screws. At this point she may increase activities as tolerated. We will see her back as needed. Instructions were written for her rehab facility. Not available 09/12/2023 12:03:14 Plan of Treatment Reminders Order Date Submit Date Provider Last Modified By Organization Details Last Modified Time Details Appointments None record ed. Lab None record ed. Referral None record ed. Procedures None record ed. Surgeries None record ed. Imaging XR, hip + pelvis , unilat eral, 2 or 3 view 023 09/12/20 23 [email or web address] 1 [facility], [address] [place] [address], [place], [address], 3 12:06:11 XR, hip + pelvis , unilat eral, 2 or 3 view 023 08/22/20 23 [email or web address] [facility], [address] [place] [address], [place], [address], 3 11:50:44 XR, hip + pelvis , unilat eral, 2 or 3 view 023 07/25/20 23 [email or web address] [facility], [address] [place] [address], [place], [address], 15:31:42 Medication Orders None record ed. Patient TargetsNo targets recorded. Patient InstructionsNo instructions recorded. Reason for Referral None Reported. Results Created Date Observation Date Name Description Value Unit Range Abnormal Flag Note LastModifiedBy Organization Detail LastModifiedTime 07/25/20 23 XR, hip + pelvi s, unila teral , 2 or 3 view No observ ation record ed. [facility] [address], [place], [address], 07/25/2023 12:35:31 08/22/20 23 XR, hip + pelvi s, unila teral , 2 or 3 view No observ ation record ed. [facility] [address], [place], [address], 08/22/2023 11:36:05 09/12/20 23 XR, hip + pelvi s, unila teral , 2 or 3 view No observ ation record ed. [email or web address] s_[facility] [address], [place], [address], 09/12/2023 12:02:15 Result Notes None recorded. Problems Name Problem SNOMED Code Status Onset Date Resolution Date Notes Provider Name and Address Organization Details Recorded Time Knee pain Active Not Available [facility] 3 12:45:15 Osteoarthriti s 519580762 Active Not Available [facility] 3 12:45:15 Closed fracture of hip 518998280 Active 2022 ARNOLDO [place], [place] - [facility] 3 11:18:30 Problem Notes None recorded. Procedures Surgical History None recorded. Imaging Results Imaging Date Name Status LastModified by [facility] Details LastModified Time 07/25/2023 XR, hip + pelvis, unilateral , 2 or 3 [email or web address] [address], [place], [address], 07/25/2023 12:35:31 08/22/2023 XR, hip + pelvis, unilateral , 2 or 3 view completed [email or web address] [facility] [address], [place], [address], 08/22/2023 11:36:05 09/12/2023 XR, hip + pelvis, unilateral , 2 or 3 view completed [facility] [address], [place], [address], 09/12/2023 12:02:15 Procedure Notes None recorded. Medical Equipment None Reported. Allergies Allergen ID Allergen Name Allergen Category Reaction Reaction Severity Criticality Documentation Date Start Date Code Code System Note Provider Name and Address Organization Details Recorded Time 39009 Product containin g angiotens in-conver ting enzyme inhibitor (product) medicatio n Not available Not available Not available 07/25/2023 41215 009 SNOMED Jenniferdavid Castro RMJohnnie sherman, [facility] 3 11:09:58 24491 cefuroxim e Not available Not available Not available Not available 07/25/2023 2194 RxNorm Jennifer Castro RMA null, [facility] 3 11:10:06 81905 olmesarta n medicatio n Not available Not available Not available 07/25/2023 42426 4 RxNorm Jennifer Castro RMA null, [facility] 3 11:10:13 59769 prednison e medicatio n Not available Not available Not available 07/25/2023 8640 RxNorm Jnenifer Castro RMA null, [facility] 3 11:10:28 82495 secobarbi jamie Not available Not available Not available Not available 07/25/2023 9624 RxNorm Jennifer Matthew, ARNOLDO null, [place] - [facility] 11:10:36 Medications Name Sig Start Date Stop Date Status Note LastModified by Organization Details LastModified Time losartan 50 mg tablet Take 1 tablet every day by oral route. active Not Available Not Available No t Available hydrocortis one 0.5 % topical cream APPLY A THIN LAYER TO THE AFFECTED AREA(S) BY TOPICAL ROUTE 2 TIMES PER DAY active Not Available Not Available No t Available metformin 500 mg tablet 07/25 completed Not Available Not Available Not Available Xanax 0.5 mg tablet Take 1 tablet 3 times a day by oral route. active Not Available Not Available No t Available prednisone 10 mg tablet 07/25 completed Not Available Not Available Not Available omeprazole 10 mg capsule,del ayed release 07/25 completed Not Available Not Available Not Available meclizine 25 mg tablet TK 1 T PO TID PRN 07/25 completed Not Available Not Available Not Available paroxetine 20 mg tablet TK 1 T PO BID 07/25 completed Not Available Not Available Not Available Advair Diskus 250 mcg-50 mcg/dose powder for inhalation 07/25 completed Not Available Not Available Not Available montelukast 10 mg tablet TK 1 T PO QD IN THE KWAK[place] 07/25 completed Not Available Not Available Not Available pravastatin 20 mg tablet TK 1 T PO QD 07/25 completed Not Available Not Available Not Available carbidopa 25 mg-levodopa 100 mg tablet TK 1 T PO QID 07/25 completed Not Available Not Available Not Available ondansetron 4 mg disintegrat ing tablet 07/25 completed Not Available Not Available Not Available Lovenox 40 mg/0.4 mL subcutaneou s syringe Inject 0.4 mL every day by subcutane ous route. active Not Available Not Available No t Available Pneumovax-2 3 25 mcg/0.5 mL injection syringe 07/25 completed Not Available Not Available Not Available acetaminoph en active Not Available Not Available Not Available ferrous sulfate active Not Available Not Available Not Available Colace active Not Available Not Availa ble Not Available pravastatin active Not Available Not A vailable Not Available Vitamin D3 active Not Available Not Av ailable Not Available metformin active Not Available Not Karoline ilable Not Available OneTouch Delica Lancets 33 gauge 07/25 completed Not Available Not Available Not Available OneTouch Verio test strips 07/25 completed Not Available Not Available Not Available OneTouch Verio Meter 07/25 completed Not Available Not Available Not Available Allergy Relief (fluticason e) 50 mcg/actuati on nasal spray,suspe nsion [place] 1 spray every day by intranasa l route. active Not Available Not Available No t Available Fluzone High-Dose 3276-9343 (PF) 180 mcg/0.5 mL intramuscul ar syringe 07/25 completed Not Available Not Available Not Available Trelegy Ellipta 100 mcg-62.5 mcg-25 mcg powder for inhalation Inhale 1 puff every day by inhalatio n route. active Not Available Not Available No t Available Vitals None Recorded Social History None recorded. Functional Status None recorded. Mental Status None recorded. Family History Nothing Reported. Medical History No medical history recorded. Gynecological HistoryNo gynecological history recorded. Obstetrics History GPAL:G 0 P 0 0 0 0 Past Encounters Encounter ID Performer Location Encounter Start Date Encounter Closed Date Diagnosis/Indication Diagnosis SNOMED-CT Code Diagnosis ICD10 Code Diagnosis Note [id number] PORSHA Valdivia [address] [address] 07/25/2023 10:39:02 07/25/2023 12:50:22 Closed fracture of hip 139148848 S72.012D [id number] PORSHA Valdivia [address] [address] 08/22/2023 10:37:22 08/22/2023 11:50:44 Closed fracture of hip 481933618 S72.012D [id number] PORSHA Valdivia [address] [address] 09/12/2023 11:17:36 09/12/2023 12:06:11 Closed fracture of hip 575120762 S72.012D Health Concerns Section Related Observation LastModified by Organization Detai ls LastModified Time None Recorded Concern Status LastModified by Organization Details LastModified Time None Recorded Advance Directives Directive None Recorded Payers Encounter Date Sequence Insurance Name Policy Number Policy Francois Covered Member ID Francois Member ID Guarantor Name 07/25/2023 1 [place] Emilee J Druhe [id number] Emilee J Druhe 07/25/2023 2 [place] [id number] Emilee J Druhe [id number] Emilee J Druhe 08/22/2023 1 [place] Emilee J Druhe [id number] Emilee J Druhe 08/22/2023 2 [place] [id number] Emilee J Druhe [id number] Emilee J Druhe 09/12/2023 1 [place] Emilee J Druhe [id number] Emilee J Druhe 09/12/2023 2 [place] [id number] Emilee J Druhe [id number] Emilee J Druhe OBGyn Episode No OBEpisode recorded.
--- OUTSIDE RECORDS SUMMARY | 2025-01-01 18:47 | XMS_ITS | Continuity of Care Document ---
Author Organization [facility] Address [address] [place] [address] [address] [place] [address] Phone Care Team Providers Care Molder Closed Molds Name Role Phone Salomon OD, Renzo Unavailable Unavailable Advance Directives Directive Yes / No Effective Date File Name No Information Encounters Encounter Description Practice Location Reason(s) For Visit Diagnoses Date Provider Providers Copied on Encounter [facility], [address] [place] [address] [address], [place], [place], [id number], [place] tel:[phone] [facility] [place] No Information Dec-2 9-200 4 Salomon OD Renzo. [address] [place] , [address], [place], [address], [place]. tel:[phone] Family History Family Member Type Diagnosis Age At Onset No Information Payers Payer name Insurance type Covered republican ID Authoriza tion(s) No Information Social History Type Description Quantity Date Captured Comments Sex Female Smoking Status No Information Chief Complaint And Reason For Visit No Information Reason For Referral Reason For Referral No Information History Of Present Illness Encounter Date Complaint History Of Prese nt Illness No Information Functional Status Date Functional Assessmen t No Information Instructions Date Instruction Additional Infor mation No Information Assessments Type Assessment Date No Information Patient Care Teams Name Effective Dates (start - stop) Status Members No Information
[2025-01-01 20:29] VITALS: BP 156/98; PULSE 63; RESP 17; O2SAT 100
[2025-01-01 20:31] LABS: Basophils Absolute Auto 0.1 K/mm3 (0.0-0.1); Basophils Percent Auto 1.4 % (0.2-1.2); Eosinophils Absolute Auto 0.1 K/mm3 (0-0.3); Eosinophils Percent Auto 1.4 % (0-4.4); Hematocrit 36.9 % (37.0-47.0); Hemoglobin 11.8 g/dL (12.0-15.0); Immature Granulocyte Absolute 0.01 K/mm3 (0.00-0.031); Immature Granulocyte Percent A 0.3 % (0-0.5); Lymphocytes Absolute Auto 0.85 K/mm3 (0.9-3.2); Lymphocytes Percent Auto 23.7 % (18.3-44.2); Mean Corpuscular Hemoglobin 31.1 pg (26-34); Mean Corpuscular Volume 97.1 fl (80-100); Monocytes Absolute Auto 0.7 K/mm3 (0.1-0.6); Monocytes Percent Auto 18.7 % (2.6-8.5); Neutrophils Percent Auto 54.5 % (45.5-73.1); Platelet Count Result 283 k/mm3 (150-375); White Blood Count 3.6 K/mm3 (4.5-10.0)
[2025-01-01] MEDS: SODIUM CHLORIDE 0.9% IV 1,000 ML 999 ML IV CONT (20:31)
[2025-01-01 20:39] LABS: Alanine Aminotransferase 8 U/L (6-35); Alkaline Phosphatase 86 U/L (38-126); Anion Gap 7 mmol/L (4-12); Aspartate Amino Transferase 20 U/L (14-36); Bilirubin,Total 0.7 mg/dL (0.2-1.3); Blood Urea Nitrogen 15 mg/dL (7-17); Calcium 9.1 mg/dL (8.4-10.2); Carbon Dioxide 27 mmol/L (22-30); Chloride 101 mmol/L (98-107); Estimated Glomerular Filt Rate > 60; Glucose 101 mg/dL (65-110); Magnesium 1.9 mg/dL (1.6-2.3); Potassium 3.9 mmol/L (3.4-5.0); Sodium 135 mmol/L (137-145)
--- NOTE | 2025-01-01 20:46 | ECG_ITS ---
Test Date: 2025-01-01 21:04:04 Measurements Intervals Yarnell Rate: 72 P: 71 MD: 205 QRS: 43 QRSD: 89 T: 74 QT: 417 QTc: 457 Interpretive Statements SINUS RHYTHM CANNOT R/O SEPTAL INFARCT, AGE INDETERMINATE BORDERLINE ST-T WAVE ABNORMALITY- INF/HIGH LAT LEADS BASELINE ARTIFACT- I, II, III, AVR, AVL, AVF, V1-V6 ABNORMAL ECG No previous ECG available for comparison Electronically Signed On 01-02-2025 07:03:16 CDT by Terry Maxwell D.O.
--- OUTSIDE RECORDS SUMMARY | 2025-01-01 20:57 | XMS_ITS | Continuity of Care Document ---
Author Organization [facility] Address [address] [place] [address] [address] [place] [address] Phone Care Team Providers Care Data Entry Processor Name Role Phone Salomon OD, Renzo Unavailable Unavailable Advance Directives Directive Yes / No Effective Date File Name No Information Encounters Encounter Description Practice Location Reason(s) For Visit Diagnoses Date Provider Providers Copied on Encounter [facility], [address] [place] [address] [address], [place], [place], [id number], [place] tel:[phone] [facility] [place] No Information Dec-2 9-200 4 Salomon OD Renzo. [address] [facility] [place] , [address], [place], [address], [place]. tel:[phone] Family History Family Member Type Diagnosis Age At Onset No Information Payers Payer name Insurance type Covered constitution party ID Authoriza tion(s) No Information Social History [...]
--- OUTSIDE RECORDS SUMMARY | 2025-01-01 20:57 | XMS_ITS | CONTINUITY OF CARE DOCUMENT ---
Author Name cristian foster Address Unknown Organization [facility] Address [address] [address] [place] [address] Phone [phone] Care Team Providers Care Manager Oracle Name Role Phone Shimon Viramontes MD Unavailable [phone] YESSENIA DUNCAN MD Unavailable YESSENIA DUNCAN MD Unavailable [phone] PROBLEMS Condition Status Date Provider Notes C O P D active Twyla Robledo NP Diabetes, Type 1 active Twyla Robledo NP Hyperlipidemia active Twyla Robledo NP Hypertension active Twyla Robledo NP Chest pain-type to be determined active She apolonia Robledo MANAGER CARDIOLOGY Abnormal EKG active Twyla Robledo NP Dementia active Twyla Robledo NP ENCOUNTERS Date Type Provider Location Encounter Diag nosis - In-person encounter Office Visit Twyla Robledo NP [place] [facility] C O P DDiabetes, Type 1HyperlipidemiaHypertensi onChest pain-type to be determinedAbnormal EKGDementia VITAL SIGNS Date Observation Value Provider Body Mass Index (Ratio) 22.46 kg/m2 Dewey Robledo MANAGER CARDIOLOGY blood pressure, diastolic 70 mm[Hg] Elke Abernathy blood pressure, systolic 132 mm[Hg] Chhaya Colunga oxygen saturation, oximetry 96 % Leelee Abernathy pulse rate 81 /min Leelee Abernathy weight E&M 135 [lb_av] [facility] E&M 65 [in_i] Leelee Abernathy HISTORY [...] Payer name Policy type / Coverage type Stonewall red constitution party ID [facility] [id number] [place] Medicare [id number] TREATMENT PLAN Date Name Performer Cardiology:Per [facility] updated medication list [...]
--- OUTSIDE RECORDS SUMMARY | 2025-01-01 20:57 | XMS_ITS | Clinical Summary ---
Author Organization [facility] Address [address] [place] [address] Care Team Providers Care Miniature Set Constructor Name Role Phone Unknown, Provider Primary Care Provider Unavaila ble Source Comments [facility],non-owned Affiliates and Associated Physician Practices is amultiple site organization consisting of ambulatory clinics and hospital sitesin [place], [place], [place] and [place]. This disclosure is being madepursuant to the Care Everywhere program and may not contain all information available regarding this patient. Last updated 18.[facility] Gaosouyi Allergies Active Allergy Reactions Criticality Noted Date [...] fluticasone propionate (Flonase) 50 MCG/ACT nasal spray [place] 1 spray every day by intranasal route. 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
--- NOTE | 2025-01-01 21:20 | ED_ITS ---
HPI - Fall General Chief Complaint: Fall Stated Complaint: glf around 1100 Time Seen by Provider: 01/01/25 20:48 History of Present Illness HPI Narrative: Patient is an 79-year-old female who presents the emergency department this evening complaining of vertigo. Patient states that she has been dealing with this vertigo for the past 4 months. States that today she had a ground level fall at her nursing facility. She lost her footing and fell backwards landing on her butt and then and hitting the back of her head on the couch cushion. Patient denies any loss of consciousness. States that since the fall she has noticed that her dizziness has worsened. No additional symptoms or concerns at this time. Related Data Home Medications ?Medication ?Instructions ?Recorded ?Confirmed ?Last Taken ?Type cholecalciferol (vitamin D3) 125 125 mcg PO DAILY 09/05/20 10/10/22 Unknown History mcg (5,000 unit) capsule uaqweamr-fmyq-xkah 8 mg-folic 400 1 tablet PO DAILY 09/05/20 10/10/22 Unknown History mcg-K 50 mcg-lutein 300 mcg tablet (Centrum [place] Women) carbidopa 25 mg-levodopa 100 mg 1 tablet PO QID 07/27/22 10/10/22 Unknown History tablet fluticasone propionate 50 2 spray intranasal DAILY 07/27/22 10/10/22 Unknown History mcg/actuation nasal spray,suspension meclizine 25 mg tablet 25 mg PO TID 07/27/22 10/10/22 Unknown History metformin 500 mg tablet 500 mg PO BID 07/27/22 10/10/22 Unknown History paroxetine HCl 20 mg tablet 20 mg PO DAILY 07/27/22 10/10/22 Unknown History ferrous sulfate 325 mg (65 mg 325 mg PO DAILY 08/21/22 10/10/22 Unknown History iron) tablet loperamide 2 mg capsule (Imodium 2 mg PO Q6H PRN Diarrhea 08/21/22 10/10/22 Unknown History A-D) melatonin 5 mg tablet 5 mg PO HS PRN Insomnia 08/21/22 10/10/22 Unknown History acetaminophen 325 mg tablet 650 mg PO Q4H PRN pain or fever 10/10/22 10/10/22 Unknown History amino acids-protein hydrolysate 11 1 ea PO DAILY 10/10/22 10/10/22 Unknown History gram-80 kcal/30 mL oral liquid (Pro-Stat Max) fluticasone fur. 100 mcg-umeclid 1 inh inhalation DAILY 10/10/22 10/10/22 Unknown History 62.5 mcg-vilant 25 mcg inhalat.powder (Trelegy Ellipta) ondansetron 4 mg disintegrating 4 mg PO Q6H PRN Nausea 10/10/22 10/10/22 Unknown History tablet cflyiklsamznfem-QV-kdzwtenyuub 30 10 ml PO BID PRN Cough 10/10/22 10/10/22 Unknown History mg-15 mg-200 mg/5 mL oral solution Allergies Allergy/AdvReac Type Severity Reaction Status Date / Time VONNIE Inhibitors Allergy Unknown Unknown Verified 01/01/25 18:47 erythromycin base Allergy Unknown Unknown Verified 01/01/25 18:47 Macrolide Antibiotics Allergy Unknown Unknown Verified 01/01/25 18:47 prednisone Allergy Unknown Unknown Verified 01/01/25 18:47 secobarbital Allergy Unknown HIVES Verified 01/01/25 18:47 cefuroxime (From Ceftin) AdvReac Mild Diarrhea Verified 01/01/25 18:47 olmesartan AdvReac Unknown Confusion Verified 01/01/25 18:47 amoxicillin AdvReac Nausea and Verified 01/01/25 18:47 Vomiting Review of Systems 2 Review of Systems: All systems are reviewed and are negative unless stated otherwise in the HPI. [facility] Past Medical History Medical History Depression Urinary tract infection Cigarette nicotine dependence COPD (chronic obstructive pulmonary disease) Vitamin D deficiency Anxiety with depression DM type 2 (diabetes mellitus, type 2) DJD (degenerative joint disease), multiple sites Parkinsonism Hyperlipidemia Hiatal hernia Benign essential hypertension Surgical History Surgical History History of removal of pigmented skin lesion H/O rhinoplasty Hx of cornea transplant History of laparoscopic appendectomy History of colonoscopy Family History Family History Mother Family history of diabetes mellitus in first degree relative Diabetes mellitus Father Family history of emphysema Family history of cardiovascular disease Family history of lung disease Family history of heart disease in male family member before age 55 Other Benign essential hypertension COPD (chronic obstructive pulmonary disease) Depression Family history of malignant neoplasm Hyperlipidemia Hypertension Vitamin D deficiency Social History Social History Social History: Surrogate medical decision maker: Taylor Cardona, daughter. Code status: Full code. Smoking packs per day: 2 Smoking cigarettes per day: 40.0 Years smoked: 57 Smoking pack-years: 114.00 Smoking status: Former smoker Tobacco type: cigarettes Smoking end date: 07/20/22 Alcohol intake: never Substance use: never Substance use type: does not use Lack of Transportation: YES Lack of Food: Never True Current Housing: I Have Housing Concerned About Future Housing: No Difficulty Paying Gas/Electric Bills: No Difficulty Paying for Meds: No Currently Unemployed: No Education: High School Diploma/GED Difficulty w/ Childcare or Family Care: No Additional living arrangements comments: Lives in her own home in [place] though currently undergoing rehab. with 3 children. 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 Spiritual care concerns: No Exam 2 Narrative: General: Alert, awake, afebrile, in no acute distress, pleasant elderly female. HEENT: PERRL, no rhinorrhea, no post nasal drip, oropharynx clear. Neck: Trachea midline, no JVD, no lymphadenopathy. Cardiovascular: Regular rate and rhythm, no murmurs, rubs or gallops, no peripheral edema. Respiratory: Clear to auscultation bilaterally, no tachypnea, no wheezing, no rhonchi, no rubs, no respiratory distress. Abdomen: Soft, nontender, nondistended, no rebound, no guarding, no peritoneal signs. Musculoskeletal: No joint swelling or deformity, normal muscle tone. Skin: No rashes or petechia, no signs of infection. Psychiatric: Alert and oriented, normal behavior and judgment for situation. Neurological: Alert and oriented to person, place, and time. Follows all commands. No focal deficits, speech is clear and fluent. Course Vital Signs Vital signs: Vital Signs Temperature 97.5 F L 01/01/25 18:47 Pulse Rate 75 01/01/25 18:47 Respiratory Rate 16 01/01/25 18:47 Blood Pressure 115/89 01/01/25 18:47 Pulse Oximetry 98 01/01/25 18:47 Temperature 97.5 F L 01/01/25 18:47 Pulse Rate 63 01/01/25 20:29 Respiratory Rate 17 01/01/25 20:29 Blood Pressure 156/98 H 01/01/25 20:29 Pulse Oximetry 100 01/01/25 20:29 MDM - Fall MDM Narrative Medical decision making narrative: The patient was evaluated by myself in the emergency department. History is obtained from patient who is an independent historian and physical exam was performed. External medical records were reviewed at this time. IV was established and pertinent tests were ordered. Patient was administered 1 L IV fluid bolus with normal saline and 12.5 mg of oral meclizine. EKG was obtained which revealed sinus rhythm rate of 72 beats per minute, no evidence of acute ischemia. EKG was independently interpreted by me and is currently pending official cardiology read. Laboratory results obtained revealing white blood cell count of 3.6, patient's white blood cell count tends to be low with her last documented level noted to be 3.2, otherwise remainder of the blood work is unremarkable. Imaging studies obtained included CT brain without IV contrast which was independently interpreted by me revealing no acute intracranial process, which is pending final radiology interpretation. Differential diagnosis considerations include benign positional vertigo, dehydration, orthostatic hypotension, posterior stroke although unlikely given patient's lack of any neurological findings and normal neurological exam. Comorbidities impacting this visit include history of vertigo. I have evaluated and discussed social determinants of health with the patient that could potentially impact subsequent diagnosis and treatment plans. On repeat assessment of the patient, reevaluation revealed that the patient is doing well and is in no acute distress. Patient symptoms have improved since she arrived to our emergency department. Repeat vital signs were all reviewed and noted to be stable. Differential diagnosis and treatment plan were discussed with the patient at bedside. Patient agrees with discussion and after shared medical decision making agrees with discharge. All questions were answered to the patient's satisfaction. Patient will follow up with ENT in 3-5 days. Patient was provided with strict return precautions and instructed to return to the emergency department if any new or worsening symptoms develop. The patient was discharged in stable condition. Lab Data 01/01/25 20:19 01/01/25 20:19 Labs: Lab Results 01/01/25 Range/Units 20:19 WBC 3.6 L (4.5-10.0) K/mm3 RBC 3.80 L (4.2-5.4) M/mm3 Hgb 11.8 L (12.0-15.0) g/dL Hct 36.9 L (37.0-47.0) % MCV 97.1 (80-100) fl MCH 31.1 (26-34) pg MCHC 32.0 (32-36) g/dl RDW 13.0 (11.5-14.5) % Plt Count 283 D (150-375) k/mm3 MPV 9.0 (7.4-10.4) fl Immature Gran % (Auto) 0.3 (0-0.5) % Neut % (Auto) 54.5 (45.5-73.1) % Lymph % (Auto) 23.7 (18.3-44.2) % [place] % (Auto) 18.7 H (2.6-8.5) % Eos % (Auto) 1.4 (0-4.4) % Baso % (Auto) 1.4 H (0.2-1.2) % Lymph # (Auto) 0.85 L (0.9-3.2) K/mm3 [place] # (Auto) 0.7 H (0.1-0.6) K/mm3 Eos # (Auto) 0.1 (0-0.3) K/mm3 Baso # (Auto) 0.1 (0.0-0.1) K/mm3 Abs Immat Gran (auto) 0.01 (0.00-0.031) K/mm3 Absolute Neuts (auto) 2.0 (1.3-6.7) K/mm3 Absolute Nucleated RBC 0.000 (0.0-0.012) K/mm3 Nucleated RBC % 0.0 (0.0-0.2) % Sodium 135 L (137-145) mmol/L Potassium 3.9 (3.4-5.0) mmol/L Chloride 101 (98-107) mmol/L Carbon Dioxide 27 (22-30) mmol/L Anion Gap 7 (4-12) mmol/L BUN 15 D (7-17) mg/dL Creatinine 0.69 L (0.7-1.0) mg/dL Estim Creat Clear Calc Not Reportable Estimated GFR > 60 (59 - ) Glucose 101 (65-110) mg/dL Calcium 9.1 (8.4-10.2) mg/dL Magnesium 1.9 (1.6-2.3) mg/dL Total Bilirubin 0.7 (0.2-1.3) mg/dL AST 20 (14-36) U/L ALT 8 (6-35) U/L Alkaline Phosphatase 86 (38-126) U/L Total Protein 7.0 (6.3-8.2) g/dL Albumin 4.0 (3.5-5.1) g/dL Discharge Plan Discharge Clinical Impression: Vertigo Patient Disposition: SNF Condition: Improved Instructions: Benign Paroxysmal Positional Vertigo (DC) Additional Instructions: Please follow-up with the ENT physician you were provided with today within the next 3-5 days regarding her vertigo. Return to the emergency department if any new or worsening symptoms develop. Patient Language: Turkish Prescriptions: No Action Centrum [place] Women 8 mg iron-400 mcg-300 mcg tablet 1 tablet PO DAILY cholecalciferol (vitamin D3) 125 mcg (5,000 unit) capsule 125 mcg PO DAILY Trelegy Ellipta 100-62.5-25 mcg blister with device 1 inh inhalation DAILY Qty: 60 3RF loperamide [Imodium A-D] 2 mg Capsule 2 mg PO Q6H PRN (Reason: Diarrhea) ferrous sulfate 325 mg (65 mg iron) Tablet 325 mg PO DAILY melatonin 5 mg Tablet 5 mg PO HS PRN (Reason: Insomnia) acetaminophen 325 mg Tablet 650 mg PO Q4H PRN (Reason: pain or fever) ondansetron 4 mg Tablet,Disintegrating 4 mg PO Q6H PRN (Reason: Nausea) gxhhblgxennejuc-AU-ifdfagzbaxk 30-15-200 mg/5 mL Solution 10 ml PO BID PRN (Reason: Cough) Pro-Stat Max 11 gram-80 kcal/30 mL Liquid 1 ea PO DAILY Trelegy Ellipta 100-62.5-25 mcg blister with device 1 inh INHALATION DAILY nitrofurantoin macrocrystal 100 mg capsule 100 mg PO Q12H Qty: 10 0RF Rx Instructions: must administer with a meal/food metformin 500 mg tablet 500 mg PO BID Rx Instructions: 500 mg orally meclizine 25 mg tablet 25 mg PO TID paroxetine HCl 20 mg tablet 20 mg PO DAILY carbidopa-levodopa 25-100 mg tablet 1 tablet PO QID fluticasone propionate 50 mcg/actuation spray,suspension 2 spray intranasal DAILY docusate sodium 100 mg capsule 100 mg PO DAILY Qty: 30 0RF alprazolam 0.5 mg tablet 0.5 mg PO TID Qty: 90 0RF pravastatin 20 mg tablet See Rx Instructions .ROUTE .COMPLEX Qty: 90 0RF Dose Instruction: TAKE 1 TABLET BY MOUTH DAILY Rx Instructions: TAKE 1 TABLET BY MOUTH DAILY losartan 50 mg tablet See Rx Instructions .ROUTE .COMPLEX Qty: 90 0RF Dose Instruction: TAKE 1 TABLET BY MOUTH EVERY DAY Rx Instructions: TAKE 1 TABLET BY MOUTH EVERY DAY Follow-up/Referrals: Colten,MD [place] [Primary Care Provider] - Delano Burr MD [Physician] - 3 Days Time of Disposition: 22:16
[2025-01-01 21:47] VITALS: BP 146/98; PULSE 75; RESP 19
[2025-01-01 22:02] VITALS: BP 128/70; RESP 16
[2025-01-01] MEDS: MECLIZINE HCL 12.5 MG TABLET PO (22:13)
[2025-01-01 22:16] VITALS: BP 148/63; PULSE 75; RESP 11; O2SAT 93
[2025-01-01 22:31] VITALS: BP 141/63; O2SAT 97
== END 2025-01-01 23:42 ==
PROVIDERS: Emergency Provider Emergency Medicine; PCP Internal Medicine
DX: R42 Dizziness and giddiness (principal); I10 Essential (primary) hypertension; J44.9 Chronic obstructive pulmonary disease, unspecified; E55.9 Vitamin D deficiency, unspecified; E11.9 Type 2 diabetes mellitus without complications; E78.5 Hyperlipidemia, unspecified; G20.C Parkinsonism, unspecified; K44.9 Diaphragmatic hernia without obstruction or gangrene; F41.8 Other specified anxiety disorders; Z94.7 Corneal transplant status; Z87.440 Personal history of urinary (tract) infections; Z87.891 Personal history of nicotine dependence; Z79.84 Long term (current) use of oral hypoglycemic drugs; Z79.899 Other long term (current) drug therapy
CPT/HCPCS: 36415; 70450; 80053; 83735; 85025; 93005; 96360; 99283; 99284; A9270; J7030

== ENCOUNTER 2025-02-16 12:29 | Outpatient (CLI) | payer MEDICARE, SELFPAY ==
--- OUTSIDE RECORDS SUMMARY | 2025-02-16 12:38 | XMS_ITS | CONTINUITY OF CARE DOCUMENT ---
Author Name cristian foster Address Unknown Organization [facility] Address [address] [place] [address] Phone [phone] Care Team Providers Care Job Coach Name Role Phone Shimon Viramontes MD Unavailable [phone] YESSENIA DUNCAN MD Unavailable [phone] YESSENIA DUNCAN MD Unavailable [phone] PROBLEMS Condition Status Date Provider Notes Diabetes, Type 1 active Twyla Robledo NP Hyperlipidemia active Twyla Robledo NP Hypertension active Twyla Robledo NP Chest pain-type to be determined active She apolonia Robledo CAR HOSTLER Abnormal EKG active Twyla Robledo NP Dementia active Twyla Robledo NP C O P D active Twyla Robledo CAR HOSTLER ENCOUNTERS Date Type Provider Location Encounter Diag nosis - In-person encounter Office Visit Twyla Robledo NP [facility] C O P DDiabetes, Type 1HyperlipidemiaHypertensi onChest pain-type to be determinedAbnormal EKGDementia VITAL SIGNS Date Observation Value Provider Body Mass Index (Ratio) 22.46 kg/m2 Dewey Robledo CAR HOSTLER blood pressure, diastolic 70 mm[Hg] Elke Abernathy blood pressure, systolic 132 mm[Hg] Chhaya diandra Abernathy oxygen saturation, oximetry 96 % Leelee Abernathy pulse rate 81 /min Leelee Abernathy weight E&M 135 [lb_av] [facility] height E&M 65 [in_i] Leelee Abernathy [...] Payer name Policy type / Coverage type [place] [employer] party ID [facility] [id number] [place] [employer] Medicare [id number] TREATMENT PLAN Date Name Performer Cardiology:Per [facility] updated medication list [...]
--- OUTSIDE RECORDS SUMMARY | 2025-02-16 12:38 | XMS_ITS | Clinical Summary ---
Author Organization [facility] Address [address] [place] [address] Care Team Providers Care Graduating Machine Operator Name Role Phone Unknown, Provider Primary Care Provider Unavaila ble Source Comments [facility],non-owned Affiliates and Associated Physician Practices is amultiple site organization consisting of ambulatory clinics and hospital sitesin [place], [place], [place] and [place]. This disclosure is being madepursuant to the Care Everywhere program and may not contain all information available regarding this patient. Last updated 18.[email or web address] Allergies Active Allergy Reactions Criticality Noted Date [...] fluticasone propionate (Flonase) 50 MCG/ACT nasal spray [place] 1 spray every day by intranasal route. 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
--- OUTSIDE RECORDS SUMMARY | 2025-02-16 12:38 | XMS_ITS | Continuity of Care Document ---
Author Organization [facility] Address [address] [place] [address] [address] [place] [address] Phone Care Team Providers Care Rod Puller And Coiler Name Role Phone Salomon OD, Renzo Unavailable Unavailable Advance Directives Directive Yes / No Effective Date File Name No Information Encounters Encounter Description Practice Location Reason(s) For Visit Diagnoses Date Provider Providers Copied on Encounter [facility], [address] [place] [address] [address], [place], [place], [id number], [place] tel:[phone] [facility] No Information Dec-2 9-200 4 Salomon OD Renzo. [address] , [address], [place], [address], [place]. tel:[phone] Family History Family Member Type Diagnosis Age At Onset No Information Payers Payer name Insurance type Covered green party ID Authoriza tion(s) No Information Social [...]
== END 2025-02-16 12:30 | disposition home or self-care (01) ==
LOC: ANHAUDIO 12:30
PROVIDERS: PCP Internal Medicine; Visit Provider Otolaryngology Otolaryngology/Facial Plastic Surgery
DX: H93.19 Tinnitus, unspecified ear (principal); Z97.4 Presence of external hearing-aid; H90.3 Sensorineural hearing loss, bilateral; H61.21 Impacted cerumen, right ear; R42 Dizziness and giddiness
CPT/HCPCS: 92557; 92567